=== PATIENT | female | born 1945 | race Caucasian/White ===

== ENCOUNTER 2019-05-05 14:34 | Outpatient (CLI) | payer MEDICARE, MEDICAID, SELFPAY ==
--- NOTE | 2019-05-05 14:45 | CT_ITS ---
WS: [id number] CT CHEST TECHNIQUE: Contrast enhanced CT of the chest with coronal and sagittal reformatted images. CLINICAL INFORMATION: ABNORMAL FINDINGS ON DIAGNOSTIC IMAGING, ABNORMAL CHEST XRAY COMPARISON: 8 9,019 DLP: 935.[address] scans at [facility] use at least one of these dose optimization techniques: automat ed exposure control; mA and/or kV adjustment per patient size (includes targeted exams where dose is matched to clinical indication); or iterative reconstruction. FINDINGS: Mild chronic emphysematous changes. Cardiomegaly. Tiny subpleural nodules in the upper lobes measurin g 2 to 3 mm are unchanged in appearance since the prior examination. No new suspicious pulmonary opac ities. No acute pulmonary infiltrates. No consolidation or pleural fluid. No mediastinal or hilar lymphadenopathy. Postoperative changes gastric esophageal junction. Adrenal g lands are normal. Fatty atrophy of the pancreas. Cardiac pacer. Surgical clips at the thoracic inlet. Aortic calcification. Hypertrophic changes thoracic spine with multilevel degenerative narrowing. CT/CT chest w con* [id number] IMPRESSION: 1. Mild chronic emphysematous changes. 2. Tiny subpleural nodule in the left upper lobe measuring 3 mm and additional 2-3 tiny subpleural nodules in the right upper lobe are unchanged. Recommend 1 2 month follow-up. 3. No mediastinal or hilar lymphadenopathy. 4. Postoperative changes GE junction.
[2019-05-05] MEDS: iohexol 300 mg/mL 100 mL Btl IV (15:17)
== END 2019-05-05 14:35 | disposition home or self-care (01) ==
PROVIDERS: Family Provider Nurse Practitioner Family; PCP Nurse Practitioner Family; Visit Provider Nurse Practitioner Family
DX: J43.9 Emphysema, unspecified (principal); R93.89 Abnormal findings on diagnostic imaging of other specified body structures; R91.1 Solitary pulmonary nodule; Z98.890 Other specified postprocedural states
CPT/HCPCS: 71260; Q9967

== ENCOUNTER 2019-07-22 07:13 | Emergency (ER) | payer MEDICARE, MEDICAID, SELFPAY ==
[2019-07-22 07:14] VITALS: BP 125/64; PULSE 78; RESP 18; TEMP 36.7; O2SAT 94; BMI 39.4
--- NOTE | 2019-07-22 07:24 | ED_ITS ---
HPI - Extremity Problem General: Chief complaint: Extremity Problem,Nontraumatic Stated complaint: LOW BACK AND RIGHT KNEE PAIN Time Seen by Provider: 07/22/19 07:23 Source: patient and EMS Mode of arrival: EMS Limitations: no limitations History of Present Illness: HPI Narrative: Patient is a 74-year-old female who presents to ED today via EMS for complaints of chronic back pain and acute right lower extremity pain. Patient states she suffers from chronic back pain over the past several years. She has been told that she has what sounds to be an osteophyte on one of her discs. Patient tells me the pain today is not any different than her normal pain. She states yesterday however she was feeling good and decided to get up and dust her house and afterwards began noticing right knee pain. Denies any known injury or trauma to the knee. She is not complaining of hip pain or pain anywhere else throughout the extremity. She denies numbness, tingling, loss of sensation. Patient is normally ambulatory with the help of a walker but states she cannot walk now due to pain in the knee. MD Complaint: joint paint Onset (ago): day(s) (yesterday) Location: right Relieving factors: immobilization Exacerbating factors: range of motion, weight bearing, walking and palpation Associated symptoms: Deny chest pain or fever(s) Review of Systems General: Reports: 10 or more systems reviewed and unremarkable except in HPI and below Const: Denies: fever, chills, body aches, fatigue or malaise Eyes: Denies: change in vision, blurry vision or photophobia Card: Denies: chest pain, palpitations, irregular heart rhythm, edema, swelling of feet/ankles, lightheadedness, syncope or pre-syncope Resp: Denies: shortness of breath, productive cough or chest congestion GI: Denies: abdominal pain, nausea, vomiting or diarrhea : Denies: flank pain, difficulty urinating, painful urination, urinary frequency, urinary urgency or urinary hesitancy Musc: Reports: back pain (chronic), joint pain (R knee) and limited range of motion (R knee); Denies: neck pain, extremity pain, extremity swelling or joint swelling Neuro: Denies: headache, numbness in extremities, weakness in extremities, changes in sensation, lack of coordination or dizziness [facility] ED PFSH: Social History Smoking and tobacco status: never smoked Physical Exam Const: COMMON NORMALS: no apparent distress, oriented x3, no limitations and alert NUTRITIONAL APPEARANCE: obese HENMT: COMMON NORMALS: normocephalic and head/scalp atraumatic HEAD & SCALP: normocephalic and atraumatic Resp: COMMON NORMALS: normal respiratory effort and clear to auscultation bilaterally AUSCULTATION: clear to auscultation bilaterally Cardio: COMMON NORMALS: regular rate and regular rhythm RATE: regular rate RHYTHM: regular rhythm GI: COMMON NORMALS: normal to inspection, nondistended, normoactive bowel sounds, soft to palpation, non-tender, no hepatosplenomegaly and no masses PALPATION: Yes soft and Yes no hepatosplenomegaly : COMMON NORMALS: Yes no CVA tenderness BLADDER/KIDNEY EXAM: Yes no CVA tenderness Back/Pelvis: COMMON NORMALS: no CVA tenderness THORACIC SPINE/UPPER BACK: No thoracic spinal tenderness and No paraspinal muscle tenderness LUMBAR SPINE/LOWER BACK: Yes lumbar spinal tenderness and No paraspinal muscle tenderness Extremity: OTHER: bilateral previous TKA; she is tender to R knee and pt does not cooperate with any form of ROM testing-exam of the knee is limited due to body habitus; she denies tenderness anywhere else to extremity; joint is not red, warm, or swollen; pulses and cap refill intact Neuro: COMMON NORMALS: oriented x3 SENSORIUM/ORIENTATION: Yes alert Skin: COMMON NORMALS: no rashes or lesions noted GENERAL SKIN EXAM: no rashes or lesions noted Course Vital Signs: Vital signs: Vital Signs Temperature 98.1 F 07/22/19 07:14 Pulse Rate 78 07/22/19 07:14 Respiratory Rate 18 07/22/19 07:14 Blood Pressure 125/64 07/22/19 07:14 Pulse Oximetry 96 07/22/19 07:32 MDM - Extremity (Nontraumatic) MDM Narrative: Medical decision making narrative: Spoke with Dr. Simmons regarding XR findings who agreed with setting pt up with outpt orthopedic follow up Imaging Data^: R knee XR: Radiologist's impression: [address] [address] XRay Report Signed Patient: Pallavi Saha Unit #: [id number] : 1945 Age/Sex: 74 / F ADM Date: 07/22/19 Loc: ER Room/Bed: Attending Dr: Ordering Provider/Ordering MD: Lianne Cutler Date of Service: 07/22/19 Procedure(s): XR knee RT 3V* [id number] Accession Number(s): [id number] Report Number: [id number] PROCEDURE INFORMATION: Exam: XR Right Knee Exam date and time: 07/22/2019 7:23 AM Age: 74 years old Clinical indication: Pain; Right; Prior surgery; Surgery date: 6+ months; Surgery type: Knee replacement TECHNIQUE: Imaging protocol: XR Right knee. Views: 3 views. COMPARISON: No relevant prior studies available. FINDINGS: Bones/joints: Patient is status post knee arthroplasty with near anatomical alignment of the prosthesis. No paralleling lucencies about the femoral or tibial component to suggest loosening. No acute fracture or dislocation Small ossific densities about the inferior pole of the patella. Question patella Richards. Possible patellar tendon tear. Soft tissues: Ossified density within the suprapatellar bursa of approximately 2 cm. Site of origin likely the patella. Correlate. Vasculature: Vascular stent within the anterior tibial artery Other findings: Spacer. XR/XR knee RT 3V* [id number] IMPRESSION: 1. Status post total knee arthroplasty. 2. No paralleling lucencies about the femoral or tibial component to suggest loosening. 3. Ossified density within the suprapatellar bursa of approximately 2 cm. Site of origin likely the patella. Correlate. No prior studies are available. Consider CT. 4. Small ossific densities about the inferior pole of the patella. Question patella Richards. Possible patellar tendon tear. Dictated By: Chriss Roper MD Signed By: Chriss Roper MD Signed Date/Time: 07/22/19811 DD/ 9 Discharge Plan Discharge Patient Disposition: Home, Self-Care Clinical Impression: Rupture patellar tendon Qualifiers: Encounter type: initial encounter Laterality: right Qualified Code(s): S86.811A - Strain of other muscle(s) and tendon(s) at lower leg level, right leg, initial encounter Condition: Stable Prescriptions: New hydrocodone-acetaminophen 5-325 mg tablet 1 tab PO Q6H PRN (Reason: pain) Qty: 15 RF: 0 No Action nitroglycerin 0.6 mg/hr Patch 24 Hour 1 patch TRANSDERMAL DAILY RF: 0 Pradaxa 150 mg Capsule 150 mg PO RF: 0 verapamil 180 mg Tablet Extended Release 180 mg PO DAILY RF: 0 isosorbide mononitrate 60 mg Tablet Extended Release 24 Hr 60 mg PO DAILY RF: 0 duloxetine 60 mg Capsule, Delayed Rel Sprinkle 60 mg PO DAILY RF: 0 lisinopril 10 mg Tablet 10 mg PO DAILY RF: 0 Vitamin D2 1,250 mcg (50,000 unit) Capsule 1,250 mcg PO DAILY RF: 0 folic acid 1 mg Tablet 1 mg PO DAILY RF: 0 pantoprazole 40 mg Tablet,Delayed Release (Dr/Ec) 40 mg PO DAILY RF: 0 potassium chloride 10 mEq Tablet Extended Release 10 meq PO DAILY RF: 0 metoprolol tartrate 25 mg Tablet 25 mg PO BID RF: 0 furosemide 40 mg Tablet 40 mg PO DAILY RF: 0 montelukast 10 mg Tablet 10 mg PO DAILY RF: 0 esomeprazole magnesium 40 mg Capsule,Delayed Release(Dr/Ec) 40 mg PO DAILY RF: 0 isosorbide mononitrate 30 mg Tablet Extended Release 24 Hr 30 mg PO TID RF: 0 Synthroid 125 mcg Tablet 125 mcg PO DAILY RF: 0 glimepiride 1 mg Tablet 1 mg PO DAILY RF: 0 digoxin 125 mcg (0.125 mg) Tablet 125 mcg PO EVERY OTHER DAY RF: 0 atorvastatin 10 mg Tablet 10 mg PO QPM RF: 0 alprazolam 1 mg Tablet 1 mg PO BID RF: 0 Discharge Orders: Discharge Order (Routine); Ordered 07/22/19 Ordered By: Lianne Cutler Referrals: Edith Dykes [employer] [Primary Care Provider] - Discharge Diet: Usual diet Activity Restrictions/Additional Instructions: As discussed you need to use your wheelchair as instructed as you are not able to bear weight on the right knee. Unfortunately your leg was too large to fit into a knee immobilizer therefore we have placed you in an Edison wrap. Case management should contact you on Wednesday to give you your appointment date and time for orthopedic follow-up. Use the pain medication prescribed to you as directed for discomfort. You may also apply ice to the knee for 15-20 minutes every hour. Coding Level of Care Code ED Patient Services Representative for Chg Fwd Exam Comprehensive
[2019-07-22 07:32] VITALS: O2SAT 96
--- NOTE | 2019-07-22 08:22 | PC.NURSE ---
ambulation trial with with walker and gait belt. pt tolerated activity very poorly. ED provider in room.
[2019-07-22 08:49] VITALS: BP 107/61; PULSE 71; O2SAT 93
--- NOTE | 2019-07-25 08:57 | DCPLANNER ---
Addendum entered by Augusta White 07/25/19 15:20: Maribel from ortho called, stating that when the clinic called patient that patient stated that she does not want appointment scheduled at this time. Original Note: barber shop manager had message to schedule a follow up appointment for patient with ortho. barber shop manager called the ortho clinic, spoke with Maribel. barber shop manager gave clinic patients information. barber shop manager was told that patients information would be printed and reviewed. Clinic will call family caseworker and patient with appointment information.
== END 2019-07-22 10:00 | disposition home or self-care (01) ==
LOC: ER 09:15
PROVIDERS: Emergency Provider Physician Assistant; Family Provider Nurse Practitioner Family; PCP Nurse Practitioner Family
DX: S86.811A Strain of other muscle(s) and tendon(s) at lower leg level, right leg, initial encounter (principal); X58.XXXA Exposure to other specified factors, initial encounter; M54.5 Low back pain
CPT/HCPCS: 12345; 73562; 99282; 99283

== ENCOUNTER 2020-01-31 00:30 | Inpatient (IN) | payer MEDICARE, MEDICAID, SELFPAY ==
[2020-01-31] VITALS (7 sets, daily range): BP systolic 95–139; BP diastolic 60–81; PULSE 66–84; RESP 14–20; TEMP 36.3–36.9; O2SAT 93–97; BMI 43.2
--- NOTE | 2020-01-31 00:35 | XRR_ITS ---
PROCEDURE INFORMATION: Exam: XR Chest, 1 View Exam date and time: 01/31/2020 12:58 AM Age: 75 years old Clinical indication: Shortness of breath; Prior surgery; Surgery type: Pacemaker; Additional info: Weakness TECHNIQUE: Imaging protocol: XR of the chest Views: 1 view. COMPARISON: CT chest w con* [id number] 05/05/2019 3:05 PM FINDINGS: Tubes, catheters and devices: A permanent sequential pacemaker is present in satisfactory position. Lungs: The pulmonary vascularity is normal. No acute infiltrates are seen. Pleural space: There is no pleural effusion or pneumothorax. Heart/Mediastinum: The cardiac silhouette is enlarged. Bones/joints: Thoracolumbar scoliosis is most likely positional.. XR/XR chest 1V portable [id number] IMPRESSION: No acute abnormality. Stable cardiomegaly.
--- NOTE | 2020-01-31 00:36 | ECG_ITS ---
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 Measurements Intervals [place] Rate: 78 P: RI: -1 QRS: 8 QRSD: 98 T: 99 QT: 372 QTc: 426 Interpretive Statements ATRIAL FIBRILLATION LOW QRS VOLTAGE IN PRECORDIAL LEADS [QRS DEFLECTION < 1.0 mV IN CHEST LEADS] NONSPECIFIC T-WAVE ABNORMALITY Compared to ECG 11/28/2018 17:48:15 Low QRS voltage now present T-wave abnormality now present Ventricular-paced complex(es) or rhythm no longer present Electronically Signed On 01-31-2020 21:44:49 CDT by Angelito Shearer M.D. [id number]
--- NOTE | 2020-01-31 00:47 | ED_ITS ---
HPI - General Adult General: Chief complaint: General Medical Stated complaint: WEAKNESS Time Seen by Provider: 01/31/20 00:31 Source: patient and EMS Mode of arrival: EMS Limitations: no limitations History of Present Illness: HPI narrative: Pallavi is a 75-year-old female who is here by EMS that she been having increasing weakness and dementia. Family states she lives alone and is unable to care for self anymore due to her extreme weakness. She is unable to stand on her own anymore. She is had a rash as well underneath her breast and pannus. Patient denies any pain or fever. She states she has been having severe difficulty walking. Associated symptoms: Reports rash; Deny chest pain, dyspnea, nausea or vomiting Review of Systems Const: Denies: fever(s), chills, body aches or change in appetite Eyes: Denies: blurry vision or eye discomfort ENMT: Denies: throat pain or dental pain Card: Denies: chest pain Resp: Denies: dyspnea GI: Denies: abdominal pain, nausea, vomiting or diarrhea : Denies: dysuria Musc: Denies: neck pain or back pain Skin/Breast: Reports: rash Neuro: Reports: weakness in extremities Psych: Denies: depression Phil/Lymph: Denies: easy bruising All/Imm: Denies: urticaria PFSH ED PFSH: Social History Smoking and tobacco status: never smoked Physical Exam Const: COMMON NORMALS: no acute distress and patient oriented x3 NUTRITIONAL APPEARANCE: obese HENMT: COMMON NORMALS: normocephalic and atraumatic HEAD & SCALP: normocephalic and atraumatic Eye: COMMON NORMALS: Equal, round and reactive pupils present and EOMs intact bilaterally PUPIL: Yes Equal, round and reactive pupils present Neck/C-Spine: COMMON NORMALS: full ROM and supple Chest: COMMONS NORMALS: normal inspection of the chest and normal palpation of entire chest wall Resp: COMMON NORMALS: normal respiratory effort, No retractions, No use of accessory muscles and clear to auscultation bilaterally AUSCULTATION: clear to auscultation bilaterally Cardio: COMMON NORMALS: regular rate, regular rhythm and No murmurs present (Cardio) RATE: regular rate RHYTHM: regular rhythm GI: COMMON NORMALS: Normal to inspection, nondistended, normoactive bowel sounds present, Soft to palpation, non-tender and no masses PALPATION: Yes Soft to palpation Extremity: COMMON NORMALS: normal to inspection and full ROM Neuro: COMMON NORMALS: patient oriented x3, moves all extremities and no focal motor deficits Psych: COMMON NORMALS: mental status grossly normal, Normal thought process present and cooperative THOUGHT PROCESS: Normal thought process present Skin: COMMON NORMALS: no wounds NARRATIVE SKIN EXAM: Fungal rash underneath breasts and pannus Course Vital Signs: Vital signs: Vital Signs Temperature 98.2 F 01/31/20 00:33 Pulse Rate 74 01/31/20 00:45 Respiratory Rate 17 01/31/20 00:45 Blood Pressure 116/61 01/31/20 00:45 Pulse Oximetry 96 01/31/20 00:45 MDM - General Adult MDM Narrative: Medical decision making narrative: Patient presents here with generalized weakness and is unable to care for herself. I spoke to her granddaughter and states that her condition is worsened. Patient is agreeable to admission. Patient likely needs senior living placement. Patient's not able to ambulate here without assistance. Lab Data: Labs: Lab Results 01/31/20 01/31/20 01/31/20 Range/Units 00:50 00:50 01:23 WBC 10.3 H (4.0-10.0) 10^3/ uL RBC 2.92 L (4.1-5.3) 10^6/u L Hgb 8.7 L (11.5-15.3) g/dL Hct 29.2 L (37.0-47.0) % MCV 100.0 H (81-99) fL MCH 29.8 (28.0-34.0) pg MCHC 29.8 L (30.0-36.0) g/dL RDW 18.7 H (12.1-15.1) % Plt Count 366 (130-400) 10^3/c mm MPV 8.8 (7.4-10.4) fL Neut % (Auto) 66.9 % Lymph % (Auto) 19.8 % [place] % (Auto) 11.1 % Eos % (Auto) 1.3 % Baso % (Auto) 0.3 % Neut # (Auto) 6.86 (1.8-7.7) 10^3/u L Lymph # (Auto) 2.0 (0.8-4.8) 10^3/u L [place] # (Auto) 1.1 H (0.2-0.9) 10^3/u L Eos # (Auto) 0.1 (0.0-0.8) 10^3/u L Baso # (Auto) 0.0 (0.0-0.1) 10^3/u L Nucleated RBC % (a uto) 0 % Nucleated RBCs # 0.0 /100WBC Sodium 132 L (136-145) mmol/L Potassium 4.7 (3.5-5.1) mmol/L Chloride 98 (98-107) mmol/L Carbon Dioxide 25 (22-29) mmol/L Anion Gap 13.7 (5-19) BUN 29 H (8-23) mg/dL Creatinine 1.4 H (0.5-0.9) mg/dL GFR Calculation Not Reportable Glucose 108 (65-115) mg/dL Calculated Osmolal ity 280 L (285-295) mOsm/k g Calcium 9.0 (8.5-10.5) mg/dL Total Bilirubin 0.4 (0.15-1.2) mg/dL AST 13 (0-32) U/L ALT 7 (0-33) U/L Alkaline Phosphata se 103 (35-105) IU/L Total Protein 7.4 (6.6-8.7) g/dL Albumin 3.1 L (3.5-5.2) g/dL Globulin 4.3 (1.3-4.6) g/dL Urine Color Yellow (Yellow) Urine Appearance Clear (CLEAR) Urine pH 5 (5-7) Ur Specific Gravit y 1.020 (1.005-1.030) Urine Protein Neg (Negative) Urine Glucose (UA) Norm (Normal) Urine Ketones Negative (Negative) Urine Blood Neg (Negative) Urine Nitrate Negative (Negative) Urine Bilirubin Neg (Negative) Urine Urobilinogen Norm (Negative) mg/dL Ur Leukocyte Bessie ase Negative (Negative) EKG Data^: EKG 1: Attestation: I personally reviewed and interpreted this EKG as follows: EKG interpretation date: 01/31/20 EKG interpretation time: 00:48 Computer generated interpretation: afib hr [address] or t wave abnormalities qrs 98 qtc 406 Discharge Plan Discharge Prescriptions: No Action nitroglycerin 0.6 mg/hr Patch 24 Hour 1 patch TRANSDERMAL DAILY RF: 0 Pradaxa 150 mg Capsule 150 mg PO RF: 0 verapamil 180 mg Tablet Extended Release 180 mg PO DAILY RF: 0 isosorbide mononitrate 60 mg Tablet Extended Release 24 Hr 60 mg PO DAILY RF: 0 duloxetine 60 mg Capsule, Delayed Rel Sprinkle 60 mg PO DAILY RF: 0 lisinopril 10 mg Tablet 10 mg PO DAILY RF: 0 Vitamin D2 1,250 mcg (50,000 unit) Capsule 1,250 mcg PO DAILY RF: 0 folic acid 1 mg Tablet 1 mg PO DAILY RF: 0 pantoprazole 40 mg Tablet,Delayed Release (Dr/Ec) 40 mg PO DAILY RF: 0 potassium chloride 10 mEq Tablet Extended Release 10 meq PO DAILY RF: 0 metoprolol tartrate 25 mg Tablet 25 mg PO BID RF: 0 furosemide 40 mg Tablet 40 mg PO DAILY RF: 0 montelukast 10 mg Tablet 10 mg PO DAILY RF: 0 esomeprazole magnesium 40 mg Capsule,Delayed Release(Dr/Ec) 40 mg PO DAILY RF: 0 isosorbide mononitrate 30 mg Tablet Extended Release 24 Hr 30 mg PO TID RF: 0 Synthroid 125 mcg Tablet 125 mcg PO DAILY RF: 0 glimepiride 1 mg Tablet 1 mg PO DAILY RF: 0 digoxin 125 mcg (0.125 mg) Tablet 125 mcg PO EVERY OTHER DAY RF: 0 atorvastatin 10 mg Tablet 10 mg PO QPM RF: 0 alprazolam 1 mg Tablet 1 mg PO BID RF: 0 hydrocodone-acetaminophen 5-325 mg tablet 1 tab PO Q6H PRN (Reason: pain) Qty: 15 RF: 0 Coding Level of Care Code ED Material Lister for Chg Fwd Exam Comprehensive
--- NOTE | 2020-01-31 00:59 | PC.NURSE ---
cycled patients blood pressure before administering Hydralazine and it was 120/59. Withheld the med and told ED physician. Discontinue med per physician.
[2020-01-31 01:15] LABS: Alanine Aminotransferase 7 U/L (0-33); Albumin Level 3.1 g/dL (3.5-5.2); Alkaline Phosphatase 103 IU/L (35-105); Anion Gap 13.7 (5-19); Aspartate Amino Transferase 13 U/L (0-32); Blood Urea Nitrogen 29 mg/dL (8-23); Carbon Dioxide 25 mmol/L (22-29); Chloride 98 mmol/L (98-107); Globulin 4.3 g/dL (1.3-4.6); Glucose 108 mg/dL (65-115); Osmolality Calculated 280 mOsm/kg (285-295); Potassium 4.7 mmol/L (3.5-5.1); Sodium 132 mmol/L (136-145); Total Bilirubin 0.4 mg/dL (0.15-1.2); Total Protein 7.4 g/dL (6.6-8.7)
[2020-01-31 02:12] LABS: Basophils % 0.3 %; Eosinophils # 0.1 10^3/uL (0.0-0.8); Eosinophils % 1.3 %; Hematocrit 29.2 % (37.0-47.0); Hemoglobin 8.7 g/dL (11.5-15.3); Lymphocytes % 19.8 %; Mean Corpuscular HGB Conc 29.8 g/dL (30.0-36.0); Mean Corpuscular Hemoglobin 29.8 pg (28.0-34.0); Mean Platelet Volume 8.8 fL (7.4-10.4); Monocytes # 1.1 10^3/uL (0.2-0.9); Monocytes % 11.1 %; Neutrophils # 6.86 10^3/uL (1.8-7.7); Neutrophils % 66.9 %; Nucleated Red Blood Cells % 0 %; Platelet Count 366 10^3/cmm (130-400); Red Blood Count 2.92 10^6/uL (4.1-5.3); Red Cell Distribution Width 18.7 % (12.1-15.1); White Blood Count 10.3 10^3/uL (4.0-10.0)
[2020-01-31 02:30] LABS: Add Urine Microscopic? NO
[2020-01-31 02:41] LABS: Urine Appearance Clear (CLEAR); Urine Color Yellow (Yellow)
[2020-01-31 02:42] LABS: Bilirubin Urine Neg (Negative); Blood Urine Neg (Negative); Glucose Urine UA Norm (Normal); Ketones Urine Negative (Negative); Leukocyte Esterase Urine Negative (Negative); Nitrate Urine Negative (Negative); Protein Urine Neg (Negative); Urobilinogen Urine Norm (Negative); pH Urine 5 (5-7)
--- NOTE | 2020-01-31 03:01 | P.HP_ITS ---
Providers/Chief Complaint Primary Care Provider: Edith Dykes TOP INVENTORY CONTROL EXECUTIVE-C Chief Complaint: WEAKNESS History of Present Illness Pallavi Saha is a 75 year old female who carries history of diabetes, sick sinus syndrome status post pacemaker placement, hypothyroidism, chronic kidney disease stage III, right groin infection in 2018 complicated with fistula formation status post fistulectomy came in today for worsening fatigue and lethargy. Patient lives alone, has moved out of her home in an apartment, she is currently sharing apartment with her twin sister, patient is stating that she mostly stays in the couch, she is not able to use walker anymore because of extreme weakness of her legs, she has not noticed any visual changes, facial asymmetry, slurred speech, numbness tingling of upper extremities, dysuria, chest pain, shortness of breath. Her daughters are not able to assist her for daily activities. Because of these concerning changes her health is gradually declining, she also has worsening of hyperemia of abdominal fold cellulitis, she has not noticed any fever or purulent discharge, abdominal folds are very moist, hyperemia is worsening. Diagnosis in the ER revealed normal hemodynamics, chronic anemia 8.7, macro cytic, hyponatremia 132, baseline creatinine 1.4 EKG showing atrial fibrillation, chest x-ray showing chronic emphysematous changes otherwise no acute infiltrates UA unremarkable I requested B12, TSH, will start her on nystatin powder and doxycycline Review of Systems Const: Reports: body aches, change in appetite and fatigue; Denies: fever(s) Eyes: Denies: change in vision ENMT: Denies: throat pain Card: Reports: dyspnea on exertion; Denies: chest pain Resp: Reports: dyspnea GI: Reports: abdominal pain : Denies: flank pain Musc: Reports: muscle cramps and muscle weakness; Denies: neck pain or extremity pain Skin/Breast: Reports: lesions (Abdominal pannus/panniculitis) Neuro: Reports: difficulty walking; Denies: headache(s) Psych: Reports: depression Endo: Reports: tired all the time; Denies: polyuria Phil/Lymph: Denies: easy bruising All/Imm: Denies: urticaria Medications/Allergies Home Medications Medication Instructions Recorded Confirmed Last Taken Type alprazolam 1 mg PO BID 07/22/19 07/22/19 Unknown History atorvastatin 10 mg PO QPM 07/22/19 07/22/19 Unknown History dabigatran etexilate [Pradaxa] 150 mg PO 07/22/19 Unknown History digoxin 125 mcg PO EVERY OTHER DAY 07/22/19 07/22/19 Unknown History duloxetine 60 mg PO DAILY 07/22/19 07/22/19 Unknown History ergocalciferol (vitamin D2) 1,250 mcg PO DAILY 07/22/19 07/22/19 Unknown History [Vitamin D2] esomeprazole magnesium 40 mg PO DAILY 07/22/19 07/22/19 Unknown History folic acid 1 mg PO DAILY 07/22/19 07/22/19 Unknown History furosemide 40 mg PO DAILY 07/22/19 07/22/19 Unknown History glimepiride 1 mg PO DAILY 07/22/19 07/22/19 Unknown History hydrocodone-acetaminophen 1 tab PO Q6H PRN #15 tab 07/22/19 Unknown Rx isosorbide mononitrate 30 mg PO TID 07/22/19 07/22/19 Unknown History isosorbide mononitrate 60 mg PO DAILY 07/22/19 07/22/19 Unknown History levothyroxine [Synthroid] 125 mcg PO DAILY 07/22/19 07/22/19 Unknown History lisinopril 10 mg PO DAILY 07/22/19 07/22/19 Unknown History metoprolol tartrate 25 mg PO BID 07/22/19 07/22/19 Unknown History montelukast 10 mg PO DAILY 07/22/19 07/22/19 Unknown History nitroglycerin 1 patch TRANSDERMAL DAILY 07/22/19 07/22/19 Unknown History pantoprazole 40 mg PO DAILY 07/22/19 07/22/19 Unknown History potassium chloride 10 meq PO DAILY 07/22/19 07/22/19 Unknown History verapamil 180 mg PO DAILY 07/22/19 07/22/19 Unknown History Allergies Allergy/AdvReac Type Severity Reaction Status Date / Time metformin [From Glucophage] Allergy Unknown Verified 07/22/19 07:24 Tetanus Vaccines and Toxoid Allergy Unknown Verified 07/22/19 07:24 PFSH Acute PFSH: Medical History Atrial fibrillation CKD (chronic kidney disease) stage 2, GFR 60-89 ml/min Coronary artery disease Hypertension Hypothyroid Infected abrasion of groin 2018) infection requiring I&D 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 Morbid obesity Peripheral vascular disease Type 2 diabetes mellitus Surgical History H/O knee surgery H/O shoulder surgery H/O thyroidectomy For Graves' disease H/O: hysterectomy History of appendectomy History of permanent cardiac pacemaker placement SSS S/P cholecystectomy S/P gastric surgery LAP-BAND later followed by gastric sleeve Family History Other CAD (coronary artery disease) Dementia Stroke Social History Smoking and tobacco status: never smoked Alcohol intake: never Substance/Drug Use: never Lives independently: Yes Housing: House Vitals/I&O/Wt Last Vital Signs Temp 98.2 F 01/31/20 00:33 Pulse 74 01/31/20 00:45 Resp 17 01/31/20 00:45 BP 116/61 01/31/20 00:45 Pulse Ox 96 01/31/20 00:45 Weight last 48 hrs Weight 117.934 kg Physical Exam Narrative: EXAM NARRATIVE: Appears more than stated age Morbidly obese female laying comfortably in her bed She seems to be very lethargic and slow to response to my questions No facial asymmetry No active chest pain or shortness of breath No acute respiratory stress Variable S1-S2 heart rate 74 Distended abdomen, soft, panniculitis, hyperemia without purulent drainage, skin breakdown at the level of contact of abdominal fold with her thighs Sim catheter draining concentrated urine Appears very lethargic Lower extremity nonpitting edema Strength 2/5 right leg, 3/5 left leg, 3/5 upper extremities, no facial asymmetry Patient is coherent awake alert oriented x3 Urinary Catheter Management^: Sim: Cath Placed During This Visit: yes Reason for Continuing Indwelling Catheter: Acute Urinary Retention or Obstruction Urinary Catheter Date of Insertion: 01/31/20 Urinary Catheter Time of Insertion: 01:26 Data : 01/31/20 00:50 01/31/20 00:50 A&P Assessment and plan (1) Panniculitis: Status: Acute (2) Generalized weakness: Status: Acute (3) Hyponatremia: Status: Acute (4) Anemia, macrocytic: Status: Acute Additional A&P Information Panniculitis Nystatin powder Skin ulcers at the contact abdominal fold with her thighs, she has history of worsening of abdominal fold infections in the past, would use doxycycline as well Generalized weakness Multifactorial, age, hyponatremia, macrocytic anemia, hypothyroidism We will check B12, TSH, physical therapy evaluation, Hyponatremia seems to be due to poor p.o. intake Physical therapy evaluation She will most likely need fpc placement considering her social dynamics No acute signs of stroke I do believe due to physical deconditioning she is not able to ambulate independently, she has been on anticoagulant for A. fib, if there is any change in her mental status I will obtain CT head without contrast Hypothyroidism: will continue same home regimen for now, will adjust medication according to the TSH level Atrial fibrillation Without RVR heart rate in 70s, I would hold digoxin for now, Hold verapamil, continue metoprolol Chronic kidney disease stage III I do not have GFR to classify class III Creatinine seems to be around baseline I would continue lisinopril for now Goals of care discussed with the patient: Full code Consistent carb diet DVT prophylaxis Heparin Attestations Medical Necessity Statement*: Patient needs admission to the hospital for worsening of abdominal fold hyperemia, lower extremity weakness, needs physical therapy evaluation and most likely will need fpc placement Time Spent in Patient Care: Greater than 35 minutes 40mins Coding Level of Care 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
--- NOTE | 2020-01-31 03:38 | PC.NURSE ---
report called to Med-surg unit and given to Davi MATOS
[2020-01-31 05:02] LABS: Estmated Average Glucose 105; Hemoglobin A1C 5.3 % (4.0-6.0)
[2020-01-31 06:40] LABS: Glucose Point of Care 114 mg/dL (70-110)
[2020-01-31 07:00] LABS: Thyroid Stimulating Hormone 1.17 uIU/mL (0.27-4.20); Vitamin B12 1232 pg/mL (232-1245)
[2020-01-31] MEDS: metoprolol tartrate 25 mg Tablet PO (08:21)
[2020-01-31] MEDS: doxycycline 100 mg Tablet PO ×2 (08:21→17:12)
[2020-01-31] MEDS: pantoprazole DR 40 mg Tablet PO (08:21)
[2020-01-31] MEDS: levothyroxine 125 mcg Tablet PO (08:21)
[2020-01-31] MEDS: lisinopril 10 mg Tablet PO (08:21)
[2020-01-31] MEDS: nystatin powder 15 gm Btl 1 APPLIC TOPICAL ×2 (08:22→17:14)
[2020-01-31 11:31] LABS: Glucose Point of Care 117 mg/dL (70-110)
[2020-01-31 14:09] LABS: SARS Covid-2 Antigen Negative (Negative)
[2020-01-31 16:36] LABS: Glucose Point of Care 148 mg/dL (70-110)
[2020-01-31] MEDS: atorvastatin 40 mg Tablet 20 MG PO (17:12)
[2020-01-31 22:41] LABS: Glucose Point of Care 186 mg/dL (70-110)
[2020-02-01] VITALS: BP 104/57; PULSE 71; RESP 32; TEMP 37; O2SAT 92
[2020-02-01 04:00] VITALS: BP 108/64; PULSE 87; RESP 20; TEMP 36.9; O2SAT 94
--- NOTE | 2020-02-01 05:56 | PC.NURSE ---
Patient mainly slept, no complaints throughout.
[2020-02-01 06:43] LABS: Glucose Point of Care 106 mg/dL (70-110)
[2020-02-01 07:18] VITALS: BP 139/75; PULSE 78; RESP 16; TEMP 36.7; O2SAT 96
[2020-02-01] MEDS: pantoprazole DR 40 mg Tablet PO (08:04)
[2020-02-01] MEDS: metoprolol tartrate 25 mg Tablet PO ×2 (08:04→17:54)
[2020-02-01] MEDS: doxycycline 100 mg Tablet PO ×2 (08:04→17:54)
[2020-02-01] MEDS: levothyroxine 125 mcg Tablet PO (08:04)
[2020-02-01] MEDS: lisinopril 10 mg Tablet PO (08:05)
[2020-02-01] MEDS: nystatin powder 15 gm Btl 1 APPLIC TOPICAL ×2 (08:05→17:54)
--- NOTE | 2020-02-01 08:12 | PM.PN ---
Subjective Subjective: Interval history: Patient is somnolent this morning. Denies shortness of breath or chest pain. She is laying flat without being dyspneic. Patient clinically appears dry. Patient has evidence of candidal intertrigo which appears fading. Vitals/I&O/Wt Last Vital Signs Temp 98.0 F 02/01/20 07:18 Pulse 78 02/01/20 07:18 Resp 16 02/01/20 07:18 BP 139/75 02/01/20 07:18 Pulse Ox 96 02/01/20 07:18 01/31/20 02/01/20 02/01/20 22:59 06:59 14:59 Intake Total 120 / 180 360 / 540 Output Total 1400 / 1400 1000 / 2400 Balance -1280 / -1220 -640 / -1860 Weight last 48 hrs Weight 117.934 kg Physical Exam Const: COMMON NORMALS: no acute distress Resp: COMMON NORMALS: normal respiratory effort and clear to auscultation bilaterally AUSCULTATION: clear to auscultation bilaterally Cardio: COMMON NORMALS: regular rate, regular rhythm and S2 normal heart sound present RATE: regular rate RHYTHM: regular rhythm HEART SOUNDS: S2 normal heart sound present OTHER: No lower extremity edema GI: COMMON NORMALS: Normal to inspection, nondistended, normoactive bowel sounds present, Soft to palpation and non-tender PALPATION: Yes Soft to palpation Neuro: COMMON NORMALS: no focal motor deficits Urinary Catheter Management^: Ism: Cath Placed During This Visit: yes Reason for Continuing Indwelling Catheter: Acute Urinary Retention or Obstruction Urinary Catheter Date of Insertion: 01/31/20 Urinary Catheter Time of Insertion: 01:26 Data : 01/31/20 00:50 01/31/20 00:50 A&P Assessment and plan (1) Panniculitis: Status: Acute (2) Generalized weakness: Status: Acute (3) Anemia, macrocytic: Status: Acute (4) Dehydration with hyponatremia: Present on admission. Status: Acute Additional A&P Information Panniculitis Nystatin powder Skin ulcers at the contact abdominal fold with her thighs, she has history of worsening of abdominal fold infections in the past, would use doxycycline as well Generalized weakness Multifactorial, age, hyponatremia, macrocytic anemia, hypothyroidism We will check B12, TSH, physical therapy evaluation, Hyponatremia seems to be due to poor p.o. intake Physical therapy evaluation She will most likely need chcf placement considering her social dynamics No acute signs of stroke I do believe due to physical deconditioning she is not able to ambulate independently, she has been on anticoagulant for A. fib, if there is any change in her mental status I will obtain CT head without contrast Hypothyroidism: will continue same home regimen for now, will adjust medication according to the TSH level Atrial fibrillation Without RVR heart rate in 70s, I would hold digoxin for now, Hold verapamil, continue metoprolol Chronic kidney disease stage III I do not have GFR to classify class III Creatinine seems to be around baseline I would continue lisinopril for now Goals of care discussed with the patient: Full code Consistent carb diet DVT prophylaxis Heparin PLAN: We will hold Lasix for 1 more day. Patient clinically appears dry. Encouraged oral intake. We will check BNP and prequest echocardiogram To evaluate wall motion and ejection fraction before considering IV fluids Check CBC CMP and magnesium this morning Attestations Medical Necessity Statement*: Patient was dehydration as well as generalized weakness requires close inpatient monitoring and treatment. 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
--- NOTE | 2020-02-01 08:33 | USCV_ITS ---
Pallavi Saha Age: 75 Gender: F : 1945 Exam Date: 02/01/2020 13:23 Ordering Phys: Marko Vogel MD Technologist: Elvia Wilson [place] [facility] [place]: sob, BP: / HR: 86 Rhythm: Sinus Technical Quality: Fair MEASUREMENTS (Male / Female) Normal Values 2D ECHO LV Diastolic Diameter PLAX 4.0 cm 4.2 - 5.9 / 3.9 - 5.3 cm LV Systolic Diameter PLAX 1.8 cm IVS Diastolic Thickness 1.3 cm 0.6 - 1.0 / 0.6 - 0.9 cm IVS Systolic Thickness 1.6 cm LVPW Diastolic Thickness 1.1 cm 0.6 - 1.0 / 0.6 - 0.9 cm LVPW Systolic Thickness 1.5 cm LV Ejection Fraction 2D Teich 86.3 % LV Ejection Fraction MOD 2C 79.1 % LV Ejection Fraction 2C AL 79.2 % LA Diameter 3.0 cm LA Width 3.9 cm LA Height 7.2 cm RA Width 3.5 cm RA Height 5.7 cm M-MODE LV Diastolic Diameter MM 5.4 cm 4.2 - 5.9 / 3.9 - 5.3 cm LV Systolic Diameter MM 3.8 cm LV Ejection Fraction MM Teich 55.3 % IVS Diastolic Thickness MM 1.0 cm 0.6 - 1.0 / 0.6 - 0.9 cm IVS Systolic Thickness MM 1.5 cm LVPW Diastolic Thickness MM 1.1 cm 0.6 - 1.0 / 0.6 - 0.9 cm LVPW Systolic Thickness MM 1.8 cm Aortic Annulus Diameter 3.4 cm LA Ao Ratio MM 0.9 MV E Point Septal Separation 0.8 cm DOPPLER AV Peak Velocity 128.0 cm/s LVOT Peak Velocity 108.0 cm/s MV Peak Velocity 88.0 cm/s MV Area PHT 4.0 cm squared Mitral E to A Ratio 5.4 MV E' Velocity 60.0 cm/s Mitral E to MV E' Ratio 6.9 Mitral E to LV E' Lateral Ratio 7.0 Mitral E to LV E' Septal Ratio 6.7 TR Peak Velocity 244.2 cm/s TR Peak Gradient 23.9 mmHg Right Atrial Pressure 3.0 mmHg Pulmonary Artery Systolic Pressu 26.9 mmHg PV Peak Velocity 139.0 cm/s RV Acceleration Time 0.1 s FINDINGS Left Ventricle Normal left ventricular size and systolic function, EF 75 %. No regional wall motion abnormalities. Right Ventricle Normal right ventricular size. Right Atrium Mild to moderate enlargement Left Atrium Mild to moderate dilatation Mitral Valve Thickened mitral valve. Moderate mitral annular calcification. Aortic Valve Thickened aortic valve. Tricuspid Valve Trace to mild tricuspid valve regurgitation. Pulmonic Valve Pulmonic valve not well visualized. Pericardium Trivial pericardial effusion. Aorta Plaque seen in the ascending aorta. CONCLUSIONS Normal left ventricular size and systolic function, EF 75 %. No regional wall motion abnormalities. Mild Trace to mild tricuspid valve regurgitation. to moderate biatrial enlargement. Thickened aortic valve. Thickened mitral valve. Moderate mitral annular calcification. Trivial pericardial effusion. Technically difficult study because of the poor ultrasonic window. Comparison with the previous study is difficult because of the difference in the technical quality. Dr Angelito Shearer MD [facility] (Electronically Signed) Final Date: 01 February 2020 19:35 S
[2020-02-01 09:56] LABS: Basophils % 0.4 %; Eosinophils # 0.1 10^3/uL (0.0-0.8); Eosinophils % 1.4 %; Hemoglobin 9.3 g/dL (11.5-15.3); Lymphocytes # 1.5 10^3/uL (0.8-4.8); Lymphocytes % 18.5 %; Mean Corpuscular Hemoglobin 30.1 pg (28.0-34.0); Mean Corpuscular Volume 100.3 fL (81-99); Mean Platelet Volume 8.4 fL (7.4-10.4); Monocytes # 0.8 10^3/uL (0.2-0.9); Monocytes % 9.8 %; Neutrophils # 5.49 10^3/uL (1.8-7.7); Neutrophils % 69.5 %; Nucleated Red Blood Cells % 0 %; Platelet Count 359 10^3/cmm (130-400); Red Blood Count 3.09 10^6/uL (4.1-5.3); Red Cell Distribution Width 18.4 % (12.1-15.1); White Blood Count 7.9 10^3/uL (4.0-10.0)
--- NOTE | 2020-02-01 09:58 | PC.CHAP ---
Pastoral Care Encounter/Spiritual Assessment Type of Contact [] Declined steamtable attendant railroad visit [] Patient/Family/Request visit [] Outpatient visit [x] Follow-up visit [] Physician referral [] Code/Alert [] Routine visit [] Staff referral [] Actively dying [] Patient sleeping [] Family support [] [] Out of room [] Palliative care [] [] Receiving care in room [] Pre-surgical visit [] Trauma [] Long length of stay [] ICU visit [] Other: Relational/Emotional Strength [] Patient feels connected with others/family/visitors/staff [] Distress [] Loneliness/isolation [] Abandonment Spirituality of Patient [] Person of Stacy [] Attends Evangelical of their Stacy [] Believes in Prayer [] Reads Bible or Church materials [] There are Spiritual issues to be addressed Risk And Compliance Analytics Director Interventions [] Prayer [] Active listening [] Non-anxious presence [] Spiritual/emotional support [] Crisis/trauma care [] Spiritual counseling [] Bereavement support [] Provided bereavement packet [] Provided Bible/devotional materials [] Provided toy/stuffed animal, coloring book to patient or family member [] Provided Communion [] Anointing/[place] [] Salvation [] Completed spiritual assessment [] Other: Impact on Illness or Injury [] Angry [] Fearful [] Anxious [] Often cries [] Exhaustion [] Unable to work [] Unable to attend sabianist [] Unable to walk/stand [] Unable to read [] Unable to drive [] Unable to eat/drink [] Unable to sleep [] Unable to be with family [] Patient intubated [] Other: Summary Follow-up visit Time spent with patient 5 mins
[2020-02-01 10:29] LABS: Magnesium 2.1 mg/dL (1.7-2.3); NT Pro B Type Natriuretic Pept 1705 pg/mL (0-125)
[2020-02-01 10:47] LABS: Glucose Point of Care 143 mg/dL (70-110)
[2020-02-01 10:57] VITALS: BP 111/69; PULSE 75; RESP 18; TEMP 36.9; O2SAT 95
[2020-02-01 15:13] VITALS: BP 126/75; PULSE 84; RESP 18; TEMP 36.8; O2SAT 97
[2020-02-01 17:01] LABS: Glucose Point of Care 139 mg/dL (70-110)
[2020-02-01] MEDS: atorvastatin 40 mg Tablet 20 MG PO (17:54)
[2020-02-01 19:30] VITALS: BP 120/73; PULSE 94; RESP 17; TEMP 36.8; O2SAT 94
[2020-02-01 20:35] LABS: Glucose Point of Care 117 mg/dL (70-110)
--- NOTE | 2020-02-01 21:17 | ECG_ITS ---
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 Measurements Intervals [place] Rate: 86 P: [place]: -1 QRS: 6 QRSD: 96 T: 102 QT: 357 QTc: 428 Interpretive Statements ATRIAL FIBRILLATION LOW QRS VOLTAGE IN PRECORDIAL LEADS [QRS DEFLECTION < 1.0 mV IN CHEST LEADS] MODERATE ST DEPRESSION [0.05+ mV ST DEPRESSION] ABNORMAL QRS-T ANGLE [QRS-T AXIS DIFFERENCE > 60] INTERPRETATION BASED ON A DEFAULT AGE OF 40 YEARS Compared to ECG 01/31/2020 00:48:25 ST (T wave) deviation now present T-wave abnormality no longer present Electronically Signed On 02-02-2020 20:27:40 CDT by Angelito Shearer M.D. [id number]
[2020-02-01] MEDS: lidocaine 2% viscous 15 ML, aluminum-mag hydrox-simethicon 30 ML, sucralfate oral liq 1 GM PO (21:57)
[2020-02-01 22:13] LABS: D Dimer 1.97 ug/mIFEU (0-0.59)
[2020-02-02] VITALS: BP 136/83; PULSE 77; RESP 16; TEMP 36.7; O2SAT 95
[2020-02-02 03:27] VITALS: BP 137/86; PULSE 86; RESP 14; TEMP 36.8; O2SAT 90
[2020-02-02 05:29] LABS: Basophils % 0.4 %; Eosinophils # 0.1 10^3/uL (0.0-0.8); Eosinophils % 1.7 %; Hematocrit 32.1 % (37.0-47.0); Hemoglobin 9.7 g/dL (11.5-15.3); Mean Corpuscular HGB Conc 30.2 g/dL (30.0-36.0); Mean Corpuscular Hemoglobin 29.9 pg (28.0-34.0); Mean Corpuscular Volume 99.1 fL (81-99); Mean Platelet Volume 8.6 fL (7.4-10.4); Monocytes # 0.8 10^3/uL (0.2-0.9); Monocytes % 12.1 %; Neutrophils # 3.93 10^3/uL (1.8-7.7); Neutrophils % 56.5 %; Nucleated Red Blood Cells % 0 %; Platelet Count 351 10^3/cmm (130-400); Red Blood Count 3.24 10^6/uL (4.1-5.3); Red Cell Distribution Width 17.9 % (12.1-15.1)
[2020-02-02 06:10] LABS: Alanine Aminotransferase 7 U/L (0-33); Albumin Level 3.1 g/dL (3.5-5.2); Alkaline Phosphatase 102 IU/L (35-105); Anion Gap 15.5 (5-19); Aspartate Amino Transferase 14 U/L (0-32); Blood Urea Nitrogen 22 mg/dL (8-23); Calcium 9.1 mg/dL (8.5-10.5); Carbon Dioxide 27 mmol/L (22-29); Chloride 99 mmol/L (98-107); Globulin 4.5 g/dL (1.3-4.6); Glucose 104 mg/dL (65-115); Magnesium 2.1 mg/dL (1.7-2.3); Osmolality Calculated 288 mOsm/kg (285-295); Potassium 4.5 mmol/L (3.5-5.1); Sodium 137 mmol/L (136-145); Total Bilirubin 0.3 mg/dL (0.15-1.2); Total Protein 7.6 g/dL (6.6-8.7)
[2020-02-02 06:23] LABS: NT Pro B Type Natriuretic Pept 1819 pg/mL (0-125)
[2020-02-02 06:54] LABS: Glucose Point of Care 125 mg/dL (70-110)
[2020-02-02 07:10] VITALS: BP 115/72; PULSE 74; RESP 15; TEMP 36.7; O2SAT 97
--- NOTE | 2020-02-02 08:24 | PM.PN ---
Subjective Subjective: Interval history: Patient denies shortness of breath or chest pain. Denies abdominal pain. EF 75% on echocardiogram. Vitals/I&O/Wt Last Vital Signs Temp 98.0 F 02/02/20 07:10 Pulse 74 02/02/20 07:10 Resp 15 02/02/20 07:10 BP 115/72 02/02/20 07:10 Pulse Ox 97 02/02/20 07:10 02/01/20 02/02/20 02/02/20 22:59 06:59 14:59 Intake Total 240 / 500 Output Total 1480 / 1480 1600 / 3080 Balance -1240 / -980 -1600 / -2580 Physical Exam Const: COMMON NORMALS: no acute distress Resp: COMMON NORMALS: normal respiratory effort and clear to auscultation bilaterally AUSCULTATION: clear to auscultation bilaterally Cardio: COMMON NORMALS: regular rate, regular rhythm and S2 normal heart sound present RATE: regular rate RHYTHM: regular rhythm HEART SOUNDS: S2 normal heart sound present OTHER: No lower extremity edema GI: COMMON NORMALS: Normal to inspection, nondistended, normoactive bowel sounds present, Soft to palpation and non-tender PALPATION: Yes Soft to palpation Neuro: COMMON NORMALS: no focal motor deficits Urinary Catheter Management^: Sim: Cath Placed During This Visit: yes Reason for Continuing Indwelling Catheter: Accurate Measurement of Urinary Output in Critically Ill Patients Urinary Catheter Date of Insertion: 01/31/20 Urinary Catheter Time of Insertion: 01:26 Data : 02/02/20 04:15 02/02/20 04:15 A&P Assessment and plan (1) Panniculitis: Status: Acute (2) Generalized weakness: Status: Acute (3) Anemia, macrocytic: Status: Acute (4) Dehydration with hyponatremia: Present on admission. Status: Acute Additional A&P Information Panniculitis Nystatin powder Skin ulcers at the contact abdominal fold with her thighs, she has history of worsening of abdominal fold infections in the past, would use doxycycline as well Generalized weakness Multifactorial, age, hyponatremia, macrocytic anemia, hypothyroidism We will check B12, TSH, physical therapy evaluation, Hyponatremia seems to be due to poor p.o. intake Physical therapy evaluation She will most likely need mcc placement considering her social dynamics No acute signs of stroke I do believe due to physical deconditioning she is not able to ambulate independently, she has been on anticoagulant for A. fib, if there is any change in her mental status I will obtain CT head without contrast Hypothyroidism: will continue same home regimen for now, will adjust medication according to the TSH level Atrial fibrillation Without RVR heart rate in 70s, I would hold digoxin for now, Hold verapamil, continue metoprolol Chronic kidney disease stage III I do not have GFR to classify class III Creatinine seems to be around baseline I would continue lisinopril for now Goals of care discussed with the patient: Full code Consistent carb diet DVT prophylaxis Heparin PLAN: Continue holding Lasix. Encouraged oral intake Continue with physical therapy. Awaiting placement to nursing facility. We will discontinue doxycycline as I she currently does not have any evidence of bacterial skin infection. Continue with nystatin powder. Attestations Medical Necessity Statement*: Patient with generalized weakness and dehydration requires close inpatient monitoring and treatment. 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
[2020-02-02] MEDS: lisinopril 10 mg Tablet PO (09:05)
[2020-02-02] MEDS: pantoprazole DR 40 mg Tablet PO (09:05)
[2020-02-02] MEDS: metoprolol tartrate 25 mg Tablet PO ×2 (09:05→18:01)
[2020-02-02] MEDS: nystatin powder 15 gm Btl 1 APPLIC TOPICAL ×2 (09:06→18:04)
[2020-02-02] MEDS: levothyroxine 125 mcg Tablet PO (09:06)
--- NOTE | 2020-02-02 09:20 | PC.CHAP ---
Pastoral Care Encounter/Spiritual Assessment Type of Contact [] Declined network contractor visit [] Patient/Family/Request visit [] Outpatient visit [] Follow-up visit [] Physician referral [] Code/Alert [] Routine visit [] Staff referral [] Actively dying [] Patient sleeping [] Family support [] [] Out of room [] Palliative care [] [] Receiving care in room [] Pre-surgical visit [] Trauma [] Long length of stay [] ICU visit [] Other: Relational/Emotional Strength [x] Patient feels connected with others/family/visitors/staff [] Distress [] Loneliness/isolation [] Abandonment Spirituality of Patient [x] Person of Stacy [] Attends Mosque of their Stacy [] Believes in Prayer [] Reads Bible or Orthodox materials [] There are Spiritual issues to be addressed Branch Associate Interventions [x] Prayer [] Active listening [] Non-anxious presence [] Spiritual/emotional support [] Crisis/trauma care [] Spiritual counseling [] Bereavement support [] Provided bereavement packet [] Provided Bible/devotional materials [] Provided toy/stuffed animal, coloring book to patient or family member [] Provided Communion [] Anointing/[place] [] Salvation [x] Completed spiritual assessment [] Other: Impact on Illness or Injury [] Angry [] Fearful [] Anxious [] Often cries [] Exhaustion [] Unable to work [] Unable to attend evangelical [] Unable to walk/stand [] Unable to read [] Unable to drive [] Unable to eat/drink [] Unable to sleep [] Unable to be with family [] Patient intubated [] Other: Summary patient feels very weak but in good spirts Time spent with patient 15 min
[2020-02-02 10:45] LABS: Glucose Point of Care 186 mg/dL (70-110)
[2020-02-02 11:08] VITALS: BP 118/78; PULSE 80; RESP 16; TEMP 36.8; O2SAT 93
[2020-02-02 16:00] VITALS: BP 120/71; PULSE 70; RESP 15; TEMP 36.7; O2SAT 93
[2020-02-02 17:05] LABS: Glucose Point of Care 114 mg/dL (70-110)
[2020-02-02] MEDS: atorvastatin 40 mg Tablet 20 MG PO (18:02)
[2020-02-02 20:00] VITALS: BP 121/69; PULSE 85; RESP 20; TEMP 36.8; O2SAT 95
[2020-02-02] MEDS: HYDROcodone-acetaminophen 5-325 mg Tablet 1 TAB PO (20:58)
[2020-02-02 21:35] LABS: Glucose Point of Care 153 mg/dL (70-110)
[2020-02-03] VITALS: BP 101/64; PULSE 75; RESP 20; TEMP 36.4; O2SAT 96
[2020-02-03 04:00] VITALS: BP 104/62; PULSE 68; RESP 20; TEMP 36.4; O2SAT 93
[2020-02-03 04:50] LABS: Basophils % 0.3 %; Eosinophils # 0.2 10^3/uL (0.0-0.8); Eosinophils % 1.7 %; Hematocrit 33.5 % (37.0-47.0); Hemoglobin 10.2 g/dL (11.5-15.3); Lymphocytes # 2.3 10^3/uL (0.8-4.8); Lymphocytes % 25.8 %; Mean Corpuscular HGB Conc 30.4 g/dL (30.0-36.0); Mean Corpuscular Hemoglobin 30.1 pg (28.0-34.0); Mean Corpuscular Volume 98.8 fL (81-99); Mean Platelet Volume 8.5 fL (7.4-10.4); Monocytes # 1.1 10^3/uL (0.2-0.9); Monocytes % 12.1 %; Neutrophils # 5.21 10^3/uL (1.8-7.7); Neutrophils % 59.8 %; Nucleated Red Blood Cells % 0 %; Platelet Count 373 10^3/cmm (130-400); Red Blood Count 3.39 10^6/uL (4.1-5.3); Red Cell Distribution Width 17.9 % (12.1-15.1); White Blood Count 8.7 10^3/uL (4.0-10.0)
[2020-02-03 05:21] LABS: Alanine Aminotransferase 7 U/L (0-33); Albumin Level 3.1 g/dL (3.5-5.2); Alkaline Phosphatase 101 IU/L (35-105); Anion Gap 12.2 (5-19); Aspartate Amino Transferase 15 U/L (0-32); Blood Urea Nitrogen 22 mg/dL (8-23); Calcium 9.3 mg/dL (8.5-10.5); Carbon Dioxide 28 mmol/L (22-29); Chloride 99 mmol/L (98-107); Globulin 4.7 g/dL (1.3-4.6); Glucose 122 mg/dL (65-115); Magnesium 2.1 mg/dL (1.7-2.3); Osmolality Calculated 285 mOsm/kg (285-295); Potassium 4.2 mmol/L (3.5-5.1); Sodium 135 mmol/L (136-145); Total Bilirubin 0.3 mg/dL (0.15-1.2); Total Protein 7.8 g/dL (6.6-8.7)
[2020-02-03 06:54] LABS: Glucose Point of Care 113 mg/dL (70-110)
[2020-02-03 07:24] VITALS: BP 108/65; PULSE 68; RESP 18; TEMP 36.6; O2SAT 94
[2020-02-03] MEDS: metoprolol tartrate 25 mg Tablet PO ×2 (08:26→17:47)
[2020-02-03] MEDS: nystatin powder 15 gm Btl 1 APPLIC TOPICAL ×2 (08:26→17:48)
[2020-02-03] MEDS: lisinopril 10 mg Tablet PO (08:26)
[2020-02-03] MEDS: levothyroxine 125 mcg Tablet PO (08:26)
[2020-02-03] MEDS: pantoprazole DR 40 mg Tablet PO (08:26)
--- NOTE | 2020-02-03 10:47 | P.PN_ITS ---
Subjective Subjective: Interval history: Patient reports feeling better. Denies any shortness of breath or chest pain. Denies abdominal pain. Since patient stay crosses 2 midnights patient's status was changed to inpatient. Vitals/I&O/Wt Last Vital Signs Temp 97.9 F 02/03/20 07:24 Pulse 68 02/03/20 07:24 Resp 18 02/03/20 07:24 BP 108/65 02/03/20 07:24 Pulse Ox 94 02/03/20 07:24 02/02/20 02/03/20 02/03/20 22:59 06:59 14:59 Intake Total 480 / 960 Output Total 350 / 350 850 / 1200 Balance 130 / 610 -850 / -240 Physical Exam Const: COMMON NORMALS: no acute distress Resp: COMMON NORMALS: normal respiratory effort and clear to auscultation bilaterally AUSCULTATION: clear to auscultation bilaterally Cardio: COMMON NORMALS: regular rate, regular rhythm and S2 normal heart sound present RATE: regular rate RHYTHM: regular rhythm HEART SOUNDS: S2 normal heart sound present OTHER: No lower extremity edema GI: COMMON NORMALS: Normal to inspection, nondistended, normoactive bowel sounds present, Soft to palpation and non-tender PALPATION: Yes Soft to palpation Neuro: COMMON NORMALS: no focal motor deficits Urinary Catheter Management^: Sim: Cath Placed During This Visit: yes Reason for Continuing Indwelling Catheter: Acute Urinary Retention or Obstruction Urinary Catheter Date of Insertion: 01/31/20 Urinary Catheter Time of Insertion: 01:26 Data : 02/03/20 04:08 02/03/20 04:08 A&P Assessment and plan (1) Panniculitis: Status: Acute (2) Generalized weakness: Status: Acute (3) Anemia, macrocytic: Status: Acute (4) Dehydration with hyponatremia: Present on admission. Status: Acute Additional A&P Information Panniculitis, improved Nystatin powder Skin ulcers at the contact abdominal fold with her thighs, she has history of worsening of abdominal fold infections in the past, would use doxycycline as well Generalized weakness Multifactorial, age, hyponatremia, macrocytic anemia, hypothyroidism We will check B12, TSH, physical therapy evaluation, Hyponatremia seems to be due to poor p.o. intake Physical therapy evaluation She will most likely need intermediate placement considering her social dynamics No acute signs of stroke I do believe due to physical deconditioning she is not able to ambulate independently, she has been on anticoagulant for A. fib, if there is any change in her mental status I will obtain CT head without contrast Hypothyroidism: will continue same home regimen for now, will adjust medication according to the TSH level Atrial fibrillation Without RVR heart rate in 70s, I would hold digoxin for now, Hold verapamil, continue metoprolol Chronic kidney disease stage III I do not have GFR to classify class III Creatinine seems to be around baseline I would continue lisinopril for now Goals of care discussed with the patient: Full code Consistent carb diet DVT prophylaxis Heparin PLAN: Continue holding Lasix until oral intake improves. Continue monitoring. Continue physical therapy. Awaiting level 2 authorization for placement. Attestations Medical Necessity Statement*: Patient with generalized weakness and dehydrati on requires close inpatient monitoring and treatment until deemed safe for discharge. 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
[2020-02-03 12:00] VITALS: BP 106/67; PULSE 71; RESP 18; TEMP 36.8; O2SAT 95
[2020-02-03 12:00] LABS: Glucose Point of Care 173 mg/dL (70-110)
[2020-02-03 15:39] VITALS: BP 134/85; PULSE 92; RESP 18; TEMP 36.4; O2SAT 97
[2020-02-03 17:07] LABS: Glucose Point of Care 96 mg/dL (70-110)
[2020-02-03] MEDS: atorvastatin 40 mg Tablet 20 MG PO (17:47)
[2020-02-03 19:18] VITALS: BP 106/71; PULSE 85; RESP 17; TEMP 36.6; O2SAT 94
[2020-02-03 20:39] LABS: Glucose Point of Care 158 mg/dL (70-110)
[2020-02-03] MEDS: zolpidem 5 mg Tablet PO (21:29)
[2020-02-04] VITALS (7 sets, daily range): BP systolic 101–131; BP diastolic 65–84; PULSE 84–101; RESP 16–24; TEMP 36.4–37.1; O2SAT 95–97
[2020-02-04 05:38] LABS: Basophils # 0.1 10^3/uL (0.0-0.1); Basophils % 0.5 %; Eosinophils # 0.2 10^3/uL (0.0-0.8); Eosinophils % 1.7 %; Hematocrit 36.3 % (37.0-47.0); Lymphocytes # 2.1 10^3/uL (0.8-4.8); Lymphocytes % 20.8 %; Mean Corpuscular HGB Conc 30.3 g/dL (30.0-36.0); Mean Corpuscular Hemoglobin 30.1 pg (28.0-34.0); Mean Corpuscular Volume 99.2 fL (81-99); Mean Platelet Volume 8.8 fL (7.4-10.4); Monocytes # 1.3 10^3/uL (0.2-0.9); Neutrophils # 6.55 10^3/uL (1.8-7.7); Neutrophils % 63.7 %; Nucleated Red Blood Cells % 0 %; Platelet Count 353 10^3/cmm (130-400); Red Blood Count 3.66 10^6/uL (4.1-5.3); Red Cell Distribution Width 17.8 % (12.1-15.1); White Blood Count 10.3 10^3/uL (4.0-10.0)
[2020-02-04 06:14] LABS: Alanine Aminotransferase 10 U/L (0-33); Alkaline Phosphatase 109 IU/L (35-105); Aspartate Amino Transferase 18 U/L (0-32); Blood Urea Nitrogen 21 mg/dL (8-23); Calcium 9.5 mg/dL (8.5-10.5); Carbon Dioxide 27 mmol/L (22-29); Chloride 99 mmol/L (98-107); Globulin 4.9 g/dL (1.3-4.6); Glucose 103 mg/dL (65-115); Magnesium 2.1 mg/dL (1.7-2.3); Osmolality Calculated 285 mOsm/kg (285-295); Sodium 136 mmol/L (136-145); Total Bilirubin 0.4 mg/dL (0.15-1.2); Total Protein 7.9 g/dL (6.6-8.7)
[2020-02-04 06:17] LABS: Anion Gap 14.9 (5-19); Potassium 4.9 mmol/L (3.5-5.1)
[2020-02-04 06:32] LABS: Glucose Point of Care 129 mg/dL (70-110)
[2020-02-04] MEDS: lisinopril 10 mg Tablet PO (08:28)
[2020-02-04] MEDS: levothyroxine 125 mcg Tablet PO (08:28)
[2020-02-04] MEDS: metoprolol tartrate 25 mg Tablet PO ×2 (08:28→17:55)
[2020-02-04] MEDS: pantoprazole DR 40 mg Tablet PO (08:28)
[2020-02-04] MEDS: nystatin powder 15 gm Btl 1 APPLIC TOPICAL ×2 (08:33→17:57)
[2020-02-04] MEDS: calcium carbonate 500 mg Chew Tablet 1000 MG PO ×2 (08:39→13:01)
--- NOTE | 2020-02-04 09:45 | PM.PN ---
Subjective Subjective: Interval history: Patient denies shortness of breath or chest pain this morning. Reports having gas . Reports that usually she takes Tums which helps. She had bowel movement yesterday but not documented if diarrhea or not. Patient cannot recall. Vitals/I&O/Wt Last Vital Signs Temp 97.7 F 02/04/20 07:22 Pulse 87 02/04/20 07:22 Resp 18 02/04/20 07:22 BP 129/77 02/04/20 07:22 Pulse Ox 95 02/04/20 07:22 02/03/20 02/04/20 02/04/20 22:59 06:59 14:59 Intake Total 320 / 920 300 / 300 Output Total 800 / 1200 1850 / 3050 Balance -480 / -280 -1850 / -2130 300 / 300 Physical Exam Const: COMMON NORMALS: no acute distress Resp: COMMON NORMALS: normal respiratory effort and clear to auscultation bilaterally AUSCULTATION: clear to auscultation bilaterally Cardio: RHYTHM: abnormal rhythm irregularly irregular OTHER: No lower extremity edema GI: COMMON NORMALS: Normal to inspection, nondistended, normoactive bowel sounds present, Soft to palpation and non-tender PALPATION: Yes Soft to palpation Neuro: COMMON NORMALS: no focal motor deficits Urinary Catheter Management^: Sim: Cath Placed During This Visit: yes Reason for Continuing Indwelling Catheter: Accurate Measurement of Urinary Output in Critically Ill Patients Urinary Catheter Date of Insertion: 01/31/20 Urinary Catheter Time of Insertion: 01:26 Data : 02/04/20 04:43 02/04/20 04:43 A&P Assessment and plan (1) Panniculitis: Status: Acute (2) Generalized weakness: Status: Acute (3) Anemia, macrocytic: Status: Acute (4) Dehydration with hyponatremia: Present on admission. Status: Acute Additional A&P Information Panniculitis, improved Nystatin powder Skin ulcers at the contact abdominal fold with her thighs, she has history of worsening of abdominal fold infections in the past, would use doxycycline as well Generalized weakness Multifactorial, age, hyponatremia, macrocytic anemia, hypothyroidism We will check B12, TSH, physical therapy evaluation, Hyponatremia seems to be due to poor p.o. intake Physical therapy evaluation She will most likely need [place] [facility] considering her social dynamics No acute signs of stroke I do believe due to physical deconditioning she is not able to ambulate independently, she has been on anticoagulant for A. fib, if there is any change in her mental status I will obtain CT head without contrast Hypothyroidism: will continue same home regimen for now, will adjust medication according to the TSH level Atrial fibrillation Without RVR heart rate in 70s, I would hold digoxin for now, Hold verapamil, continue metoprolol Chronic kidney disease stage III I do not have GFR to classify class III Creatinine seems to be around baseline I would continue lisinopril for now Goals of care discussed with the patient: Full code Consistent carb diet DVT prophylaxis Heparin PLAN: Continue holding Lasix for 1 more day and restart tomorrow. Continue Protonix and add Tums. Continue with physical therapy. Awaiting placement to nursing facility. Attestations Medical Necessity Statement*: Patient with generalized weakness requires hospitalization for monitoring and treatment until placement to nursing facility is arranged. 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
[2020-02-04 10:50] LABS: Glucose Point of Care 138 mg/dL (70-110)
[2020-02-04 16:36] LABS: Glucose Point of Care 117 mg/dL (70-110)
--- NOTE | 2020-02-04 16:50 | PC.NURSE ---
Patient was being transferred back to bed from bedside commode when her foot slipped. Patient was able to be lowered to the floor slowly by staff. Several staff members were able to help patient up from floor and back into the bed. Patient had no injuries and denies any pain at this time. Dr. Vogel notified of event. Will continue to monitor.
[2020-02-04] MEDS: atorvastatin 40 mg Tablet 20 MG PO (17:55)
[2020-02-04] MEDS: zolpidem 5 mg Tablet PO (20:59)
[2020-02-04 22:06] LABS: Glucose Point of Care 196 mg/dL (70-110)
[2020-02-05] VITALS (7 sets, daily range): BP systolic 112–157; BP diastolic 64–89; PULSE 88–112; RESP 16–20; TEMP 36.5–36.9; O2SAT 95–99
[2020-02-05 06:34] LABS: Glucose Point of Care 170 mg/dL (70-110)
--- NOTE | 2020-02-05 09:03 | PM.PN ---
Subjective Subjective: Interval history: Patient resting in bed at time of exam. She denied any chest pain or shortness of breath. Reported that she felt that she needed to have a bowel movement. Vitals/I&O/Wt Last Vital Signs Temp 97.8 F 02/05/20 07:32 Pulse 88 02/05/20 07:32 Resp 16 02/05/20 07:32 BP 135/85 02/05/20 07:32 Pulse Ox 96 02/05/20 07:32 02/04/20 02/05/20 02/05/20 22:59 06:59 14:59 Intake Total 480 / 1500 Output Total 1100 / 1100 1200 / 2300 Balance -620 / 400 -1200 / -800 Physical Exam Const: COMMON NORMALS: patient oriented x3 and alert GENERAL APPEARANCE: cooperative ORIENTATION/CONSCIOUSNESS: Yes awake, Yes oriented to person and Yes oriented to place HENMT: COMMON NORMALS: normocephalic and atraumatic HEAD & SCALP: normocephalic and atraumatic Eye: COMMON NORMALS: Equal, round and reactive pupils present PUPIL: Yes Equal, round and reactive pupils present Neck/C-Spine: COMMON NORMALS: supple GENERAL: Yes normal visual inspection Resp: COMMON NORMALS: normal respiratory effort and clear to auscultation bilaterally EFFORT & INSPECTION: Yes able to speak in complete sentences AUSCULTATION: clear to auscultation bilaterally, no rhonchi and no wheezes Cardio: OTHER: Irregularly irregular, systolic murmur present GI: COMMON NORMALS: Soft to palpation and non-tender INSPECTION: No abdominal distension AUSCULTATION: Yes normoactive bowel sounds PALPATION: Yes Soft to palpation Extremity: COMMON NORMALS: no clubbing, cyanosis or edema and no calf tenderness Neuro: COMMON NORMALS: patient oriented x3 and CN's II-XII intact bilaterally SENSORIUM/ORIENTATION: Yes alert, Yes oriented to person and Yes oriented to place SPEECH: speech normal Psych: COMMON NORMALS: mental status grossly normal and cooperative Urinary Catheter Management^: Sim: Cath Placed During This Visit: yes Reason for Continuing Indwelling Catheter: Other Urinary Catheter Date of Insertion: 01/31/20 Urinary Catheter Time of Insertion: 01:26 Data : 02/04/20 04:43 02/04/20 04:43 A&P Assessment and plan (1) Panniculitis: Continue with nystatin powder Treated with doxycycline Improved Status: Acute (2) Generalized weakness: Generalized weakness and deconditioning, recommend shelter facility placement Continue with physical therapy Status: Acute (3) Anemia, macrocytic: Hemoglobin 11 yesterday, no evidence of any active bleeding We will check further iron studies, patient is on anticoagulation due to atrial fibrillation, will continue to monitor for any evidence of active bleeding. Status: Acute (4) Dehydration with hyponatremia: Resolved Status: Acute Additional A&P Information Hypothyroidism: TSH within normal limits on admission, continue home levothyroxine 137 mcg daily Atrial fibrillation: Rate controlled we will continue on metoprolol 25 mg twice daily, continue home Pradaxa. Hold verapamil and digoxin Chronic kidney disease stage III: Renal function appears to be improved from baseline this admission, baseline creatinine around 1.2-1.3. 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
[2020-02-05] MEDS: levothyroxine 125 mcg Tablet PO (09:11)
[2020-02-05] MEDS: pantoprazole DR 40 mg Tablet PO (09:12)
[2020-02-05] MEDS: lisinopril 10 mg Tablet PO (09:12)
[2020-02-05] MEDS: nystatin powder 15 gm Btl 1 APPLIC TOPICAL ×2 (09:12→18:17)
[2020-02-05] MEDS: metoprolol tartrate 25 mg Tablet PO ×2 (09:12→18:24)
[2020-02-05] MEDS: FUROsemide 40 mg Tablet PO (09:15)
[2020-02-05 09:55] LABS: Iron 66 ug/dL (37-145); Percent Saturation 32.5 % (20-50); Total Iron Binding Capacity 203 mcg/dl; Unsaturated Iron Binding 137 ug/dL (112-347)
--- NOTE | 2020-02-05 11:25 | PC.SOCIAL ---
[facility] Page 2 of [facility] explained to patient's granddaughter Jh by phone. She verbalizes understanding. Initialed, dated, and timed and placed in chart. Copy provided to patient's bedside.
[2020-02-05 11:27] LABS: Glucose Point of Care 134 mg/dL (70-110)
[2020-02-05] MEDS: doxycycline 100 mg Tablet PO ×2 (11:54→21:31)
--- NOTE | 2020-02-05 13:06 | PM.DCS ---
Discharge Providers Date of Admission: 02/02/20 08:59 Date of Discharge: February 05, 2020 Attending Provider at Admission: Leo Parra MD Attending Provider at Discharge: Nidia Goldstein DO Primary Care Provider: Edith Dykes-Maria De Jesus Diagnoses at Discharge Discharge Diagnosis (1) Panniculitis: Status: Acute (2) Generalized weakness: Status: Acute (3) Anemia, macrocytic: Status: Acute (4) Dehydration with hyponatremia: Status: Acute Reason for Visit Reason for Visit: WEAKNESS Hospital Course Hospital Course: Patient was seen and evaluated in the emergency department and admitted for further evaluation due to concern for generalized weakness. She was noted to have concern with dehydration and hyponatremia along with anemia and generalized weakness and panniculitis. She was started on doxycycline and given nystatin cream to help with panniculitis. Due to her underlying dementia she did have some waxing and waning in mentation. On date of discharge she denied any concerns. Discussed with family via phone and discussed with him plan for discharge to detention facility, they verbalized understanding and agreed with plan. Patient continued to have generalized deconditioning and weakness and strongly encouraged further inpatient rehabilitation Physical Exam Narrative: EXAM NARRATIVE: For physical exam on date of discharge see progress note on date of discharge Urinary Catheter Management^: Sim: Cath Placed During This Visit: yes Reason for Continuing Indwelling Catheter: Other Urinary Catheter Date of Insertion: 01/31/20 Urinary Catheter Time of Insertion: 01:26 Discharge Data Data Completed and Pending: Completed Studies During Hospitalization Category Date Time Status XR chest 1V leslie ble [id number] Urgent Exams 01/31/20 00:35 Completed CV echo complete* [id number] Routine Ultrasound 02/01/20 08:33 Completed Pending at discharge Category Date Time Status Basic Metabolic P kael AM LABS Lab 02/06/20 04:00 Ordered Complete Blood Co unt w/Auto AM LABS Lab 02/06/20 04:00 Ordered SARS Covid-2 Anti gen Routine Lab 02/05/20 11:32 Ordered Labs from last 24 hours 02/05/20 02/05/20 02/04/20 11:05 06:29 20:23 POC Glucose 134 170 196 Iron TIBC % Saturation Unsat Iron Binding 02/04/20 02/04/20 16:29 04:43 POC Glucose 117 Iron 66 TIBC 203 % Saturation 32.5 Unsat Iron Binding 137 Vitals: Last Vital Signs Temp 98.0 F 02/05/20 11:54 Pulse 112 H 02/05/20 11:54 Resp 17 02/05/20 11:54 BP 157/89 02/05/20 11:54 Pulse Ox 96 02/05/20 11:54 Discharge Plan Discharge Patient Disposition: Xfer [facility] Condition: Stable Prescriptions: New zolpidem 5 mg Tablet 5 mg PO BEDTIME PRN (Reason: insomnia) 10 Days Qty: 10 RF: 0 atorvastatin 40 mg Tablet 20 mg PO QPM 30 Days Qty: 15 RF: 0 nystatin [Nystop] 100,000 unit/gram Powder 1 applic topical BID 7 Days Qty: 1 RF: 0 Pradaxa 150 mg Capsule 150 mg PO BID@0700,1800 30 Days Qty: 60 RF: 0 doxycycline monohydrate 100 mg Tablet 100 mg PO BID 7 Days Qty: 14 RF: 0 Continued nitroglycerin 0.6 mg/hr Patch 24 Hour 1 patch TRANSDERMAL DAILY RF: 0 Pradaxa 150 mg Capsule 150 mg PO BID RF: 0 duloxetine 60 mg Capsule, Delayed Rel Sprinkle 60 mg PO BID RF: 0 lisinopril 10 mg Tablet 5 mg PO DAILY RF: 0 ergocalciferol (vitamin D2) [Vitamin D2] 1,250 mcg (50,000 unit) Capsule 1,250 mcg PO Q7D RF: 0 pantoprazole 40 mg Tablet,Delayed Release (Dr/Ec) 40 mg PO DAILY RF: 0 potassium chloride 10 mEq Tablet Extended Release 10 meq PO DAILY RF: 0 metoprolol tartrate 25 mg Tablet 25 mg PO BID RF: 0 furosemide 40 mg Tablet 40 mg PO DAILY RF: 0 montelukast 10 mg Tablet 10 mg PO DAILY RF: 0 isosorbide mononitrate 30 mg Tablet Extended Release 24 Hr 90 mg PO DAILY RF: 0 digoxin 125 mcg (0.125 mg) Tablet 125 mcg PO EVERY OTHER DAY RF: 0 hydrocodone-acetaminophen 5-325 mg tablet 1 tab PO Q6H PRN (Reason: pain) Qty: 15 RF: 0 atorvastatin 40 mg tablet 40 mg PO DAILY RF: 0 Synthroid 137 mcg tablet 137 mcg PO DAILY RF: 0 alprazolam 0.5 mg tablet 0.5 mg PO BID PRN (Reason: unknown) RF: 0 buspirone 10 mg tablet 10 mg PO BID RF: 0 lidocaine 5 % adhesive patch,medicated See Rx Instructions .ROUTE .COMPLEX RF: 0 albuterol sulfate 90 mcg/actuation HFA aerosol inhaler 1 puff INHALATION BID PRN (Reason: Shortness Of Breath) RF: 0 risperidone 1 mg tablet 1 mg PO BEDTIME RF: 0 risperidone 0.5 mg tablet 0.5 mg PO BID RF: 0 Combivent Respimat 20-100 mcg/actuation mist 1 puff INHALATION QID PRN (Reason: unknown) RF: 0 Discontinued verapamil 180 mg Tablet Extended Release 180 mg PO DAILY RF: 0 Discharge Orders: Discharge Order (Routine); Ordered 02/05/20 Ordered By: Nidia Goldstein Referrals: [facility] [Outside] Discharge Diet: Advance as tolerated Discharge Activity: Increase activity as tolerated and As per PT/OT instructions Activity Restrictions/Additional Instructions: Discharge to [facility] Patient was noted to have some episodes of bradycardia therefore verapamil was held, digoxin held on admission but restarted on discharge, continued on metoprolol. Continued on home Pradaxa Continue with physical therapy and Occupational Therapy Follow-up with care provider at the [facility] in 2 to 3 days Follow-up with cardiology as soon as first appointment is available Call physician or present to the ED for any acute illness or concern Discharge Attestations Time Spent in Discharge Care*: greater than 30 min Specific Discharge Activities: Specific discharge activities: educating patient, educating and/or supporting family/caregiver, discussing with oil field caser/social workers/dc planners and documenting/other paperwork Quality Metrics Clinical Quality Measures During this hospital stay, did patient experience: None Coding Level of Care Code 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
[2020-02-05 17:33] LABS: Glucose Point of Care 159 mg/dL (70-110)
[2020-02-05 17:39] LABS: SARS Covid-2 Antigen Negative (Negative)
[2020-02-05] MEDS: atorvastatin 40 mg Tablet 20 MG PO (18:24)
[2020-02-05] MEDS: zolpidem 5 mg Tablet PO (21:31)
[2020-02-05 21:56] LABS: Glucose Point of Care 126 mg/dL (70-110)
[2020-02-06 03:47] VITALS: BP 119/84; PULSE 99; RESP 16; TEMP 36.4; O2SAT 97
[2020-02-06 05:45] LABS: Basophils # 0.1 10^3/uL (0.0-0.1); Basophils % 0.3 %; Eosinophils # 0.2 10^3/uL (0.0-0.8); Eosinophils % 1.1 %; Hematocrit 38.9 % (37.0-47.0); Hemoglobin 12.4 g/dL (11.5-15.3); Lymphocytes # 3.5 10^3/uL (0.8-4.8); Lymphocytes % 22.4 %; Mean Corpuscular HGB Conc 31.9 g/dL (30.0-36.0); Mean Corpuscular Hemoglobin 30.6 pg (28.0-34.0); Mean Platelet Volume 8.6 fL (7.4-10.4); Monocytes % 12.5 %; Neutrophils % 63.4 %; Nucleated Red Blood Cells % 0 %; Platelet Count 465 10^3/cmm (130-400); Red Blood Count 4.05 10^6/uL (4.1-5.3); Red Cell Distribution Width 18.2 % (12.1-15.1); White Blood Count 15.6 10^3/uL (4.0-10.0)
[2020-02-06 06:08] LABS: Anion Gap 14.3 (5-19); Blood Urea Nitrogen 25 mg/dL (8-23); Carbon Dioxide 27 mmol/L (22-29); Chloride 97 mmol/L (98-107); Glucose 135 mg/dL (65-115); Osmolality Calculated 284 mOsm/kg (285-295); Potassium 4.3 mmol/L (3.5-5.1); Sodium 134 mmol/L (136-145)
[2020-02-06 06:34] LABS: Glucose Point of Care 199 mg/dL (70-110)
--- NOTE | 2020-02-06 06:51 | PC.NURSE ---
Upon assessing pt, blue pads under pt were saturated from garcia catheter leaking. Balloon was deflated with 7cc removed. 10cc were replaced. Patient tolerated well.
[2020-02-06 08:00] VITALS: BP 135/88; PULSE 100; RESP 18; TEMP 36.4; O2SAT 98
[2020-02-06] MEDS: lisinopril 10 mg Tablet PO (08:14)
[2020-02-06] MEDS: doxycycline 100 mg Tablet PO ×2 (08:14→17:50)
[2020-02-06] MEDS: FUROsemide 40 mg Tablet PO (08:15)
[2020-02-06] MEDS: metoprolol tartrate 25 mg Tablet PO ×2 (08:15→17:50)
[2020-02-06] MEDS: levothyroxine 125 mcg Tablet PO (08:15)
[2020-02-06] MEDS: pantoprazole DR 40 mg Tablet PO (08:16)
[2020-02-06] MEDS: FUROsemide 40 mg Tablet 20 MG PO (10:01)
[2020-02-06] MEDS: nystatin powder 15 gm Btl 1 APPLIC TOPICAL ×2 (10:10→18:13)
--- NOTE | 2020-02-06 11:01 | PM.PN ---
Subjective Subjective: Interval history: Patient awake in bed upon entering the room. Denies any chest pain or shortness of breath. Reported continued weakness, discussed plan for discharge to retirement facility, she verbalized understanding and agreed with plan. Vitals/I&O/Wt Last Vital Signs Temp 97.5 F L 02/06/20 08:00 Pulse 100 02/06/20 08:00 Resp 18 02/06/20 08:00 BP 135/88 02/06/20 08:00 Pulse Ox 98 02/06/20 08:00 02/05/20 02/06/20 02/06/20 22:59 06:59 14:59 Intake Total 290 / 490 240 / 730 Output Total 1700 / 2800 375 / 3175 Balance -1410 / -2310 -135 / -2445 Physical Exam Const: COMMON NORMALS: patient oriented x3 and alert GENERAL APPEARANCE: cooperative ORIENTATION/CONSCIOUSNESS: Yes awake, Yes oriented to person and Yes oriented to place HENMT: COMMON NORMALS: normocephalic and atraumatic HEAD & SCALP: normocephalic and atraumatic Eye: COMMON NORMALS: Equal, round and reactive pupils present PUPIL: Yes Equal, round and reactive pupils present Neck/C-Spine: COMMON NORMALS: supple GENERAL: Yes normal visual inspection Resp: COMMON NORMALS: normal respiratory effort and clear to auscultation bilaterally EFFORT & INSPECTION: Yes able to speak in complete sentences AUSCULTATION: clear to auscultation bilaterally, no rhonchi and no wheezes Cardio: OTHER: Irregularly irregular, systolic murmur present GI: COMMON NORMALS: Soft to palpation and non-tender INSPECTION: No abdominal distension AUSCULTATION: Yes normoactive bowel sounds PALPATION: Yes Soft to palpation Extremity: COMMON NORMALS: no clubbing, cyanosis or edema and no calf tenderness Neuro: COMMON NORMALS: patient oriented x3 and CN's II-XII intact bilaterally SENSORIUM/ORIENTATION: Yes alert, Yes oriented to person and Yes oriented to place SPEECH: speech normal Psych: COMMON NORMALS: mental status grossly normal and cooperative Urinary Catheter Management^: Sim: Cath Placed During This Visit: yes Reason for Continuing Indwelling Catheter: Accurate Measurement of Urinary Output in Critically Ill Patients Urinary Catheter Date of Insertion: 01/31/20 Urinary Catheter Time of Insertion: 01:26 Data : 02/06/20 05:08 02/06/20 05:08 A&P Assessment and plan (1) Panniculitis: Continue with nystatin powder Treated with doxycycline Improved Status: Acute (2) Generalized weakness: Generalized weakness and deconditioning, recommend retirement facility placement Continue with physical therapy Status: Acute (3) Anemia, macrocytic: Hemoglobin improved to 12.4 today, no active bleeding We will check further iron studies, patient is on anticoagulation due to atrial fibrillation Status: Acute (4) Dehydration with hyponatremia: Resolved Status: Acute Additional A&P Information Hypothyroidism: TSH within normal limits on admission, continue home levothyroxine 137 mcg daily Atrial fibrillation: Rate controlled we will continue on metoprolol 25 mg twice daily, continue home Pradaxa. Hold verapamil and digoxin restarted on discharge Chronic kidney disease stage III: Renal function appears to be improved from baseline this admission, baseline creatinine around 1.2-1.3. Diabetes mellitus type 2: Continue on sliding scale insulin as needed Hypertension: Continue lisinopril 10 mg daily, metoprolol 25 mg twice daily, continue Lasix 40 mg daily GERD: Continue Protonix 40 mg daily Insomnia: Continue Ambien 5 mg at bedtime as needed CODE STATUS: Full code Consistent carb diet DVT prophylaxis: Home Pradaxa Attestations Medical Necessity Statement*: Plan for discharge to retirement facility today. Please see discharge summary for further information. Patient awaiting proper disposition planning therefore remained in the hospital 1 additional day. 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
[2020-02-06 12:00] VITALS: BP 130/88; PULSE 102; RESP 20; TEMP 36.6; O2SAT 98
[2020-02-06 12:47] LABS: Glucose Point of Care 170 mg/dL (70-110)
[2020-02-06 15:03] VITALS: BP 108/70; PULSE 98; RESP 16; O2SAT 96
[2020-02-06] MEDS: atorvastatin 40 mg Tablet 20 MG PO (17:51)
[2020-02-06 18:06] LABS: Glucose Point of Care 176 mg/dL (70-110)
[2020-02-06 19:28] VITALS: BP 82/54; PULSE 113; RESP 18; TEMP 36.3; O2SAT 100
[2020-02-06 19:58] LABS: Glucose Point of Care 232 mg/dL (70-110)
[2020-02-06] MEDS: zolpidem 5 mg Tablet PO (21:39)
[2020-02-06 23:59] VITALS: BP 100/67; PULSE 101; RESP 18; TEMP 36.4; O2SAT 98
[2020-02-07] VITALS (7 sets, daily range): BP systolic 82–100; BP diastolic 54–64; PULSE 83–105; RESP 15–17; TEMP 36.4–36.9; O2SAT 94–97
[2020-02-07 06:20] LABS: Glucose Point of Care 153 mg/dL (70-110)
[2020-02-07] MEDS: FUROsemide 40 mg Tablet 20 MG PO (09:31)
[2020-02-07] MEDS: doxycycline 100 mg Tablet PO (09:31)
[2020-02-07] MEDS: pantoprazole DR 40 mg Tablet PO (09:32)
[2020-02-07] MEDS: lisinopril 10 mg Tablet PO (09:32)
[2020-02-07] MEDS: nystatin powder 15 gm Btl 1 APPLIC TOPICAL (09:34)
--- NOTE | 2020-02-07 09:37 | P.PN_ITS ---
Subjective Subjective: Interval history: Patient awake and sitting in the chair at time of exam this morning. She denied any chest pain or shortness of breath. Reported that her abdomen is feeling better. Discussed with her discharge plan, she verbalized understanding. Vitals/I&O/Wt Last Vital Signs Temp 97.6 F 02/07/20 08:00 Pulse 105 H 02/07/20 07:47 Resp 16 02/07/20 07:47 BP 88/59 02/07/20 07:47 Pulse Ox 94 02/07/20 07:47 02/06/20 02/07/20 02/07/20 22:59 06:59 14:59 Intake Total 240 / 340 Output Total 200 / 200 Balance 240 / 340 -200 / 140 Physical Exam Const: COMMON NORMALS: patient oriented x3 and alert GENERAL APPEARANCE: cooperative ORIENTATION/CONSCIOUSNESS: Yes awake, Yes oriented to person and Yes oriented to place HENMT: COMMON NORMALS: normocephalic and atraumatic HEAD & SCALP: normocephalic and atraumatic Eye: COMMON NORMALS: Equal, round and reactive pupils present PUPIL: Yes Equal, round and reactive pupils present Neck/C-Spine: COMMON NORMALS: supple GENERAL: Yes normal visual inspection Resp: COMMON NORMALS: normal respiratory effort and clear to auscultation bilaterally EFFORT & INSPECTION: Yes able to speak in complete sentences AUSCULTATION: clear to auscultation bilaterally, no rhonchi and no wheezes Cardio: OTHER: Irregularly irregular, systolic murmur present GI: COMMON NORMALS: Soft to palpation and non-tender INSPECTION: No abdominal distension AUSCULTATION: Yes normoactive bowel sounds PALPATION: Yes Soft to palpation OTHER: Erythema has improved under her pannus bilaterally Extremity: COMMON NORMALS: no clubbing, cyanosis or edema and no calf tende rness Neuro: COMMON NORMALS: patient oriented x3 and CN's II-XII intact bilaterally SENSORIUM/ORIENTATION: Yes alert, Yes oriented to person and Yes oriented to place SPEECH: speech normal Psych: COMMON NORMALS: mental status grossly normal and cooperative Urinary Catheter Management^: Sim: Cath Placed During This Visit: yes Reason for Continuing Indwelling Catheter: Accurate Measurement of Urinary Output in Critically Ill Patients Urinary Catheter Date of Insertion: 01/31/20 Urinary Catheter Time of Insertion: 01:26 Data : 02/06/20 05:08 02/06/20 05:08 A&P Assessment and plan (1) Panniculitis: Continue with nystatin powder Treated with doxycycline Improved Status: Acute (2) Generalized weakness: Generalized weakness and deconditioning, recommend retirement facility placement Continue with physical therapy Status: Acute (3) Anemia, macrocytic: Hemoglobin improved to 12.4 yesterday with no concern for bleeding Status: Acute (4) Dehydration with hyponatremia: Resolved Status: Acute Additional A&P Information Hypothyroidism: TSH within normal limits on admission, continue home levothyroxine 137 mcg daily Atrial fibrillation: Rate controlled we will continue on metoprolol 25 mg twice daily, continue home Pradaxa. Restart digoxin every other day, hold verapamil Chronic kidney disease stage III: Renal function appears to be improved from baseline this admission, baseline creatinine around 1.2-1.3. Diabetes mellitus type 2: Continue on sliding scale insulin as needed Hypertension: Continue lisinopril 10 mg daily, metoprolol 25 mg twice daily, continue Lasix 40 mg daily GERD: Continue Protonix 40 mg daily Insomnia: Continue Ambien 5 mg at bedtime as needed CODE STATUS: Full code Consistent carb diet DVT prophylaxis: Home Pradaxa Attestations Medical Necessity Statement*: Hospitalization for proper disposition planning, patient requires retirement facility placement Coding Level of Care Code Acute Market Survey Representative for Nelson Storey Diagnoses Panniculitis M79.3 Generalized weakness R53.1 Anemia, macrocytic D53.9 Dehydration with hyponatremia E86.0; E87.1
[2020-02-07] MEDS: digoxin 125 mcg Tablet PO (11:00)
--- NOTE | 2020-02-07 11:21 | PC.SOCIAL ---
IMM Update Pg. 2 of IMM updated. Initialed, dated, and timed and placed in chart. Copy provided.
[2020-02-07 11:23] LABS: Glucose Point of Care 143 mg/dL (70-110)
[2020-02-07] MEDS: levothyroxine 125 mcg Tablet PO (11:31)
[2020-02-07] MEDS: sodium chloride 0.9% 250 ML IV (12:26)
--- NOTE | 2020-02-09 15:56 | P.DS_ITS ---
Discharge Providers Date of Admission: 02/02/20 08:59 Date of Discharge: February 08, 2020 Attending Provider at Admission: Leo Parra MD Attending Provider at Discharge: Nidia Goldstein DO Primary Care Provider: Edith Dykes-Maria De Jesus Diagnoses at Discharge Discharge Diagnosis (1) Panniculitis: Status: Resolved (2) Generalized weakness: Status: Resolved (3) Anemia, macrocytic: Status: Resolved (4) Dehydration with hyponatremia: Status: Resolved Reason for Visit Reason for Visit: WEAKNESS Hospital Course Hospital Course: Patient was seen and evaluated in the emergency department and admitted for further evaluation due to concern for generalized weakness. She was noted to have concern with dehydration and hyponatremia along with anemia and generalized weakness and panniculitis. She was started on doxycycline and given nystatin cream to help with panniculitis. Due to her underlying dementia she did have some waxing and waning in mentation. On date of discharge she denied any concerns. Discussed with family via phone and discussed with him plan for discharge to long term facility, they ve rbalized understanding and agreed with plan. Patient continued to have generalized deconditioning and weakness and strongly encouraged further inpatient rehabilitation Discharge Summary: Patient was discharged on 02/08/2020. Discharge was delayed from original discharge summary due to disposition planning. Physical Exam Narrative: EXAM NARRATIVE: See physical exam documented on progress note on date of discharge Urinary Catheter Management^: Sim: Cath Placed During This Visit: yes Reason for Continuing Indwelling Catheter: Accurate Measurement of Urinary Output in Critically Ill Patients Urinary Catheter Date of Insertion: 01/31/20 Urinary Catheter Time of Insertion: 01:26 Discharge Data Data Completed and Pending: Completed Studies During Hospitalization Category Date Time Status XR chest 1V leslie ble [id number] Urgent Exams 01/31/20 00:35 Completed CV echo complete* [id number] Routine Ultrasound 02/01/20 08:33 Completed Vitals: Last Vital Signs Temp 98.1 F 02/07/20 18:04 Pulse 83 02/07/20 18:04 Resp 17 02/07/20 18:04 BP 100/62 02/07/20 18:04 Pulse Ox 97 02/07/20 18:04 Discharge Plan Discharge Patient Disposition: Xfer SNF Condition: Stable Prescriptions: New atorvastatin 40 mg Tablet 20 mg PO QPM 30 Days Qty: 15 RF: 0 nystatin [Nystop] 100,000 unit/gram Powder 1 applic topical BID 7 Days Qty: 1 RF: 0 Continued nitroglycerin 0.6 mg/hr Patch 24 Hour 1 patch TRANSDERMAL DAILY RF: 0 Pradaxa 150 mg Capsule 150 mg PO BID RF: 0 duloxetine 60 mg Capsule, Delayed Rel Sprinkle 60 mg PO BID RF: 0 lisinopril 10 mg Tablet 5 mg PO DAILY RF: 0 ergocalciferol (vitamin D2) [Vitamin D2] 1,250 mcg (50,000 unit) Capsule 1,250 mcg PO Q7D RF: 0 pantoprazole 40 mg Tablet,Delayed Release (Dr/Ec) 40 mg PO DAILY RF: 0 potassium chloride 10 mEq Tablet Extended Release 10 meq PO DAILY RF: 0 metoprolol tartrate 25 mg Tablet 25 mg PO BID RF: 0 furosemide 40 mg Tablet 40 mg PO DAILY RF: 0 montelukast 10 mg Tablet 10 mg PO DAILY RF: 0 isosorbide mononitrate 30 mg Tablet Extended Release 24 Hr 90 mg PO DAILY RF: 0 digoxin 125 mcg (0.125 mg) Tablet 125 mcg PO EVERY OTHER DAY RF: 0 hydrocodone-acetaminophen 5-325 mg tablet 1 tab PO Q6H PRN (Reason: pain) Qty: 15 RF: 0 levothyroxine [Synthroid] 137 mcg tablet 137 mcg PO DAILY RF: 0 buspirone 10 mg tablet 10 mg PO BID RF: 0 lidocaine 5 % adhesive patch,medicated See Rx Instructions .ROUTE .COMPLEX RF: 0 albuterol sulfate 90 mcg/actuation HFA aerosol inhaler 1 puff INHALATION BID PRN (Reason: Shortness Of Breath) RF: 0 risperidone 1 mg tablet 1 mg PO BEDTIME RF: 0 risperidone 0.5 mg tablet 0.5 mg PO BID RF: 0 Combivent Respimat 20-100 mcg/actuation mist 1 puff INHALATION QID PRN (Reason: unknown) RF: 0 Discontinued verapamil 180 mg Tablet Extended Release 180 mg PO DAILY RF: 0 No Action acetaminophen 325 mg Tablet 650 mg PO QID PRN (Reason: PAIN/FEVER) RF: 0 ondansetron 4 mg Tablet,Disintegrating 4 mg PO Q6H PRN (Reason: N/V) RF: 0 bisacodyl 5 mg Tablet 5 mg PO DAILY PRN (Reason: Constipation) RF: 0 Discharge Orders: Discharge Order (Routine); Ordered 02/05/20 Ordered By: Nidia Goldstein Referrals: [facility] [Outside] Discharge Diet: Advance as tolerated Discharge Activity: Increase activity as tolerated and As per PT/OT instructions Patient Instructions: Dehydration - Adult, Weakness (Generalized) Activity Restrictions/Additional Instructions: Discharge to [facility] Patient was noted to have some episodes of bradycardia therefore verapamil was held, digoxin held on admission but restarted on discharge, continued on metoprolol. 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
== END 2020-02-07 16:55 | disposition skilled nursing facility (03) | DRG 641 ==
LOC: ER 00:56 → MEDSURG 03:14
PROVIDERS: Internal Medicine; Admitting Provider Internal Medicine; Emergency Provider Emergency Medicine; Family Provider Nurse Practitioner Family; PCP Nurse Practitioner Family; Visit Provider Family Medicine
DX: E86.0 Dehydration (principal); Z68.41 Body mass index [BMI] 40.0-44.9, adult; E11.22 Type 2 diabetes mellitus with diabetic chronic kidney disease; I12.9 Hypertensive chronic kidney disease with stage 1 through stage 4 chronic kidney disease, or unspecified chronic kidney disease; N18.30 Chronic kidney disease, stage 3 unspecified; Z95.0 Presence of cardiac pacemaker; M79.3 Panniculitis, unspecified; I48.91 Unspecified atrial fibrillation; I25.10 Atherosclerotic heart disease of native coronary artery without angina pectoris; E66.01 Morbid (severe) obesity due to excess calories; E11.51 Type 2 diabetes mellitus with diabetic peripheral angiopathy without gangrene; E89.0 Postprocedural hypothyroidism; Z98.84 Bariatric surgery status; E87.1 Hypo-osmolality and hyponatremia; D53.9 Nutritional anemia, unspecified; R53.1 Weakness; G47.00 Insomnia, unspecified; F03.90 Unspecified dementia, unspecified severity, without behavioral disturbance, psychotic disturbance, mood disturbance, and anxiety; Z79.01 Long term (current) use of anticoagulants
CPT/HCPCS: 12345; 36415; 36416; 51702; 71045; 80048; 80053; 81003; 82607; 82962; 83036; 83540; 83550; 83735; 83880; 84443; 85025; 85378; 87426; 93005; 93306; 96372; 97110; 97116; 97161; 97530; 99283; G0378; J1815; J7050

== ENCOUNTER 2020-02-09 10:39 | Inpatient (IN) | payer MEDICARE, MEDICAID, SELFPAY ==
[2020-02-09] VITALS (10 sets, daily range): BP systolic 78–107; BP diastolic 45–77; PULSE 74–101; RESP 12–19; TEMP 36.4–36.8; O2SAT 90–98; BMI 38.7
--- NOTE | 2020-02-09 11:14 | ECG_ITS ---
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1945 Requested By: Kathy Godoy Order Number: [id number] Reading MD: ALEXANDER CHEEMA Measurements Intervals [place] Rate: 88 P: MD: -1 QRS: 13 QRSD: 105 T: 71 QT: 376 QTc: 456 Interpretive Statements ATRIAL FIBRILLATION LOW QRS VOLTAGE IN PRECORDIAL LEADS [QRS DEFLECTION < 1.0 mV IN CHEST LEADS] NONSPECIFIC T-WAVE ABNORMALITY ABNORMAL RHYTHM ECG Compared to ECG 02/01/2020 21:32:27 T-wave abnormality now present ST (T wave) deviation no longer present Electronically Signed On 02-09-2020 18:20:33 CDT by ALEXANDER CHEEMA [email or web address]/[id number]
[2020-02-09 11:19] LABS: Basophils # 0.1 10^3/uL (0.0-0.1); Basophils % 0.4 %; Eosinophils # 0.3 10^3/uL (0.0-0.8); Eosinophils % 2.5 %; Hematocrit 36.1 % (37.0-47.0); Hemoglobin 11.2 g/dL (11.5-15.3); Lymphocytes # 2.4 10^3/uL (0.8-4.8); Lymphocytes % 18.8 %; Mean Corpuscular Hemoglobin 30.4 pg (28.0-34.0); Mean Corpuscular Volume 97.8 fL (81-99); Mean Platelet Volume 9.1 fL (7.4-10.4); Monocytes # 1.3 10^3/uL (0.2-0.9); Neutrophils # 8.45 10^3/uL (1.8-7.7); Neutrophils % 67.8 %; Nucleated Red Blood Cells % 0 %; Platelet Count 441 10^3/cmm (130-400); Red Blood Count 3.69 10^6/uL (4.1-5.3); Red Cell Distribution Width 18.5 % (12.1-15.1); White Blood Count 12.5 10^3/uL (4.0-10.0)
[2020-02-09 11:44] LABS: Troponin(5th) Baseline 40 ng/L (0-10)
[2020-02-09 11:51] LABS: NT Pro B Type Natriuretic Pept 1509 pg/mL (0-125); Procalcitonin 0.43 ng/mL (0-0.5)
[2020-02-09] MEDS: sodium chloride 0.9% 500 ML 999 ML IV (12:01)
[2020-02-09 12:02] LABS: Alanine Aminotransferase 9 U/L (0-33); Albumin Level 3.4 g/dL (3.5-5.2); Alkaline Phosphatase 120 IU/L (35-105); Anion Gap 21.5 (5-19); Aspartate Amino Transferase 15 U/L (0-32); Blood Urea Nitrogen 80 mg/dL (8-23); Calcium 8.8 mg/dL (8.5-10.5); Carbon Dioxide 19 mmol/L (22-29); Chloride 89 mmol/L (98-107); Globulin 4.9 g/dL (1.3-4.6); Glucose 143 mg/dL (65-115); Osmolality Calculated 287 mOsm/kg (285-295); Potassium 4.5 mmol/L (3.5-5.1); Sodium 125 mmol/L (136-145); Total Bilirubin 0.4 mg/dL (0.15-1.2); Total Protein 8.3 g/dL (6.6-8.7)
[2020-02-09 13:04] LABS: Add Urine Microscopic? NO
[2020-02-09 13:09] LABS: Bilirubin Urine Neg (Negative); Blood Urine Neg (Negative); Glucose Urine UA Norm (Normal); Ketones Urine Negative (Negative); Leukocyte Esterase Urine Negative (Negative); Nitrate Urine Negative (Negative); Protein Urine Neg (Negative); Specific Gravity, Urine 1.015 (1.005-1.030); Urine Appearance Clear (CLEAR); Urine Color Yellow (Yellow); Urobilinogen Urine Norm (Negative)
--- NOTE | 2020-02-09 13:14 | ECG_ITS ---
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: : 1945 Requested By: Kathy Godoy Order Number: [id number] Reading MD: ALEXANDER CHEEMA Measurements Intervals [place] Rate: 89 P: [place]: -1 QRS: 33 QRSD: 109 T: 62 QT: 398 QTc: 485 Interpretive Statements ATRIAL FIBRILLATION LOW QRS VOLTAGE IN EXTREMITY LEADS [QRS DEFLECTION < 0.5 mV IN LIMB LEADS] ST DEVIATION AND MODERATE T-WAVE ABNORMALITY, CONSIDER INFERIOR ISCHEMIA [-0.1+ mV T WAVE IN II/aVF] Compared to ECG 02/09/2020 11:41:17 Possible ischemia now present T-wave abnormality still present Electronically Signed On 02-09-2020 18:22:05 CDT by ALEXANDER CHEEMA [email or web address]/[id number]
[2020-02-09 14:33] LABS: Troponin 5 2HR 32.12 ng/L (0-10)
[2020-02-09 14:34] LABS: Troponin 5 2HR Delta -7.88 ABS# (0-10)
--- NOTE | 2020-02-09 14:50 | ED_ITS ---
HPI - General Adult General: Chief complaint: General Medical Stated complaint: HYPOTENSION Time Seen by Provider: 02/09/20 10:40 History of Present Illness: HPI narrative: This patient is a 75-year-old female presenting from the retirement. She is at [facility] and has been there since being discharged from the hospital on February 06. She was being treated for cellulitis of her pannus. She said that seems better and on my exam I could not really find any evidence of it. She has had one episode of diarrhea she says last night. She has not had any vomiting. She does say that she does not feel very well today. Of note the retirement reports that they had not given her any of her blood pressure medicine this morning. They also took off the Nitropaste that she had on her chest. She also had some IV fluids overnight. The nurse at the retirement noted that she had not urinated much yesterday but she did go a large amount this morning. Associated symptoms: Deny chest pain, dyspnea, headache(s), malaise, nausea, rash or vomiting Review of Systems General: Reports: 10 or more systems reviewed and unremarkable except in HPI and below Const: Denies: fever(s), chills, fatigue or malaise Eyes: Denies: change in vision ENMT: Denies: odynophagia Card: Denies: chest pain or swelling of feet/ankles Resp: Denies: dyspnea, productive cough or non-productive cough GI: Reports: diarrhea; Denies: abdominal pain, nausea or vomiting : Denies: flank pain or difficulty voiding Musc: Reports: back pain; Denies: neck pain Skin/Breast: Denies: rash Neuro: Denies: headache(s), numbness in extremities or weakness in extremities Phil/Lymph: Denies: easy bruising or easy bleeding PFSH ED PFSH: Medical History (Updated 02/09/20 @ 15:38 by Layo Yee MD) Atrial fibrillation CKD (chronic kidney disease) stage 2, GFR 60-89 ml/min Coronary artery disease Dementia Hypertension Hypothyroid Infected abrasion of groin 2018) infection requiring I&D 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 Morbid obesity Peripheral vascular disease Type 2 diabetes mellitus Surgical History H/O knee surgery H/O shoulder surgery H/O thyroidectomy For Graves' disease H/O: hysterectomy History of appendectomy History of permanent cardiac pacemaker placement SSS S/P cholecystectomy S/P gastric surgery LAP-BAND later followed by gastric sleeve Family History Other CAD (coronary artery disease) Dementia Stroke Social History Smoking and tobacco status: never smoked Alcohol intake: never Lives independently: Yes Housing: House Physical Exam Const: COMMON NORMALS: no acute distress, patient oriented x3, no limitations and alert GENERAL APPEARANCE: cooperative and comfortable HENMT: HEAD & SCALP: normal to inspection FACE & SINUS: normal facial exam Eye: GENERAL EYE: appearance normal, both eyes and all related structures Neck/C-Spine: COMMON NORMALS: supple, no meningeal signs and no JVD Chest: COMMONS NORMALS: normal inspection of the chest Resp: COMMON NORMALS: normal respiratory effort, No use of accessory muscles and clear to auscultation bilaterally AUSCULTATION: clear to auscultation bilaterally Cardio: COMMON NORMALS: no JVD, regular rate, regular rhythm and No murmurs present (Cardio) RATE: regular rate RHYTHM: regular rhythm GI: COMMON NORMALS: Normal to inspection, nondistended, normoactive bowel sounds present, Soft to palpation and non-tender INSPECTION: Yes normal to inspection (Patient has a pannus. I was not able to find any areas that look cellulitic. Abdomen was nontender) AUSCULTATION: Yes normoactive bowel sounds PALPATION: Yes Soft to palpation Back/Pelvis: COMMON NORMALS: thoracic and lumbar spine normal to inspection Extremity: COMMON NORMALS: normal to inspection Neuro: COMMON NORMALS: patient oriented x3, moves all extremities, no focal motor deficits and no sensory deficits noted SENSORIUM/ORIENTATION: Yes alert MENINGEAL SIGNS: Yes no meningeal signs Psych: COMMON NORMALS: mental status grossly normal, cooperative and normal affect Skin: COMMON NORMALS: no rashes or lesions noted and turgor normal GENERAL SKIN EXAM: no rashes or lesions noted and turgor normal Course ED course: Patient has history of A. fib and her heart rate did bounce around 100. Blood pressures remained in the 80s to 90s for the most part. She did have 1 or 2 pressures that were over 100. Sats were good. She is in no distress. Her labs came back with a markedly elevated creatinine at 3.3. Her baseline appears to be around 1. She has had one episode where it was 2.0 but for the most part recently has been 1. Her sodium is also low at 125. That also appears to be new. Hemoglobin is 11.2 which is better than her baseline and possibly due to dehydration. She will be admitted for further management and evaluation. I spoke with Antony, who is her granddaughter and has applied to be her guardian as well. She agreed with the plan of care. Vital Signs: Vital signs: Vital Signs Temperature 97.5 F L 02/09/20 10:48 Pulse Rate 101 H 02/09/20 17:01 Respiratory Rate 19 H 02/09/20 17:01 Blood Pressure 95/45 02/09/20 17:01 Pulse Oximetry 93 02/09/20 17:01 [facility] - General Adult Lab Data: Labs: Lab Results 02/09/20 02/09/20 02/09/20 Range/Units 10:30 10:30 10:30 WBC 12.5 H (4.0-10.0) 10^3/ uL RBC 3.69 L (4.1-5.3) 10^6/u L Hgb 11.2 L (11.5-15.3) g/dL Hct 36.1 L (37.0-47.0) % MCV 97.8 (81-99) fL MCH 30.4 (28.0-34.0) pg MCHC 31.0 (30.0-36.0) g/dL RDW 18.5 H (12.1-15.1) % Plt Count 441 H (130-400) 10^3/c mm MPV 9.1 (7.4-10.4) fL Neut % (Auto) 67.8 % Lymph % (Auto) 18.8 % [place] % (Auto) 10.0 % Eos % (Auto) 2.5 % Baso % (Auto) 0.4 % Neut # (Auto) 8.45 H (1.8-7.7) 10^3/u L Lymph # (Auto) 2.4 (0.8-4.8) 10^3/u L [place] # (Auto) 1.3 H (0.2-0.9) 10^3/u L Eos # (Auto) 0.3 (0.0-0.8) 10^3/u L Baso # (Auto) 0.1 (0.0-0.1) 10^3/u L Nucleated RBC % (a uto) 0 % Nucleated RBCs # 0.0 /100WBC Sodium 125 L (136-145) mmol/L Potassium 4.5 (3.5-5.1) mmol/L Chloride 89 L (98-107) mmol/L Carbon Dioxide 19 L (22-29) mmol/L Anion Gap 21.5 H (5-19) BUN 80 H (8-23) mg/dL Creatinine 3.3 H (0.5-0.9) mg/dL GFR Calculation Not Reportable Glucose 143 H (65-115) mg/dL Calculated Osmolal ity 287 (285-295) mOsm/k g Lactic Acid (0.5-2.2) mmol/L Calcium 8.8 (8.5-10.5) mg/dL Total Bilirubin 0.4 (0.15-1.2) mg/dL AST 15 (0-32) U/L ALT 9 (0-33) U/L Alkaline Phosphata se 120 H (35-105) IU/L Creatine Kinase (26-192) U/L Troponin T Baselin e 40 H (0-10) ng/L Troponin T 120 Min [place] (0-10) ng/L Delta Troponin T (0-10) ABS# NT-Pro-B Natriuret Pep 1509 H (0-125) pg/mL Total Protein 8.3 (6.6-8.7) g/dL Albumin 3.4 L (3.5-5.2) g/dL Globulin 4.9 H (1.3-4.6) g/dL Procalcitonin 0.43 (0-0.5) ng/mL Urine Color (Yellow) Urine Appearance (CLEAR) Urine pH (5-7) Ur Specific Gravit y (1.005-1.030) Urine Protein (Negative) Urine Glucose (UA) (Normal) Urine Ketones (Negative) Urine Blood (Negative) Urine Nitrate (Negative) Urine Bilirubin (Negative) Urine Urobilinogen (Negative) mg/dL Ur Leukocyte Bessie ase (Negative) SARS-CoV-2 Ag (Rap id) (Negative) 02/09/20 02/09/20 02/09/20 Range/Units 10:30 12:46 13:42 WBC (4.0-10.0) 10^3/ uL RBC (4.1-5.3) 10^6/u L Hgb (11.5-15.3) g/dL Hct (37.0-47.0) % MCV (81-99) fL MCH (28.0-34.0) pg MCHC (30.0-36.0) g/dL RDW (12.1-15.1) % Plt Count (130-400) 10^3/c mm MPV (7.4-10.4) fL Neut % (Auto) % Lymph % (Auto) % [place] % (Auto) % Eos % (Auto) % Baso % (Auto) % Neut # (Auto) (1.8-7.7) 10^3/u L Lymph # (Auto) (0.8-4.8) 10^3/u L [place] # (Auto) (0.2-0.9) 10^3/u L Eos # (Auto) (0.0-0.8) 10^3/u L Baso # (Auto) (0.0-0.1) 10^3/u L Nucleated RBC % (a uto) % Nucleated RBCs # /100WBC Sodium (136-145) mmol/L Potassium (3.5-5.1) mmol/L Chloride (98-107) mmol/L Carbon Dioxide (22-29) mmol/L Anion Gap (5-19) BUN (8-23) mg/dL Creatinine (0.5-0.9) mg/dL GFR Calculation Glucose (65-115) mg/dL Calculated Osmolal ity (285-295) mOsm/k g Lactic Acid (0.5-2.2) mmol/L Calcium (8.5-10.5) mg/dL Total Bilirubin (0.15-1.2) mg/dL AST (0-32) U/L ALT (0-33) U/L Alkaline Phosphata se (35-105) IU/L Creatine Kinase 59 (26-192) U/L Troponin T Baselin e (0-10) ng/L Troponin T 120 Min [place] 32.12 H (0-10) ng/L Delta Troponin T -7.88 L (0-10) ABS# NT-Pro-B Natriuret Pep (0-125) pg/mL Total Protein (6.6-8.7) g/dL Albumin (3.5-5.2) g/dL Globulin (1.3-4.6) g/dL Procalcitonin (0-0.5) ng/mL Urine Color Yellow (Yellow) Urine Appearance Clear (CLEAR) Urine pH 5.0 (5-7) Ur Specific Gravit y 1.015 (1.005-1.030) Urine Protein Neg (Negative) Urine Glucose (UA) Norm (Normal) Urine Ketones Negative (Negative) Urine Blood Neg (Negative) Urine Nitrate Negative (Negative) Urine Bilirubin Neg (Negative) Urine Urobilinogen Norm (Negative) mg/dL Ur Leukocyte Bessie ase Negative (Negative) SARS-CoV-2 Ag (Rap id) (Negative) 02/09/20 02/09/20 Range/Units 14:19 15:26 WBC (4.0-10.0) 10^3/ uL RBC (4.1-5.3) 10^6/u L Hgb (11.5-15.3) g/dL Hct (37.0-47.0) % MCV (81-99) fL MCH (28.0-34.0) pg MCHC (30.0-36.0) g/dL RDW (12.1-15.1) % Plt Count (130-400) 10^3/c mm MPV (7.4-10.4) fL Neut % (Auto) % Lymph % (Auto) % [place] % (Auto) % Eos % (Auto) % Baso % (Auto) % Neut # (Auto) (1.8-7.7) 10^3/u L Lymph # (Auto) (0.8-4.8) 10^3/u L [place] # (Auto) (0.2-0.9) 10^3/u L Eos # (Auto) (0.0-0.8) 10^3/u L Baso # (Auto) (0.0-0.1) 10^3/u L Nucleated RBC % (a uto) % Nucleated RBCs # /100WBC Sodium (136-145) mmol/L Potassium (3.5-5.1) mmol/L Chloride (98-107) mmol/L Carbon Dioxide (22-29) mmol/L Anion Gap (5-19) BUN (8-23) mg/dL Creatinine (0.5-0.9) mg/dL GFR Calculation Glucose (65-115) mg/dL Calculated Osmolal ity (285-295) mOsm/k g Lactic Acid 1.6 (0.5-2.2) mmol/L Calcium (8.5-10.5) mg/dL Total Bilirubin (0.15-1.2) mg/dL AST (0-32) U/L ALT (0-33) U/L Alkaline Phosphata se (35-105) IU/L Creatine Kinase (26-192) U/L Troponin T Baselin e (0-10) ng/L Troponin T 120 Min [place] (0-10) ng/L Delta Troponin T (0-10) ABS# NT-Pro-B Natriuret Pep (0-125) pg/mL Total Protein (6.6-8.7) g/dL Albumin (3.5-5.2) g/dL Globulin (1.3-4.6) g/dL Procalcitonin (0-0.5) ng/mL Urine Color (Yellow) Urine Appearance (CLEAR) Urine pH (5-7) Ur Specific Gravit y (1.005-1.030) Urine Protein (Negative) Urine Glucose (UA) (Normal) Urine Ketones (Negative) Urine Blood (Negative) Urine Nitrate (Negative) Urine Bilirubin (Negative) Urine Urobilinogen (Negative) mg/dL Ur Leukocyte Bessie ase (Negative) SARS-CoV-2 Ag (Rap id) Negative (Negative) Discharge Plan Discharge Patient Disposition: Admitted As Inpatient Admit Provider: Layo Yee Discharge Date/Time: 02/09/20 17:11 Coding Level of Care Code ED Television Technician for Chg Fwd Exam Comprehensive
[2020-02-09 14:58] LABS: Lactic Sepsis W/Reflex 1.6 mmol/L (0.5-2.2)
--- NOTE | 2020-02-09 15:19 | P.HP_ITS ---
Providers/Chief Complaint Primary Care Provider: Edith Dykes APPLICATION SUPPORT CONSULTANT-C Chief Complaint: HYPOTENSION History of Present Illness Pallavi Saha is a 75 year old female who presents from the nursing facility with history of hypotension. She was recently discharged from the hospital on February 06. Has had some nausea. Possibly vomiting. Patient relates some loose stool as well but this is not confirmed from the nursing facility. She has not been eating and drinking as well. Patient has difficulty giving any further history. She denies any shortness of breath, cough. She reports she did have some difficulty urinating lately but now it is better. Review of Systems General: Reports: 10 or more systems reviewed and unremarkable except in HPI and below Const: Denies: fever(s) Eyes: Denies: change in vision ENMT: Denies: throat pain Card: Denies: chest pain Resp: Denies: dyspnea GI: Reports: nausea; Denies: abdominal pain : Denies: flank pain Musc: Denies: neck pain Skin/Breast: Denies: rash Neuro: Denies: headache(s) Endo: Denies: polyuria Phil/Lymph: Denies: easy bruising All/Imm: Denies: urticaria Medications/Allergies Home Medications Medication Instructions Recorded Confirmed Last Taken Type Pradaxa 150 mg PO BID 07/22/19 02/09/20 02/08/20 History digoxin 125 mcg PO EVERY OTHER DAY 07/22/19 02/09/20 02/08/20 History duloxetine 60 mg PO BID 07/22/19 02/09/20 02/09/20 History ergocalciferol (vitamin D2) 1,250 mcg PO Q7D 07/22/19 02/09/20 Unknown History [Vitamin D2] furosemide 40 mg PO DAILY 07/22/19 02/09/20 02/08/20 History hydrocodone-acetaminophen 1 tab PO Q6H PRN #15 tab 07/22/19 02/09/20 02/09/20 Rx isosorbide mononitrate 90 mg PO DAILY 07/22/19 02/09/20 02/08/20 History lisinopril 5 mg PO DAILY 07/22/19 02/09/20 02/08/20 History metoprolol tartrate 25 mg PO BID 07/22/19 02/09/20 02/08/20 History montelukast 10 mg PO DAILY 07/22/19 02/09/20 02/09/20 History nitroglycerin 1 patch TRANSDERMAL DAILY 07/22/19 02/09/20 02/08/20 History pantoprazole 40 mg PO DAILY 07/22/19 02/09/20 02/09/20 History potassium chloride 10 meq PO DAILY 07/22/19 02/09/20 02/09/20 History Combivent Respimat 1 puff INHALATION QID PRN 02/04/20 02/09/20 Unknown History albuterol sulfate 1 puff INHALATION BID PRN 02/04/20 02/09/20 Unknown History buspirone 10 mg PO BID 02/04/20 02/09/20 02/09/20 History levothyroxine [Synthroid] 137 mcg PO DAILY 02/04/20 02/09/20 02/09/20 History lidocaine See Rx Instructions .ROUTE .COMPLEX 02/04/20 02/09/20 02/09/20 History risperidone 0.5 mg PO BID 02/04/20 02/09/20 02/09/20 History risperidone 1 mg PO BEDTIME 02/04/20 02/09/20 02/08/20 History atorvastatin 20 mg PO QPM 30 Days #15 tab 02/05/20 02/09/20 02/08/20 Rx dabigatran etexilate [Pradaxa] 150 mg PO BID@0700,1800 30 Days 02/05/20 02/09/20 02/08/20 Rx #60 cap nystatin [Nystop] 1 applic TOPICAL BID 7 Days #1 gm 02/05/20 02/09/20 02/09/20 Rx acetaminophen 650 mg PO QID PRN 02/09/20 02/09/20 Unknown History bisacodyl 5 mg PO DAILY PRN 02/09/20 02/09/20 Unknown History ondansetron 4 mg PO Q6H PRN 02/09/20 02/09/20 02/08/20 History Allergies Allergy/AdvReac Type Severity Reaction Status Date / Time metformin [From Glucophage] Allergy Unknown Verified 07/22/19 07:24 Tetanus Vaccines and Toxoid Allergy Unknown Verified 07/22/19 07:24 PFSH Acute PFSH: Medical History Atrial fibrillation CKD (chronic kidney disease) stage 2, GFR 60-89 ml/min Coronary artery disease Hypertension Hypothyroid Infected abrasion of groin 2018) infection requiring I&D 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 Morbid obesity Peripheral vascular disease Type 2 diabetes mellitus Surgical History H/O knee surgery H/O shoulder surgery H/O thyroidectomy For Graves' disease H/O: hysterectomy History of appendectomy History of permanent cardiac pacemaker placement SSS S/P cholecystectomy S/P gastric surgery LAP-BAND later followed by gastric sleeve Family History Other CAD (coronary artery disease) Dementia Stroke Social History Smoking and tobacco status: never smoked Alcohol intake: never Lives independently: Yes Housing: House Vitals/I&O/Wt Last Vital Signs Temp 97.5 F L 02/09/20 10:48 Pulse 92 02/09/20 10:48 Resp 12 02/09/20 10:48 BP 80/49 02/09/20 10:48 Pulse Ox 98 02/09/20 10:48 Weight last 48 hrs Weight 102.512 kg Physical Exam Narrative: EXAM NARRATIVE: General exam is an female in no apparent distress. HEENT: Pupils equally round. Oropharynx is clear. Neck is supple no lymphadenopathy or thyromegaly Cardiovascular regular rate and rhythm, no murmur Lungs clear, no wheezing or crackles Abdomen is soft, obese. No significant evidence of panniculitis is noted currently. This was an issue with last hospital stay. Some yeast in folds. demonstrates Sim Extremities no cyanosis clubbing or edema Skin no rash Neuro no focal deficits Data : 02/09/20 10:30 02/09/20 10:30 Other data: EKG demonstrates atrial fibrillation, normal axis, no significant acute changes. Lactic acid 1.6 LFTs normal with exception of alk phos of 120 Troponin 40, 32 at 120 minutes BNP 1509 Albumin 3.4 Urinalysis benign I have ordered a digoxin level as well as creatinine as well as a Covid, rapid Procalcitonin level is normal A&P Assessment and plan (1) Hypotension: Significant hypotension on admission. She appears dehydrated, which can play a role. She is in renal failure She has also had poor oral intake lately She is on multiple medications which could cause hypotension At this point she will be admitted to the hospital. Rehydration Hold all antihypertensives, diuretics, nitrates No evidence of sepsis currently Status: Acute (2) Acute renal failure: Place Sim Renal ultrasound Rehydration Urine electrolytes Close follow-up of renal function Check digoxin level Check urine eosinophils Status: Acute (3) Hyponatremia: Urine electrolytes Appears to be dehydrated, hypovolemic hyponatremia. Currently we will give fluids Repeat BMP in 4 hours Checks chest x-ray Check cortisol level Status: Resolved Additional A&P Information Nausea. Check Covid. Check chest x-ray. May be secondary to hyponatremia. History of atrial fibrillation. Hold medicines currently. Check digoxin level. History of underlying chronic kidney disease Hypothyroidism. TSH recently checked and normal History of type 2 diabetes. Not on any medication for this currently. Blood sugar slightly elevated. Last hemoglobin A1c 5.3. Will check sugar again with morning BMP. Morbid obesity Dementia History of coronary artery disease. No chest pain currently. Multiple other medical problems as outlined in past medical history full code Pradaxa and SCDs will suffice for DVT prophylaxis Attestations Medical Necessity Statement*: Will require greater than 2 midnight stay secondary to acute renal failure, hyponatremia Time Spent in Patient Care: Greater than 35 minutes Coding Level of Care Code Acute Greeting Card Editor for Nelson Storey Diagnoses Hypotension I95.9 Acute renal failure N17.9 Hyponatremia E87.1
--- NOTE | 2020-02-09 15:35 | XRR_ITS ---
PROCEDURE INFORMATION: Exam: XR Chest, 1 View Exam date and time: 02/09/2020 3:36 PM Age: 75 years old Clinical indication: Condition or disease; Other: Hypotension TECHNIQUE: Imaging protocol: XR of the chest Views: 1 view. COMPARISON: CR XR chest 1V portable [id number] 01/31/2020 12:49 AM FINDINGS: Tubes, catheters and devices: There is a permanent pacemaker present. Lungs: No consolidative pulmonary infiltrates are noted. Pleural space: No pleural effusion. No pneumothorax. Heart/Mediastinum: Mild cardiomegaly is noted. Vasculature: The thoracic aorta is mildly atherosclerotic. Bones/joints: Unremarkable. XR/XR chest 1V portable [id number] IMPRESSION: 1. Mild cardiomegaly is noted. 2. No acute abnormality demonstrated. 3. There is no interval change from the prior examination.
[2020-02-09 15:58] LABS: Creatine Phosphokinase 59 U/L (26-192)
[2020-02-09 16:13] LABS: SARS Covid-2 Antigen Negative (Negative)
[2020-02-09 16:36] LABS: Urine Creatinine 80 mg/dL (28-217); Urine Random Sodium 35 mmol/L
[2020-02-09 16:54] LABS: Digoxin 0.9 ng/mL (0.6-1.2)
[2020-02-09 16:57] LABS: Urine Random Chloride 10 mmol/L
--- NOTE | 2020-02-09 17:14 | ECG_ITS ---
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[id number] Requested By: Kathy Godoy Order Number: [id number] Reading MD: ALEXANDER CHEEMA Measurements Intervals [place] Rate: 75 P: [place]: -1 QRS: 16 QRSD: 105 T: 114 QT: 376 QTc: 422 Interpretive Statements ATRIAL FIBRILLATION LOW QRS VOLTAGE IN PRECORDIAL LEADS [QRS DEFLECTION < 1.0 mV IN CHEST LEADS] NONSPECIFIC ST & T-WAVE ABNORMALITY Compared to ECG 02/09/2020 13:32:42 Possible ischemia no longer present T-wave abnormality still present Electronically Signed On 02-09-2020 18:21:37 CDT by ALEXANDER CHEEMA [id number]
[2020-02-09 17:16] LABS: Cortisol Random 20.06 ug/mL (2.47-19.5)
[2020-02-09] MEDS: BuSPIRONE 10 mg Tablet PO (18:25)
[2020-02-09] MEDS: duloxetine 60 mg Capsule PO (18:25)
[2020-02-09] MEDS: atorvastatin 40 mg Tablet 20 MG PO (18:25)
[2020-02-09] MEDS: sodium chloride 0.9% 1,000 ML 100 ML IV (18:27)
[2020-02-09 19:59] LABS: Blood Urea Nitrogen 76 mg/dL (8-23); Calcium 8.5 mg/dL (8.5-10.5); Carbon Dioxide 21 mmol/L (22-29); Chloride 94 mmol/L (98-107); Glucose 138 mg/dL (65-115); Osmolality Calculated 289 mOsm/kg (285-295); Sodium 127 mmol/L (136-145)
[2020-02-09 23:08] LABS: Urine Eosinophil Count 0 (0-0)
[2020-02-09 23:20] LABS: Eosinophil Urine No Eosinophils Seen
[2020-02-10] VITALS (8 sets, daily range): BP systolic 100–118; BP diastolic 63–71; PULSE 79–99; RESP 16–20; TEMP 36.2–37; O2SAT 93–99
[2020-02-10 05:46] LABS: Basophils % 0.4 %; Eosinophils # 0.3 10^3/uL (0.0-0.8); Hematocrit 31.9 % (37.0-47.0); Hemoglobin 9.7 g/dL (11.5-15.3); Lymphocytes # 1.7 10^3/uL (0.8-4.8); Mean Corpuscular HGB Conc 30.4 g/dL (30.0-36.0); Mean Corpuscular Hemoglobin 30.3 pg (28.0-34.0); Mean Corpuscular Volume 99.7 fL (81-99); Mean Platelet Volume 9.1 fL (7.4-10.4); Monocytes # 0.9 10^3/uL (0.2-0.9); Monocytes % 10.1 %; Neutrophils # 5.55 10^3/uL (1.8-7.7); Neutrophils % 66.1 %; Nucleated Red Blood Cells % 0 %; Platelet Count 358 10^3/cmm (130-400); Red Cell Distribution Width 18.4 % (12.1-15.1); White Blood Count 8.4 10^3/uL (4.0-10.0)
[2020-02-10 06:21] LABS: Alanine Aminotransferase 7 U/L (0-33); Alkaline Phosphatase 104 IU/L (35-105); Anion Gap 17.8 (5-19); Aspartate Amino Transferase 12 U/L (0-32); Blood Urea Nitrogen 65 mg/dL (8-23); Calcium 8.4 mg/dL (8.5-10.5); Carbon Dioxide 20 mmol/L (22-29); Chloride 102 mmol/L (98-107); Glucose 112 mg/dL (65-115); Osmolality Calculated 299 mOsm/kg (285-295); Potassium 4.8 mmol/L (3.5-5.1); Sodium 135 mmol/L (136-145); Total Bilirubin 0.2 mg/dL (0.15-1.2)
[2020-02-10] MEDS: sodium chloride 0.9% 1,000 ML 100 ML IV ×2 (06:27→18:19)
[2020-02-10] MEDS: pantoprazole DR 40 mg Tablet PO (08:39)
[2020-02-10] MEDS: duloxetine 60 mg Capsule PO ×2 (08:39→18:19)
[2020-02-10] MEDS: levothyroxine 112 mcg Tablet PO (08:39)
[2020-02-10] MEDS: levothyroxine 25 mcg Tablet PO (08:39)
[2020-02-10] MEDS: BuSPIRONE 10 mg Tablet PO ×2 (08:39→18:19)
--- NOTE | 2020-02-10 11:18 | PM.PN ---
Subjective Subjective: Interval history: Pallavi reports she is doing better. Denies any chest pain or abdominal pain. No particular concerns today. Medications: Reviewed: Yes Vitals/I&O/Wt Last Vital Signs Temp 97.2 F L 02/10/20 08:05 Pulse 79 02/10/20 08:33 Resp 16 02/10/20 08:33 BP 118/71 02/10/20 08:05 Pulse Ox 95 02/10/20 08:33 02/09/20 02/10/20 02/10/20 22:59 06:59 14:59 Intake Total 1000 / 1000 Output Total 1225 / 1225 600 / 600 Balance -225 / -225 -600 / -600 Weight last 48 hrs Weight 102.512 kg Physical Exam Narrative: EXAM NARRATIVE: General exam no apparent distress Cardiovascular regular rate and rhythm, no murmur Lungs clear, no wheezing or crackles Abdomen is soft, obese. Extremities no cyanosis clubbing or edema Urinary Catheter Management^: Sim: Cath Placed During This Visit: yes Reason for Continuing Indwelling Catheter: Other Urinary Catheter Date of Insertion: 02/09/20 Urinary Catheter Time of Insertion: 15:34 Data : 02/10/20 04:48 02/10/20 04:48 A&P Assessment and plan (1) Hypotension: Significant hypotension on admission. This has resolved Renal function appears to be improving She has also had poor oral intake lately Continue rehydration Hold all antihypertensives, diuretics, nitrates No evidence of sepsis currently 1800 cc of urine output which is reassuring. CK was checked and normal. Status: Acute (2) Acute renal failure: Continue to closely monitor urine output Renal ultrasound demonstrated no evidence of obstruction Urine eosinophils negative Status: Acute (3) Hyponatremia: Resolving Cortisol level not low Chest x-ray no mass Status: Resolved Additional A&P Information Nausea. Rapid Covid negative. Likely secondary to hyponatremia History of atrial fibrillation. Hold medicines currently. Check digoxin level. History of underlying chronic kidney disease Hypothyroidism. TSH recently checked and normal History of type 2 diabetes. Not on any medication for this currently. Blood sugar slightly elevated. Last hemoglobin A1c 5.3. Will check sugar again with morning BMP. Morbid obesity Dementia History of coronary artery disease. No chest pain currently. 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
[2020-02-10] MEDS: ondansetron 2 mg/ML SDV 2 mL 4 MG IVP (12:42)
--- NOTE | 2020-02-10 17:48 | USR_ITS ---
PROCEDURE INFORMATION: Exam: US Retroperitoneal; Complete; Kidneys and Bladder Exam date and time: 02/10/2020 9:22 AM Age: 75 years old Clinical indication: Abnormal findings; Abnormal lab test; Abnormal kidney function lab tests; Additional info: Renal failure TECHNIQUE: Imaging protocol: Real-time ultrasound of the retroperitoneum with image documentation. Complete exam focused on the kidneys and bladder. COMPARISON: No relevant prior studies available. FINDINGS: Right kidney: Thinning of renal parenchyma. Right kidney measures 9.7 cm in length. No renal mass, calculus, or hydronephrosis. Left kidney: Thinning of renal parenchyma. Left kidney measures 9.4 cm in length. No renal mass, calculus, or hydronephrosis. Aorta: Normal caliber of the visualized proximal abdominal aorta with obscuration of the distal abdominal aorta by bowel gas. Bladder: Sim catheter in the decompressed bladder. US/US renal BI with PV bladder IMPRESSION: No acute sonographic abnormality in the visualized kidneys.
[2020-02-10] MEDS: atorvastatin 40 mg Tablet 20 MG PO (18:19)
[2020-02-11] VITALS (7 sets, daily range): BP systolic 98–143; BP diastolic 70–80; PULSE 78–103; RESP 16–18; TEMP 36.4–36.9; O2SAT 94–99
[2020-02-11] MEDS: sodium chloride 0.9% 1,000 ML 100 ML IV (03:10)
[2020-02-11 05:44] LABS: Basophils % 0.6 %; Eosinophils # 0.2 10^3/uL (0.0-0.8); Eosinophils % 2.9 %; Hematocrit 33.5 % (37.0-47.0); Hemoglobin 10.1 g/dL (11.5-15.3); Lymphocytes # 1.8 10^3/uL (0.8-4.8); Lymphocytes % 25.3 %; Mean Corpuscular HGB Conc 30.1 g/dL (30.0-36.0); Mean Corpuscular Hemoglobin 30.2 pg (28.0-34.0); Mean Corpuscular Volume 100.3 fL (81-99); Mean Platelet Volume 8.9 fL (7.4-10.4); Monocytes # 0.8 10^3/uL (0.2-0.9); Monocytes % 11.3 %; Neutrophils % 59.6 %; Nucleated Red Blood Cells % 0 %; Platelet Count 357 10^3/cmm (130-400); Red Blood Count 3.34 10^6/uL (4.1-5.3); Red Cell Distribution Width 18.4 % (12.1-15.1); White Blood Count 7.2 10^3/uL (4.0-10.0)
--- NOTE | 2020-02-11 06:08 | PC.NURSE ---
SHIFT SUMMARY Has rested well tonight without c/o. 2800ml emptied from Sim this shift. Urine is quite cloudy and with strong odor. Some occ pink streaking noted through urine. No clots. IV infusing without difficulty at 100ml/hr rate
[2020-02-11 06:19] LABS: Anion Gap 12.7 (5-19); Blood Urea Nitrogen 30 mg/dL (8-23); Calcium 8.5 mg/dL (8.5-10.5); Carbon Dioxide 22 mmol/L (22-29); Chloride 107 mmol/L (98-107); Glucose 104 mg/dL (65-115); Osmolality Calculated 290 mOsm/kg (285-295); Potassium 4.7 mmol/L (3.5-5.1); Sodium 137 mmol/L (136-145)
[2020-02-11] MEDS: levothyroxine 25 mcg Tablet PO (09:19)
[2020-02-11] MEDS: levothyroxine 112 mcg Tablet PO (09:19)
[2020-02-11] MEDS: pantoprazole DR 40 mg Tablet PO (09:19)
[2020-02-11] MEDS: digoxin 125 mcg Tablet PO (09:20)
[2020-02-11] MEDS: duloxetine 60 mg Capsule PO ×2 (09:20→17:44)
[2020-02-11] MEDS: BuSPIRONE 10 mg Tablet PO ×2 (09:20→17:45)
--- NOTE | 2020-02-11 09:56 | PC.CHAP ---
Pastoral Care Encounter/Spiritual Assessment Type of Contact [] Declined strategic accounts manager visit [] Patient/Family/Request visit [] Outpatient visit [] Follow-up visit [] Physician referral [] Code/Alert [] Routine visit [] Staff referral [] Actively dying [X] Patient sleeping [] Family support [] [] Out of room [] Palliative care [] [] Receiving care in room [] Pre-surgical visit [] Trauma [] Long length of stay [] ICU visit [] Other: Relational/Emotional Strength [] Patient feels connected with others/family/visitors/staff [] Distress [] Loneliness/isolation [] Abandonment Spirituality of Patient [] Person of Stacy [] Attends Religion of their Stacy [] Believes in Prayer [] Reads Bible or Denominational materials [] There are Spiritual issues to be addressed Graphic Design Intern Interventions [] Prayer [] Active listening [] Non-anxious presence [] Spiritual/emotional support [] Crisis/trauma care [] Spiritual counseling [] Bereavement support [] Provided bereavement packet [] Provided Bible/devotional materials [] Provided toy/stuffed animal, coloring book to patient or family member [] Provided Communion [] Anointing/[place] [] Salvation [] Completed spiritual assessment [] Other: Impact on Illness or Injury [] Angry [] Fearful [] Anxious [] Often cries [] Exhaustion [] Unable to work [] Unable to attend jewish [] Unable to walk/stand [] Unable to read [] Unable to drive [] Unable to eat/drink [] Unable to sleep [] Unable to be with family [] Patient intubated [] Other: Summary Time spent with patient
--- NOTE | 2020-02-11 10:50 | PM.DCS ---
Discharge Providers Date of Admission: 02/09/20 17:48 Date of Discharge: February 11, 2020 Attending Provider at Admission: Layo Yee MD Attending Provider at Discharge: Layo Yee MD Primary Care Provider: Edith Dykes-Maria De Jesus Diagnoses at Discharge Discharge Diagnosis (1) Hypotension: Status: Acute Permanent problem details: Resolved (2) Acute renal failure: Status: Acute Permanent problem details: Resolved (3) Hyponatremia: Status: Resolved Permanent problem details: Resolved Reason for Visit Reason for Visit: HYPOTENSION Hospital Course Hospital Course: Pallavi is a 75-year-old white female who presented to the hospital with dehydration, acute renal failure. She reports she had some nausea. Low blood pressure was noted. On admission her creatinine was 3.3, sodium 125. She was rehydrated. All antihypertensives diuretics and nitrates were held. Renal ultrasound was performed which demonstrated no evidence of obstruction. Urine eosinophils were negative. Cortisol level was normal. Rapid Covid was negative. CK did not demonstrate elevation. With these actions alone, renal function improved greatly. Blood pressure normalized. Creatinine was 1.1 upon discharge. She will discharge back to skilled care. Physical Exam Narrative: EXAM NARRATIVE: General exam no apparent distress Cardiovascular regular rate and rhythm without murmur Lungs clear Abdomen is soft with positive bowel sounds Extremities no cyanosis clubbing or edema Urinary Catheter Management^: Sim: Cath Placed During This Visit: yes Reason for Continuing Indwelling Catheter: Acute Urinary Retention or Obstruction Urinary Catheter Date of Insertion: 02/09/20 Urinary Catheter Time of Insertion: 15:34 Discharge Data Data Completed and Pending: Completed Studies During Hospitalization Category Date Time Status XR chest 1V leslie ble [id number] Routine Exams 02/09/20 15:35 Completed US renal BI with PV bladder Routine Ultrasound 02/10/20 17:48 Completed Labs from last 24 hours 02/11/20 02/11/20 04:49 04:49 WBC 7.2 RBC 3.34 L Hgb 10.1 L Hct 33.5 L MCV 100.3 H MCH 30.2 MCHC 30.1 RDW 18.4 H Plt Count 357 MPV 8.9 Neut % (Auto) 59.6 Lymph % (Auto) 25.3 [place] % (Auto) 11.3 Eos % (Auto) 2.9 Baso % (Auto) 0.6 Neut # (Auto) 4.30 Lymph # (Auto) 1.8 [place] # (Auto) 0.8 Eos # (Auto) 0.2 Baso # (Auto) 0.0 Nucleated RBC % (a uto) 0 Nucleated RBCs # 0.0 Sodium 137 Potassium 4.7 Chloride 107 Carbon Dioxide 22 Anion Gap 12.7 BUN 30 H Creatinine 1.1 H GFR Calculation Not Reportable Glucose 104 Calculated Osmolal ity 290 Calcium 8.5 Vitals: Last Vital Signs Temp 97.5 F L 02/11/20 07:38 Pulse 89 02/11/20 08:35 Resp 16 02/11/20 08:35 BP 143/80 02/11/20 07:38 Pulse Ox 98 02/11/20 08:35 Discharge Plan Discharge Patient Disposition: Xfer SNF Condition: Stable Prescriptions: Continued Pradaxa 150 mg Capsule 150 mg PO BID RF: 0 duloxetine 60 mg Capsule, Delayed Rel Sprinkle 60 mg PO BID RF: 0 ergocalciferol (vitamin D2) [Vitamin D2] 1,250 mcg (50,000 unit) Capsule 1,250 mcg PO Q7D RF: 0 pantoprazole 40 mg Tablet,Delayed Release (Dr/Ec) 40 mg PO DAILY RF: 0 metoprolol tartrate 25 mg Tablet 25 mg PO BID RF: 0 montelukast 10 mg Tablet 10 mg PO DAILY RF: 0 digoxin 125 mcg (0.125 mg) Tablet 125 mcg PO EVERY OTHER DAY RF: 0 hydrocodone-acetaminophen 5-325 mg tablet 1 tab PO Q6H PRN (Reason: pain) Qty: 15 RF: 0 levothyroxine [Synthroid] 137 mcg tablet 137 mcg PO DAILY RF: 0 buspirone 10 mg tablet 10 mg PO BID RF: 0 lidocaine 5 % adhesive patch,medicated See Rx Instructions .ROUTE .COMPLEX RF: 0 albuterol sulfate 90 mcg/actuation HFA aerosol inhaler 1 puff INHALATION BID PRN (Reason: Shortness Of Breath) RF: 0 risperidone 1 mg tablet 1 mg PO BEDTIME RF: 0 risperidone 0.5 mg tablet 0.5 mg PO BID RF: 0 Combivent Respimat 20-100 mcg/actuation mist 1 puff INHALATION QID PRN (Reason: unknown) RF: 0 atorvastatin 40 mg Tablet 20 mg PO QPM 30 Days Qty: 15 RF: 0 nystatin [Nystop] 100,000 unit/gram Powder 1 applic topical BID 7 Days Qty: 1 RF: 0 acetaminophen 325 mg Tablet 650 mg PO QID PRN (Reason: PAIN/FEVER) RF: 0 ondansetron 4 mg Tablet,Disintegrating 4 mg PO Q6H PRN (Reason: N/V) RF: 0 bisacodyl 5 mg Tablet 5 mg PO DAILY PRN (Reason: Constipation) RF: 0 Discontinued nitroglycerin 0.6 mg/hr Patch 24 Hour 1 patch TRANSDERMAL DAILY RF: 0 lisinopril 10 mg Tablet 5 mg PO DAILY RF: 0 potassium chloride 10 mEq Tablet Extended Release 10 meq PO DAILY RF: 0 furosemide 40 mg Tablet 40 mg PO DAILY RF: 0 isosorbide mononitrate 30 mg Tablet Extended Release 24 Hr 90 mg PO DAILY RF: 0 Discharge Diet: Cardiac Discharge Activity: Increase activity as tolerated Activity Restrictions/Additional Instructions: Take all medicine as prescribed CBC and BMP in 3 to 5 days. 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
[2020-02-11] MEDS: atorvastatin 40 mg Tablet 20 MG PO (17:45)
[2020-02-12] VITALS (7 sets, daily range): BP systolic 123–167; BP diastolic 75–86; PULSE 78–98; RESP 16–19; TEMP 36.3–36.9; O2SAT 94–98
--- NOTE | 2020-02-12 09:21 | PC.SOCIAL ---
IMM Update Pg. 2 of IMM updated. Initialed, dated, and timed, and placed in chart. Copy provided to patient.
[2020-02-12] MEDS: ondansetron 2 mg/ML SDV 2 mL 4 MG IVP (09:24)
[2020-02-12] MEDS: BuSPIRONE 10 mg Tablet PO ×2 (10:53→17:51)
[2020-02-12] MEDS: duloxetine 60 mg Capsule PO ×2 (10:53→17:51)
[2020-02-12] MEDS: levothyroxine 25 mcg Tablet PO (10:54)
[2020-02-12] MEDS: levothyroxine 112 mcg Tablet PO (10:54)
[2020-02-12] MEDS: pantoprazole DR 40 mg Tablet PO (10:54)
--- NOTE | 2020-02-12 15:01 | PM.PN ---
Subjective Subjective: Interval history: No acute event overnight.Has no active complain. Vitals :Reviewed Medications: Reviewed: Yes Vitals/I&O/Wt Last Vital Signs Temp 97.8 F 02/12/20 11:35 Pulse 94 02/12/20 11:35 Resp 18 02/12/20 07:44 BP 139/86 02/12/20 11:35 Pulse Ox 95 02/12/20 11:35 02/12/20 02/12/20 02/12/20 06:59 14:59 22:59 Intake Total 240 / 240 Output Total 350 / 2350 Balance -350 / -1520 240 / 240 Physical Exam Const: COMMON NORMALS: patient oriented x3 HENMT: COMMON NORMALS: normocephalic, atraumatic, hearing grossly normal bilaterally and external ears normal HEAD & SCALP: normocephalic and atraumatic EXTERNAL EAR: Yes external ears normal Eye: COMMON NORMALS: no scleral icterus GENERAL EYE: appearance normal, both eyes and all related structures Chest: COMMONS NORMALS: normal inspection of the chest and normal palpation of entire chest wall CHEST: Yes Symmetrical chest wall rise Resp: COMMON NORMALS: normal respiratory effort, No retractions, No use of accessory muscles and clear to auscultation bilaterally EFFORT & INSPECTION: Yes symmetric chest movement AUSCULTATION: clear to auscultation bilaterally Cardio: COMMON NORMALS: regular rate, regular rhythm, S1 normal heart sound present, S2 normal heart sound present, No gallops present (Cardio), No murmurs present (Cardio), No rub (Cardio) and Peripheral pulses 2+ throughout RATE: regular rate RHYTHM: regular rhythm HEART SOUNDS: S1 normal heart sound present and S2 normal heart sound present PERIPHERAL PULSES: Peripheral pulses 2+ throughout GI: COMMON NORMALS: Normal to inspection, nondistended, normoactive bowel sounds present, Soft to palpation, non-tender, No hepatosplenomegaly present and no masses AUSCULTATION: Yes normoactive bowel sounds PALPATION: Yes Soft to palpation and Yes No hepatosplenomegaly present RECTAL EXAM: deferred Extremity: COMMON NORMALS: no clubbing, cyanosis or edema and no pedal edema Neuro: COMMON NORMALS: patient oriented x3 Urinary Catheter Management^: Sim: Cath Placed During This Visit: yes, but has since been removed by the nurse Reason for Continuing Indwelling Catheter: Decision to DC Catheter Urinary Catheter Date of Insertion: 02/09/20 Urinary Catheter Time of Insertion: 15:34 Date Urinary Catheter Removed: 02/11/20 Time Urinary Catheter Discontinued: 18:00 Data : 02/11/20 04:49 02/11/20 04:49 A&P Assessment and plan (1) Hypotension: Significant hypotension on admission. This has resolved Renal function has improved. She has also had poor oral intake lately Continue rehydration Hold all antihypertensives, diuretics, nitrates No evidence of sepsis currently Good urine output which is reassuring. CK was checked and normal. Status: Acute (2) Acute renal failure: Continue to closely monitor urine output Renal ultrasound demonstrated no evidence of obstruction Urine eosinophils negative Status: Acute (3) Hyponatremia: Cortisol level not low Chest x-ray no mass Status: Resolved Additional A&P Information Nausea. Rapid Covid negative. Likely secondary to hyponatremia History of atrial fibrillation. Hold medicines currently. Check digoxin level. History of underlying chronic kidney disease Hypothyroidism. TSH recently checked and normal History of type 2 diabetes. Not on any medication for this currently. Blood sugar slightly elevated. Last hemoglobin A1c 5.3. Will check sugar again with morning BMP. Morbid obesity Dementia History of coronary artery disease. No chest pain currently. 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
[2020-02-12] MEDS: atorvastatin 40 mg Tablet 20 MG PO (17:50)
[2020-02-13] MEDS: hyDROXYzine 25 mg Capsule PO (00:09)
[2020-02-13 00:19] VITALS: BP 154/74; PULSE 87; RESP 17; TEMP 36.6; O2SAT 96
[2020-02-13 03:47] VITALS: BP 118/76; PULSE 96; RESP 18; TEMP 36.6; O2SAT 99
[2020-02-13 06:17] LABS: Basophils % 0.2 %; Eosinophils # 0.2 10^3/uL (0.0-0.8); Hematocrit 35.4 % (37.0-47.0); Hemoglobin 10.8 g/dL (11.5-15.3); Lymphocytes % 24.2 %; Mean Corpuscular HGB Conc 30.5 g/dL (30.0-36.0); Mean Corpuscular Hemoglobin 30.1 pg (28.0-34.0); Mean Corpuscular Volume 98.6 fL (81-99); Mean Platelet Volume 8.8 fL (7.4-10.4); Monocytes % 11.6 %; Neutrophils # 5.12 10^3/uL (1.8-7.7); Neutrophils % 61.6 %; Nucleated Red Blood Cells % 0 %; Platelet Count 351 10^3/cmm (130-400); Red Blood Count 3.59 10^6/uL (4.1-5.3); Red Cell Distribution Width 17.8 % (12.1-15.1); White Blood Count 8.3 10^3/uL (4.0-10.0)
[2020-02-13 07:39] LABS: Anion Gap 14.4 (5-19); Blood Urea Nitrogen 14 mg/dL (8-23); Carbon Dioxide 24 mmol/L (22-29); Chloride 101 mmol/L (98-107); Glucose 107 mg/dL (65-115); Osmolality Calculated 281 mOsm/kg (285-295); Potassium 4.4 mmol/L (3.5-5.1); Sodium 135 mmol/L (136-145)
[2020-02-13 07:53] VITALS: BP 147/76; PULSE 94; RESP 20; TEMP 36.7; O2SAT 98
[2020-02-13 08:00] VITALS: PULSE 94
[2020-02-13] MEDS: levothyroxine 112 mcg Tablet PO (08:00)
[2020-02-13] MEDS: levothyroxine 25 mcg Tablet PO (08:00)
[2020-02-13] MEDS: digoxin 125 mcg Tablet PO (08:00)
[2020-02-13] MEDS: BuSPIRONE 10 mg Tablet PO (08:00)
[2020-02-13] MEDS: duloxetine 60 mg Capsule PO (08:01)
[2020-02-13] MEDS: pantoprazole DR 40 mg Tablet PO (08:01)
[2020-02-13 11:13] VITALS: BP 147/76; PULSE 94; RESP 20; TEMP 36.7; O2SAT 98
--- NOTE | 2020-02-13 11:16 | P.DS_ITS ---
Discharge Providers Date of Admission: 02/09/20 17:48 Date of Discharge: February 13, 2020 Attending Provider at Admission: Layo Yee MD Attending Provider at Discharge: Jed Leija MD Primary Care Provider: Edith Dykes Diagnoses at Discharge Discharge Diagnosis (1) Hypotension: Status: Resolved Permanent problem details: Resolved (2) Acute renal failure: Status: Resolved Permanent problem details: Resolved (3) Hyponatremia: Status: Resolved Permanent problem details: Resolved Reason for Visit Reason for Visit: HYPOTENSION Hospital Course Hospital Course: Pallavi is a 75-year-old white female who presented to the hospital with dehydration, acute renal failure. She reports she had some nausea. Low blood pressure was noted. On admission her creatinine was 3.3, sodium 125. She was rehydrated. All antihypertensives diuretics and nitrates were held. Renal ultrasound was performed which demonstrated no evidence of obstruction. Urine eosinophils were negative. Cortisol level was normal. Rapid Covid was negative. CK did not demonstrate elevation. With these actions alone, renal function improved greatly. Blood pressure normalized. Creatinine was 1.1 upon discharge. She will discharge back to skilled care. Physical Exam Const: COMMON NORMALS: patient oriented x3 HENMT: COMMON NORMALS: normocephalic, atraumatic, hearing grossly normal bilaterally and external ears normal HEAD & SCALP: normocephalic and atraumatic EXTERNAL EAR: Yes external ears normal Eye: COMMON NORMALS: no scleral icterus GENERAL EYE: appearance normal, both eyes and all related structures Chest: COMMONS NORMALS: normal inspection of the chest and normal palpation of entire chest wall CHEST: Yes Symmetrical chest wall rise Resp: COMMON NORMALS: normal respiratory effort, No retractions, No use of accessory muscles and clear to auscultation bilaterally EFFORT & INSPECTION: Yes symmetric chest movement AUSCULTATION: clear to auscultation bilaterally Cardio: COMMON NORMALS: regular rate, regular rhythm, S1 normal heart sound present, S2 normal heart sound present, No gallops present (Cardio), No murmurs present (Cardio), No rub (Cardio) and Peripheral pulses 2+ throughout RATE: regular rate RHYTHM: regular rhythm HEART SOUNDS: S1 normal heart sound present and S2 normal heart sound present PERIPHERAL PULSES: Peripheral pulses 2+ throughout GI: COMMON NORMALS: Normal to inspection, nondistended, normoactive bowel sounds present, Soft to palpation, non-tender, No hepatosplenomegaly present and no masses AUSCULTATION: Yes normoactive bowel sounds PALPATION: Yes Soft to palpation and Yes No hepatosplenomegaly present RECTAL EXAM: deferred Extremity: COMMON NORMALS: no clubbing, cyanosis or edema and no pedal edema Neuro: COMMON NORMALS: patient oriented x3 Urinary Catheter Management^: Sim: Cath Placed During This Visit: yes, but has since been removed by the nurse Reason for Continuing Indwelling Catheter: Decision to DC Catheter Urinary Catheter Date of Insertion: 02/09/20 Urinary Catheter Time of Insertion: 15:34 Date Urinary Catheter Removed: 02/11/20 Time Urinary Catheter Discontinued: 18:00 Discharge Data Data Completed and Pending: Completed Studies During Hospitalization Category Date Time Status XR chest 1V leslie ble [id number] Routine Exams 02/09/20 15:35 Completed US renal BI with PV bladder Routine Ultrasound 02/10/20 17:48 Completed Labs from last 24 hours 02/13/20 02/13/20 05:23 05:23 WBC 8.3 RBC 3.59 L Hgb 10.8 L Hct 35.4 L MCV 98.6 MCH 30.1 MCHC 30.5 RDW 17.8 H Plt Count 351 MPV 8.8 Neut % (Auto) 61.6 Lymph % (Auto) 24.2 [place] % (Auto) 11.6 Eos % (Auto) 2.0 Baso % (Auto) 0.2 Neut # (Auto) 5.12 Lymph # (Auto) 2.0 [place] # (Auto) 1.0 H Eos # (Auto) 0.2 Baso # (Auto) 0.0 Nucleated RBC % (a uto) 0 Nucleated RBCs # 0.0 Sodium 135 L Potassium 4.4 Chloride 101 Carbon Dioxide 24 Anion Gap 14.4 BUN 14 Creatinine 0.8 GFR Calculation Not Reportable Glucose 107 Calculated Osmolal ity 281 L Calcium 9.0 Vitals: Last Vital Signs Temp 98.0 F 02/13/20 11:13 Pulse 94 02/13/20 11:13 Resp 20 H 02/13/20 11:13 BP 147/76 02/13/20 11:13 Pulse Ox 98 02/13/20 11:13 Discharge Plan Discharge Patient Disposition: Xfer SNF Condition: Stable Prescriptions: Continued Pradaxa 150 mg Capsule 150 mg PO BID RF: 0 ergocalciferol (vitamin D2) [Vitamin D2] 1,250 mcg (50,000 unit) Capsule 1,250 mcg PO Q7D RF: 0 pantoprazole 40 mg Tablet,Delayed Release (Dr/Ec) 40 mg PO DAILY RF: 0 metoprolol tartrate 25 mg Tablet 25 mg PO BID RF: 0 montelukast 10 mg Tablet 10 mg PO DAILY RF: 0 digoxin 125 mcg (0.125 mg) Tablet 125 mcg PO EVERY OTHER DAY RF: 0 hydrocodone-acetaminophen 5-325 mg tablet 1 tab PO Q6H PRN (Reason: pain) Qty: 15 RF: 0 levothyroxine [Synthroid] 137 mcg tablet 137 mcg PO DAILY RF: 0 buspirone 10 mg tablet 10 mg PO BID RF: 0 lidocaine 5 % adhesive patch,medicated See Rx Instructions .ROUTE .COMPLEX RF: 0 albuterol sulfate 90 mcg/actuation HFA aerosol inhaler 1 puff INHALATION BID PRN (Reason: Shortness Of Breath) RF: 0 risperidone 0.5 mg tablet 0.5 mg PO BID RF: 0 Combivent Respimat 20-100 mcg/actuation mist 1 puff INHALATION QID PRN (Reason: unknown) RF: 0 atorvastatin 40 mg Tablet 20 mg PO QPM 30 Days Qty: 15 RF: 0 nystatin [Nystop] 100,000 unit/gram Powder 1 applic topical BID 7 Days Qty: 1 RF: 0 acetaminophen 325 mg Tablet 650 mg PO QID PRN (Reason: PAIN/FEVER) RF: 0 ondansetron 4 mg Tablet,Disintegrating 4 mg PO Q6H PRN (Reason: N/V) RF: 0 bisacodyl 5 mg Tablet 5 mg PO DAILY PRN (Reason: Constipation) RF: 0 Changed duloxetine 60 mg Capsule, Delayed Rel Sprinkle 60 mg PO DAILY Qty: 0 RF: 0 Discontinued nitroglycerin 0.6 mg/hr Patch 24 Hour 1 patch TRANSDERMAL DAILY RF: 0 lisinopril 10 mg Tablet 5 mg PO DAILY RF: 0 potassium chloride 10 mEq Tablet Extended Release 10 meq PO DAILY RF: 0 furosemide 40 mg Tablet 40 mg PO DAILY RF: 0 isosorbide mononitrate 30 mg Tablet Extended Release 24 Hr 90 mg PO DAILY RF: 0 risperidone 1 mg tablet 1 mg PO BEDTIME RF: 0 Discharge Orders: Discharge Order (Routine); Ordered 02/13/20 Ordered By: Layo Yee Referrals: [facility] [Outside] Edith Dykes, LOSS PREVENTION AND SAFETY MANAGER-C [Primary Care Provider] - Discharge Diet: Cardiac Discharge Activity: Increase activity as tolerated Patient Instructions: Anemia, Heart Healthy Diet, Acute Kidney Injury (DC) Activity Restrictions/Additional Instructions: Take all medicine as prescribed CBC and BMP in 3 to 5 days. Discharge Attestations Time Spent in Discharge Care*: greater than 30 min Specific Discharge Activities: Specific discharge activities: educating patient, educating and/or supporting family/caregiver, discussing with pcp/other providers, discussing with case finishing machine adjuster/social workers/dc planners, documenting/other paperwork and evaluating patient/reviewing data Status at Discharge: Cognitive status at discharge: cognitively intact , Behavioral status at discharge: cooperative , Overall status at discharge: patient is back to baseline Quality Metrics Clinical Quality Measures During this hospital stay, did patient experience: None Coding Level of Care Code Acute Transportation Engineer for g Fwd Exam Comprehensive Diagnoses Hypotension I95.9 Acute renal failure N17.9 Hyponatremia E87.1
[2020-02-13 11:34] VITALS: BP 168/79; PULSE 92; RESP 18; TEMP 36.4; O2SAT 100
== END 2020-02-13 13:38 | disposition skilled nursing facility (03) | DRG 683 ==
LOC: ER 12:35 → MEDSURG 02-10 01:06
PROVIDERS: Emergency Medicine; Admitting Provider Internal Medicine; Family Provider Nurse Practitioner Family; PCP Nurse Practitioner Family; Visit Provider Internal Medicine
DX: N17.9 Acute kidney failure, unspecified (principal); E87.1 Hypo-osmolality and hyponatremia; I95.9 Hypotension, unspecified; E86.0 Dehydration; Z20.828 Contact with and (suspected) exposure to other viral communicable diseases; F03.90 Unspecified dementia, unspecified severity, without behavioral disturbance, psychotic disturbance, mood disturbance, and anxiety; E03.9 Hypothyroidism, unspecified; I25.10 Atherosclerotic heart disease of native coronary artery without angina pectoris; E66.01 Morbid (severe) obesity due to excess calories; Z68.38 Body mass index [BMI] 38.0-38.9, adult; I48.91 Unspecified atrial fibrillation; N18.2 Chronic kidney disease, stage 2 (mild); I49.5 Sick sinus syndrome; Z95.0 Presence of cardiac pacemaker; I12.9 Hypertensive chronic kidney disease with stage 1 through stage 4 chronic kidney disease, or unspecified chronic kidney disease; E11.51 Type 2 diabetes mellitus with diabetic peripheral angiopathy without gangrene; E11.22 Type 2 diabetes mellitus with diabetic chronic kidney disease; Z98.84 Bariatric surgery status
CPT/HCPCS: 12345; 36415; 51702; 71045; 76770; 76857; 80048; 80053; 80162; 81003; 82436; 82533; 82550; 82570; 83605; 83880; 84145; 84300; 84484; 85025; 85999; 87426; 93005; 96375; 97161; 97530; 99284; 99291; J2405; J7030; J7040

== ENCOUNTER → 2020-05-31 14:43 | Outpatient (BNVA) | payer MEDICARE, MEDICAID, SELFPAY | PROVIDERS: Family Provider Nurse Practitioner Family; PCP Nurse Practitioner Family; Visit Provider Thoracic Surgery (Cardiothoracic Vascular Surgery) | DX: Z01.812 Encounter for preprocedural laboratory examination (principal); Z45.010 Encounter for checking and testing of cardiac pacemaker pulse generator [battery] | CPT/HCPCS: 87635 ==

== ENCOUNTER 2020-06-04 11:42 | Day surgery (SDC) | payer MEDICARE, MEDICAID, SELFPAY ==
[2020-06-03 09:45] VITALS: BMI 39.1
[2020-06-04 12:11] VITALS: BP 163/83; PULSE 88; RESP 18; TEMP 36.3; O2SAT 97
--- NOTE | 2020-06-04 12:28 | ANES.PREANE2 ---
Pre-Anesthetic Assessment Pre-Anesthetic Assessment: Height/Weight: Height 1.63 m Weight 103.419 kg Temp Pulse Resp BP Pulse Ox 97.3 F L 88 18 163/83 97 06/04/20 12:11 06/04/20 12:11 06/04/20 12:11 06/04/20 12:11 06/04/20 12:11 Preop Diagnosis: Pacemaker generator end of service Proposed Procedure: Operation Date: 06/04/20 12:00 Proposed Procedures p Pacemaker Exchange(Not Applicable) - Floyd Reilly MD Was Beta Kori taken within 24 hours: Yes Last intake: Intake Last Liquid Date 06/03/20 Last Liquid Time 21:00 Last Solid Date 06/03/20 Last Solid Time 17:00 Social: Social History: No alcohol and No tobacco Exam: Pre-Anes Outpt Exam: alert, oriented x 3, clear to auscultation bilaterally and regular rate & rhythm Airway: Submandibular: WNL Cervical ROM: WNL MP: 2 Dentition: False CV/HEM: CV/HEM: Afib, Arrythmia, CAD and HTN Comments: Pacemaker : : Chronic renal Insufficiency GI: GI: GERD Metabolic: Metabolic: Morbid obesity Anesthetic Plan: ASA status: 3 Anesthesia: MAC Risk of > 500 ml blood loss (7ml/kg in children): No PFSH Anesthesia PFSH: Medical History (Updated 05/09/20 @ 11:06 by Aleida Nuñez MD) Atrial fibrillation CKD (chronic kidney disease) stage 2, GFR 60-89 ml/min Coronary artery disease Dementia Hypertension Hypothyroid Infected abrasion of groin 2018) infection requiring I&D 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
[2020-06-04] MEDS: sodium chloride 0.9% 1,000 ML 30 ML IV (13:00)
--- NOTE | 2020-06-04 13:09 | W.PM.OPSUD ---
Surgery/Procedure H&P Update DATE OF PROCEDURE: June 04, 2020 DATE H&P PERFORMED: 05/09/20 H&P UPDATE INFORMATION: I have reviewed H&P completed within last 30 days, I have examined patient prior to procedure and No changes to prior documentation PREOP DIAGNOSIS: Pacemaker generator end of service PRIMARY INDICATION FOR PROCEDURE: Pacemaker generator end of service PLANNED PROCEDURE: Operation Date: 06/04/20 12:00 Proposed Procedures p Pacemaker Exchange(Not Applicable) - Floyd Reilly MD
[2020-06-04] MEDS: lidocaine 1% INJ 20 mL SUBCUT (13:20)
[2020-06-04 13:32] LABS: INR 1.17 (0.8-1.2)
[2020-06-04 13:37] LABS: Blood Urea Nitrogen 17 mg/dL (8-23); Calcium 8.8 mg/dL (8.5-10.5); Carbon Dioxide 28 mmol/L (22-29); Chloride 98 mmol/L (98-107); Glucose 116 mg/dL (65-115); Osmolality Calculated 285 mOsm/kg (285-295); Sodium 136 mmol/L (136-145)
--- NOTE | 2020-06-04 13:44 | P.OP_ITS ---
Operative Report Date of procedure: June 04, 2020 Pre-op Diagnosis: Pacemaker generator end of service Post-op diagnosis: same Procedure Done: Dual-chamber pacemaker generator exchange Implants: Medtronic pacemaker Specimens removed/disposition: Depleted old [employer] pacing generator Pathology: none sent Anesthesia: MAC and Local Estimated blood loss (mL): 10 Complications: None Condition: stable Disposition: same day Brief History: Ms. Saha is a 75-year-old female, followed by Dr. Nuñez from our heart care service, now with chronic atrial fibrillation whom has had a dual-chamber [employer] pacemaker implanted in 2012. The pacemaker is now at end of service. Pacing generator exchange has been recommended. Details and risk risk of the procedure were carefully and frankly discussed. Appropriate consents have been reviewed and signed. Procedure: Ms. Saha was appropriately positioned and sterilely prepped and draped. IV consicious sedation was given with anesthesia monitoring. 1% lidocaine was infiltrated through the prior insertion incision site. # 15 scalpel blade was used to incise the skin down to subcutaneous layer. Subsequently, using sharp and blunt dissection the pseudocapsule to the old generator was reached and opened with a scalpel blade. This area was then enhanced utilizing Metzenbaum scissors with care taken not to injure the pacing leads. Once the pocket was adequate opened, hemostats were utilized to deliver the old generator. Set screws were released and the leads were removed and inserted properly into the new generator with set screws then secured. The old generator was removed from the field. The incision was irrigated with antibiotic solution. Hemostasis was confirmed. The new generator was placed back into the old subcutaneous pocket. The wound was then closed in 2 layers of 3-0 Vicryl suture. Skin was closed in a subcuticular manner with 4-0 undyed Vicryl suture. A 2 layer pressure dressing was then applied. The entire system was interrogated and appropriate parameters obtained. She tolerated procedure well and was returned to outpatient surgery department in stable condition. We did student services counselor with the family at the completion of the procedure. Medtronic generator model number:[id number] RV sensing 6.2 mV resistance: 494 ohms threshold: 1 V
[2020-06-04 13:54] LABS: Anion Gap 14.9 (5-19); Potassium 4.9 mmol/L (3.5-5.1)
[2020-06-04 14:00] VITALS: BP 139/75; PULSE 82; RESP 18; TEMP 36.1; O2SAT 100
[2020-06-04 14:30] VITALS: BP 142/74; PULSE 75; RESP 18; O2SAT 97
--- NOTE | 2020-06-04 16:30 | ANE.PACU2 ---
Inpatient post-anesthesia follow up: Airway intact: Yes Vital signs: Temperature 97.0 F Pulse Rate 75 Respiratory Rate 18 Blood Pressure 142/74 Pulse Oximetry 97 Oxygen Delivery Me thod Room Air Oxygen Flow Rate Fraction of Inspir ed Oxygen Hydration adequate: Yes Nausea and vomiting: No Pain level: 1 Mental status: Baseline
== END 2020-06-04 15:13 | disposition home or self-care (01) ==
PROVIDERS: PCP Nurse Practitioner Family; Visit Provider Thoracic Surgery (Cardiothoracic Vascular Surgery)
PROC: 0JPT0PZ Removal of Cardiac Rhythm Related Device from Trunk Subcutaneous Tissue and Fascia, Open Approach (ICD-10-PCS; CPT 33228; principal; 2020-06-04 12:00)
DX: Z45.010 Encounter for checking and testing of cardiac pacemaker pulse generator [battery] (principal); I48.91 Unspecified atrial fibrillation; I25.10 Atherosclerotic heart disease of native coronary artery without angina pectoris; K21.9 Gastro-esophageal reflux disease without esophagitis; E66.01 Morbid (severe) obesity due to excess calories; Z68.39 Body mass index [BMI] 39.0-39.9, adult; E03.9 Hypothyroidism, unspecified; I12.9 Hypertensive chronic kidney disease with stage 1 through stage 4 chronic kidney disease, or unspecified chronic kidney disease; N18.2 Chronic kidney disease, stage 2 (mild)
CPT/HCPCS: 33228; 36415; 80048; 85025; 85610; C1786; J0690; J2704; J3010; J7030

== ENCOUNTER 2020-06-29 19:19 | Outpatient (CLI) | payer MEDICARE, MEDICAID, SELFPAY ==
[2020-06-29 19:58] LABS: Basophils # 0.1 10^3/uL (0.0-0.1); Basophils % 0.4 %; Hematocrit 34.4 % (37.0-47.0); Hemoglobin 10.7 g/dL (11.5-15.3); Lymphocytes # 1.1 10^3/uL (0.8-4.8); Lymphocytes % 8.9 %; Mean Corpuscular HGB Conc 31.1 g/dL (30.0-36.0); Mean Corpuscular Hemoglobin 28.7 pg (28.0-34.0); Mean Corpuscular Volume 92.2 fL (81-99); Mean Platelet Volume 8.5 fL (7.4-10.4); Monocytes % 8.4 %; Neutrophils # 9.87 10^3/uL (1.8-7.7); Neutrophils % 81.7 %; Nucleated Red Blood Cells % 0 %; Platelet Count 395 10^3/cmm (130-400); Red Blood Count 3.73 10^6/uL (4.1-5.3); Red Cell Distribution Width 17.2 % (12.1-15.1); White Blood Count 12.1 10^3/uL (4.0-10.0)
[2020-06-29 20:13] LABS: Add Urine Microscopic? YES; Bilirubin Urine Neg (Negative); Blood Urine 2+ (Negative); Glucose Urine UA Norm (Normal); Ketones Urine Negative (Negative); Leukocyte Esterase Urine Negative (Negative); Nitrate Urine Negative (Negative); Protein Urine 2+ (Negative); Urine Appearance SL Hazy (CLEAR); Urine Color Yellow (Yellow); Urobilinogen Urine 8 mg/dL (Negative); pH Urine 8 (5-7)
[2020-06-29 20:14] LABS: Add Urine Culture? No; Bacteria Urine 1+ /hpf; Mucus Urine TRACE /hpf; Squamous Epithelial Cell Urine 15-25 /hpf (0-5); Sulfosalicylic Acid Urine Negative (Negative); WBC Urine RARE /hpf (0-5)
== END 2020-06-29 19:20 | disposition home or self-care (01) ==
PROVIDERS: PCP Nurse Practitioner Family; Visit Provider Family Medicine
DX: R50.9 Fever, unspecified (principal)
CPT/HCPCS: 81001; 85025

== ENCOUNTER → 2020-09-18 08:57 | Day surgery (SDC) | payer MEDICARE, MEDICAID, SELFPAY ==
[2020-09-18 09:03] VITALS: BMI 43.2
[2020-09-18 09:05] VITALS: BP 173/118; PULSE 93; RESP 17; TEMP 36.1; O2SAT 97
[2020-09-18] MEDS: iron sucrose 500 MG in sodium chloride 0.9% 250 ML 68.75 MG IV (09:22)
[2020-09-18 09:30] LABS: Glucose Point of Care 191 mg/dL (70-110)
--- NOTE | 2020-09-18 10:43 | SUR.PREOP ---
Patient complained of heart racing - IV infusion was stopped, was called.
== END ==
PROVIDERS: PCP Internal Medicine; Visit Provider Internal Medicine
DX: D64.9 Anemia, unspecified (principal); I48.91 Unspecified atrial fibrillation; L03.311 Cellulitis of abdominal wall; R53.1 Weakness; I25.10 Atherosclerotic heart disease of native coronary artery without angina pectoris; Z79.01 Long term (current) use of anticoagulants; Z95.0 Presence of cardiac pacemaker; J44.9 Chronic obstructive pulmonary disease, unspecified; R60.0 Localized edema; F03.90 Unspecified dementia, unspecified severity, without behavioral disturbance, psychotic disturbance, mood disturbance, and anxiety; E11.22 Type 2 diabetes mellitus with diabetic chronic kidney disease; I12.9 Hypertensive chronic kidney disease with stage 1 through stage 4 chronic kidney disease, or unspecified chronic kidney disease; N18.30 Chronic kidney disease, stage 3 unspecified; F32.9 Major depressive disorder, single episode, unspecified; F41.9 Anxiety disorder, unspecified; E87.6 Hypokalemia; E03.9 Hypothyroidism, unspecified; G47.00 Insomnia, unspecified; E66.01 Morbid (severe) obesity due to excess calories; Z68.41 Body mass index [BMI] 40.0-44.9, adult; K59.00 Constipation, unspecified; K21.9 Gastro-esophageal reflux disease without esophagitis
CPT/HCPCS: 36416; 82962; 96365; 96366; J1756; J7050

== ENCOUNTER → 2020-09-26 09:29 | Day surgery (SDC) | payer MEDICARE, MEDICAID, SELFPAY ==
[2020-09-26] MEDS: iron sucrose 500 MG in sodium chloride 0.9% 250 ML 75 MG IV (10:15)
[2020-09-26 10:21] VITALS: BP 131/71; PULSE 87; RESP 18; TEMP 36.3; O2SAT 97; BMI 48.3
== END ==
PROVIDERS: PCP Internal Medicine; Visit Provider Internal Medicine
DX: D64.9 Anemia, unspecified (principal)
CPT/HCPCS: 96365; 96366; J1756; J7050

== ENCOUNTER 2021-03-05 14:22 | Outpatient (CLI) | payer MEDICARE, MEDICAID, SELFPAY ==
[2021-03-05 15:00] LABS: Basophils % 0.5 %; Eosinophils # 0.3 10^3/uL (0.0-0.8); Eosinophils % 3.8 %; Hematocrit 36.9 % (37.0-47.0); Lymphocytes # 2.1 10^3/uL (0.8-4.8); Lymphocytes % 24.3 %; Mean Corpuscular HGB Conc 32.5 g/dL (30.0-36.0); Mean Corpuscular Hemoglobin 35.3 pg (28.0-34.0); Mean Corpuscular Volume 108.5 fl (81-99); Mean Platelet Volume 8.6 fL (7.4-10.4); Monocytes % 11.7 %; Neutrophils # 5.06 10^3/uL (1.8-7.7); Neutrophils % 59.2 %; Nucleated Red Blood Cells % 0 %; Platelet Count 305 10^3/cmm (130-400); Red Cell Distribution Width 13.9 % (12.1-15.1); White Blood Count 8.5 10^3/uL (4.0-10.0)
[2021-03-05 15:28] LABS: Ferritin 155 ng/mL (15-150); Iron 117 ug/dL (37-145); Percent Saturation 43.3 % (20-50); Total Iron Binding Capacity 270 mcg/dl; Unsaturated Iron Binding 153 ug/dL (112-347)
== END 2021-03-05 14:23 | disposition home or self-care (01) ==
PROVIDERS: PCP Internal Medicine; Visit Provider Internal Medicine
DX: D64.9 Anemia, unspecified (principal)
CPT/HCPCS: 82728; 83540; 83550; 85025

== ENCOUNTER 2021-07-27 18:52 | Emergency (ER) | payer MEDICARE, MEDICAID, SELFPAY ==
[2021-07-27] VITALS (13 sets, daily range): BP systolic 110–139; BP diastolic 50–83; PULSE 95–124; RESP 12–21; TEMP 37.7; O2SAT 92–98; BMI 56.7
--- NOTE | 2021-07-27 18:56 | ECG_ITS ---
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 Measurements Intervals [place] Rate: 114 P: AR: QRS: 19 QRSD: 94 T: 91 QT: 341 QTc: 471 Interpretive Statements ATRIAL FIBRILLATION WITH RAPID VENTRICULAR RESPONSE MODERATE ST DEPRESSION [0.05+ mV ST DEPRESSION] ABNORMAL QRS-T ANGLE [QRS-T AXIS DIFFERENCE > 60] Compared to ECG 02/09/2020 16:58:15 ST (T wave) deviation now present T-wave abnormality no longer present Electronically Signed On 07-29-2021 7:30:18 CDT by Aleida Nuñez M.D. [email or web address]
--- NOTE | 2021-07-27 18:56 | XRR_ITS ---
PROCEDURE INFORMATION: Exam: XR Chest Exam date and time: 07/27/2021 7:21 PM Age: 76 years old Clinical indication: Sternal or substernal pain; Prior surgery; Surgery date: 6+ months; Surgery type: Pacemaker; Additional info: Chest pain TECHNIQUE: Imaging protocol: XR of the chest. Views: 1 view. COMPARISON: CR XR chest 1V portable [id number] 02/09/2020 3:52 PM FINDINGS: Lungs: Mild pulmonary vascular congestion. Pleural spaces: Unremarkable. No pleural effusion. No pneumothorax. Heart/Mediastinum: Cardiomegaly. Bones/joints: Unremarkable. XR/XR chest 1V portable [id number] IMPRESSION: 1. Cardiomegaly. 2. Mild pulmonary vascular congestion.
--- NOTE | 2021-07-27 18:56 | ED_ITS ---
Documented by User: Bakari Garcia MD 08/04/21 23:32 HPI - Chest Pain General: Chief Complaint: Chest Pain Stated Complaint: CHEST PAIN Time Seen by Provider: 07/27/21 18:56 History of Present Illness: Ms. Saha is a 76-year-old lady with significant past medical history CAD s/p stent in 2019, chronic atrial fibrillation on Pradaxa, s/p Medtronic (cardiology notes has [employer] however upon interrogation Medtronic discomfort and patient has Medtr[employer] card) PPM,, HLD, DM-2, morbid obesity, CKD stage 3, GERD and DARA who presents to the emergency department due to chest discomfort. She reports overall health has been declining for the past month and she has had intermittent episodes of chest pain as well as nausea vomiting. Most recently the current episode started few days ago. She endorses pressure in the middle of her chest though has difficulty assessing if the symptoms radiate or exacerbating/alleviating factors. Additionally she notes nausea and vomiting. She has chills and cough. She feels generally unwell. Overall course of symptoms has been worsening. Intensity is moderate to severe. History is somewhat limited by patient's poor recollection of medical conditions. No other specific changes in health, e xacerbating, or alleviating factors identified. 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 Morbid obesity Pacemaker Peripheral vascular disease Type 2 diabetes mellitus Surgical History H/O knee surgery H/O shoulder surgery H/O thyroidectomy For Graves' disease H/O: hysterectomy History of appendectomy History of permanent cardiac pacemaker placement SSS S/P cholecystectomy S/P gastric surgery LAP-BAND later followed by gastric sleeve Family History Other CAD (coronary artery disease) Dementia Stroke Social History Alcohol intake: never Lives independently: Yes Housing: House Physical Exam Const: COMMON NORMALS: alert GENERAL APPEARANCE: cooperative, well developed and ill appearing (chronically) HENMT: COMMON NORMALS: normocephalic and atraumatic HEAD & SCALP: normocephalic and atraumatic THROAT: posterior oropharynx normal Eye: COMMON NORMALS: conjunctivae normal CONJUNCTIVA: Yes conjunctivae normal SCLERA: sclerae normal Neck/C-Spine: COMMON NORMALS: supple GENERAL: Yes trachea midline Resp: EFFORT & INSPECTION: Yes able to speak in complete sentences AUSCULTATION: diminished lung sounds Cardio: RATE: tachycardic RHYTHM: abnormal rhythm irregularly irregular GI: COMMON NORMALS: Soft to palpation PALPATION: Yes Soft to palpation and No Tenderness to palpation present (GI) PERCUSSION: normal to percussion Extremity: GENERAL: Yes normal exam except as noted and No edema Neuro: COMMON NORMALS: moves all extremities SENSORIUM/ORIENTATION: Yes alert and No Orientation impaired Psych: COMMON NORMALS: mental status grossly normal and Normal thought process present THOUGHT PROCESS: Normal thought process present Course ED course: - Patient was seen and evaluated by me at bedside - Patient placed on cardiac monitors, IV access obtained - Initial evaluation notable for exam as above - Labs and xrays personally interpreted by me. EKGs reviewed. No STEMI. -Aspirin, fluids, analgesia given - Labs notable for mild leukocytosis, normal hemoglobin. Metabolic panel with mild evidence of intravascular depletion. Delta troponin negative. D-dimer elevated. Urinalysis not concerning for urinary tract infections. Viral studies negative. - Imaging notable for cardiomegaly without lobar consolidation or pneumothorax. Given leukocytosis and patient description of symptoms CT imaging is warranted. CT chest abdomen pelvis without clear evidence of cause of patient's symptoms. - Upon serial reexamination after treatment the patient was similar to mildly improved - Based on patient history, evaluation, and testing as interpreted the most likely cause of the patient's condition is chest pain of uncertain etiology. The patient is moderate risk by heart score. - The results of ED evaluation were discussed with the patient including possible disposition options. Patient is uncomfortable with discharge and given moderate risk by heart score I discussed plan for admission due to requirement for level of care not available if discharged to prevent significant wor sening/deterioration. - Admitting service was contacted and Dr Simental with the hospitalist service ag sanket to admit the patient - Apparently after my shift ended and I left the hospitalist I discussed the patient with refused to admit the patient. Please see separate documentation by Dr. Yee. I stand by my assessment the patient describes possible cardiac chest pain and is moderate risk by heart score warranting inpatient management with cardiac testing. Note: Click bubbles or prepopulated arriaga in note writing are used for assistance with data collection and billing and are inherently more limited than narrative and other text portions of this note. Please use narrative for additional clinical history and defer to narrative/free test for any case of contradictory information. If information appears in only free text or click bubble it should be considered present or absent as reported. Please contact note television writer for clarifications of clinical information or contradictory information. MDM is a brief summary, contradictory or erroneous seeming information should be clarified and full note should be reviewed. Vital Signs: Vital signs: Vital Signs Temperature 98.3 F 07/28/21 00:17 Pulse Rate 85 07/28/21 07:15 Respiratory Rate 20 H 07/28/21 07:15 Blood Pressure 159/88 07/28/21 07:15 Pulse Oximetry 99 07/28/21 07:15 MDM - Chest Pain Medical Decision Making 76-year-old lady with complex past medical history presenting with chest pain and epigastric pain associated with fever. Patient had mild leukocytosis though no clear evidence of infection or source of infection identified on CT imaging. Delta troponin was negative. Offered possible disposition options as the patie nt is moderate risk by heart score and the patient was uncomfortable with discharge. Hospitalist service contacted and agreed to admit the patient initially however apparently there was events after I left. See Dr. Yee's note from 07/28. pt was never in my care Medical Records I reviewed the patient's medical records. Lab Data I reviewed the patient's lab results. : 07/27/21 19:05 07/27/21 19:05 Radiology Impressions Chest X-Ray 07/27/21 18:56 IMPRESSION: 1. Cardiomegaly. 2. Mild pulmonary vascular congestion. Chest/Abdomen/Pelvis CT 07/27/21 20:19 IMPRESSION: 1. Negative for pulmonary embolus 2. Cardiomegaly. 3. Coronary artery atherosclerotic calcifications. 4. Bilateral dependent atelectasis. 5. Scattered prominent subcentimeter mediastinal lymph nodes, nonspecific. IMPRESSION: 1. Negative for acute inflammatory process in the abdomen or pelvis. 2. Gastric surgical sutures. 3. Diverticulosis without diverticulitis. 4. Bilateral common iliac vein stents. Laboratory Results WBC 13.1 10^3/uL (4.0-10.0) H 07/27/21 19:05 RBC 3.23 10^6/uL (4.1-5.3) L 07/27/21 19:05 Hgb 11.5 g/dL (11.5-15.3) 07/27/21 19:05 Hct 35.1 % (37.0-47.0) L 07/27/21 19:05 MCV 108.7 fl (81-99) H 07/27/21 19:05 MCH 35.6 pg (28.0-34.0) H 07/27/21 19:05 MCHC 32.8 g/dL (30.0-36.0) 07/27/21 19:05 RDW 14.8 % (12.1-15.1) 07/27/21 19:05 Plt Count 300 10^3/cmm (130-400) 07/27/21 19:05 MPV 8.3 fL (7.4-10.4) 07/27/21 19:05 Neut % (Auto) 81.9 % 07/27/21 19:05 Lymph % (Auto) 9.4 % 07/27/21 19:05 Bland % (Auto) 7.5 % 07/27/21 19:05 Eos % (Auto) 0.4 % 07/27/21 19:05 Baso % (Auto) 0.2 % 07/27/21 19:05 Neut # (Auto) 10.75 10^3/uL (1.8-7.7) H 07/27/21 19:05 Lymph # (Auto) 1.2 10^3/uL (0.8-4.8) 07/27/21 19:05 Bland # (Auto) 1.0 10^3/uL (0.2-0.9) H 07/27/21 19:05 Eos # (Auto) 0.1 10^3/uL (0.0-0.8) 07/27/21 19:05 Baso # (Auto) 0.0 10^3/uL (0.0-0.1) 07/27/21 19:05 Nucleated RBC % (auto) 0 % 07/27/21 19:05 Nucleated RBCs # 0.0 /100WBC 07/27/21 19:05 D-Dimer 1.14 ug/mIFEU (0-0.59) H 07/27/21 19:05 Sodium 134 mmol/L (136-145) L 07/27/21 19:05 Potassium 4.2 mmol/L (3.5-5.1) 07/27/21 19:05 Chloride 95 mmol/L (98-107) L 07/27/21 19:05 Carbon Dioxide 24 mmol/L (22-29) 07/27/21 19:05 Anion Gap 19.2 (5-19) H 07/27/21 19:05 BUN 13 mg/dL (8-23) 07/27/21 19:05 Creatinine 0.8 mg/dL (0.5-0.9) 07/27/21 19:05 GFR Calculation Not Reportable 07/27/21 19:05 Glucose 158 mg/dL (65-115) H 07/27/21 19:05 Calculated Osmolality 281 mOsm/kg (285-295) L 07/27/21 19:05 Calcium 8.5 mg/dL (8.5-10.5) 07/27/21 19:05 Total Bilirubin 0.8 mg/dL (0.15-1.2) 07/27/21 19:05 AST 20 U/L (0-32) 07/27/21 19:05 ALT 12 U/L (0-33) 07/27/21 19:05 Alkaline Phosphatase 108 IU/L (35-105) H 07/27/21 19:05 Troponin T Baseline 15 ng/L (0-10) H 07/27/21 19:05 Troponin T 120 Minute 14.02 ng/L (0-10) H 07/27/21 21:02 Delta Troponin T -0.98 ABS# (0-10) L 07/27/21 21:02 Troponin T Hi Sens 6Hr 15.14 ng/L (0-10) H 07/28/21 01:25 Troponin T Hi Sens 6Hr Delta 0.14 ng/L (0-12) 07/28/21 01:25 NT-Pro-B Natriuret Pep 1381 pg/mL (0-125) H 07/27/21 19:05 Total Protein 7.6 g/dL (6.6-8.7) 07/27/21 19:05 Albumin 4.0 g/dL (3.5-5.2) 07/27/21 19:05 Globulin 3.6 g/dL (1.3-4.6) 07/27/21 19:05 Lipase 24 U/L (13-60) 07/27/21 19:05 Urine Color Yellow (Yellow) 07/27/21 22: Urine Appearance Clear (CLEAR) 07/27/21: Urine pH 7 (5-7) 07/27/21: Ur Specific [place] 1.005 (1.005-1.030) 07/27/21 22: Urine Protein Neg (Negative) 07/27/21 22: Urine Glucose (UA) Norm (Normal) 07/27/21: Urine Ketones Negative (Negative) 07/27/21: Urine Blood 3+ (Negative) H 07/27/21: Urine Nitrate Negative (Negative) 07/27/21 22: Urine Bilirubin Neg (Negative) 07/27/21: Urine Urobilinogen Norm mg/dL (Negative) 07/27/21: Ur Leukocyte Esterase Negative (Negative) 07/27/21 22: Urine RBC 25-40 /hpf (0-2) H 07/27/21 22: Urine WBC 0-4 /hpf (0-5) H 07/27/21 22: Ur Squamous Epith Cells 5-10 /hpf (0-5) H 07/27/21 22: Amorphous Sediment Not Reportable 07/27/21 22: Urine Bacteria 1+ /hpf (NONE) H 07/27/21 22: Digoxin 0.6 ng/mL (0.6-1.2) 07/27/21 19:05 Coronavirus 229E (PCR) Not detected (NOT DETECT) 07/27/21 22:55 SARS-CoV-2 (PCR) Not detected (NOT DETECT) 07/27/21 22:55 Discharge Plan Discharge Patient Disposition: Home Clinical Impression: Chest pain Condition: Stable Prescriptions: New sucralfate [Carafate] 1 gram tablet 1 g PO Q6H 28 Days Qty: 112 0RF Continued nystatin 100,000 unit/gram powder 1 applic topical BID 0RF diclofenac sodium 1 % gel 2 g topical QID 0RF Rx Instructions: apply to single elbow, wrist or hand; for hand includes palm/fingers/back of hand atorvastatin 20 mg tablet 20 mg PO DAILY 0RF amoxicillin 500 mg capsule 500 mg PO BID 0RF aspirin [Adult Aspirin Regimen] 81 mg tablet,delayed release (DR/EC) 81 mg PO BID 0RF diphenhydramine HCl [Allergy (diphenhydramine)] 25 mg capsule 25 mg PO Q4H PRN0RF Refresh Liquigel 1 % drops, liquid gel 1 drp ophthalmic (eye) BID 0RF Acidophilus Tablet,Chewable 1 tab PO DAILY 0RF hydrochlorothiazide 12.5 mg tablet 12.5 mg PO DAILY 0RF metoprolol tartrate 25 mg tablet 50 mg PO BID 0RF Rx Instructions: PT UNABLE TO VERIFY MEDICATIONS. SPOKE WITH NURSE AND GOING BY [facility] FROM LONG TERM. Pradaxa 150 mg Capsule 150 mg PO BID 0RF Rx Instructions: PT UNABLE TO VERIFY MEDICATIONS. SPOKE WITH NURSE AND GOING BY [facility] FROM LONG TERM. ergocalciferol (vitamin D2) [Vitamin D2] 1,250 mcg (50,000 unit) Capsule 1,250 mcg PO Q7D 0RF Rx Instructions: PT UNABLE TO VERIFY MEDICATIONS. SPOKE WITH NURSE AND GOING BY [facility] FROM LONG TERM. montelukast 10 mg Tablet 10 mg PO DAILY 0RF Rx Instructions: PT UNABLE TO VERIFY MEDICATIONS. SPOKE WITH NURSE AND GOING BY [facility] FROM LONG TERM. digoxin 125 mcg (0.125 mg) Tablet 125 mcg PO EVERY OTHER DAY 0RF Rx Instructions: PT UNABLE TO VERIFY MEDICATIONS. SPOKE WITH NURSE AND GOING BY [facility] FROM [facility]. polyethylene glycol 3350 [Miralax] 17 gram Powder In Packet 17 g PO DAILY 0RF naloxone 0.4 mg/mL Solution 0.4 mg IM Q3M PRN (Reason: Opioid Overdose) 0RF bisacodyl 10 mg Suppository 10 mg [facility] DAILY PRN (Reason: Constipation) 0RF nystatin 100,000 unit/gram Powder 1 applic TOPICAL BID 0RF nystatin [Nystop] 100,000 unit/gram powder 1 applic TOPICAL BID 0RF ferrous sulfate 325 mg (65 mg iron) Tablet,Delayed Release (Dr/Ec) 325 mg PO DAILY 0RF Tylenol Extra Strength 500 mg PO Q6H PRN (Reason: Pain) 0RF buspirone 10 mg tablet 10 mg PO BID 0RF Rx Instructions: PT UNABLE TO VERIFY MEDICATIONS. SPOKE WITH NURSE AND GOING BY [facility] FROM LONG TERM. lidocaine 5 % adhesive patch,medicated See Rx Instructions .ROUTE .COMPLEX 0RF Rx Instructions: apply 1 patch wear for 12 hours and off for 12 hours PT UNABLE TO VERIFY MEDICATIONS. SPOKE WITH NURSE AND GOING BY [facility] FROM LONG TERM. albuterol sulfate 90 mcg/actuation HFA aerosol inhaler 1 puff INHALATION BID PRN (Reason: Shortness Of Breath) 0RF Rx Instructions: PT UNABLE TO VERIFY MEDICATIONS. SPOKE WITH NURSE AND GOING BY [facility] FROM LONG TERM. levothyroxine [Synthroid] 137 mcg tablet 175 mcg PO DAILY 0RF Rx Instructions: PT UNABLE TO VERIFY MEDICATIONS. SPOKE WITH NURSE AND GOING BY [facility] FROM LONG TERM. acetaminophen 325 mg Tablet 650 mg PO QID PRN (Reason: PAIN/FEVER) 0RF Rx Instructions: PT UNABLE TO VERIFY MEDICATIONS. SPOKE WITH NURSE AND GOING BY [facility] FROM LONG TERM. bisacodyl 5 mg Tablet 10 mg PO DAILY PRN (Reason: Constipation) 0RF Rx Instructions: PT UNABLE TO VERIFY MEDICATIONS. SPOKE WITH NURSE AND GOING BY [facility] FROM LONG TERM. duloxetine 60 mg Capsule, Delayed Rel Sprinkle 60 mg PO DAILY Qty: 0 0RF Rx Instructions: PT UNABLE TO VERIFY MEDICATIONS. SPOKE WITH NURSE AND GOING BY [facility] FROM LONG TERM. hydrocodone-acetaminophen 5-325 mg tablet 1 tab PO Q4H PRN (Reason: pain) 0RF Rx Instructions: PT UNABLE TO VERIFY MEDICATIONS. SPOKE WITH NURSE AND GOING BY [facility] FROM LONG TERM. Changed pantoprazole 40 mg Tablet,Delayed Release (Dr/Ec) 40 mg PO BID Qty: 60 0RF Rx Instructions: PT UNABLE TO VERIFY MEDICATIONS. SPOKE WITH NURSE AND GOING BY [facility] FROM LONG TERM. Discharge Orders: Discharge ED (Routine); Ordered 07/28/21 Ordered By: Layo Yee Referrals: Lane Hess DO [Primary Care Provider] - 4-7 days Discharge Diet: Cardiac and Diabetic Discharge Activity: Increase activity as tolerated Patient Instructions: Opioid Safety Activity Restrictions/Additional Instructions: Take all medicine as prescribed. Follow-up with your primary care provider in 3 to 5 days. Notify nurses at long-term care facility for any recurrence of symptoms. Please arrange for next dose of Metoprolol at approximately 1700 tonight. 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 Morbid obesity Pacemaker Peripheral vascular disease Type 2 diabetes mellitus Surgical History H/O knee surgery H/O shoulder surgery H/O thyroidectomy For Graves' disease H/O: hysterectomy History of appendectomy History of permanent cardiac pacemaker placement SSS S/P cholecystectomy S/P gastric surgery LAP-BAND later followed by gastric sleeve Family History Other CAD (coronary artery disease) Dementia Stroke Social History Alcohol intake: never Lives independently: Yes Housing: House Course Vital Signs: Vital signs: Vital Signs Temperature 98.3 F 07/28/21 00:17 Pulse Rate 85 07/28/21 07:15 Respiratory Rate 20 H 07/28/21 07:15 Blood Pressure 159/88 07/28/21 07:15 Pulse Oximetry 99 07/28/21 07:15 MDM - Chest Pain Medical Decision Making pt was never in my care Lab Data : 07/27/21 19:05 07/27/21 19:05 Radiology Impressions Chest X-Ray 07/27/21 18:56 IMPRESSION: 1. Cardiomegaly. 2. Mild pulmonary vascular congestion. Chest/Abdomen/Pelvis CT 07/27/21 20:19 IMPRESSION: 1. Negative for pulmonary embolus 2. Cardiomegaly. 3. Coronary artery atherosclerotic calcifications. 4. Bilateral dependent atelectasis. 5. Scattered prominent subcentimeter mediastinal lymph nodes, nonspecific. IMPRESSION: 1. Negative for acute inflammatory process in the abdomen or pelvis. 2. Gastric surgical sutures. 3. Diverticulosis without diverticulitis. 4. Bilateral common iliac vein stents. Laboratory Results WBC 13.1 10^3/uL (4.0-10.0) H 07/27/21 19:05 RBC 3.23 10^6/uL (4.1-5.3) L 07/27/21 19:05 Hgb 11.5 g/dL (11.5-15.3) 07/27/21 19:05 Hct 35.1 % (37.0-47.0) L 07/27/21 19:05 MCV 108.7 fl (81-99) H 07/27/21 19:05 MCH 35.6 pg (28.0-34.0) H 07/27/21 19:05 MCHC 32.8 g/dL (30.0-36.0) 07/27/21 19:05 RDW 14.8 % (12.1-15.1) 07/27/21 19:05 Plt Count 300 10^3/cmm (130-400) 07/27/21 19:05 MPV 8.3 fL (7.4-10.4) 07/27/21 19:05 Neut % (Auto) 81.9 % 07/27/21 19:05 Lymph % (Auto) 9.4 % 07/27/21 19:05 Bland % (Auto) 7.5 % 07/27/21 19:05 Eos % (Auto) 0.4 % 07/27/21 19:05 Baso % (Auto) 0.2 % 07/27/21 19:05 Neut # (Auto) 10.75 10^3/uL (1.8-7.7) H 07/27/21 19:05 Lymph # (Auto) 1.2 10^3/uL (0.8-4.8) 07/27/21 19:05 Bland # (Auto) 1.0 10^3/uL (0.2-0.9) H 07/27/21 19:05 Eos # (Auto) 0.1 10^3/uL (0.0-0.8) 07/27/21 19:05 Baso # (Auto) 0.0 10^3/uL (0.0-0.1) 07/27/21 19:05 Nucleated RBC % (auto) 0 % 07/27/21 19:05 Nucleated RBCs # 0.0 /100WBC 07/27/21 19:05 D-Dimer 1.14 ug/mIFEU (0-0.59) H 07/27/21 19:05 Sodium 134 mmol/L (136-145) L 07/27/21 19:05 Potassium 4.2 mmol/L (3.5-5.1) 07/27/21 19:05 Chloride 95 mmol/L (98-107) L 07/27/21 19:05 Carbon Dioxide 24 mmol/L (22-29) 07/27/21 19:05 Anion Gap 19.2 (5-19) H 07/27/21 19:05 BUN 13 mg/dL (8-23) 07/27/21 19:05 Creatinine 0.8 mg/dL (0.5-0.9) 07/27/21 19:05 GFR Calculation Not Reportable 07/27/21 19:05 Glucose 158 mg/dL (65-115) H 07/27/21 19:05 Calculated Osmolality 281 mOsm/kg (285-295) L 07/27/21 19:05 Calcium 8.5 mg/dL (8.5-10.5) 07/27/21 19:05 Total Bilirubin 0.8 mg/dL (0.15-1.2) 07/27/21 19:05 AST 20 U/L (0-32) 07/27/21 19:05 ALT 12 U/L (0-33) 07/27/21 19:05 Alkaline Phosphatase 108 IU/L (35-105) H 07/27/21 19:05 Troponin T Baseline 15 ng/L (0-10) H 07/27/21 19:05 Troponin T 120 Minute 14.02 ng/L (0-10) H 07/27/21 21:02 Delta Troponin T -0.98 ABS# (0-10) L 07/27/21 21:02 Troponin T Hi Sens 6Hr 15.14 ng/L (0-10) H 07/28/21 01:25 Troponin T Hi Sens 6Hr Delta 0.14 ng/L (0-12) 07/28/21 01:25 NT-Pro-B Natriuret Pep 1381 pg/mL (0-125) H 07/27/21 19:05 Total Protein 7.6 g/dL (6.6-8.7) 07/27/21 19:05 Albumin 4.0 g/dL (3.5-5.2) 07/27/21 19:05 Globulin 3.6 g/dL (1.3-4.6) 07/27/21 19:05 Lipase 24 U/L (13-60) 07/27/21 19:05 Urine Color Yellow (Yellow) 07/27/21 22: Urine Appearance Clear (CLEAR) 07/27/21: Urine pH 7 (5-7) 07/27/21: Ur Specific [place] 1.005 (1.005-1.030) 07/27/21 22: Urine Protein Neg (Negative) 07/27/21 22: Urine Glucose (UA) Norm (Normal) 07/27/21: Urine Ketones Negative (Negative) 07/27/21: Urine Blood 3+ (Negative) H 07/27/21 22: Urine Nitrate Negative (Negative) 07/27/21 22: Urine Bilirubin Neg (Negative) 07/27/21 22: Urine Urobilinogen Norm mg/dL (Negative) 07/27/21 22:27 Ur Leukocyte Esterase Negative (Negative) 07/27/21 22:27 Urine RBC 25-40 /hpf (0-2) H 07/27/21 22:27 Urine WBC 0-4 /hpf (0-5) H 07/27/21 22:27 Ur Squamous Epith Cells 5-10 /hpf (0-5) H 07/27/21 22:27 Amorphous Sediment Not Reportable 07/27/21 22:27 Urine Bacteria 1+ /hpf (NONE) H 07/27/21 22:27 Digoxin 0.6 ng/mL (0.6-1.2) 07/27/21 19:05 Coronavirus 229E (PCR) Not detected (NOT DETECT) 07/27/21 22:55 SARS-CoV-2 (PCR) Not detected (NOT DETECT) 07/27/21 22:55 Discharge Plan Discharge Patient Disposition: Home Clinical Impression: Chest pain Condition: Stable Prescriptions: New sucralfate [Carafate] 1 gram tablet 1 g PO Q6H 28 Days Qty: 112 0RF Continued nystatin 100,000 unit/gram powder 1 applic topical BID 0RF diclofenac sodium 1 % gel 2 g topical QID 0RF Rx Instructions: apply to single elbow, wrist or hand; for hand includes palm/fingers/back of hand atorvastatin 20 mg tablet 20 mg PO DAILY 0RF amoxicillin 500 mg capsule 500 mg PO BID 0RF aspirin [Adult Aspirin Regimen] 81 mg tablet,delayed release (DR/EC) 81 mg PO BID 0RF diphenhydramine HCl [Allergy (diphenhydramine)] 25 mg capsule 25 mg PO Q4H PRN0RF Refresh Liquigel 1 % drops, liquid gel 1 drp ophthalmic (eye) BID 0RF Acidophilus Tablet,Chewable 1 tab PO DAILY 0RF hydrochlorothiazide 12.5 mg tablet 12.5 mg PO DAILY 0RF metoprolol tartrate 25 mg tablet 50 mg PO BID 0RF Rx Instructions: PT UNABLE TO VERIFY MEDICATIONS. SPOKE WITH NURSE AND GOING BY [facility] FROM LONG TERM. Pradaxa 150 mg Capsule 150 mg PO BID 0RF Rx Instructions: PT UNABLE TO VERIFY MEDICATIONS. SPOKE WITH NURSE AND GOING BY [facility] FROM LONG TERM. ergocalciferol (vitamin D2) [Vitamin D2] 1,250 mcg (50,000 unit) Capsule 1,250 mcg PO Q7D 0RF Rx Instructions: PT UNABLE TO VERIFY MEDICATIONS. SPOKE WITH NURSE AND GOING BY [facility] FROM LONG TERM. montelukast 10 mg Tablet 10 mg PO DAILY 0RF Rx Instructions: PT UNABLE TO VERIFY MEDICATIONS. SPOKE WITH NURSE AND GOING BY [facility] FROM [facility]. digoxin 125 mcg (0.125 mg) Tablet 125 mcg PO EVERY OTHER DAY 0RF Rx Instructions: PT UNABLE TO VERIFY MEDICATIONS. SPOKE WITH NURSE AND GOING BY [facility] FROM LONG TERM. polyethylene glycol 3350 [Miralax] 17 gram Powder In Packet 17 g PO DAILY 0RF naloxone 0.4 mg/mL Solution 0.4 mg IM Q3M PRN (Reason: Opioid Overdose) 0RF bisacodyl 10 mg Suppository 10 mg [place] DAILY PRN (Reason: Constipation) 0RF nystatin 100,000 unit/gram Powder 1 applic TOPICAL BID 0RF nystatin [Nystop] 100,000 unit/gram powder 1 applic TOPICAL BID 0RF ferrous sulfate 325 mg (65 mg iron) Tablet,Delayed Release (Dr/Ec) 325 mg PO DAILY 0RF Tylenol Extra Strength 500 mg PO Q6H PRN (Reason: Pain) 0RF buspirone 10 mg tablet 10 mg PO BID 0RF Rx Instructions: PT UNABLE TO VERIFY MEDICATIONS. SPOKE WITH NURSE AND GOING BY [facility] FROM LONG TERM. lidocaine 5 % adhesive patch,medicated See Rx Instructions .ROUTE .COMPLEX 0RF Rx Instructions: apply 1 patch wear for 12 hours and off for 12 hours PT UNABLE TO VERIFY MEDICATIONS. SPOKE WITH NURSE AND GOING BY [facility] FROM LONG TERM. albuterol sulfate 90 mcg/actuation HFA aerosol inhaler 1 puff INHALATION BID PRN (Reason: Shortness Of Breath) 0RF Rx Instructions: PT UNABLE TO VERIFY MEDICATIONS. SPOKE WITH NURSE AND GOING BY [facility] FROM LONG TERM. levothyroxine [Synthroid] 137 mcg tablet 175 mcg PO DAILY 0RF Rx Instructions: PT UNABLE TO VERIFY MEDICATIONS. SPOKE WITH NURSE AND GOING BY [facility] FROM LONG TERM. acetaminophen 325 mg Tablet 650 mg PO QID PRN (Reason: PAIN/FEVER) 0RF Rx Instructions: PT UNABLE TO VERIFY MEDICATIONS. SPOKE WITH NURSE AND GOING BY [facility] FROM LONG TERM. bisacodyl 5 mg Tablet 10 mg PO DAILY PRN (Reason: Constipation) 0RF Rx Instructions: PT UNABLE TO VERIFY MEDICATIONS. SPOKE WITH NURSE AND GOING BY [facility] FROM LONG TERM. duloxetine 60 mg Capsule, Delayed Rel Sprinkle 60 mg PO DAILY Qty: 0 0RF Rx Instructions: PT UNABLE TO VERIFY MEDICATIONS. SPOKE WITH NURSE AND GOING BY [facility] FROM LONG TERM. hydrocodone-acetaminophen 5-325 mg tablet 1 tab PO Q4H PRN (Reason: pain) 0RF Rx Instructions: PT UNABLE TO VERIFY MEDICATIONS. SPOKE WITH NURSE AND GOING BY [facility] FROM LONG TERM. Changed pantoprazole 40 mg Tablet,Delayed Release (Dr/Ec) 40 mg PO BID Qty: 60 0RF Rx Instructions: PT UNABLE TO VERIFY MEDICATIONS. SPOKE WITH NURSE AND GOING BY [facility] FROM LONG TERM. Discharge Orders: Discharge ED (Routine); Ordered 07/28/21 Ordered By: Layo Yee Referrals: Lane Hess DO [Primary Care Provider] - 4-7 days Discharge Diet: Cardiac and Diabetic Discharge Activity: Increase activity as tolerated Patient Instructions: Opioid Safety Activity Restrictions/Additional Instructions: Take all medicine as prescribed. Follow-up with your primary care provider in 3 to 5 days. Notify nurses at long-term care facility for any recurrence of symptoms. Please arrange for next dose of Metoprolol at approximately 1700 tonight. 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 Normal times may resume on 07/29/21 Coding Level of Care Code ED Backbreaker for Nelson Fwd Exam Comprehensive
[2021-07-27 19:12] LABS: Basophils % 0.2 %; Eosinophils # 0.1 10^3/uL (0.0-0.8); Eosinophils % 0.4 %; Hematocrit 35.1 % (37.0-47.0); Hemoglobin 11.5 g/dL (11.5-15.3); Lymphocytes # 1.2 10^3/uL (0.8-4.8); Lymphocytes % 9.4 %; Mean Corpuscular HGB Conc 32.8 g/dL (30.0-36.0); Mean Corpuscular Hemoglobin 35.6 pg (28.0-34.0); Mean Corpuscular Volume 108.7 fl (81-99); Mean Platelet Volume 8.3 fL (7.4-10.4); Monocytes % 7.5 %; Neutrophils # 10.75 10^3/uL (1.8-7.7); Neutrophils % 81.9 %; Nucleated Red Blood Cells % 0 %; Platelet Count 300 10^3/cmm (130-400); Red Blood Count 3.23 10^6/uL (4.1-5.3); Red Cell Distribution Width 14.8 % (12.1-15.1); White Blood Count 13.1 10^3/uL (4.0-10.0)
[2021-07-27] MEDS: aspirin 81 mg Chew Tablet 324 MG PO (19:29)
[2021-07-27] MEDS: sodium chloride 0.9% 500 ML 999 ML IV ×2 (19:29→21:52)
[2021-07-27 19:36] LABS: Troponin(5th) Baseline 15 ng/L (0-10)
[2021-07-27 19:50] LABS: Alanine Aminotransferase 12 U/L (0-33); Alkaline Phosphatase 108 IU/L (35-105); Anion Gap 19.2 (5-19); Aspartate Amino Transferase 20 U/L (0-32); Blood Urea Nitrogen 13 mg/dL (8-23); Calcium 8.5 mg/dL (8.5-10.5); Carbon Dioxide 24 mmol/L (22-29); Chloride 95 mmol/L (98-107); Globulin 3.6 g/dL (1.3-4.6); Glucose 158 mg/dL (65-115); Lipase 24 U/L (13-60); NT Pro B Type Natriuretic Pept 1381 pg/mL (0-125); Osmolality Calculated 281 mOsm/kg (285-295); Potassium 4.2 mmol/L (3.5-5.1); Sodium 134 mmol/L (136-145); Total Bilirubin 0.8 mg/dL (0.15-1.2); Total Protein 7.6 g/dL (6.6-8.7)
[2021-07-27 20:16] LABS: D Dimer 1.14 ug/mIFEU (0-0.59)
[2021-07-27 20:17] LABS: Digoxin 0.6 ng/mL (0.6-1.2)
--- NOTE | 2021-07-27 20:17 | PC.NURSE ---
Patient's [employer] pacemaker interrogated at 2017
--- NOTE | 2021-07-27 20:19 | CTR_ITS ---
PROCEDURE INFORMATION: Exam: CTA Chest With Contrast Exam date and time: 07/27/2021 8:48 PM Age: 76 years old Clinical indication: Abdominal pain; Generalized; Prior surgery; Surgery date: 6+ months; Surgery type: Pacer, gb, appy, hyst, lapband; Patient HX: C/O chest pressure abd pain w n/v and elev d-dimer; Additional info: Chest pain, elevated ddimer, n/v/abdominal pain radiation TECHNIQUE: Imaging protocol: Computed tomographic angiography of the chest with contrast. 3D rendering (Not supervised by radiologist): MIP and/or 3D reconstructed images were created by the technologist. Radiation optimization: All CT scans at this facility use at least one of these dose optimization techniques: automated exposure control; mA and/or kV adjustment per patient size (includes targeted exams where dose is matched to clinical indication); or iterative reconstruction. Contrast material: OMNI 350; Contrast volume: 95 ml; Contrast route: INTRAVENOUS (IV); COMPARISON: 1. CT chest w con* [id number] 05/05/2019 3:[address] [place]domen/[place] w[place] [id number] 09/27/2018 6:25 PM RADIATION DOSE METRICS: Total DLP (mGy-cm): 2113.64 FINDINGS: Tubes, catheters and devices: Pacemaker. Pulmonary arteries: Normal. No pulmonary emboli. Aorta: Unremarkable. No aortic aneurysm. No aortic dissection. Lungs: Bilateral dependent atelectasis. Pleural spaces: Unremarkable. No pneumothorax. No pleural effusion. Heart: Cardiomegaly. Coronary artery atherosclerotic calcifications. Lymph nodes: Scattered prominent subcentimeter mediastinal lymph nodes, nonspecific. Bones/joints: Unremarkable. No acute fracture. Soft tissues: Unremarkable. PROCEDURE INFORMATION: Exam: CT Abdomen And Pelvis With Contrast Exam date and time: 07/27/2021 8:48 PM Age: 76 years old Clinical indication: Abdominal pain; Generalized; Prior surgery; Surgery date: 6+ months; Surgery type: Pacer, gb, appy, hyst, lapband; Patient HX: C/O chest pressure abd pain w n/v and elev d-dimer; Additional info: Chest pain, elevated ddimer, n/v/abdominal pain radiation TECHNIQUE: Imaging protocol: Computed tomography of the abdomen and pelvis with contrast. Radiation optimization: All CT scans at this facility use at least one of these dose optimization techniques: automated exposure control; mA and/or kV adjustment per patient size (includes targeted exams where dose is matched to clinical indication); or iterative reconstruction. Contrast material: OMNI 350; Contrast volume: 95 ml; Contrast route: INTRAVENOUS (IV); COMPARISON: 1. CT chest w con* [id number] 05/05/2019 3:[address] [place] [id number] 09/27/2018 6:25 PM RADIATION DOSE METRICS: Total DLP (mGy-cm): 2113.64 FINDINGS: Liver: Normal. No mass. Gallbladder and bile ducts: Normal. No calcified stones. No ductal dilation. Pancreas: Normal. No ductal dilation. Spleen: Normal. No splenomegaly. Adrenal glands: Normal. No mass. Kidneys and ureters: Normal. No hydronephrosis. Stomach and bowel: Gastric surgical sutures. Diverticulosis without diverticulitis. Appendix: No evidence of appendicitis. Intraperitoneal space: Unremarkable. No free air. No significant fluid collection. Arteries: Unremarkable. No abdominal aortic aneurysm. Veins: Bilateral common iliac vein stents. Lymph nodes: Unremarkable. No enlarged lymph nodes. Urinary bladder: Unremarkable as visualized. Reproductive: Unremarkable as visualized. Bones/joints: Unremarkable. No acute fracture. Soft tissues: Unremarkable. CT/CT angio chest w abd pel w con IMPRESSION: 1. Negative for pulmonary embolus 2. Cardiomegaly. 3. Coronary artery atherosclerotic calcifications. 4. Bilateral dependent atelectasis. 5. Scattered prominent subcentimeter mediastinal lymph nodes, nonspecific. IMPRESSION: 1. Negative for acute inflammatory process in the abdomen or pelvis. 2. Gastric surgical sutures. 3. Diverticulosis without diverticulitis. 4. Bilateral common iliac vein stents.
[2021-07-27] MEDS: iohexol 350 mg/mL 100 mL Btl IV (20:50)
[2021-07-27 21:33] LABS: Troponin 5 2HR 14.02 ng/L (0-10)
[2021-07-27 21:43] LABS: Troponin 5 2HR Delta -0.98 ABS# (0-10)
[2021-07-27] MEDS: morphine 4 mg/mL SDV 1 mL IVP (21:50)
[2021-07-27 22:45] LABS: Add Urine Microscopic? YES; Bilirubin Urine Neg (Negative); Blood Urine 3+ (Negative); Glucose Urine UA Norm (Normal); Ketones Urine Negative (Negative); Leukocyte Esterase Urine Negative (Negative); Nitrate Urine Negative (Negative); Protein Urine Neg (Negative); Specific Gravity, Urine 1.005 (1.005-1.030); Urine Appearance Clear (CLEAR); Urine Color Yellow (Yellow); Urobilinogen Urine Norm (Negative); pH Urine 7 (5-7)
[2021-07-27 22:47] LABS: Add Urine Culture? Yes; Bacteria Urine 1+ /hpf; RBC Urine 25-40 /hpf (0-2); WBC Urine 0-4 /hpf (0-5)
[2021-07-28] VITALS (31 sets, daily range): BP systolic 104–173; BP diastolic 52–103; PULSE 73–121; RESP 11–29; TEMP 36.8; O2SAT 92–100
[2021-07-28 01:15] LABS: Adenovirus Not Detected (NOT DETECT); Chlamydia Pneumoniae Not Detected (NOT DETECT); Coronavirus 229E,HKU1,NL63,OC4 Not Detected (NOT DETECT); Human Metapneumovirus Not Detected (NOT DETECT); Human Rhinovirus/Enterovirus Not Detected (NOT DETECT); Influenza A Not Detected (NOT DETECT); Influenza A H1 Not Detected (NOT DETECT); Influenza A H1-2009 Not Detected (NOT DETECT); Influenza A H3 Not Detected (NOT DETECT); Influenza B Not Detected (NOT DETECT); Mycoplasma Pneumoniae Not Detected (NOT DETECT); Parainfluenza Virus Type 1 Not Detected (NOT DETECT); Parainfluenza Virus Type 2 Not Detected (NOT DETECT); Parainfluenza Virus Type 3 Not Detected (NOT DETECT); Parainfluenza Virus Type 4 Not Detected (NOT DETECT); Respiratory Syncytial Virus A Not Detected (NOT DETECT); Respiratory Syncytial Virus B Not Detected (NOT DETECT); SARS-COV-2 Not Detected (NOT DETECT)
--- NOTE | 2021-07-28 01:33 | P.CONIM_ITS ---
Providers/Reason For Consult Consulting Physician/Specialty*: Doctor Simental, [facility] Medicine Reason for Consult*: Abdominal pain Primary Care Provider: Lane Hess DO History of Present Illness History of Present Illness The patient is a 72-year-old female who was called by the emergency department physician with request to admit for chest pain . During my encounter with the patient, the reported chest pain was actually central upper abdominal pain which started approximately 2 weeks prior to hospitalization. Since that time it has been intermittent. She states that the pain is not present at the time of my interview with her however she states that she was able to reproduce the pain with palpation. Upon further questioning she denies having chest pain at any point time and again I asked the patient to demonstrate where her pain was and it was in the upper mid abdomen. She admits to mild lightheadedness but she d enies experience any chest pain at any point, dyspnea, dizziness, diaphoresis, palpitations, sense of rapid heartbeat, since she knee regular heartbeat. He states that the abdominal pain remains in the upper abdomen and does not radiate. She describes it as a stabbing sensation. The patient's initial troponin was 15 and the patient's repeat troponin was 14.2. The patient is chronically elevated troponins. Her EKG is benign. I received a call back from the emergency department physician at 1:39 AM on July 28, 2021 who indicated that he would like the patient to be hospitalized even though he, at this point, has not examined the patient and is simply going according to the notation of t he previous emergency physician who is no longer on service. The patient indicates that her last bowel movement was 2 days prior to hospitalization. She denies melena, hematochezia, diarrhea. She denies frequent NSAID use. In the emergency department she had CT chest, abdomen, and pelvis which demonstrates no acute pathology. I have conveyed to the remaining emergency medicine physician that at this time there appears to be no criteria for hospitalizing the patient given all of her benign findings and the fact that her pain is actually abdominal pain and not chest pain and is reproducible and does not appear to be cardiac in nature Review of Systems General: Reports: 10 or more systems reviewed and unremarkable except in HPI and below Medications/Allergies Home Medications Medication Instructions Recorded Confirmed Last Taken Type dabigatran etexilate 150 mg 150 mg PO BID 07/22/19 05/02/2109/17/21 16:00 History capsule (Pradaxa) digoxin 125 mcg (0.125 mg) tablet 125 mcg PO EVERY OTHER DAY 07/22/19 05/02/21 09/16/20 10:15 History ergocalciferol (vitamin D2) 1,250 1,250 mcg PO Q7D 07/22/19 05/02/21 09/16/20 10:15 History mcg (50,000 unit) capsule (Vitamin D2) montelukast 10 mg tablet 10 mg PO DAILY 07/22/19 05/02/21 09/17/20 07:15 History pantoprazole 40 mg tablet,delayed 40 mg PO DAILY 07/22/19 05/02/21 09/18/20 04:30 History release albuterol sulfate 90 mcg/actuation 1 puff INHALATION BID PRN 02/04/20 05/02/21 Unknown History aerosol inhaler buspirone 10 mg tablet 10 mg PO BID 02/04/20 05/02/21 09/17/20 18:45 History lidocaine 5 % topical patch See Rx Instructions .ROUTE .COMPLEX 02/04/20 05/02/21 09/17/20 07:15 History acetaminophen 325 mg tablet 650 mg PO QID PRN 02/09/20 05/02/21 09/11/20 14:09 History bisacodyl 5 mg tablet 10 mg PO DAILY PRN 02/09/20 05/02/21 02/28/20 16:51 History duloxetine 60 mg capsule,delayed 60 mg PO DAILY #0 cap 02/11/20 05/02/2109/17 07:15 Rx release sprinkle atorvastatin 20 mg tablet 20 mg PO DAILY 05/09/20 05/02/21 09/17/20 20:00 History polyethylene glycol 3350 17 gram 17 g PO DAILY 06/03/20 05/02/21 09/17/20 07:15 History oral powder packet (Miralax) diclofenac sodium 1 % topical gel 2 g TOPICAL QID 06/11/20 05/02/21 09/10/20 14:27 History nystatin 100,000 unit/gram topical 1 applic TOPICAL BID 06/11/20 05/02/21 09/17/20 18:43 History powder Tylenol Extra Strength 500 mg PO Q6H PRN 09/18/20 05/02/21 06/20/20 08:50 History bisacodyl 10 mg rectal suppository 10 mg ND DAILY PRN 09/18/20 05/02/21 02/28/20 16:41 History ferrous sulfate 325 mg (65 mg 325 mg PO DAILY 09/18/20 05/02/21 09/17/20 07:15 History iron) tablet,delayed release naloxone 0.4 mg/mL injection 0.4 mg IM Q3M PRN 09/18/20 05/02/21 Unknown History solution nystatin 100,000 unit/gram topical 1 applic TOPICAL BID 09/18/20 05/02/21 09/17/20 18:43 History powder nystatin 100,000 unit/gram topical 1 applic TOPICAL BID 09/18/20 05/02/21 09/17/20 14:27 History powder (Nystop) hydrocodone 5 mg-acetaminophen 325 1 tab PO Q4H PRN 09/26/20 05/02/21 Unknown History mg tablet Lactobacillus acidophilus 1 tab PO DAILY 01/13/21 05/02/21 Unknown History (Acidophilus) amoxicillin 500 mg capsule 500 mg PO BID 01/13/21 05/02/21 Unknown History aspirin 81 mg tablet,delayed 81 mg PO BID tab 01/13/21 05/02/21 Unknown History release (Adult Aspirin Regimen) carboxymethylcellulose sodium 1 % 1 drp OPHTHALMIC (EYE) BID 01/13/21 05/02/21 Unknown History eye liquid gel drops (Refresh Liquigel) diphenhydramine HCl 25 mg capsule 25 mg PO Q4H PRN cap 01/13/21 05/02/21 Unknown History (Allergy (diphenhydramine)) hydrochlorothiazide 12.5 mg tablet 12.5 mg PO DAILY 05/02/21 05/02/21 Unknown History levothyroxine 137 mcg tablet 175 mcg PO DAILY tab 05/02/21 05/02/21 Unknown History (Synthroid) metoprolol tartrate 25 mg tablet 50 mg PO BID tab 05/05/21 Unknown History Allergies Allergy/AdvReac Type Severity Reaction Status Date / Time metformin [From Glucophage] Allergy Unknown Verified 05/02/21 10:03 Tetanus Vaccines and Toxoid Allergy Unknown Verified 05/02/21 10:03 PFSH Acute PFSH: Medical History Atrial fibrillation CKD (chronic kidney disease) stage 2, GFR 60-89 ml/min Coronary artery disease Dementia Hypertension Hypothyroid Infected abrasion of groin 2018) infection requiring I&D 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 Morbid obesity Pacemaker Peripheral vascular disease Type 2 diabetes mellitus Surgical History H/O knee surgery H/O shoulder surgery H/O thyroidectomy For Graves' disease H/O: hysterectomy History of appendectomy History of permanent cardiac pacemaker placement SSS S/P cholecystectomy S/P gastric surgery LAP-BAND later followed by gastric sleeve Family History Other CAD (coronary artery disease) Dementia Stroke Social History Alcohol intake: never Lives independently: Yes Housing: House Vitals/I&O/Wt Last Vital Signs Temp 98.3 F 07/28/21 00:17 Pulse 92 07/28/21 00:17 Resp 26 H 07/28/21 00:17 BP 124/65 07/28/21 00:17 Pulse Ox 97 07/28/21 00:17 07/27/21 07/27/21 07/28/21 14:59 22:59 06:59 Intake Total 1000 / 1000 Balance 1000 / 1000 Weight last 48 hrs Weight 136.078 kg Physical Exam Narrative: General: -Alert -No acute distress -No dyspnea -No tachypnea Head: -Atraumatic -Normocephalic Eyes: -Pupils equally round and reactive to light and accommodation -Extraocular muscles intact Neurological: -Cranial nerves II-XII intact Neck: -No jugular venous distention -No thyromegaly -No cervical lymphadenopathy Heart: -Regular rate -iRegular rhythm -No murmurs -No gallops -No rubs Lungs: -No wheeze -No rhonchi -No rales ? Abdomen: -Normal bowel sounds in all four quadrants -No rebound -No guarding -Mild tenderness to palpation of the upper central abdomen Extremities: -2/4 pulse in all four extremities -No clubbing -No cyanosis -No edema -No calf tenderness present bilaterally -Negative Malathi?s sign bilaterally Musculoskeletal: -5/5 bilateral upper extremity strength -5/5 bilateral lower extremity strength -Sensorium of bilateral upper extremities are equal and intact -Sensorium of bilateral lower extremities are equal and intact ? Additional Details / Additional Findings / Exceptions / Miscellaneous: Data : 07/27/21 19:05 07/27/21 19:05 A&P Assessment and plan (1) Chest pain: Status: Acute Plan Abdominal pain. Chest pain is not present and never has been present in this patient. There is mild tenderness to palpation with unremarkable CT of the chest, abdomen, and pelvis. Patient is chronically elevated troponin and her 2 hour troponin is virtually unchanged from her troponin at time 0. EKG is benign. Recommended Protonix 40 Mill grams by mouth twice a day plus Carafate 1 g by mouth every 6 hours. Patient may use when necessary Tylenol or abdominal pain obstructive sleep apnea.Continue CPAP/BiPAP for home pressure Microscopic hematuria. Outpatient follow-up with urology upon discharge History of Graves' disease, status post thyroidectomy with resultant hypothyroidism Chronic pain Sick sinus syndrome, status post pacemaker placement Atrial for ablation, status post pacemaker placement Depression Anxiety COPD, not O2 dependent Coronary artery disease, status post an Diabetes GERD Hyper lipemia Hypertension Obesity Macrocytosis Diverticulosis Peripheral vascular disease Documented history of dementia however the patient was able to answer all questions posed to her At this time, there appears to be no medical indication for hospitalization given the patient's symptomatology, physical examination, and results of her studies Consult Attestations Medical Necessity Statement: This consultation is being performed due to a request for hospitalization for purported chest pain which actually is reproducible upper abdominal tenderness. Coding Level of Care Code Acute Engineering Specialist Technician for Nelson Storey Diagnoses Chest pain R07.9
[2021-07-28 01:58] LABS: Troponin 5 6HR 15.14 ng/L (0-10)
[2021-07-28 02:21] LABS: Troponin 5 6HR Delta 0.14 ng/L (0-12)
--- NOTE | 2021-07-28 04:00 | P.PN_ITS ---
Subjective Subjective: Pallavi reports she has no chest discomfort currently, or nausea. She reports she came in with discomfort in her upper abdomen. She reports she has been having some stomach problems lately, especially with eating. It is often tender to palpation. She also has some pain in her left shoulder on occ asion which she reports is bursitis and hurts when she moves it. She is nauseated, intermittently although not right now. She states her stomach bothers her on occasion. On calling over to the nursing facility to see why she came over they reported chest discomfort. They also reported the patient is alert oriented and usually knows her symptoms well. They report that she got very emotionally upset yesterday morning as it was . Patient reports she never had chest discomfort, only discomfort in her epigastric area of her abdomen. She reports the arm pain was unrelated, and that discomfort she had had for quite a while. Medications: Reviewed: Yes Vitals/I&O/Wt Last Vital Signs Temp 98.3 F 07/28/21 00:17 Pulse 99 07/28/21 03:00 Resp 14 07/28/21 03:00 BP 127/86 07/28/21 03:00 Pulse Ox 98 07/28/21 03:00 07/27/21 07/27/21 07/28/21 14:59 22:59 06:59 Intake Total 1000 / 1000 Balance 1000 / 1000 Weight last 48 hrs Weight 136.078 kg Physical Exam Narrative: General exam is no distress, denies any chest discomfort or nausea currently. Points at her epigastric area Neck is supple no lymphadenopathy or thyromegaly Cardiovascular regular rate and rhythm without murmur, no S3 or S4. Pacemaker site left chest without inflammation Lungs clear no wheezing or crackles Abdomen is soft. No tenderness to palpation. No obvious organomegaly exams deferred Extremities no cyanosis clubbing or edema, cap refill brisk Neuro no obvious focal deficits. Data : 07/27/21 19:05 07/27/21 19:05 Other Labs: EKG demonstrates atrial fibrillation, rate of 114, normal axis, nonspecific ST-T wave changes unchanged from previous EKG 2020 Other studies were reviewed A&P Assessment and plan (1) Epigastric pain: Patient presented to the hospital with some epigastric discomfort, which she has intermittently and is associated with eating and palpation. This episode started after the stressful situation of family not visiting Easter morning as expected. Troponins do not have significant delta. EKG is not concerning. This is concerning for GI etiology of chest discomfort. CTA chest abdomen pelvis did not demonstrate etiology. Protonix can be increased to 40 mg twice daily. Carafate could be added if this is not effective. Status: Acute (2) Atrial fibrillation: Currently rate is little bit high. This is secondary to her not receiving her metoprolol last night and the transition from nursing facility to the emergency department. I have ordered 50 mg of metoprolol now. If heart rate comes under control with metoprolol, can discharge back to the nursing facility with medicine changes as above. Keep regular follow-up with cardiology. Status: Acute Qualifiers: Atrial fibrillation type: permanent Qualified Code(s): I48.21 - Permanent atrial fibrillation Plan Recommend seeing primary care provider at nursing facility, Dr. Hess, in the next 3 to 5 days for reevaluation of symptomatology. Attestations Medical Necessity Statement*: Not applicable Coding Level of Care Code Acute Supervisor Stave Cutting for [facility] [place] Diagnoses Epigastric pain R10.13 Atrial fibrillation I48.21 Atrial fibrillation type: permanent
[2021-07-28] MEDS: metoprolol tartrate 50 mg Tablet PO (04:15)
--- NOTE | 2021-07-28 06:58 | PC.NURSE ---
[facility] conf #[id number] for transport home
[2021-07-28] MEDS: HYDROcodone-acetaminophen 5-325 mg Tablet 1 TAB PO (07:43)
== END 2021-07-28 10:37 | disposition home or self-care (01) ==
PROVIDERS: Emergency Provider Emergency Medicine; PCP Internal Medicine
DX: R10.13 Epigastric pain (principal); E11.22 Type 2 diabetes mellitus with diabetic chronic kidney disease; I12.9 Hypertensive chronic kidney disease with stage 1 through stage 4 chronic kidney disease, or unspecified chronic kidney disease; N18.2 Chronic kidney disease, stage 2 (mild); R31.29 Other microscopic hematuria; I25.10 Atherosclerotic heart disease of native coronary artery without angina pectoris; I48.91 Unspecified atrial fibrillation; E11.51 Type 2 diabetes mellitus with diabetic peripheral angiopathy without gangrene; G47.33 Obstructive sleep apnea (adult) (pediatric); E89.0 Postprocedural hypothyroidism; G89.29 Other chronic pain; F03.90 Unspecified dementia, unspecified severity, without behavioral disturbance, psychotic disturbance, mood disturbance, and anxiety; Z98.84 Bariatric surgery status; Z95.0 Presence of cardiac pacemaker; Z79.82 Long term (current) use of aspirin; Z79.891 Long term (current) use of opiate analgesic
CPT/HCPCS: 36415; 71045; 71275; 74177; 80053; 80162; 81001; 83690; 83880; 84484; 85025; 85378; 87086; 87635; 93005; 96361; 96374; 99284; J2270; J7040; Q9967

== ENCOUNTER → 2021-10-24 09:55 | Outpatient (BNVA) | payer MEDICARE, MEDICAID, SELFPAY | PROVIDERS: PCP Internal Medicine; Visit Provider Internal Medicine Cardiovascular Disease | DX: I48.91 Unspecified atrial fibrillation (principal); I25.10 Atherosclerotic heart disease of native coronary artery without angina pectoris; Z95.0 Presence of cardiac pacemaker; I12.9 Hypertensive chronic kidney disease with stage 1 through stage 4 chronic kidney disease, or unspecified chronic kidney disease; E11.22 Type 2 diabetes mellitus with diabetic chronic kidney disease; N18.2 Chronic kidney disease, stage 2 (mild); Z79.84 Long term (current) use of oral hypoglycemic drugs | CPT/HCPCS: 93280; 99214 ==

== ENCOUNTER 2021-10-31 14:21 | Emergency (ER) | payer MEDICARE, MEDICAID, SELFPAY ==
[2021-10-31 14:33] VITALS: BP 170/86; RESP 18; O2SAT 96
--- NOTE | 2021-10-31 14:34 | ECG_ITS ---
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 Measurements Intervals [place] Rate: 84 P: DC: QRS: 22 QRSD: 98 T: 54 QT: 381 QTc: 451 Interpretive Statements ATRIAL FIBRILLATION LOW QRS VOLTAGE IN PRECORDIAL LEADS [QRS DEFLECTION < 1.0 mV IN CHEST LEADS] ST DEVIATION AND MODERATE T-WAVE ABNORMALITY, CONSIDER LATERAL ISCHEMIA [-0.1+ mV T WAVE IN I/aVL/V5/V6] Compared to ECG 07/27/2021 19:08:30 Low QRS voltage now present T-wave abnormality now present Possible ischemia now present ST (T wave) deviation no longer present Electronically Signed On 10-31-2021 20:29:05 CDT by Morgan Miranda M.D. [email or web address]
--- NOTE | 2021-10-31 15:04 | XR_ITS ---
WS: [id number] XR chest 1V portable [id number] REASON FOR EXAM: chest pain FINDINGS: The chest is unchanged compared to 07/27/2021. Cardiac device over the left chest with transvenous left subclavian vein leads to the right atrium an d right ventricular apex. Cardiomegaly. Moderate tortuosity and ectasia of the thoracic aorta. Calcified granulomatous disease in both hemithoraces. No active pulmonary parenchymal or pleural disease. XR/XR chest 1V portable [id number] IMPRESSION: Stable chest with no acute abnormality.
--- NOTE | 2021-10-31 15:04 | XR_ITS ---
WS: [id number] XR shoulder LT min 2V* [id number] REASON FOR EXAM: left shoulder and chest pain FINDINGS: No acute fracture. Significant narrowing of the acromioclavicular joint with large marginal osteophytes. Significant narrowing of the glenohumeral joint with subchondral sclerosis and marginal osteophytes o f the acetabulum. Large osteophyte of the humeral head. Extensive cystic and sclerotic change in the humeral head. The humeral head erosions the undersurface of the acromial process. XR/XR shoulder LT min 2V* [id number] IMPRESSION: Severe osteoarthritis of the acromioclavicular joint. 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
[2021-10-31 15:51] LABS: Basophils % 0.4 %; Eosinophils # 0.2 10^3/uL (0.0-0.8); Hematocrit 39.4 % (37.0-47.0); Hemoglobin 13.5 g/dL (11.5-15.3); Lymphocytes % 20.8 %; Mean Corpuscular HGB Conc 34.3 g/dL (30.0-36.0); Mean Corpuscular Hemoglobin 34.6 pg (28.0-34.0); Mean Platelet Volume 8.9 fL (7.4-10.4); Monocytes # 0.9 10^3/uL (0.2-0.9); Monocytes % 9.7 %; Neutrophils # 6.52 10^3/uL (1.8-7.7); Neutrophils % 66.9 %; Nucleated Red Blood Cells % 0 %; Platelet Count 380 10^3/cmm (130-400); Red Cell Distribution Width 13.7 % (12.1-15.1); White Blood Count 9.7 10^3/uL (4.0-10.0)
--- NOTE | 2021-10-31 16:03 | ED_ITS ---
HPI - Neuro Symptoms/Deficit General: Chief Complaint: Neuro Symptoms/Deficit Stated Complaint: high Bp Time Seen by Provider: 10/31/21 14:30 Source: patient Mode of arrival: ambulatory History of Present Illness: 76-year-old female presents emergency room complaints of elevated blood pressure. Patient states that she was at the long-term she had some discomfort in her left arm and some burning in her face. She also some aching in that left shoulder and the pain seems to radiate down her arm she relates it to previous known shoulder injury and yesterday participating in an activity at the long-term where she was hitting a balloon with her left arm. She is not having any chest pain no nausea diaphoresis. She has no focal neurologic deficits Onset (ago): minute(s) Relieving factors: none Exacerbating factors: none Associated symptoms: Deny chest pain, cough, diaphoresis, fevers/chills, headac he(s), anorexia, malaise, nausea, seizures, short of breath, syncope, tingling, vertigo, vomiting or weakness Treatments Prior to Arrival: none Review of Systems Const: Denies: fever(s), chills, fatigue, malaise or diaphoresis ENMT: Denies: throat pain, ear or mastoid pain, nasal discharge or nasal congestion Card: Denies: chest pain, palpitations or syncope Resp: Denies: dyspnea, productive cough or non-productive cough GI: Denies: abdominal pain, nausea, vomiting, hematemesis, coffee ground emesis, diarrhea or GI cramping : Denies: flank pain, difficulty voiding, dysuria, urinary frequency or urinary urgency Skin/Breast: Denies: rash or pruritus Neuro: Denies: headache(s) or vertigo PFSH ED PFSH: Medical History Atrial fibrillation CKD (chronic kidney disease) stage 2, GFR 60-89 ml/min Coronary artery disease Dementia Hypertension Hypothyroid Infected abrasion of groin 2018) infection requiring I&D 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 Morbid obesity Pacemaker Peripheral vascular disease Type 2 diabetes mellitus Surgical History H/O knee surgery H/O shoulder surgery H/O thyroidectomy For Graves' disease H/O: hysterectomy History of appendectomy History of permanent cardiac pacemaker placement SSS S/P cholecystectomy S/P gastric surgery LAP-BAND later followed by gastric sleeve Family History Other CAD (coronary artery disease) Dementia Stroke Social History Smoking and tobacco status: never smoked Alcohol intake: never Lives independently: Yes Housing: House NIH stroke score NIHSS: Level Of Consciousness - 1a: 0 Level Of Consciousness Questions - 1b: Both Correct Level Of Consciousness Commands - 1c: Both Correct Best Gaze - 2: Normal Visual Baj[place] - 3: No Visual Loss Facial Palsy - 4: Normal Motor Arm Right - 5: No Drift Motor Arm Left - 5: No Drift Motor Leg Right - 6: No Drift Motor Leg Left - 6: No Drift Limb Ataxia - 7: Absent Sensory - 8: Normal Best Language - 9: No Aphasia Dysarthia - 10: Normal Extinction And Inattention - 11: 0 Score: Total Score: 0 Physical Exam Const: GENERAL APPEARANCE: cooperative and comfortable ORIENTATION/CONSC IOUSNESS: Yes awake, Yes oriented to person, Yes oriented to place and Yes oriented to time HENMT: COMMON NORMALS: normocephalic, atraumatic and hearing grossly normal bilaterally HEAD & SCALP: normocephalic and atraumatic Lymph: LYMPHATIC: no lymphadenopathy noted and no lymphedema noted Chest: OTHER: Pain reproducible with palpation on the upper chest and anterior shoulder Resp: COMMON NORMALS: normal respiratory effort, No retractions, No use of accessory muscles and clear to auscultation bilaterally AUSCULTATION: clear to auscultation bilaterally Cardio: COMMON NORMALS: regular rate, regular rhythm and No murmurs present (Cardio) RATE: regular rate RHYTHM: regular rhythm GI: COMMON NORMALS: Soft to palpation and No hepatosplenomegaly present AUSCULTATION: Yes normoactive bowel sounds PALPATION: Yes Soft to palpation, No Tenderness to palpation present (GI), No Guarding due to palpation present (GI) and Yes No hepatosplenomegaly present Extremity: COMMON NORMALS: normal to inspection, capillary refill normal, no clubbing, cyanosis or edema, no calf tenderness and no pedal edema Neuro: SENSORIUM/ORIENTATION: Yes oriented to person, Yes oriented to place and Yes oriented to time Skin: COMMON NORMALS: no rashes or lesions noted GENERAL SKIN EXAM: no rashes or lesions noted Course Vital Signs: Vital signs: Vital Signs Pulse Rate 78 10/31/21 16:11 Respiratory Rate 15 10/31/21 16:11 Blood Pressure 175/113 10/31/21 16:11 Pulse Oximetry 95 10/31/21 16:11 MDM - Neuro Symptoms/Deficit Medical Decision Making CT head unremarkable. Labs normal patient's pain is reproducible EKG unrem arkable go and discharge patient home. Medical Records I reviewed the patient's medical records. Lab Data I reviewed the patient's lab results. : 10/31/21 14:45 10/31/21 14:45 Radiology Impressions Chest X-Ray 10/31/21 15:04 IMPRESSION: Stable chest with no acute abnormality. Shoulder X-Ray 10/31/21 15:04 IMPRESSION: Severe osteoarthritis of the acromioclavicular joint. 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 Laboratory Results WBC 9.7 10^3/uL (4.0-10.0) 10/31/21 14:45 RBC 3.90 10^6/uL (4.1-5.3) L 10/31/21 14:45 Hgb 13.5 g/dL (11.5-15.3) 10/31/21 14:45 Hct 39.4 % (37.0-47.0) 10/31/21 14:45 MCV 101.0 fl (81-99) H 10/31/21 14:45 MCH 34.6 pg (28.0-34.0) H 10/31/21 14:45 MCHC 34.3 g/dL (30.0-36.0) 10/31/21 14:45 RDW 13.7 % (12.1-15.1) 10/31/21 14:45 Plt Count 380 10^3/cmm (130-400) 10/31/21 14:45 MPV 8.9 fL (7.4-10.4) 10/31/21 14:45 Neut % (Auto) 66.9 % 10/31/21 14:45 Lymph % (Auto) 20.8 % 10/31/21 14:45 [place] % (Auto) 9.7 % 10/31/21 14:45 Eos % (Auto) 2.0 % 10/31/21 14:45 Baso % (Auto) 0.4 % 10/31/21 14:45 Neut # (Auto) 6.52 10^3/uL (1.8-7.7) 10/31/21 14:45 Lymph # (Auto) 2.0 10^3/uL (0.8-4.8) 10/31/21 14:45 [place] # (Auto) 0.9 10^3/uL (0.2-0.9) 10/31/21 14:45 Eos # (Auto) 0.2 10^3/uL (0.0-0.8) 10/31/21 14:45 Baso # (Auto) 0.0 10^3/uL (0.0-0.1) 10/31/21 14:45 Nucleated RBC % (auto) 0 % 10/31/21 14:45 Nucleated RBCs # 0.0 /100WBC 10/31/21 14:45 Sodium 135 mmol/L (136-145) L 10/31/21 14:45 Potassium 4.1 mmol/L (3.5-5.1) 10/31/21 14:45 Chloride 95 mmol/L (98-107) L 10/31/21 14:45 Carbon Dioxide 25 mmol/L (22-29) 10/31/21 14:45 Anion Gap 19.1 (5-19) H 10/31/21 14:45 BUN 21 mg/dL (8-23) 10/31/21 14:45 Creatinine 0.9 mg/dL (0.5-0.9) 10/31/21 14:45 GFR Calculation Not Reportable 10/31/21 14:45 Glucose 228 mg/dL (65-115) H 10/31/21 14:45 Calculated Osmolality 290 mOsm/kg (285-295) 10/31/21 14:45 Calcium 9.1 mg/dL (8.5-10.5) 10/31/21 14:45 Discharge Plan Discharge Patient Disposition: Home Clinical Impression: Acute shoulder pain, Morbid obesity, Acute chest wall pain Condition: Stable Prescriptions: No Action nystatin 100,000 unit/gram powder 1 applic topical BID 0RF diclofenac sodium 1 % gel 2 g topical QID 0RF Rx Instructions: apply to single elbow, wrist or hand; for hand includes palm/fingers/back of hand oxycodone 15 mg tablet 15 mg PO Q8H PRN (Reason: Pain) 0RF atorvastatin 20 mg tablet 20 mg PO BEDTIME 0RF amoxicillin 500 mg capsule 500 mg PO DAILY 0RF aspirin [Adult Aspirin Regimen] 81 mg tablet,delayed release (DR/EC) 81 mg PO BID 0RF diphenhydramine HCl [Allergy (diphenhydramine)] 25 mg capsule 25 mg PO Q4H PRN (Reason: Allergy Symptoms) 0RF Refresh Liquigel 1 % drops, liquid gel 1 drp ophthalmic (eye) BID 0RF Pradaxa 150 mg Capsule 150 mg PO BID 0RF ergocalciferol (vitamin D2) [Vitamin D2] 1,250 mcg (50,000 unit) Capsule 1,250 mcg PO Q7D 0RF montelukast 10 mg Tablet 10 mg PO DAILY 0RF digoxin 125 mcg (0.125 mg) Tablet 125 mcg PO EVERY OTHER DAY 0RF polyethylene glycol 3350 [Miralax] 17 gram Powder In Packet 17 g PO DAILY 0RF naloxone 0.4 mg/mL Solution 0.4 mg IM Q3M PRN (Reason: Opioid Overdose) 0RF bisacodyl 10 mg Suppository 10 mg IN DAILY PRN (Reason: Constipation) 0RF nystatin 100,000 unit/gram Powder 1 applic TOPICAL BID 0RF albuterol sulfate 90 mcg/actuation HFA aerosol inhaler 1 puff INHALATION BID PRN (Reason: Shortness Of Breath) 0RF bisacodyl 5 mg Tablet 10 mg PO DAILY PRN (Reason: Constipation) 0RF duloxetine 60 mg Capsule, Delayed Rel Sprinkle 60 mg PO DAILY Qty: 0 0RF buspirone 5 mg Tablet 5 mg PO BID 0RF Tylenol Ex Str Rapid Release 500 mg Tablet 1,000 mg PO Q8H PRN (Reason: Pain) 0RF metoprolol tartrate 50 mg Tablet 50 mg PO BID 0RF hydrochlorothiazide 12.5 mg Tablet 12.5 mg PO DAILY 0RF levothyroxine 200 mcg Capsule 200 mcg PO DAILY 0RF pantoprazole 40 mg tablet,delayed release (DR/EC) 40 mg PO DAILY 0RF Discharge Orders: Discharge ED (Routine); Ordered 10/31/21 Ordered By: Meet Simmons Referrals: Lane Hess DO [Primary Care Provider] - Patient Instructions: Opioid Safety Activity Restrictions/Additional Instructions: Continue same medications without changes. Avoid raising left arm above the head follow-up with your primary care doctor. Coding Level of Care Code ED Fitness And Wellness Coordinator for Chg Fwd Exam Comprehensive
[2021-10-31 16:11] VITALS: BP 175/113; PULSE 78; RESP 15; O2SAT 95
[2021-10-31 16:16] LABS: Anion Gap 19.1 (5-19); Blood Urea Nitrogen 21 mg/dL (8-23); Calcium 9.1 mg/dL (8.5-10.5); Carbon Dioxide 25 mmol/L (22-29); Chloride 95 mmol/L (98-107); Glucose 228 mg/dL (65-115); Osmolality Calculated 290 mOsm/kg (285-295); Potassium 4.1 mmol/L (3.5-5.1); Sodium 135 mmol/L (136-145)
--- NOTE | 2021-10-31 16:48 | CTR_ITS ---
PROCEDURE INFORMATION: Exam: CT Head Without Contrast Exam date and time: 10/31/2021 5:12 PM Age: 76 years old Clinical indication: Weakness, extremity; Left; Patient HX: C/O elev BP w lue discomfort; Additional info: L arm burning TECHNIQUE: Imaging protocol: Computed tomography of the head without contrast. Radiation optimization: All CT scans at this facility use at least one of these dose optimization techniques: automated exposure control; mA and/or kV adjustment per patient size (includes targeted exams where dose is matched to clinical indication); or iterative reconstruction. COMPARISON: No relevant prior studies available. RADIATION DOSE METRICS: Total DLP (mGy-cm): 1093.38 FINDINGS: Brain: Mild atrophy and mild white matter chronic microvascular changes are noted. No hemorrhage or evidence of acute infarction. Cerebral ventricles: No ventriculomegaly. Paranasal sinuses: Visualized sinuses are unremarkable. No fluid levels. Mastoid air cells: Visualized mastoid air cells are well aerated. Bones/joints: Unremarkable. No acute fracture. Soft tissues: Unremarkable. CT/CT head wo con* [id number] IMPRESSION: No acute intracranial abnormality.
== END 2021-10-31 18:58 | disposition home or self-care (01) ==
PROVIDERS: Emergency Provider Family Medicine; PCP Internal Medicine
DX: R07.89 Other chest pain (principal); M25.512 Pain in left shoulder; E66.01 Morbid (severe) obesity due to excess calories; Z79.82 Long term (current) use of aspirin; I12.9 Hypertensive chronic kidney disease with stage 1 through stage 4 chronic kidney disease, or unspecified chronic kidney disease; E11.22 Type 2 diabetes mellitus with diabetic chronic kidney disease; N18.2 Chronic kidney disease, stage 2 (mild); I25.10 Atherosclerotic heart disease of native coronary artery without angina pectoris; F03.90 Unspecified dementia, unspecified severity, without behavioral disturbance, psychotic disturbance, mood disturbance, and anxiety; Z95.0 Presence of cardiac pacemaker
CPT/HCPCS: 70450; 71045; 73030; 80048; 85025; 93005; 99285

== ENCOUNTER 2022-03-02 18:49 | Inpatient (IN) | payer MEDICARE, MEDICAID, SELFPAY ==
[2022-03-02] VITALS (14 sets, daily range): BP systolic 128–195; BP diastolic 73–98; PULSE 76–107; RESP 15–19; TEMP 36.6; O2SAT 88–99; BMI 50.1
--- NOTE | 2022-03-02 19:02 | CTR_ITS ---
PROCEDURE INFORMATION: Exam: CT Abdomen And Pelvis With Contrast Exam date and time: 03/02/2022 8:26 PM Age: 77 years old Clinical indication: Abdominal pain; Generalized; Prior surgery; Surgery date: 6+ months; Additional info: Abd pain TECHNIQUE: Imaging protocol: Computed tomography of the abdomen and pelvis with contrast. Radiation optimization: All CT scans at this facility use at least one of these dose optimization techniques: automated exposure control; mA and/or kV adjustment per patient size (includes targeted exams where dose is matched to clinical indication); or iterative reconstruction. Contrast material: OMNI 350; Contrast volume: 100 ml; Contrast route: INTRAVENOUS (IV); COMPARISON: CT angio chest w abd pel w con 07/27/2021 8:48 PM RADIATION DOSE METRICS: Total DLP (mGy-cm): 1107.93 FINDINGS: Lungs: Right lower lobe atelectasis. Liver: Normal. No mass. Gallbladder and bile ducts: Normal. No calcified stones. No ductal dilation. Pancreas: Normal. No ductal dilation. Spleen: Normal. No splenomegaly. Adrenal glands: Normal. No mass. Kidneys and ureters: Right proximal ureter 2.6 mm calculus with moderate hydronephrosis proximal hydroureter. Right kidney nonobstructive calyceal stones. Right renal cyst, negative for follow-up advised. Stomach and bowel: Diverticulosis without diverticulitis. Gastric surgical sutures. Appendix: No evidence of appendicitis. Intraperitoneal space: Unremarkable. No free air. No significant fluid collection. Vasculature: Common iliac vein stents again seen. Lymph nodes: Unremarkable. No enlarged lymph nodes. Urinary bladder: Unremarkable as visualized. Reproductive: Unremarkable as visualized. Bones/joints: Unremarkable. No acute fracture. Soft tissues: Unremarkable. CT/CT abdomen pelvis w con* [id number] IMPRESSION: 1. Right proximal ureter 2.6 mm calculus with moderate hydronephrosis proximal hydroureter. 2. Right kidney nonobstructive calyceal stones. 3. Right renal cyst, negative for follow-up advised. 4. Diverticulosis without diverticulitis. 5. Right lower lobe atelectasis. 6. Common iliac vein stents again seen. COMMENTS: Consistent with the [employer]'s Incidental Findings Committee white paper (J Am Rodolfo Radiol 2018): Any incidental renal lesion less than 1 cm or classified as too small to characterize, or any incidental cystic renal lesion characterized as simple-appearing, is likely benign. No follow-up imaging is recommended for these lesions per consensus recommendations based on imaging criteria.
--- NOTE | 2022-03-02 19:05 | W.ED.ABDPA2 ---
HPI - Abdominal Pain General: Chief Complaint: Abdominal Pain Stated Complaint: ABDOMINAL PAIN Time Seen by Provider: 03/02/22 18:57 Source: patient Mode of arrival: ambulatory Limitations: no limitations History of Present Illness: 77-year-old female who states she has been having history of abdominal pain over the last day states pain is very sharp in nature rates it a 9 out of 10 she had some nausea denies vomiting denies fever states its worse movement improved with rest. Denies any radiation of pain denies chest pain. Associated Symptoms: Denies chills, dysuria and fever(s) Review of Systems Const: Denies: fever(s), chills, body aches or change in appetite Eyes: Denies: blurry vision or eye discomfort ENMT: Denies: throat pain or dental pain Card: Denies: chest pain Resp: Denies: dyspnea GI: Reports: abdominal pain : Denies: dysuria Musc: Denies: neck pain or back pain Skin/Breast: Denies: rash Neuro: Denies: headache(s) Psych: Denies: depression Phil/Lymph: Denies: easy bruising All/Imm: Denies: urticaria PFSH ED PFSH: Medical History Atrial fibrillation CKD (chronic kidney disease) stage 2, GFR 60-89 ml/min Coronary artery disease Dementia Hypertension Hypothyroid Infected abrasion of groin 2018) infection requiring I&D 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 Morbid obesity Pacemaker Peripheral vascular disease Type 2 diabetes mellitus Surgical History H/O knee surgery H/O shoulder surgery H/O thyroidectomy For Graves' disease H/O: hysterectomy History of appendectomy History of permanent cardiac pacemaker placement SSS S/P cholecystectomy S/P gastric surgery LAP-BAND later followed by gastric sleeve Family History Other CAD (coronary artery disease) Dementia Stroke Social History Smoking and tobacco status: never smoked Alcohol intake: never Lives independently: Yes Housing: House Physical Exam Const: COMMON NORMALS: no acute distress, patient oriented x3 and healthy appearing HENMT: COMMON NORMALS: normocephalic and atraumatic HEAD & SCALP: normocephalic and atraumatic Eye: COMMON NORMALS: Equal, round and reactive pupils present and EOMs intact bilaterally PUPIL: Yes Equal, round and reactive pupils present Neck/C-Spine: COMMON NORMALS: full ROM and supple Chest: COMMONS NORMALS: normal inspection of the chest and normal palpation of entire chest wall Resp: COMMON NORMALS: normal respiratory effort, No retractions, No use of accessory muscles and clear to auscultation bilaterally AUSCULTATION: clear to auscultation bilaterally Cardio: COMMON NORMALS: regular rate, regular rhythm and No murmurs present (Cardio) RATE: regular rate RHYTHM: regular rhythm GI: COMMON NORMALS: Normal to inspection, nondistended, normoactive bowel sounds present, Soft to palpation and no masses PALPATION: Yes Soft to palpation and Yes Tenderness to palpation present (GI) Details: RLQ Extremity: COMMON NORMALS: normal to inspection and full ROM Neuro: COMMON NORMALS: patient oriented x3, moves all extremities and no focal motor deficits Psych: COMMON NORMALS: mental status grossly normal, Normal thought process present and cooperative THOUGHT PROCESS: Normal thought process present Skin: COMMON NORMALS: no rashes or lesions noted and no wounds GENERAL SKIN EXAM: no rashes or lesions noted Course Vital Signs: Vital signs: Vital Signs Temperature 97.9 F 03/02/22 18:54 Pulse Rate 90 03/02/22 20:52 Respiratory Rate 16 03/02/22 21:10 Blood Pressure 169/96 03/02/22 20:52 Pulse Oximetry 99 03/02/22 21:10 Oxygen Delivery Me thod 03/02/22 20:00 Oxygen Flow Rate 2 03/02/22 20:00 MDM - Abdominal Pain Medical Decision Making Patient presents with flank pain that started this afternoon she does have a kidney stone patient also has a urinary tract infection I spoke to urology and will admit to the hospitalist due to the infection Dr. Voss is consulted as well. Lab Data 03/02/22 19:16 03/02/22 19:16 Labs/Radiology: Radiology Impressions Abdomen/Pelvis CT 03/02/22 19:02 IMPRESSION: 1. Right proximal ureter 2.6 mm calculus with moderate hydronephrosis proximal hydroureter. 2. Right kidney nonobstructive calyceal stones. 3. Right renal cyst, negative for follow-up advised. 4. Diverticulosis without diverticulitis. 5. Right lower lobe atelectasis. 6. Common iliac vein stents again seen. COMMENTS: Consistent with the [employer]'s Incidental Findings Committee white paper (J Am Rodolfo Radiol 2018): Any incidental renal lesion less than 1 cm or classified as too small to characterize, or any incidental cystic renal lesion characterized as simple-appearing, is likely benign. No follow-up imaging is recommended for these lesions per consensus recommendations based on imaging criteria. Laboratory Results WBC 10.6 10^3/uL (4.0-10.0) H 03/02/22 19:16 RBC 3.41 10^6/uL (4.1-5.3) L 03/02/22 19:16 Hgb 12.1 g/dL (11.5-15.3) 03/02/22 19:16 Hct 38.1 % (37.0-47.0) 03/02/22 19:16 MCV 111.7 fl (81-99) H 03/02/22 19:16 MCH 35.5 pg (28.0-34.0) H 03/02/22 19:16 MCHC 31.8 g/dL (30.0-36.0) 03/02/22 19:16 RDW 14.0 % (12.1-15.1) 03/02/22 19:16 Plt Count 273 10^3/cmm (130-400) 03/02/22 19:16 MPV 8.5 fL (7.4-10.4) 03/02/22 19:16 Neut % (Auto) 66.3 % 03/02/22 19:16 Lymph % (Auto) 19.8 % 03/02/22 19:16 [place] % (Auto) 10.5 % 03/02/22 19:16 Eos % (Auto) 2.2 % 03/02/22 19:16 Baso % (Auto) 0.5 % 03/02/22 19:16 Neut # (Auto) 7.03 10^3/uL (1.8-7.7) 03/02/22 19:16 Lymph # (Auto) 2.1 10^3/uL (0.8-4.8) 03/02/22 19:16 [place] # (Auto) 1.1 10^3/uL (0.2-0.9) H 03/02/22 19:16 Eos # (Auto) 0.2 10^3/uL (0.0-0.8) 03/02/22 19:16 Baso # (Auto) 0.1 10^3/uL (0.0-0.1) 03/02/22 19:16 Nucleated RBC % (auto) 0 % 03/02/22 19:16 Nucleated RBCs # 0.0 /100WBC 03/02/22 19:16 Sodium 135 mmol/L (136-145) L 03/02/22 19:16 Potassium 4.3 mmol/L (3.5-5.1) 03/02/22 19:16 Chloride 96 mmol/L (98-107) L 03/02/22 19:16 Carbon Dioxide 26 mmol/L (22-29) 03/02/22 19:16 Anion Gap 17.3 (5-19) 03/02/22 19:16 BUN 18 mg/dL (8-23) 03/02/22 19:16 Creatinine 0.8 mg/dL (0.5-0.9) 03/02/22 19:16 GFR Calculation Not Reportable 03/02/22 19:16 Glucose 232 mg/dL (65-115) H 03/02/22 19:16 Calculated Osmolality 289 mOsm/kg (285-295) 03/02/22 19:16 Lactate 2.1 mmol/L (0.5-2.2) 03/02/22 19:16 Calcium 9.5 mg/dL (8.5-10.5) 03/02/22 19:16 Total Bilirubin 0.6 mg/dL (0.15-1.2) 03/02/22 19:16 AST 24 U/L (0-32) 03/02/22 19:16 ALT 18 U/L (0-33) 03/02/22 19:16 Alkaline Phosphatase 114 U/L (35-105) H 03/02/22 19:16 Total Protein 8.1 g/dL (6.6-8.7) 03/02/22 19:16 Albumin 3.8 g/dL (3.5-5.2) 03/02/22 19:16 Globulin 4.3 g/dL (1.3-4.6) 03/02/22 19:16 Lipase 44 U/L (13-60) 03/02/22 19:16 Urine Color Brown (Yellow) 03/02/22 21:00 Urine Appearance Cloudy (CLEAR) A 03/02/22 21:00 Urine pH 5 (5-7) 03/02/22 21:00 Ur Specific [place] 1.020 (1.005-1.030) 03/02/22 21:00 Urine Protein 3+ (Negative) H 03/02/22 21:00 Urine Glucose (UA) Norm (Normal) 03/02/22 21:00 Urine Ketones 1+ (Negative) H 03/02/22 21:00 Urine Blood 3+ (Negative) H 03/02/22 21:00 Urine Nitrate Positive (Negative) H 03/02/22 21:00 Urine Bilirubin 1+ (Negative) H 03/02/22 21:00 Urine Urobilinogen 1 mg/dL (Negative) H 03/02/22 21:00 Ur Leukocyte Esterase Trace (Negative) H 03/02/22 21:00 Urine RBC Too numerous to cnt /hpf (0-2) H 03/02/22 21:00 Urine WBC 0-4 /hpf (0-5) H 03/02/22 21:00 Ur Squamous Epith Cells None /hpf (0-5) 03/02/22 21:00 Amorphous Sediment Not Reportable 03/02/22 21:00 Urine Bacteria 3+ /hpf (NONE) H 03/02/22 21:00 Discharge Plan Discharge Patient Disposition: Admitted As Inpatient Clinical Impression: Kidney stone, Acute cystitis Condition: Stable Prescriptions: No Action nystatin 100,000 unit/gram powder 1 applic topical BID diclofenac sodium 1 % gel 2 g topical QID Rx Instructions: apply to single elbow, wrist or hand; for hand includes palm/fingers/back of hand oxycodone 15 mg tablet 15 mg PO Q8H PRN (Reason: Pain) atorvastatin 20 mg tablet 20 mg PO BEDTIME amoxicillin 500 mg capsule 500 mg PO DAILY aspirin [Adult Aspirin Regimen] 81 mg tablet,delayed release (DR/EC) 81 mg PO BID diphenhydramine HCl [Allergy (diphenhydramine)] 25 mg capsule 25 mg PO Q4H PRN (Reason: Allergy Symptoms) Refresh Liquigel 1 % drops, liquid gel 1 drp ophthalmic (eye) BID Pradaxa 150 mg Capsule 150 mg PO BID ergocalciferol (vitamin D2) [Vitamin D2] 1,250 mcg (50,000 unit) Capsule 1,250 mcg PO Q7D montelukast 10 mg Tablet 10 mg PO DAILY digoxin 125 mcg (0.125 mg) Tablet 125 mcg PO EVERY OTHER DAY polyethylene glycol 3350 [Miralax] 17 gram Powder In Packet 17 g PO DAILY naloxone 0.4 mg/mL Solution 0.4 mg IM Q3M PRN (Reason: Opioid Overdose) bisacodyl 10 mg Suppository 10 mg [place] DAILY PRN (Reason: Constipation) nystatin 100,000 unit/gram Powder 1 applic TOPICAL BID albuterol sulfate 90 mcg/actuation HFA aerosol inhaler 1 puff INHALATION BID PRN (Reason: Shortness Of Breath) bisacodyl 5 mg Tablet 10 mg PO DAILY PRN (Reason: Constipation) duloxetine 60 mg Capsule, Delayed Rel Sprinkle 60 mg PO DAILY Qty: 0 0RF buspirone 5 mg Tablet 5 mg PO BID Tylenol Ex Str Rapid Release 500 mg Tablet 1,000 mg PO Q8H PRN (Reason: Pain) metoprolol tartrate 50 mg Tablet 50 mg PO BID hydrochlorothiazide 12.5 mg Tablet 12.5 mg PO DAILY levothyroxine 200 mcg Capsule 200 mcg PO DAILY pantoprazole 40 mg tablet,delayed release (DR/EC) 40 mg PO DAILY Referrals: Lane Hess DO [Physician] - Coding Level of Care Code ED Insulator Cutter And Former for Chg Fwd Exam Comprehensive
[2022-03-02 19:24] LABS: Basophils # 0.1 10^3/uL (0.0-0.1); Basophils % 0.5 %; Eosinophils # 0.2 10^3/uL (0.0-0.8); Eosinophils % 2.2 %; Hematocrit 38.1 % (37.0-47.0); Hemoglobin 12.1 g/dL (11.5-15.3); Lymphocytes # 2.1 10^3/uL (0.8-4.8); Lymphocytes % 19.8 %; Mean Corpuscular HGB Conc 31.8 g/dL (30.0-36.0); Mean Corpuscular Hemoglobin 35.5 pg (28.0-34.0); Mean Corpuscular Volume 111.7 fl (81-99); Mean Platelet Volume 8.5 fL (7.4-10.4); Monocytes # 1.1 10^3/uL (0.2-0.9); Monocytes % 10.5 %; Neutrophils # 7.03 10^3/uL (1.8-7.7); Neutrophils % 66.3 %; Nucleated Red Blood Cells % 0 %; Platelet Count 273 10^3/cmm (130-400); Red Blood Count 3.41 10^6/uL (4.1-5.3); White Blood Count 10.6 10^3/uL (4.0-10.0)
[2022-03-02] MEDS: HYDROmorphone 1 mg/mL INJ 1 mL 0.5 MG IVP ×2 (19:25→21:10)
[2022-03-02] MEDS: ondansetron 2 mg/ML SDV 2 mL 4 MG IVP ×2 (19:26→21:15)
[2022-03-02] MEDS: hyDRALAzine 20 mg/mL INJ 1 mL 10 MG IVP ×2 (19:37→20:52)
[2022-03-02 19:44] LABS: Albumin Level 3.8 g/dL (3.5-5.2); Alkaline Phosphatase 114 U/L (35-105); Blood Urea Nitrogen 18 mg/dL (8-23); Calcium 9.5 mg/dL (8.5-10.5); Carbon Dioxide 26 mmol/L (22-29); Chloride 96 mmol/L (98-107); Creatinine Clr Calc Pharmacy 73.6291; Globulin 4.3 g/dL (1.3-4.6); Glucose 232 mg/dL (65-115); Lipase 44 U/L (13-60); Osmolality Calculated 289 mOsm/kg (285-295); Sodium 135 mmol/L (136-145); Total Bilirubin 0.6 mg/dL (0.15-1.2); Total Protein 8.1 g/dL (6.6-8.7)
[2022-03-02 19:45] LABS: Anion Gap 17.3 (5-19); Aspartate Amino Transferase 24 U/L (0-32); Lactate (Lactic Acid level) 2.1 mmol/L (0.5-2.2); Potassium 4.3 mmol/L (3.5-5.1)
[2022-03-02 19:55] LABS: Alanine Aminotransferase 18 U/L (0-33)
[2022-03-02] MEDS: iohexol 350 mg/mL 500 mL Btl (per mL) IV (20:31)
[2022-03-02 21:23] LABS: Protein Urine 3+ (Negative); Urine Appearance Cloudy (CLEAR); Urine Color Brown (Yellow); pH Urine 5 (5-7)
[2022-03-02 21:24] LABS: Add Urine Microscopic? YES; Bilirubin Urine 1+ (Negative); Blood Urine 3+ (Negative); Glucose Urine UA Norm (Normal); Ketones Urine 1+ (Negative); Leukocyte Esterase Urine Trace (Negative); Nitrate Urine Positive (Negative); RBC Urine TOO NUMEROUS TO CNT /hpf (0-2); Urobilinogen Urine 1 mg/dL (Negative); WBC Urine 0-4 /hpf (0-5)
[2022-03-02 21:25] LABS: Add Urine Culture? Yes; Bacteria Urine 3+ /hpf
--- NOTE | 2022-03-02 21:51 | PM.HP ---
Providers/Chief Complaint Primary Care Provider: Bret Ozuna MD Chief Complaint: ABDOMINAL PAIN History of Present Illness Pallavi Saha is a 77 year old female who presented from a shelter has history of A. fib, takes Pradaxa, last dose was this morning 03/02, she did not take evening dose present to the hospital for worsening abdominal pain, patient is stating that her symptoms started last night with right-sided abdominal pain which got worse over the period of time, she has been nauseous however has not noticed any vomiting, patient endorsing fever, in the ER she is complaining excruciating pain, she was hypertensive. Dr. Voss was consulted for ureteral stone and moderate hydronephrosis who recommended admission to the hospitalist team with IV antibiotics Review of Systems Const: Reports: fever(s) and chills Eyes: Denies: change in vision ENMT: Denies: throat pain Card: Denies: chest pain Resp: Denies: dyspnea GI: Reports: abdominal pain and nausea : Reports: flank pain Musc: Denies: neck pain Skin/Breast: Denies: rash Neuro: Denies: headache(s) Psych: Reports: anxiety Endo: Denies: polyuria Phil/Lymph: Denies: easy bruising All/Imm: Denies: urticaria Medications/Allergies Home Medications Medication Instructions Recorded Confirmed Last Taken Type dabigatran etexilate 150 mg 150 mg PO BID 07/22/19 10/31/21 10/31/21 History capsule (Pradaxa) digoxin 125 mcg (0.125 mg) tablet 125 mcg PO EVERY OTHER DAY 07/22/19 10/31/21 10/31/21 History ergocalciferol (vitamin D2) 1,250 1,250 mcg PO Q7D 07/22/19 10/31/21 10/31/21 History mcg (50,000 unit) capsule (Vitamin D2) montelukast 10 mg tablet 10 mg PO DAILY 07/22/19 10/31/21 10/31/21 History albuterol sulfate 90 mcg/actuation 1 puff inhalation BID PRN 02/04/20 10/31/21 Unknown History aerosol inhaler Shortness Of Breath bisacodyl 5 mg tablet 10 mg PO DAILY PRN Constipation 02/09/20 10/31/21 02/28/20 16:51 History duloxetine 60 mg capsule,delayed 60 mg PO DAILY #0 caps 11/01/20 07/22/22 07/22/22 Rx release sprinkle atorvastatin 20 mg tablet 20 mg PO BEDTIME 05/09/20 10/31/21 10/30/21 History polyethylene glycol 3350 17 gram 17 g PO DAILY 06/03/20 10/31/21 10/31/21 History oral powder packet (Miralax) diclofenac sodium 1 % topical gel 2 g topical QID 06/11/20 10/31/21 10/27/21 History nystatin 100,000 unit/gram topical 1 applic topical BID 06/11/20 10/31/21 09/17/20 18:43 History powder bisacodyl 10 mg rectal suppository 10 mg [place] DAILY PRN Constipation 09/18/20 10/31/21 02/28/20 16:41 History naloxone 0.4 mg/mL injection 0.4 mg IM Q3M PRN Opioid Overdose 09/18/20 10/31/21 Unknown History solution nystatin 100,000 unit/gram topical 1 applic topical BID 09/18/20 10/31/21 10/31/21 History powder amoxicillin 500 mg capsule 500 mg PO DAILY 01/13/21 10/31/21 10/31/21 History aspirin 81 mg tablet,delayed 81 mg PO BID 01/13/21 10/31/21 10/31/21 History release (Adult Aspirin Regimen) carboxymethylcellulose sodium 1 % 1 drp ophthalmic (eye) BID 01/13/21 10/31/21 10/31/21 History eye liquid gel drops (Refresh Liquigel) diphenhydramine HCl 25 mg capsule 25 mg PO Q4H PRN Allergy Symptoms 01/13/21 10/31/21 10/29/21 History (Allergy (diphenhydramine)) oxycodone 15 mg tablet 15 mg PO Q8H PRN Pain 10/24/21 10/31/21 10/29/21 History acetaminophen 500 mg tablet 1,000 mg PO Q8H PRN Pain 10/31/21 10/31/21 Unknown History buspirone 5 mg tablet 5 mg PO BID 10/31/21 10/31/21 10/31/21 History hydrochlorothiazide 12.5 mg tablet 12.5 mg PO DAILY 10/31/21 10/31/21 10/31/21 History levothyroxine 200 mcg capsule 200 mcg PO DAILY 10/31/21 10/31/21 10/31/21 History metoprolol tartrate 50 mg tablet 50 mg PO BID 10/31/21 10/31/21 10/31/21 History pantoprazole 40 mg tablet,delayed 40 mg PO DAILY 10/31/21 10/31/21 10/31/21 History release Allergies Allergy/AdvReac Type Severity Reaction Status Date / Time metformin [From Glucophage] Allergy Unknown Verified 03/02/22 18:58 Tetanus Vaccines and Toxoid Allergy Unknown Verified 03/02/22 18:58 PFSH Acute PFSH: Medical History Atrial fibrillation CKD (chronic kidney disease) stage 2, GFR 60-89 ml/min Coronary artery disease Dementia Hypertension Hypothyroid Infected abrasion of groin 2017) infection requiring I&D 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 Morbid obesity Pacemaker Peripheral vascular disease Type 2 diabetes mellitus Surgical History H/O knee surgery H/O shoulder surgery H/O thyroidectomy For Graves' disease H/O: hysterectomy History of appendectomy History of permanent cardiac pacemaker placement SSS S/P cholecystectomy S/P gastric surgery LAP-BAND later followed by gastric sleeve Family History Other CAD (coronary artery disease) Dementia Stroke Social History Smoking and tobacco status: never smoked Alcohol intake: never Lives independently: Yes Housing: House Vitals/I&O/Wt Last Vital Signs Temp 97.9 F 03/02/22 18:54 Pulse 90 03/02/22 20:52 Resp 16 03/02/22 21:10 BP 169/96 03/02/22 20:52 Pulse Ox 99 03/02/22 21:10 O2 Del Method 03/02/22 20:00 O2 Flow Rate 2 03/02/22 20:00 Weight last 48 hrs Weight 120.202 kg Physical Exam Narrative: Morbidly obese female Right CVA tenderness positive Morbidly obese Nonpitting edema S1, S2 variable Currently on 2 L nasal cannula Distended abdomen, tender right CVA Patient is awake and alert Anxious Complaining of pain No sign of cellulitis Appropriate mood and affect Data 03/02/22 19:16 03/02/22 19:16 A&P Assessment and plan (1) Kidney stone: (2) Acute cystitis: (3) Hydronephrosis: Plan UTI, ureteral stone with moderate hydronephrosis Proximal hydroureter Nonobstructive calyceal stones No significant leukocytosis Positive CVA tenderness Start ceftriaxone Start IV fluids N.p.o. after midnight in case she will require any urological intervention Opioids for analgesia along bowel regimen Small ureteral stone, hopefully she will able to pass, add tamsulosin Hypertension likely related to pain continue metoprolol and hydrochlorothiazide Type 2 diabetes: Consistent carb diet until midnight Chronic kidney disease no acute exacerbation A. fib no active RVR I would hold her anticoagulating agent for now which she takes at home Pradaxa, I would also hold digoxin which she takes on every other day basis Continue metoprolol Last Pradaxa dose was this morning 03/02 she do not take Full code DVT prophylaxis SCDs Attestations Medical Necessity Statement*: Anticipating discharge within 48 hours pending management for UTI, kidney stone Time Spent in Patient Care: 30 Coding Level of Care Code Acute [place] Operator for Nelson Storey Diagnoses Kidney stone N20.0 Acute cystitis N30.00 Hydronephrosis N13.30
[2022-03-02] MEDS: cefTRIAXone 1,000 MG in sodium chloride 0.9% (plus) 50 ML 100 MG IV (22:12)
[2022-03-02 22:32] LABS: Procalcitonin 0.05 ng/mL (0-0.5)
[2022-03-02 22:50] LABS: Estmated Average Glucose 183
[2022-03-02] MEDS: TRAMadol 50 mg Tablet PO (23:46)
[2022-03-02] MEDS: sodium chloride 0.9% 1,000 ML 100 ML IV (23:48)
[2022-03-03] VITALS (11 sets, daily range): BP systolic 107–186; BP diastolic 69–96; PULSE 68–104; RESP 16–20; TEMP 36.6–37.1; O2SAT 95–100
--- NOTE | 2022-03-03 | SCC_ITS ---
Procedure done: 1. Cystoscopy with right retrograde ureteropyelogram 2. Right ureteral stent placement (7 Taiwanese by 24 cm double-pigtail without string) 26.1 seconds of fluoroscopic guidance, for a cumulative dose of 12.92 mGy, was provided to Dr. Voss by the radiology department. C-arm images of the abdomen were saved for the patient's permanent record. [facility]
[2022-03-03] MEDS: morphine IR 15 mg Tablet PO (01:34)
[2022-03-03] MEDS: HYDROmorphone 1 mg/mL INJ 1 mL 0.4 MG IVP (04:16)
[2022-03-03] MEDS: ondansetron 2 mg/ML SDV 2 mL 4 MG IVP (04:19)
[2022-03-03 05:29] LABS: Basophils # 0.1 10^3/uL (0.0-0.1); Basophils % 0.4 %; Eosinophils % 0.1 %; Hematocrit 35.9 % (37.0-47.0); Hemoglobin 11.4 g/dL (11.5-15.3); Lymphocytes # 1.3 10^3/uL (0.8-4.8); Lymphocytes % 9.3 %; Mean Corpuscular HGB Conc 31.8 g/dL (30.0-36.0); Mean Corpuscular Hemoglobin 34.4 pg (28.0-34.0); Mean Corpuscular Volume 108.5 fl (81-99); Mean Platelet Volume 8.7 fL (7.4-10.4); Monocytes # 1.2 10^3/uL (0.2-0.9); Monocytes % 8.9 %; Neutrophils # 11.07 10^3/uL (1.8-7.7); Neutrophils % 80.6 %; Nucleated Red Blood Cells % 0 %; Platelet Count 298 10^3/cmm (130-400); Red Blood Count 3.31 10^6/uL (4.1-5.3); Red Cell Distribution Width 14.2 % (12.1-15.1); White Blood Count 13.7 10^3/uL (4.0-10.0)
[2022-03-03 05:58] LABS: Blood Urea Nitrogen 17 mg/dL (8-23); C Reactive Protein 8.4 mg/L (0.0-4.9); Calcium 9.2 mg/dL (8.5-10.5); Carbon Dioxide 25 mmol/L (22-29); Chloride 99 mmol/L (98-107); Glucose 226 mg/dL (65-115); Magnesium 1.8 mg/dL (1.7-2.3); Osmolality Calculated 291 mOsm/kg (285-295); Sodium 136 mmol/L (136-145)
[2022-03-03 06:03] LABS: Anion Gap 16.5 (5-19); Potassium 4.5 mmol/L (3.5-5.1)
[2022-03-03 07:07] LABS: Glucose Point of Care 202 mg/dL (70-110)
--- NOTE | 2022-03-03 07:25 | SC_ITS ---
WS: [id number] INTRAOPERATIVE TECHNIQUE: 7 Spot fluoroscopic images for intraoperative purposes. FLUOROSCOPY TIME: 26.1 seconds CLINICAL INFORMATION: Right ureteral stent FINDINGS: RIGHT ureteroscopy with Double-J ureteral stent placement. SC/C-arm FL for Urology IMPRESSION: Images obtained for intraoperative purposes.
--- NOTE | 2022-03-03 07:26 | PM.CONSULT ---
Providers/Reason For Consult Consulting Physician/Specialty*: Urology/Voss Reason for Consult*: Right proximal ureteral stone with obstruction and UTI Requesting Physician: Dr. Parra Attending Physician: Leo Parra MD Primary Care Provider: Bret Ozuna MD History of Present Illness History of Present Illness Pallavi Saha is a 77 year old female who I evaluated for right proximal ureteral stone and UTI. Presented to the ER last night with right flank pain, nausea without vomiting. Subjective fever. White count was normal, urine looked infected, and CT scan showed a small obstructing right proximal ureteral stone. Additional small right lower pole stone. No stones on the left Clinically she did not appear to be septic. This morning her white count has increased somewhat. She has been placed on IV antibiotics. Pain has been reasonably well controlled with aggressive parenteral narcotics. I recommended cystoscopy, RIGHT: Retrograde, ureteral stent placement today when time is available. Procedure was explained in detail including benefits and risks and rationale for proceeding on an urgent basis. She provided informed consent. Review of Systems Const: Reports: fever(s) (Subjective) and malaise Eyes: Denies: change in vision or yellow eyes ENMT: Denies: odynophagia or hoarseness Card: Reports: irregular heart rhythm; Denies: chest pain Resp: Denies: dyspnea or productive cough GI: Reports: abdominal pain and nausea; Denies: vomiting or diarrhea : Reports: flank pain Musc: Reports: extremity swelling and joint pain; Denies: joint redness Skin/Breast: Denies: rash or jaundice Neuro: Denies: behavioral changes or Slurred speech present Psych: Reports: anxiety (Situational situational and related to the pain); Denies: depression Endo: Denies: flushing Phil/Lymph: Denies: easy bruising or easy bleeding Medications/Allergies Home Medications Medication Instructions Recorded Confirmed Last Taken Type dabigatran etexilate 150 mg 150 mg PO BID 07/22/19 10/31/21 10/31/21 History capsule (Pradaxa) digoxin 125 mcg (0.125 mg) tablet 125 mcg PO EVERY OTHER DAY 07/22/19 10/31/21 10/31/21 History ergocalciferol (vitamin D2) 1,250 1,250 mcg PO Q7D 07/22/19 10/31/21 10/31/21 History mcg (50,000 unit) capsule (Vitamin D2) montelukast 10 mg tablet 10 mg PO DAILY 07/22/19 10/31/21 10/31/21 History albuterol sulfate 90 mcg/actuation 1 puff inhalation BID PRN 02/04/20 10/31/21 Unknown History aerosol inhaler Shortness Of Breath bisacodyl 5 mg tablet 10 mg PO DAILY PRN Constipation 02/09/20 10/31/21 02/28/20 16:51 History duloxetine 60 mg capsule,delayed 60 mg PO DAILY #0 caps 02/11/20 10/31/21 10/31/21 Rx release sprinkle atorvastatin 20 mg tablet 20 mg PO BEDTIME 05/09/20 10/31/21 10/30/21 History polyethylene glycol 3350 17 gram 17 g PO DAILY 06/03/20 10/31/21 10/31/21 History oral powder packet (Miralax) diclofenac sodium 1 % topical gel 2 g topical QID 06/11/20 10/31/21 10/27/21 History nystatin 100,000 unit/gram topical 1 applic topical BID 06/11/20 10/31/21 09/17/20 18:43 History powder bisacodyl 10 mg rectal suppository 10 mg [place] DAILY PRN Constipation 09/18/20 10/31/21 02/28/20 16:41 History naloxone 0.4 mg/mL injection 0.4 mg IM Q3M PRN Opioid Overdose 09/18/20 10/31/21 Unknown History solution nystatin 100,000 unit/gram topical 1 applic topical BID 09/18/20 10/31/21 10/31/21 History powder amoxicillin 500 mg capsule 500 mg PO DAILY 01/13/21 10/31/21 10/31/21 History aspirin 81 mg tablet,delayed 81 mg PO BID 01/13/21 10/31/21 10/31/21 History release (Adult Aspirin Regimen) carboxymethylcellulose sodium 1 % 1 drp ophthalmic (eye) BID 01/13/21 10/31/21 10/31/21 History eye liquid gel drops (Refresh Liquigel) diphenhydramine HCl 25 mg capsule 25 mg PO Q4H PRN Allergy Symptoms 01/13/21 10/31/21 10/29/21 History (Allergy (diphenhydramine)) oxycodone 15 mg tablet 15 mg PO Q8H PRN Pain 10/24/21 10/31/21 10/29/21 History acetaminophen 500 mg tablet 1,000 mg PO Q8H PRN Pain 10/31/21 10/31/21 Unknown History buspirone 5 mg tablet 5 mg PO BID 10/31/21 10/31/21 10/31/21 History hydrochlorothiazide 12.5 mg tablet 12.5 mg PO DAILY 10/31/21 10/31/21 10/31/21 History levothyroxine 200 mcg capsule 200 mcg PO DAILY 10/31/21 10/31/21 10/31/21 History metoprolol tartrate 50 mg tablet 50 mg PO BID 10/31/21 10/31/21 10/31/21 History pantoprazole 40 mg tablet,delayed 40 mg PO DAILY 10/31/21 10/31/21 10/31/21 History release Allergies Allergy/AdvReac Type Severity Reaction Status Date / Time metformin [From Glucophage] Allergy Unknown Verified 03/02/22 18:58 Tetanus Vaccines and Toxoid Allergy Unknown Verified 03/02/22 18:58 Current Medications Generic Name Dose Route Start Last Admin Trade Name Freq PRN Reason Stop Dose Admin Hydromorphone HCl 0.4 mg 03/02/22 23:15 03/03/22 04:16 Hydromorphone 1 Mg/Ml Inj 1 Ml IVP 0.4 mg Q4H PRN Administration pain Sodium Chloride 1,000 mls @ 100 mls/hr 03/02/22 23:15 03/02/22 23:48 Sodium Chloride 0.9% IV 100 mls/hr .Q10H FREYA Administration Metoprolol Tartrate 50 mg 03/02/22 21:55 03/02/22 22:03 Metoprolol Tartrate 50 Mg Tablet PO Not Given BID FREYA Morphine Sulfate 15 mg 03/02/22 23:15 03/03/22 01:34 Morphine Ir 15 Mg Tablet PO 15 mg Q6H PRN Administration pAIN Ondansetron HCl 4 mg 03/02/22 23:15 03/03/22 04:19 Ondansetron 2 Mg/Ml Sdv 2 Ml IVP 4 mg Q6H PRN Administration NAUSEA AND VOMITING PFSH Acute PFSH: Medical History Atrial fibrillation CKD (chronic kidney disease) stage 2, GFR 60-89 ml/min Coronary artery disease Dementia Hypertension Hypothyroid Infected abrasion of groin 2018) infection requiring I&D 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 Morbid obesity Pacemaker Peripheral vascular disease Type 2 diabetes mellitus Surgical History H/O knee surgery H/O shoulder surgery H/O thyroidectomy For Graves' disease H/O: hysterectomy History of appendectomy History of permanent cardiac pacemaker placement SSS S/P cholecystectomy S/P gastric surgery LAP-BAND later followed by gastric sleeve Family History Other CAD (coronary artery disease) Dementia Stroke Social History Smoking and tobacco status: never smoked Alcohol intake: never Lives independently: Yes Housing: House Vitals/I&O/Wt Last Vital Signs Temp 97.8 F 03/03/22 04:06 Pulse 104 H 03/03/22 04:06 Resp 18 03/03/22 04:16 BP 177/92 03/03/22 04:06 Pulse Ox 98 03/03/22 04:06 O2 Del Method 03/03/22 04:06 O2 Flow Rate 2 03/03/22 04:06 03/02/22 03/03/22 03/03/22 22:59 06:59 14:59 Intake Total 50 / 50 Balance 50 / 50 Weight last 48 hrs Weight 265 lb Physical Exam Const: GENERAL APPEARANCE: cooperative and anxious; not comfortable NUTRITIONAL APPEARANCE: obese morbidly obese HENMT: COMMON NORMALS: normocephalic HEAD & SCALP: normocephalic Neck/C-Spine: OTHER: Good range of motion Lymph: OTHER: No palpable groin lymphnodes Chest: OTHER: Normal chest movements Resp: OTHER: No audible wheezes. Clear to auscultation Cardio: OTHER: Irregular rate and rhythm GI: OTHER: Tender right upper quadrant right CVA. Normoactive bowel sounds : OTHER: Bladder nondistended Back/Pelvis: OTHER: Right CVA tenderness Extremity: NARRATIVE EXTREMITY EXAM: Peripheral edema Neuro: OTHER: No obvious focal defects Psych: OTHER: Mild anxiety related to the discomfort. Mental status is okay otherwise Skin: OTHER: No jaundice Data 03/03/22 05:00 03/03/22 05:00 A&P Assessment and plan (1) Calculus of proximal right ureter: Small right proximal ureteral stone with obstructive changes and severe symptomatology not being able to manage on outpatient basis (2) Hydronephrosis of right kidney: Secondary to small right proximal ureteral stone (3) UTI (urinary tract infection): Currently appears to be more lower urinary tract. No evidence of sepsis. She is at risk though Plan 1. To the operating room urgently, sometime around noon, for cystoscopy retrograde right ureteral stent placement. Sooner if there is hemodynamic deterioration. Currently she does not appear to be septic. 2. Plan on delayed treatment of the stone after resolution of the infection Coding Level of Care Code Acute Manager Benefit for Chg Fwd Diagnoses Calculus of proximal right ureter N20.1 Hydronephrosis of right kidney N13.30 UTI (urinary tract infection) N39.0
--- NOTE | 2022-03-03 07:48 | PC.PHAR ---
pt is from [facility] charge nurse from [facility] [place] will fax mar
[2022-03-03] MEDS: metoprolol tartrate 50 mg Tablet PO ×2 (08:15→17:55)
[2022-03-03] MEDS: hydroCHLOROthiazide 25 mg Tablet 12.5 MG PO (08:16)
[2022-03-03] MEDS: tamsulosin 0.4 mg Capsule PO (08:16)
[2022-03-03] MEDS: sennosides-docusate Tablet 1 TAB PO (08:17)
[2022-03-03] MEDS: cefTRIAXone 1,000 MG in sodium chloride 0.9% (plus) 50 ML 100 MG IV ×2 (08:17→20:20)
[2022-03-03] MEDS: sodium chloride 0.9% 1,000 ML 100 ML IV (08:18)
[2022-03-03] MEDS: sodium chloride 0.9% 1,000 ML 30 ML IV (11:14)
--- NOTE | 2022-03-03 11:24 | P.ANESASSM_ITS ---
Pre-Anesthetic Assessment Height/Weight: Height 1.55 m Weight 120.202 kg Temp Pulse Resp BP Pulse Ox O2 Del Method O2 Flow Rate 98.4 F 79 18 186/95 95 2 03/03/22 11:02 03/03/22 11:02 03/03/22 11:02 03/03/22 11:02 03/03/22 11:02 03/03/22 11:02 03/03/22 04:06 Preop Diagnosis: Pacemaker generator end of service Operation Date: 03/03/22 11:30 Proposed Procedures p Cystoscopy(Not Applicable) - Kodak Voss MD s Retrograde Pyelogram(Right) - Kodak Voss MD s Ureteral Stent Placement(Right) - Kodak Voss MD Familial anesthetic complications: none Was Beta Kori taken within 24 hours: N/A Was Clonidine taken within 24 hours: N/A Last intake: Intake Last Liquid Date 03/02/22 Last Liquid Time 00:00 Last Solid Date 03/02/22 Last Solid Time 00:00 Social No alcohol and No tobacco Exam alert, oriented x 3, clear to auscultation bilaterally and regular rate & rhythm Airway Submandibular: within normal limits Cervical ROM: within normal limits Mallampati: Class II Dentition: false CV/HEM Atrial Fibrillation, Arrythmia, Coronary Artery Disease and Hypertension Pacemaker Chronic Renal Insufficiency GI Gastroesophageal Reflux Disease Metabolic Hyperlipidemia, Morbid Obesity and Thyroid Disease Anesthetic Plan ASA status: 3 Anesthesia: General Medications/Allergies Home Medications Medication Instructions Recorded Confirmed Last Taken Type dabigatran etexilate 150 mg 150 mg PO BID@07/22/19 03/03/22 10/31/21 History capsule (Pradaxa) digoxin 125 mcg (0.125 mg) tablet 125 mcg PO EVERY OTHER DAY 07/22/19 03/03/22 10/31/21 History montelukast 10 mg tablet 10 mg PO DAILY@07/22/19 03/03/22 10/31/21 History albuterol sulfate 90 mcg/actuation 1 puff inhalation Q6H PRN 02/04/20 03/03/22 Unknown History aerosol inhaler Shortness Of Breath bisacodyl 5 mg tablet 10 mg PO DAILY PRN Constipation 02/09/20 03/03/22 02/28/20 16:51 History atorvastatin 20 mg tablet 20 mg PO BEDTIME@05/09/20 03/03/22 10/30/21 History polyethylene glycol 3350 17 gram 17 g PO DAILY@06/03/20 03/03/22 10/31/21 History oral powder packet (Miralax) bisacodyl 10 mg rectal suppository 10 mg [place] DAILY PRN Constipation 09/18/20 03/03/22 02/28/20 16:41 History naloxone 0.4 mg/mL injection 0.4 mg IM Q3M PRN Opioid Overdose 09/18/20 03/03/22 Unknown History solution nystatin 100,000 unit/gram topical 1 applic topical BID 09/18/20 03/03/22 10/31/21 History powder amoxicillin 500 mg capsule 500 mg PO DAILY@01/13/21 03/03/22 10/31/21 History aspirin 81 mg tablet,delayed 81 mg PO BID@01/13/21 03/03/22 10/31/21 History release (Adult Aspirin Regimen) carboxymethylcellulose sodium 1 % 1 drp ophthalmic (eye) BID@01/13/21 03/03/22 10/31/21 History eye liquid gel drops (Refresh Liquigel) diphenhydramine HCl 25 mg capsule 25 mg PO Q6H PRN Allergy Symptoms 01/13/21 03/03/22 10/29/21 History (Allergy (diphenhydramine)) oxycodone 15 mg tablet 7.5 mg PO Q8H PRN Pain 10/24/21 03/03/22 10/29/21 History acetaminophen 500 mg tablet 1,000 mg PO Q8H PRN Pain 10/31/21 03/03/22 Unknown History buspirone 5 mg tablet 5 mg PO BID@10/31/21 03/03/22 10/31/21 History hydrochlorothiazide 12.5 mg tablet 12.5 mg PO DAILY@10/31/21 03/03/22 10/31/21 History metoprolol tartrate 50 mg tablet 50 mg PO BID@10/31/21 03/03/22 10/31/21 History pantoprazole 40 mg tablet,delayed 40 mg PO DAILY@10/31/21 03/03/22 10/31/21 History release diclofenac sodium 1 % topical gel 2 g topical QID PRN Pain 03/03/22 03/03/22 Unknown History docusate sodium 100 mg capsule 100 mg PO BID@,03/03/22 03/03/22 Unknown History (Colace) duloxetine 60 mg capsule,delayed 60 mg PO DAILY@08 03/03/22 03/03/22 Unknown History release ergocalciferol (vitamin D2) 1,250 50,000 unit PO Q7D 03/03/22 03/03/22 Unknown History mcg (50,000 unit) capsule (Vitamin D2) levothyroxine 200 mcg tablet 200 mcg PO DAILY@05 03/03/22 03/03/22 Unknown History miconazole nitrate 2 % topical See Rx Instructions .Route .COMPLEX 03/03/22 03/03/22 Unknown History cream nystatin 100,000 unit/gram topical 1 applic topical BID PRN unknown 03/03/22 03/03/22 Unknown History cream Allergies Allergy/AdvReac Type Severity Reaction Status Date / Time metformin [From Glucophage] Allergy Unknown Verified 03/02/22 18:58 Tetanus Vaccines and Toxoid Allergy Unknown Verified 03/02/22 18:58 Current Medications Generic Name Dose Route Start Last Admin Trade Name Freq PRN Reason Stop Dose Admin Hydrochlorothiazide 12.5 mg 03/03/22 09:00 03/03/22 08:16 Hydrochlorothiazide 25 Mg Tablet PO 12.5 mg DAILY FREYA Administration Hydromorphone HCl 0.4 mg 03/02/22 23:15 03/03/22 04:16 Hydromorphone 1 Mg/Ml Inj 1 Ml IVP 0.4 mg Q4H PRN Administration pain Sodium Chloride 1,000 mls @ 100 mls/hr 03/02/22 23:15 03/03/22 08:18 Sodium Chloride 0.9% IV 100 mls/hr .Q10H FREYA Administration Ceftriaxone Sodium 1,000 mg/ 50 mls @ 100 mls/hr 03/03/22 09:00 03/03/22 09:14 Sodium Chloride IV Infused DAILY FREYA Infusion Protocol Sodium Chloride 1,000 mls @ 30 mls/hr 03/03/22 11:00 03/03/22 11:14 Sodium Chloride 0.9% IV 03/04/22 10:59 30 mls/hr .Q24H FREYA Administration Insulin Human Lispro 0 unit 03/03/22 08:00 03/03/22 07:34 Insulin Lispro 100 Unit/1 Ml SUBCUT Not Given TIDWM [facility] Protocol Metoprolol Tartrate 50 mg 03/02/22 21:55 03/03/22 08:15 Metoprolol Tartrate 50 Mg Tablet PO 50 mg BID FREYA Administration Morphine Sulfate 15 mg 03/02/22 23:15 03/03/22 01:34 Morphine Ir 15 Mg Tablet PO 15 mg Q6H PRN Administration pAIN Ondansetron HCl 4 mg 03/02/22 23:15 03/03/22 04:19 Ondansetron 2 Mg/Ml Sdv 2 Ml IVP 4 mg Q6H PRN Administration NAUSEA AND VOMITING Senna/Docusate Sodium 1 tab 03/03/22 09:00 03/03/22 08:17 Sennosides-Docusate Tablet PO 1 tab DAILY FREYA Administration Tamsulosin HCl 0.4 mg 03/03/22 09:00 03/03/22 08:16 Tamsulosin 0.4 Mg Capsule PO 0.4 mg DAILY FREYA Administration [facility] Anesthesia Medical History Atrial fibrillation CKD (chronic kidney disease) stage 2, GFR 60-89 ml/min Coronary artery disease Dementia Hypertension Hypothyroid Infected abrasion of groin 2018) infection requiring I&D 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 Morbid obesity Pacemaker Peripheral vascular disease Type 2 diabetes mellitus Surgical History H/O knee surgery H/O shoulder surgery H/O thyroidectomy For Graves' disease H/O: hysterectomy History of appendectomy History of permanent cardiac pacemaker placement SSS S/P cholecystectomy S/P gastric surgery LAP-BAND later followed by gastric sleeve Family History Other CAD (coronary artery disease) Dementia Stroke Social History Smoking and tobacco status: never smoked Alcohol intake: never Lives independently: Yes Housing: House Data Anesthesia 03/03/22 05:00 03/03/22 05:00 Short CBC 03/02/22 03/03/22 Range/Units 19:16 05:00 WBC 10.6 H 13.7 H (4.0-10.0) 10^3/uL Hgb 12.1 11.4 L (11.5-15.3) g/dL Hct 38.1 35.9 L (37.0-47.0) % MCV 111.7 H 108.5 H (81-99) fl Plt Count 273 298 (130-400) 10^3/cmm Neut % (Auto) 66.3 80.6 % Neut # (Auto) 7.03 11.07 H (1.8-7.7) 10^3/uL BMP 03/02/22 03/03/22 19:16 05:00 Sodium 135 L 136 Potassium 4.3 4.5 Chloride 96 L 99 Carbon Dioxide 26 25 BUN 18 17 Creatinine 0.8 1.0 H Glucose 232 H 226 H Calcium 9.5 9.2 Liver Function 03/02/22 Range/Units 19:16 Total Bilirubin 0.6 (0.15-1.2) mg/dL AST 24 (0-32) U/L ALT 18 (0-33) U/L Alkaline Phosphatase 114 H (35-105) U/L Albumin 3.8 (3.5-5.2) g/dL Urine 03/02/22 Range/Units 21:00 Urine Color Brown (Yellow) Urine Appearance Cloudy A (CLEAR) Urine pH 5 (5-7) Ur Specific Margie 1.020 (1.005-1.030) Urine Protein 3+ H (Negative) Urine Glucose (UA) Norm (Normal) Urine Ketones 1+ H (Negative) Urine Nitrate Positive H (Negative) Urine Bilirubin 1+ H (Negative) Ur Leukocyte Esterase Trace H (Negative) Urine RBC Too numerous to cnt H (0-2) /hpf Urine WBC 0-4 H (0-5) /hpf Coags 03/03/22 05:00 C-Reactive Protein 8.4 H Cardiac Studies: Echocardiogram Ultrasound 02/01/20
--- NOTE | 2022-03-03 11:34 | PC.CHAP ---
Pastoral Care Encounter/Spiritual Assessment Type of Contact [] Declined hospitalist nocturnist physician visit [] Patient/Family/Request visit [] Outpatient visit [] Follow-up visit [] Physician referral [] Code/Alert [x] Routine visit [] Staff referral [] Actively dying [] Patient sleeping [] Family support [] [] Out of room [] Palliative care [] [] Receiving care in room [x] Pre-surgical visit [] Trauma [] Long length of stay [] ICU visit [] Other: Relational/Emotional Strength [x] Patient feels connected with others/family/visitors/staff [] Distress [] Loneliness/isolation [] Abandonment Spirituality of Patient [x Person of Stacy [] Attends Sabianism of their Stacy x] Believes in Prayer [] Reads Bible or Mandaeism materials [] There are Spiritual issues to be addressed 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 And Air Conditioning Mechanic Interventions [x Prayer [x] Active listening [x Non-anxious presence [] Spiritual/emotional support [] Crisis/trauma care [] Spiritual counseling [] Bereavement support [] Provided bereavement packet [] Provided Bible/devotional materials [] Provided toy/stuffed animal, coloring book to patient or family member [] Provided Communion [] Anointing/[place] [] Salvation [x] Completed spiritual assessment [] Other: Impact on Illness or Injury [] Angry [] Fearful [] Anxious [] Often cries [] Exhaustion [] Unable to work [] Unable to attend yarsanism [] Unable to walk/stand [] Unable to read [] Unable to drive [] Unable to eat/drink [] Unable to sleep [] Unable to be with family [] Patient intubated [] Other: Summary Time spent with patient 10 min
--- NOTE | 2022-03-03 11:47 | P.OP_ITS ---
Operative Report Date of procedure: March 03, 2022 Pre-op diagnosis: Obstructing right proximal ureteral stone with UTI Post-op diagnosis: Obstructing right proximal ureteral stone with UTI Procedure done: 1. Cystoscopy with right retrograde ureteropyelogram 2. Right ureteral stent placement (7 [place]an by 24 cm double-pigtail without string) Implants: Right ureteral stent Specimens removed/disposition: None Pathology: None Surgeon: Shanika Estimated blood loss: None Urine output: Not measured Complications: None Findings: Anesthesia: General LMA Condition: Stable Disposition: PACU Intraoperative findings: * Stone in the expected position * Stent placed without difficulty * Tolerated well Brief History: Mrs. Saha is a 77-year-old white female who I evaluated for the first time today at the request of the hospitalist service for right proximal ureteral stone with obstruction and evidence of UTI. No evidence of sepsis. Ultimately elected to proceed with right ureteral stent placement and delayed treatment of the stone after infection treated. Procedure: After urgent evaluation examination and obtaining of informed consent she was taken to the operating suite on 03/03/2022 where general anesthesia was administered without difficulty after appropriate timeout was performed, SCDs confirmed to be functioning, preoperative antibiotics administered, beta-adina protocol confirmed. Prepped and draped in usual sterile fashion in d orsolithotomy position paying careful attention to avoiding pressure points. 21 [place] cystoscope with 30 degree lens was introduced into the urethra meatus and advanced to the bladder under videoscopy. The bladder was systematically examined. No stones were seen. An 8 [place] cone-tip catheter was intubated into the right ureteral orifice for right retrograde ureteropyelogram which demonstrated: Normal course and caliber of the ureter until a filling defect was identified consistent with a stone seen on CT scan. Contrast easily flowed proximal to the stone. Minimal pressure was utilized in creating retrograde flow. Flexible tip guidewire was then advanced up the right ureter easily bypassing the stone. A 7 [place]an by 24 cm double-pigtail stent without string was easily passed over the guidewire through the cystoscope into appropriate position as confirmed via fluoroscopy and cystoscopy. The stent was confirmed to be draining. The bladder was drained and the procedure was completed. She tolerated procedure well without complications and was awakened in the operating room and returned to the care of room in stable condition PLANS: 1. Maintain standard discharge 2. Will make plans for endoscopic treatment of the stone sometime in the next 2 weeks
[2022-03-03] MEDS: iohexol 300 mg/mL 50 mL Btl (OR ONLY) XX (12:05)
--- NOTE | 2022-03-03 13:05 | PM.PN ---
Subjective Subjective: She is having some right flank/back pain. Has discussed with urology this morning and is awaiting going for ureteral stent. Vitals/I&O/Wt Last Vital Signs Temp 98.2 F 03/03/22 12:30 Pulse 68 03/03/22 12:30 Resp 18 03/03/22 12:30 BP 156/89 03/03/22 12:30 Pulse Ox 98 03/03/22 12:30 O2 Del Method 03/03/22 12:30 O2 Flow Rate 6 03/03/22 12:20 03/02/22 03/03/22 03/03/22 22:59 06:59 14:59 Intake Total 50 / 50 950 / 950 Output Total 4 / 4 Balance 50 / 50 946 / 946 Weight last 48 hrs Weight 120.202 kg Physical Exam Const: COMMON NORMALS: patient oriented x3 and alert GENERAL APPEARANCE: cooperative NUTRITIONAL APPEARANCE: obese ORIENTATION/CONSCIOUSNESS: Yes awake HENMT: COMMON NORMALS: oropharynx normal Neck/C-Spine: COMMON NORMALS: no JVD Resp: COMMON NORMALS: normal respiratory effort and clear to auscultation bilaterally AUSCULTATION: clear to auscultation bilaterally Cardio: COMMON NORMALS: no JVD, regular rhythm, S1 normal heart sound present, S2 normal heart sound present and No murmurs present (Cardio) RHYTHM: regular rhythm HEART SOUNDS: S1 normal heart sound present and S2 normal heart sound present GI: COMMON NORMALS: Normal to inspection, nondistended, normoactive bowel sounds present, Soft to palpation and non-tender PALPATION: Yes Soft to palpation Extremity: COMMON NORMALS: no joint enlargement and no pedal edema Neuro: COMMON NORMALS: patient oriented x3 and moves all extremities SENSORIUM/ORIENTATION: Yes alert Skin: COMMON NORMALS: no rashes or lesions noted GENERAL SKIN EXAM: no rashes or lesions noted Data 03/03/22 05:00 03/03/22 05:00 A&P Assessment and plan (1) Kidney stone: Complicated UTI with ureterolithiasis, moderate hydronephrosis. Status post cystoscopy, stent placement for decompression. Monitor for hematuria, was on Pradaxa preadmission. Continue ceftriaxone, follow-up urine culture. Will need definitive stone management with follow-up with urology. (2) Acute cystitis: Complicated as above. (3) Hydronephrosis: As above. Plan Hypertension likely related to pain continue metoprolol and hydrochlorothiazide Type 2 diabetes: Consistent carb diet Chronic kidney disease no acute exacerbation A. fib no active RVR. Pradaxa is held. Continue metoprolol Full code DVT prophylaxis SCDs Attestations Medical Necessity Statement*: Continue admission for management of complicated UTI, ureterolithiasis s/p stent placement, on anticoagulation preadmission. Coding Level of Care Code Acute Hospice Plan Administrator for [facility] Fwd Diagnoses Kidney stone N20.0 Acute cystitis N30.00 Hydronephrosis N13.30
--- NOTE | 2022-03-03 13:18 | ANE.PACU2 ---
Inpatient post-anesthesia follow up: Airway intact: Yes Vital signs: Temperature 98.2 F Pulse Rate 68 Respiratory Rate 18 Blood Pressure 156/89 Pulse Oximetry 98 Oxygen Delivery Me thod Room Air Oxygen Flow Rate 6 Fraction of Inspir ed Oxygen Hydration adequate: Yes Nausea and vomiting: No Pain level: 1 Mental status: Baseline
--- NOTE | 2022-03-03 15:22 | PC.NURSE ---
iv to left forearm placed with ultrasound
[2022-03-03 16:34] LABS: Glucose Point of Care 208 mg/dL (70-110)
[2022-03-03] MEDS: insulin lispro 100 unit/1 mL SUBCUT (17:56)
[2022-03-03 20:47] LABS: Glucose Point of Care 180 mg/dL (70-110)
[2022-03-04 04:10] VITALS: BP 125/75; PULSE 85; RESP 18; TEMP 37.2; O2SAT 94
[2022-03-04 05:00] LABS: Basophils % 0.4 %; Eosinophils # 0.2 10^3/uL (0.0-0.8); Eosinophils % 2.6 %; Hematocrit 32.9 % (37.0-47.0); Hemoglobin 10.3 g/dL (11.5-15.3); Lymphocytes # 1.8 10^3/uL (0.8-4.8); Mean Corpuscular HGB Conc 31.3 g/dL (30.0-36.0); Mean Corpuscular Hemoglobin 34.6 pg (28.0-34.0); Mean Corpuscular Volume 110.4 fl (81-99); Mean Platelet Volume 8.6 fL (7.4-10.4); Monocytes % 11.4 %; Neutrophils # 5.93 10^3/uL (1.8-7.7); Neutrophils % 65.3 %; Nucleated Red Blood Cells % 0 %; Platelet Count 249 10^3/cmm (130-400); Red Blood Count 2.98 10^6/uL (4.1-5.3); Red Cell Distribution Width 14.6 % (12.1-15.1); White Blood Count 9.1 10^3/uL (4.0-10.0)
[2022-03-04 05:27] LABS: Alanine Aminotransferase 13 U/L (0-33); Albumin Level 3.2 g/dL (3.5-5.2); Alkaline Phosphatase 95 U/L (35-105); Aspartate Amino Transferase 16 U/L (0-32); Blood Urea Nitrogen 16 mg/dL (8-23); Calcium 8.6 mg/dL (8.5-10.5); Carbon Dioxide 26 mmol/L (22-29); Chloride 99 mmol/L (98-107); Globulin 3.4 g/dL (1.3-4.6); Glucose 150 mg/dL (65-115); Osmolality Calculated 286 mOsm/kg (285-295); Sodium 136 mmol/L (136-145); Total Bilirubin 0.4 mg/dL (0.15-1.2); Total Protein 6.6 g/dL (6.6-8.7)
[2022-03-04 06:35] LABS: Glucose Point of Care 150 mg/dL (70-110)
[2022-03-04 07:38] VITALS: BP 110/65; PULSE 82; RESP 18; TEMP 36.8; O2SAT 93
[2022-03-04] MEDS: sennosides-docusate Tablet 1 TAB PO (08:41)
[2022-03-04] MEDS: tamsulosin 0.4 mg Capsule PO (08:41)
[2022-03-04] MEDS: hydroCHLOROthiazide 25 mg Tablet 12.5 MG PO (08:41)
[2022-03-04] MEDS: metoprolol tartrate 50 mg Tablet PO (08:42)
[2022-03-04] MEDS: insulin lispro 100 unit/1 mL SUBCUT (08:52)
[2022-03-04] MEDS: ipratropium-albuterol 3 mL Neb INHALATION (11:42)
[2022-03-04 11:44] VITALS: PULSE 71; RESP 18; O2SAT 97
[2022-03-04 11:57] LABS: Glucose Point of Care 218 mg/dL (70-110)
[2022-03-04 12:00] VITALS: BP 125/74; PULSE 90; RESP 18; TEMP 36.9; O2SAT 95
--- NOTE | 2022-03-04 12:38 | P.PN_ITS ---
Subjective Subjective: Urology follow-up Postop day #1 Recovering well after stent placement. Denies significant pain as she was experiencing before Reviewed with her the importance of a course of antibiotics prior to r einstrumentation to graft the stone. We have set a date of 03/11/2022 for the CYSTOSCOPY, LEFT: Stent removal, ureteroscopy, laser, stent replacement. I will communicate with her family regarding those plans. Orders will be put in for that to be set up. Vitals/I&O/Wt Last Vital Signs Temp 98.3 F 03/04/22 07:38 Pulse 71 03/04/22 11:44 Resp 18 03/04/22 11:44 BP 110/65 03/04/22 07:38 Pulse Ox 97 03/04/22 11:44 O2 Del Method 03/04/22 11:44 O2 Flow Rate 6 03/03/22 12:20 03/03/22 03/04/22 03/04/22 22:59 06:59 14:59 Intake Total 490 / 1440 200 / 1640 Output Total 500 / 504 250 / 754 Balance - -50 / 886 Weight last 48 hrs Weight 265 lb Physical Exam Narrative: She is alert and oriented. No acute distress No labored respiration although she did states she had some shortness of breath earlier that cleared with a breathing Abdomen is soft and nontender. Neck good range of motion Psychiatric: No confusion. 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
[2022-03-04 15:31] LABS: SARS Covid-2 Antigen Negative (Negative)
--- NOTE | 2022-03-04 16:57 | P.DS_ITS ---
Discharge Providers Date of Admission: 03/03/22 15:38 Date of Discharge: March 04, 2022 Attending Provider at Admission: Leo Parra MD Attending Provider at Discharge: Marlon Lopez Primary Care Provider: Bret Ozuna MD Diagnoses at Discharge Discharge Diagnosis (1) Calculus of proximal right ureter: Status: Acute (2) UTI (urinary tract infection): Status: Acute Reason for Visit Reason for Visit: ABDOMINAL PAIN Hospital Course Hospital Course Pleasant 77-year-old lady with history of atrial fibrillation undulation with Pradaxa, CKD, CAD, PPM, dementia, HTN, PAD, DM2, presented for worsening abd ominal pain, symptoms starting tonight before, right-sided abdominal pain, nausea with finding of ureteral stone moderate hydronephrosis on the right. She was started on IV antibiotic, urology was consulted. She was treated with ceftriaxone while in the hospital, received IV fluids. Pradaxa was held. She underwent cystoscopy, retrograde ureteropyelogram and right ureteral stent placement uneventfully. Feeling much better subsequently with resolution of right flank pain. Urine culture obtained, however, uninformative, showing less than 5000 mixed superficial kandis on day 2. She will need definitive treatment with stone retrieval with plans to do so on 03/11 with urology. Please stop dabigatran 48 hours before the procedure. Monitor for hematuria. Continues empirically on cefdinir until definitive treatment. Physical Exam Narrative: She is napping, wakes up easily. Pleasant, conversant. States not in discomfort. Right flank pain no longer bothering her. Const: COMMON NORMALS: patient oriented x3 and alert GENERAL APPEARANCE: cooperative NUTRITIONAL APPEARANCE: obese ORIENTATION/CONSCIOUSNESS: Yes awake HENMT: COMMON NORMALS: oropharynx normal Neck/C-Spine: COMMON NORMALS: no JVD Resp: COMMON NORMALS: normal respiratory effort and clear to auscultation bilaterally AUSCULTATION: clear to auscultation bilaterally Cardio: COMMON NORMALS: no JVD, regular rhythm, S1 normal heart sound present, S2 normal heart sound present and No murmurs present (Cardio) RHYTHM: regular rhythm HEART SOUNDS: S1 normal heart sound present and S2 normal heart sound present GI: COMMON NORMALS: Normal to inspection, nondistended, normoactive bowel sounds present, Soft to palpation and non-tender PALPATION: Yes Soft to palpation Extremity: COMMON NORMALS: no joint enlargement and no pedal edema Neuro: COMMON NORMALS: patient oriented x3 and moves all extremities SENSORIUM/ORIENTATION: Yes alert Skin: COMMON NORMALS: no rashes or lesions noted GENERAL SKIN EXAM: no rashes or lesions noted Discharge Data Studies Completed and Pending Completed Studies During Hospitalization Category Date Time Status CT abdomen pelvis w con* [id number] Stat Cat Scan 03/02/22 19:02 Completed Pending at discharge Category Date Time Status Complete Blood Count w/Auto AM LABS Lab 03/05/22 04:00 Ordered Complete Blood Count w/Auto AM LABS Lab 03/06/22 04:00 Ordered Comprehensive Metabolic Panel AM LABS Lab 03/05/22 04:00 Ordered Comprehensive Metabolic Panel AM LABS Lab 03/06/22 04:00 Ordered Radiology Impressions Abdomen/Pelvis CT 03/02/22 19:02 IMPRESSION: 1. Right proximal ureter 2.6 mm calculus with moderate hydronephrosis proximal hydroureter. 2. Right kidney nonobstructive calyceal stones. 3. Right renal cyst, negative for follow-up advised. 4. Diverticulosis without diverticulitis. 5. Right lower lobe atelectasis. 6. Common iliac vein stents again seen. COMMENTS: Consistent with the [employer]'s Incidental Findings Committee white paper (J Am Rodolfo Radiol 2018): Any incidental renal lesion less than 1 cm or classified as too small to characterize, or any incidental cystic renal lesion characterized as simple-appearing, is likely benign. No follow-up imaging is recommended for these lesions per consensus recommendations based on imaging criteria. C-Arm Fluoroscopy 03/03/22 07:25 IMPRESSION: Images obtained for intraoperative purposes. Laboratory Results WBC 9.1 10^3/uL (4.0-10.0) 03/04/22 04:37 RBC 2.98 10^6/uL (4.1-5.3) L 03/04/22 04:37 Hgb 10.3 g/dL (11.5-15.3) L 03/04/22 04:37 Hct 32.9 % (37.0-47.0) L 03/04/22 04:37 MCV 110.4 fl (81-99) H 03/04/22 04:37 MCH 34.6 pg (28.0-34.0) H 03/04/22 04:37 MCHC 31.3 g/dL (30.0-36.0) 03/04/22 04:37 RDW 14.6 % (12.1-15.1) 03/04/22 04:37 Plt Count 249 10^3/cmm (130-400) 03/04/22 04:37 MPV 8.6 fL (7.4-10.4) 03/04/22 04:37 Neut % (Auto) 65.3 % 03/04/22 04:37 Lymph % (Auto) 20.0 % 03/04/22 04:37 [place] % (Auto) 11.4 % 03/04/22 04:37 Eos % (Auto) 2.6 % 03/04/22 04:37 Baso % (Auto) 0.4 % 03/04/22 04:37 Neut # (Auto) 5.93 10^3/uL (1.8-7.7) 03/04/22 04:37 Lymph # (Auto) 1.8 10^3/uL (0.8-4.8) 03/04/22 04:37 [place] # (Auto) 1.0 10^3/uL (0.2-0.9) H 03/04/22 04:37 Eos # (Auto) 0.2 10^3/uL (0.0-0.8) 03/04/22 04:37 Baso # (Auto) 0.0 10^3/uL (0.0-0.1) 03/04/22 04:37 Nucleated RBC % (auto) 0 % 03/04/22 04:37 Nucleated RBCs # 0.0 /100WBC 03/04/22 04:37 Sodium 136 mmol/L (136-145) 03/04/22 04:37 Potassium 4.0 mmol/L (3.5-5.1) 03/04/22 04:37 Chloride 99 mmol/L (98-107) 03/04/22 04:37 Carbon Dioxide 26 mmol/L (22-29) 03/04/22 04:37 Anion Gap 15.0 (5-19) 03/04/22 04:37 BUN 16 mg/dL (8-23) 03/04/22 04:37 Creatinine 1.0 mg/dL (0.5-0.9) H 03/04/22 04:37 GFR Calculation Not Reportable 03/04/22 04:37 Glucose 150 mg/dL (65-115) H 03/04/22 04:37 POC Glucose 218 mg/dL (70-110) H 03/04/22 11:52 Estimat Average Glucose 183 03/02/22 22:16 Hemoglobin A1c 8.0 % (4.0-6.0) H 03/02/22 22:16 Calculated Osmolality 286 mOsm/kg (285-295) 03/04/22 04:37 Lactate 2.1 mmol/L (0.5-2.2) 03/02/22 19:16 Calcium 8.6 mg/dL (8.5-10.5) 03/04/22 04:37 Magnesium 1.8 mg/dL (1.7-2.3) 03/03/22 05:00 Total Bilirubin 0.4 mg/dL (0.15-1.2) 03/04/22 04:37 AST 16 U/L (0-32) 03/04/22 04:37 ALT 13 U/L (0-33) 03/04/22 04:37 Alkaline Phosphatase 95 U/L (35-105) 03/04/22 04:37 C-Reactive Protein 8.4 mg/L (0.0-4.9) H 03/03/22 05:00 Total Protein 6.6 g/dL (6.6-8.7) 03/04/22 04:37 Albumin 3.2 g/dL (3.5-5.2) L 03/04/22 04:37 Globulin 3.4 g/dL (1.3-4.6) 03/04/22 04:37 Lipase 44 U/L (13-60) 03/02/22 19:16 Procalcitonin 0.05 ng/mL (0-0.5) 03/02/22 19:16 Urine Color Brown (Yellow) 03/02/22 21:00 Urine Appearance Cloudy (CLEAR) A 03/02/22 21:00 Urine pH 5 (5-7) 03/02/22 21:00 Ur Specific [place] 1.020 (1.005-1.030) 03/02/22 21:00 Urine Protein 3+ (Negative) H 03/02/22 21:00 Urine Glucose (UA) Norm (Normal) 03/02/22 21:00 Urine Ketones 1+ (Negative) H 03/02/22 21:00 Urine Blood 3+ (Negative) H 03/02/22 21:00 Urine Nitrate Positive (Negative) H 03/02/22 21:00 Urine Bilirubin 1+ (Negative) H 03/02/22 21:00 Urine Urobilinogen 1 mg/dL (Negative) H 03/02/22 21:00 Ur Leukocyte Esterase Trace (Negative) H 03/02/22 21:00 Urine RBC Too numerous to cnt /hpf (0-2) H 03/02/22 21:00 Urine WBC 0-4 /hpf (0-5) H 03/02/22 21:00 Ur Squamous Epith Cells None /hpf (0-5) 03/02/22 21:00 Amorphous Sediment Not Reportable 03/02/22 21:00 Urine Bacteria 3+ /hpf (NONE) H 03/02/22 21:00 SARS-CoV-2 Ag (Rapid) Negative (Negative) 03/04/22 14:48 Vitals Last Vital Signs Temp 98.5 F 03/04/22 12:00 Pulse 90 03/04/22 12:00 Resp 18 03/04/22 12:00 BP 125/74 03/04/22 12:00 Pulse Ox 95 03/04/22 12:00 O2 Del Method 03/04/22 12:00 O2 Flow Rate 6 03/03/22 12:20 Discharge Plan Discharge Patient Disposition: Xfer [facility] Condition: Stable Prescriptions: New cefdinir 300 mg capsule 300 mg PO BID Qty: 14 0RF Continued oxycodone 15 mg tablet 7.5 mg PO Q8H PRN (Reason: Pain) atorvastatin 20 mg tablet 20 mg PO BEDTIME@20 amoxicillin 500 mg capsule 500 mg PO DAILY@08 aspirin [Adult Aspirin Regimen] 81 mg tablet,delayed release (DR/EC) 81 mg PO BID@08,20 diphenhydramine HCl [Allergy (diphenhydramine)] 25 mg capsule 25 mg PO Q6H PRN (Reason: Allergy Symptoms) Refresh Liquigel 1 % drops, liquid gel 1 drp ophthalmic (eye) BID@08,20 dabigatran etexilate [Pradaxa] 150 mg Capsule 150 mg PO BID@08,20 montelukast 10 mg Tablet 10 mg PO DAILY@08 digoxin 125 mcg (0.125 mg) Tablet 125 mcg PO EVERY OTHER DAY polyethylene glycol 3350 [Miralax] 17 gram Powder In Packet 17 g PO DAILY@08 naloxone 0.4 mg/mL Solution 0.4 mg IM Q3M PRN (Reason: Opioid Overdose) Rx Instructions: x 3 doses and call 911 if no response bisacodyl 10 mg Suppository 10 mg DC DAILY PRN (Reason: Constipation) Rx Instructions: for no bm in 3 days nystatin 100,000 unit/gram Powder 1 applic TOPICAL BID albuterol sulfate 90 mcg/actuation HFA aerosol inhaler 1 puff INHALATION Q6H PRN (Reason: Shortness Of Breath) bisacodyl 5 mg Tablet 10 mg PO DAILY PRN (Reason: Constipation) Rx Instructions: give if no bm x 3 days buspirone 5 mg Tablet 5 mg PO BID@08,20 acetaminophen 500 mg Tablet 1,000 mg PO Q8H PRN (Reason: Pain) metoprolol tartrate 50 mg Tablet 50 mg PO BID@08,20 hydrochlorothiazide 12.5 mg Tablet 12.5 mg PO DAILY@08 pantoprazole 40 mg tablet,delayed release (DR/EC) 40 mg PO DAILY@07 miconazole nitrate 2 % Cream See Rx Instructions .ROUTE .COMPLEX Rx Instructions: apply to irritated area topically twice a day nystatin 100,000 unit/gram cream 1 applic TOPICAL BID PRN (Reason: unknown) Colace 100 mg Capsule 100 mg PO BID@08,20 levothyroxine 200 mcg tablet 200 mcg PO DAILY@05 duloxetine 60 mg capsule,delayed release(DR/EC) 60 mg PO DAILY@08 diclofenac sodium 1 % Gel 2 g TOPICAL QID PRN (Reason: Pain) Vitamin D2 1,250 mcg (50,000 unit) Capsule 50,000 unit PO Q7D Rx Instructions: on wednesday Discharge Orders: Discharge Order (Routine); Ordered 03/04/22 Ordered By: Kodak Voss Referrals: Kodak Voss MD [Physician] - 03/11/22 (Outpatient Surgery. Dr. Voss's office will call with the time of surgery. ) Lane Hess DO [Physician] - 4-7 days Discharge Diet: Cardiac and Diabetic Discharge Activity: Increase activity as tolerated Patient Instructions: Cefdinir (By mouth), Cystoscopy (GEN), Opioid Safety Activity Restrictions/Additional Instructions: Please stop dabigatran 48 hours before urology procedure. Monitor for hematuria, hold dabigatran sooner in case of significant hematuria. UROLOGY recommendations: 1. We will plan on outpatient ureteroscopy to remove the stone on 03/11/2022. 2. At that time she will have had a week of antibiotics which will help reduce the risk of any kind of infectious complication to the procedure. 3. There will be a phone call the day before telling what time to arrive Discharge Attestations Time Spent in Discharge Care*: greater than 30 min Status at Discharge: Cognitive status at discharge: cognitively intact , Behavioral status at discharge: cooperative , Quality Metrics Clinical Quality Measures [ No reported AMI, CVA or VTE this stay] Coding Level of Care Code Acute g [facility] note Diagnoses Calculus of proximal right ureter N20.1 UTI (urinary tract infection) N39.0
[2022-03-04 17:37] LABS: Glucose Point of Care 235 mg/dL (70-110)
[2022-03-04 18:00] VITALS: BP 125/74; PULSE 90; RESP 18; TEMP 36.9; O2SAT 95
[2022-03-04 18:11] VITALS: BP 125/74; PULSE 90; RESP 18; TEMP 36.9; O2SAT 95
--- NOTE | 2022-03-04 18:12 | PC.NURSE ---
PATIENT TRANSFERRED TO [facility] VIA [facility].
--- NOTE | 2022-03-04 20:37 | PC.NURSE ---
1700 Report called to Cindi ALVARADO at [facility]. patient up in wheelchair with belongings packed and with patient. Patient in stable condition
--- NOTE | 2022-03-04 20:38 | PC.NURSE ---
1815 Patient discharged to [facility] per medicaid transport van patient in stable condition
== END 2022-03-04 18:11 | disposition skilled nursing facility (03) | DRG 660 ==
LOC: ER 21:46 → MEDSURG 03-03 02:00
PROVIDERS: Urology; Admitting Provider Internal Medicine; Emergency Provider Emergency Medicine; PCP Family Medicine; Visit Provider Internal Medicine
PROC: 0TJB8ZZ Inspection of Bladder, Via Natural or Artificial Opening Endoscopic (ICD-10-PCS; CPT 52000; principal; 2022-03-03 11:30)
PROC: 0T768DZ Dilation of Right Ureter with Intraluminal Device, Via Natural or Artificial Opening Endoscopic (ICD-10-PCS; CPT 74420; 2022-03-03 11:30)
PROC: 0T768DZ Dilation of Right Ureter with Intraluminal Device, Via Natural or Artificial Opening Endoscopic (ICD-10-PCS; CPT 50605; 2022-03-03 11:30)
DX: N13.2 Hydronephrosis with renal and ureteral calculous obstruction (principal); N30.00 Acute cystitis without hematuria; Z68.43 Body mass index [BMI] 50.0-59.9, adult; I48.91 Unspecified atrial fibrillation; Z79.02 Long term (current) use of antithrombotics/antiplatelets; E11.22 Type 2 diabetes mellitus with diabetic chronic kidney disease; I12.9 Hypertensive chronic kidney disease with stage 1 through stage 4 chronic kidney disease, or unspecified chronic kidney disease; N18.9 Chronic kidney disease, unspecified; I25.10 Atherosclerotic heart disease of native coronary artery without angina pectoris; F03.90 Unspecified dementia, unspecified severity, without behavioral disturbance, psychotic disturbance, mood disturbance, and anxiety; E89.0 Postprocedural hypothyroidism; E66.01 Morbid (severe) obesity due to excess calories; Z95.0 Presence of cardiac pacemaker; E11.51 Type 2 diabetes mellitus with diabetic peripheral angiopathy without gangrene; I49.5 Sick sinus syndrome; Z98.84 Bariatric surgery status; Z79.82 Long term (current) use of aspirin; Z79.891 Long term (current) use of opiate analgesic
CPT/HCPCS: 36415; 36416; 74177; 76000; 80048; 80053; 81001; 82962; 83036; 83605; 83690; 83735; 84145; 85025; 86140; 87086; 87426; 94640; 96372; C2625; G0378; J0360; J0696; J1170; J1815; J2405; J2704; J3010; J7030; Q9967

== ENCOUNTER 2022-03-11 05:32 | Day surgery (SDC) | payer MEDICARE, MEDICAID, SELFPAY ==
[2022-03-11] VITALS (7 sets, daily range): BP systolic 121–175; BP diastolic 69–101; PULSE 65–98; RESP 16–18; TEMP 36.7–36.8; O2SAT 91–99
--- NOTE | 2022-03-11 05:55 | SC_ITS ---
WS: [id number] C-arm [place] for Urology REASON FOR EXAM: Ureteroscopy post emergency stent FINDINGS: Right ureteral stent is in place in proper position and configuration. SC/C-arm [place] for Urology IMPRESSION: Right ureteral stent as above.
--- NOTE | 2022-03-11 05:55 | XRR_ITS ---
PROCEDURE INFORMATION: Exam: XR Abdomen Exam date and time: 03/11/2022 6:03 AM Age: 77 years old Clinical indication: Screening exam; Other: Preoperative; Prior surgery; Surgery type: Pacer. Gb. Lap band. Ureteral stent. Hysterectomy. ; Additional info: Preop right ureteroscopy TECHNIQUE: Imaging protocol: Radiologic exam of the abdomen. Views: Frontal supine view of the abdomen. 1 View. COMPARISON: CT abdomen pelvis w con* [id number] 03/02/2022 8:26 PM FINDINGS: Tubes, catheters and devices: Right double-J ureteral stent is seen. The upper loop is seen in the region of the right renal pelvis with distal aspect in the region of the bladder. Gastrointestinal tract: There is no abnormal dilatation of small bowel loops. Some gas is seen in loops of colon in the abdomen and pelvis. Vasculature: Iliac vascular stents are seen. Bones/joints: Mild rightward curvature of the lumbar spine is seen. Severe degenerative disc disease changes are seen in the mid to lower lumbar region. Soft tissues: Multiple phleboliths are seen in the pelvis. XR/XR KUB [id number] IMPRESSION: Right double-J ureteral stent, as noted above.
[2022-03-11] MEDS: levofloxacin-dextrose 5 % 500 MG/100 ML PREMIX 100 MG IV (06:13)
[2022-03-11] MEDS: sodium chloride 0.9% 1,000 ML 30 ML IV (06:13)
--- NOTE | 2022-03-11 06:22 | W.PM.OPSUD ---
Surgery/Procedure H&P Update DATE OF PROCEDURE: March 11, 2022 DATE H&P PERFORMED: 03/03/22 H&P UPDATE INFORMATION: I have reviewed H&P completed within last 30 days, I have examined patient prior to procedure, No changes to prior documentation and H&P is in [facility] EMR on date indicated CHANGES TO PREVIOUS DOCUMENTATION: Cannot clearly see the stone in the area of the proximal ureter. I expect it probably migrated into the renal pelvis at time of stent placement. PREOP DIAGNOSIS: Status post emergency stenting obstructive UTI PLANNED PROCEDURE: Operation Date: 03/11/22 07:00 Proposed Procedures p CYSTOSCOPY RIGHT RETROGRADE URETEROSCOPY LASER STENT EXCHANGE [id number] MODIFIER 26 [id number] N20.1,N13.30(Not Applicable) - Kodak Voss MD s Retrograde Pyelogram(Right) - Kodak Voss MD s Ureteroscopy(Not Applicable) - Kodak Voss MD s Laser Lithotripsy(Right) - Kodak Voss MD s Ureteral Stent Exchange(Right) - Kodak Voss MD
--- NOTE | 2022-03-11 06:50 | ANES.PREANE2 ---
Pre-Anesthetic Assessment Height/Weight: Height 1.55 m Preop Diagnosis: Status post emergency stenting obstructive UTI Operation Date: 03/11/22 07:00 Proposed Procedures p CYSTOSCOPY RIGHT RETROGRADE URETEROSCOPY LASER STENT EXCHANGE 27161- MODIFIER 26 [id number] N20.1,N13.30(Not Applicable) - MD lori Holbrook Retrograde Pyelogram(Right) - MD lori Holbrook Ureteroscopy(Not Applicable) - MD lori Holbrook Laser Lithotripsy(Right) - Kodak Voss MD s Ureteral Stent Exchange(Right) - Kodak Voss MD Familial anesthetic complications: None Was Beta Kori taken within 24 hours: N/A Was Clonidine taken within 24 hours: N/A Last intake: > 8hrs Social No alcohol and No tobacco Exam alert, oriented x 3, clear to auscultation bilaterally and regular rate & rhythm Airway Mallampati: Class III Dentition: false Pulmonary Sleep Apnea CV/HEM Atrial Fibrillation and Coronary Artery Disease (stents) pacemaker VVI 60% and pacing at 10% Chronic Renal Insufficiency (CKD 3) GI Gastroesophageal Reflux Disease Metabolic Diabetes Mellitus, Hyperlipidemia and Morbid Obesity Anesthetic Plan ASA status: 4 Anesthesia: General Risk of > 500 ml blood loss (7ml/kg in children): No Medications/Allergies Home Medications Medication Instructions Recorded Confirmed Last Taken Type dabigatran etexilate 150 mg 150 mg PO BID@07/22/19 03/03/22 10/31/21 History capsule (Pradaxa) digoxin 125 mcg (0.125 mg) tablet 125 mcg PO EVERY OTHER DAY 07/22/19 03/03/22 10/31/21 History montelukast 10 mg tablet 10 mg PO DAILY@07/22/19 03/03/22 10/31/21 History bisacodyl 5 mg tablet 10 mg PO DAILY PRN Constipation 02/09/20 03/03/22 02/28/20 16:51 History atorvastatin 20 mg tablet 20 mg PO BEDTIME@05/09/20 03/03/22 10/30/21 History polyethylene glycol 3350 17 gram 17 g PO DAILY@06/03/20 03/03/22 10/31/21 History oral powder packet (Miralax) bisacodyl 10 mg rectal suppository 10 mg ID DAILY PRN Constipation 09/18/20 03/03/22 02/28/20 16:41 History naloxone 0.4 mg/mL injection 0.4 mg IM Q3M PRN Opioid Overdose 09/18/20 03/03/22 Unknown History solution nystatin 100,000 unit/gram topical 1 applic topical BID 09/18/20 03/03/22 10/31/21 History powder amoxicillin 500 mg capsule 500 mg PO DAILY@08 01/13/21 03/03/22 10/31/21 History aspirin 81 mg tablet,delayed 81 mg PO BID@01/13/21 03/03/22 10/31/21 History release (Adult Aspirin Regimen) carboxymethylcellulose sodium 1 % 1 drp ophthalmic (eye) BID@01/13/21 03/03/22 10/31/21 History eye liquid gel drops (Refresh Liquigel) diphenhydramine HCl 25 mg capsule 25 mg PO Q6H PRN Allergy Symptoms 01/13/21 03/03/22 10/29/21 History (Allergy (diphenhydramine)) oxycodone 15 mg tablet 7.5 mg PO Q8H PRN Pain 10/24/21 03/03/22 10/29/21 History acetaminophen 500 mg tablet 1,000 mg PO Q8H PRN Pain 10/31/21 03/03/22 Unknown History buspirone 5 mg tablet 5 mg PO BID@10/31/21 03/03/22 10/31/21 History hydrochlorothiazide 12.5 mg tablet 12.5 mg PO DAILY@10/31/21 03/03/22 10/31/21 History metoprolol tartrate 50 mg tablet 50 mg PO BID@10/31/21 03/03/22 10/31/21 History pantoprazole 40 mg tablet,delayed 40 mg PO DAILY@10/31/21 03/03/22 10/31/21 History release diclofenac sodium 1 % topical gel 2 g topical QID PRN Pain 03/03/22 03/03/22 Unknown History docusate sodium 100 mg capsule 100 mg PO BID@03/03/22 03/03/22 Unknown History (Colace) duloxetine 60 mg capsule,delayed 60 mg PO DAILY@03/03/22 03/03/22 Unknown History release ergocalciferol (vitamin D2) 1,250 50,000 unit PO Q7D 03/03/22 03/03/22 Unknown History mcg (50,000 unit) capsule (Vitamin D2) levothyroxine 200 mcg tablet 200 mcg PO DAILY@05 03/03/22 03/03/22 Unknown History miconazole nitrate 2 % topical See Rx Instructions .Route .COMPLEX 03/03/22 03/03/22 Unknown History cream nystatin 100,000 unit/gram topical 1 applic topical BID PRN unknown 03/03/22 03/03/22 Unknown History cream cefdinir 300 mg capsule 300 mg PO BID #14 caps 03/04/22 Unknown Rx Allergies Allergy/AdvReac Type Severity Reaction Status Date / Time Tetanus Vaccines and Toxoid Allergy Mild Unknown Verified 03/11/22 06:42 metformin [From Glucophage] Allergy Unknown Unknown Verified 03/11/22 06:42 Current Medications Generic Name Dose Route Start Last Admin Trade Name Freq PRN Reason Stop Dose Admin Sodium Chloride 1,000 mls @ 30 mls/hr 03/11/22 06:00 03/11/22 06:13 Sodium Chloride 0.9% IV 03/12/22 05:59 30 mls/hr .Q24H FREYA Administration Levofloxacin/Dextrose 500 mg in 100 mls @ 100 mls/hr 03/11/22 05:55 03/11/22 06:13 Levaquin-D5w IV 03/11/22 06:54 100 mls/hr 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 Administration Protocol [facility] Anesthesia Medical History Atrial fibrillation CKD (chronic kidney disease) stage 2, GFR 60-89 ml/min Coronary artery disease Dementia Hypertension Hypothyroid Infected abrasion of groin 2018) infection requiring I&D 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 Morbid obesity Pacemaker Peripheral vascular disease Type 2 diabetes mellitus Surgical History H/O knee surgery H/O shoulder surgery H/O thyroidectomy For Graves' disease H/O: hysterectomy History of appendectomy History of permanent cardiac pacemaker placement SSS S/P cholecystectomy S/P gastric surgery LAP-BAND later followed by gastric sleeve Family History Other CAD (coronary artery disease) Dementia Stroke Social History Smoking and tobacco status: never smoked Alcohol intake: never Lives independently: Yes Housing: House Data Anesthesia Cardiac Studies: Echocardiogram Ultrasound 02/01/20
[2022-03-11 07:06] LABS: Glucose Point of Care 175 mg/dL (70-110)
--- NOTE | 2022-03-11 07:08 | P.OP_ITS ---
Operative Report Date of procedure: March 11, 2022 Pre-op diagnosis: Status post emergency stenting obstructive UTI Post-op diagnosis: Status post emergency stenting obstructive UTI Procedure done: 1. Cystoscopy, removal of RIGHT ureteral stent 2. Right flexible ureteral renoscopy, laser lithotripsy, stent replacement (6 [place] by 24 cm double-pigtail stent without string) Implants: Right ureteral stent Specimens removed/disposition: Stone fragment Pathology: Stone fragments Surgeon: Shanika Estimated blood loss: Minimal Urine output: Not measured Complications: None Findings: Anesthesia: General Condition: Stable Disposition: PACU Intraoperative findings: * The stone previously obstructing the right ureter was still in the ureter and completely fragmented. * 2 additional stones seen previously on CT scan in the renal pelvis/calyces were also identified and fragmented. * 6 [place] by 24 cm double-pigtail stent without string was left indwelling * She tolerated procedure well. Brief History: Mrs. Saha is a delightful 77-year-old white female with a history of UTI and obstructing right proximal ureteral stone status post emergency stenting about a week ago. She has been on antibiotics ever since and has done well from an infectious perspective. Admitted now for attempt at definitive treatment of the stone. The stone was a very small probably 3 mm right proximal ureteral stone causing obstruction and she had a couple nonobstructing small stones in the interpolar area of the right kidney as well Procedure: After routine preoperative evaluation examination and obtaining of informed consent she was taken to the operating suite on 03/11/2022 where general anesthesia was administered without difficulty after appropriate timeout was performed, SCDs confirmed to be functioning, preoperative antibiotics administered, beta-adina protocol confirmed. Prepped and draped in usual sterile fashion in dorsolithotomy position paying careful attention to avoiding pressure points. 21 [place] cystoscope with 30 degree lens was introduced into urethra meatus and advanced into the bladder without difficulty. The bladder was systematically examined. No stones were seen. Stent was in the expected position. Flexible tip guidewire was advanced up the right ureter next to the stent and the stent was removed without difficulty. A second guidewire was then placed A 6 [place] mini scope was advanced over the working guidewire up the right ureter all the way to the UPJ. A stone was encountered in the mid ureter and it was completely fragmented with a 200 ?m thulium superpulse laser fiber. The wire was replaced the scope was removed and a flexible ureteroscope was then advanced over the guidewire into the renal pelvis due to stone seen on previous CT scan were identified and fragmented completely. Some fragments were basketed and sent for pathologic evaluation. Other pieces were flushed through the ureteroscope and through the ureter and collected as well. Stones had the appearance of URIC ACID The ureter was carefully inspected as the scope was removed and it was in pretty good shape. Because of her history of UTI and obstruction and some stone fragments to pass it was decided to leave a stent. A 6 [place] by 24 cm double- pigtail stent was advanced over the guidewire through the cystoscope into appropriate position as confirmed via fluoroscopy and cystoscopy. The bladder was drained including some fragments that had migrated into the bladder. She tolerated the procedure well without complications and was awakened in the operating room and returned to the recovery room in stable condition. PLANS: 1. Anticipate discharge from outpatient surgery 2. Plan on removing the stent on 03/16/2022 in my office at approximately 11 AM
--- NOTE | 2022-03-11 15:00 | ANE.PACU2 ---
Inpatient post-anesthesia follow up: Airway intact: Yes Vital signs: Temperature 98.1 F Pulse Rate 66 Respiratory Rate 18 Blood Pressure 121/73 Pulse Oximetry 94 Oxygen Delivery Me thod Room Air Oxygen Flow Rate 6 Fraction of Inspir ed Oxygen Hydration adequate: Yes Nausea and vomiting: No Pain level: 1 Mental status: Baseline
== END 2022-03-11 09:50 | disposition home or self-care (01) ==
PROVIDERS: PCP Family Medicine; Visit Provider Urology
PROC: 0TJB8ZZ Inspection of Bladder, Via Natural or Artificial Opening Endoscopic (ICD-10-PCS; CPT 52000; principal; 2022-03-11 07:00)
PROC: 0TJ98ZZ Inspection of Ureter, Via Natural or Artificial Opening Endoscopic (ICD-10-PCS; CPT 52351; 2022-03-11 07:00)
PROC: (CPT 52356; 2022-03-11 07:00)
PROC: (CPT 52356; 2022-03-11 07:00)
DX: N39.0 Urinary tract infection, site not specified (principal); G47.30 Sleep apnea, unspecified; I48.91 Unspecified atrial fibrillation; I25.10 Atherosclerotic heart disease of native coronary artery without angina pectoris; Z95.5 Presence of coronary angioplasty implant and graft; Z95.0 Presence of cardiac pacemaker; N18.30 Chronic kidney disease, stage 3 unspecified; E78.5 Hyperlipidemia, unspecified; E66.01 Morbid (severe) obesity due to excess calories
CPT/HCPCS: 52356; 36416; 74018; 76000; 82365; 82962; 88300; C2625; J0330; J1100; J1956; J2370; J2405; J2704; J2710; J3010; J3490; J7030

== ENCOUNTER → 2022-03-16 11:03 | Outpatient (BNVA) | payer MEDICARE, MEDICAID, SELFPAY | PROVIDERS: PCP Family Medicine; Visit Provider Urology | DX: N20.2 Calculus of kidney with calculus of ureter (principal); Z96.0 Presence of urogenital implants; N39.0 Urinary tract infection, site not specified | CPT/HCPCS: 52310; 81003; 99213 ==

== ENCOUNTER → 2022-05-01 09:44 | Outpatient (BNVA) | payer MEDICARE, MEDICAID, SELFPAY | PROVIDERS: PCP Family Medicine; Visit Provider Internal Medicine Cardiovascular Disease | DX: Z45.010 Encounter for checking and testing of cardiac pacemaker pulse generator [battery] (principal) | CPT/HCPCS: 93280 ==

== ENCOUNTER → 2022-07-30 11:02 | Outpatient (BNVA) | payer MEDICARE, MEDICAID, SELFPAY | PROVIDERS: PCP Family Medicine; Visit Provider Internal Medicine Cardiovascular Disease | DX: I25.10 Atherosclerotic heart disease of native coronary artery without angina pectoris (principal); I48.21 Permanent atrial fibrillation; E66.01 Morbid (severe) obesity due to excess calories; Z95.0 Presence of cardiac pacemaker; Z79.01 Long term (current) use of anticoagulants; I12.9 Hypertensive chronic kidney disease with stage 1 through stage 4 chronic kidney disease, or unspecified chronic kidney disease; E11.22 Type 2 diabetes mellitus with diabetic chronic kidney disease; N18.2 Chronic kidney disease, stage 2 (mild); Z68.43 Body mass index [BMI] 50.0-59.9, adult | CPT/HCPCS: 99214 ==

== ENCOUNTER 2022-09-17 09:31 | Outpatient (CLI) | payer MEDICARE, MEDICAID, SELFPAY ==
--- NOTE | 2022-09-17 09:44 | XR_ITS ---
WS: [id number] KUB, AP view, 09/17/2022 Clinical Data: stone Comparison: KUB, 03/11/2022 Findings: No abnormal intraabdominal masses or calcifications are seen. There are probably calcifications from injections in both buttocks There is no dilatated small bowel or evidence of obstruction. There is fecal material throughout the colon. There are bilateral iliac artery stents. There is a sli ght dextroscoliosis. XR/XR KUB [id number] Impression: Negative for renal calcifications.
== END 2022-09-17 09:32 | disposition home or self-care (01) ==
PROVIDERS: PCP Family Medicine; Visit Provider Urology
DX: N20.9 Urinary calculus, unspecified (principal); N39.0 Urinary tract infection, site not specified; Z87.442 Personal history of urinary calculi
CPT/HCPCS: 74018; 81003; 99213

== ENCOUNTER 2022-12-20 10:12 | Inpatient (IN) | payer MEDICARE, MEDICAID, SELFPAY ==
[2022-12-20] VITALS (12 sets, daily range): BP systolic 106–151; BP diastolic 55–86; PULSE 66–135; RESP 16–24; TEMP 36.8–37.3; O2SAT 94–100; BMI 47.9
--- NOTE | 2022-12-20 10:14 | XRR_ITS ---
PROCEDURE INFORMATION: Exam: XR Right Knee Exam date and time: 12/20/2022 11:02 AM Age: 77 years old Clinical indication: Pain; Knee; Right; Prior surgery; Surgery date: 6+ months TECHNIQUE: Imaging protocol: Radiologic exam of the right knee. Views: 3 views. COMPARISON: No relevant prior studies available. FINDINGS: Bones/joints: Metallic knee replacement is present with prominent intramedullary components in the femur and tibia. No acute bony abnormalities seen. Soft tissues: Chronic appearing circumscribed soft tissue densities seen in the anterior aspect of the knee.. A vascular stent is seen near the posterior aspect of the proximal lower leg. XR/XR knee RT 3V* [id number] IMPRESSION: A metallic knee replacement is present in good position. No acute bony abnormalities seen. Is chronic circumscribed soft tissue densities anterior knee
--- NOTE | 2022-12-20 10:17 | XRR_ITS ---
PROCEDURE INFORMATION: Exam: XR Chest Exam date and time: 12/20/2022 11:01 AM Age: 77 years old Clinical indication: Other: Weakness TECHNIQUE: Imaging protocol: Radiologic exam of the chest. Views: 1 view. COMPARISON: CR XR chest 1V portable [id number] 10/31/2021 3:12 PM FINDINGS: Tubes, catheters and devices: A cardiac device left anterior chest the leads are in good position. Lungs: Low lung volumes seen. The lungs are otherwise clear No consolidation. Pleural spaces: Unremarkable. No pleural effusion. No pneumothorax. Heart/Mediastinum: Unremarkable. No cardiomegaly. Bones/joints: Unremarkable. Other findings: A comparison to prior examination similar findings seen. XR/XR chest 1V portable [id number] IMPRESSION: 1. No acute findings. 2. Cardiac device left anterior chest
--- NOTE | 2022-12-20 10:17 | XRR_ITS ---
PROCEDURE INFORMATION: Exam: XR Right Hip Exam date and time: 12/20/2022 11:02 AM Age: 77 years old Clinical indication: Hip pain; Right hip; Additional info: Injury TECHNIQUE: Imaging protocol: Radiologic exam of the right hip. Views: 1 view hip with pelvis when performed. COMPARISON: CT abdomen pelvis w con* [id number] 03/02/2022 8:26 PM FINDINGS: Bones/joints: Unremarkable. No acute fracture. Soft tissues: Vascular stent is seen in the right iliac artery XR/XR hip RT 2-3V wo/w pel* [id number] IMPRESSION: 1. No acute bone abnormality 2. A vascular stent right iliac artery
--- NOTE | 2022-12-20 10:18 | ECG_ITS ---
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 Measurements Intervals [place] Rate: 127 P: 0 NC: 0 QRS: 4 QRSD: 88 T: 209 QT: 282 QTc: 411 Interpretive Statements ATRIAL FIBRILLATION WITH RAPID VENTRICULAR RESPONSE WITH ABERRANT CONDUCTION OR VENTRICULAR PREMATURE COMPLEXES LOW QRS VOLTAGE IN PRECORDIAL LEADS [QRS DEFLECTION < 1.0 mV IN CHEST LEADS] ST DEVIATION AND MODERATE T-WAVE ABNORMALITY, CONSIDER LATERAL ISCHEMIA [-0.1+ mV T-WAVE IN I/aVL/V5/V6] Compared to ECG 10/31/2021 14:49:10 Ventricular premature complex(es) now present Aberrant conduction of supraventricular beat(s) now present T-wave abnormality still present Possible ischemia still present Electronically Signed On 12-20-2022 10:55:47 CDT by Chriss Panda M.D. [id number]
--- NOTE | 2022-12-20 10:23 | ED_ITS ---
HPI - General Adult General: Chief complaint: General Medical Stated complaint: RIGHT KNEE PAIN Time Seen by Provider: 12/20/22 10:14 Source: patient and EMS Mode of arrival: EMS Limitations: no limitations History of Present Illness: 77-year-old female who lives home alone states that she was in a alf recently got out about a month ago. She states that she got up 2 days ago and felt a pop in her right knee and states she did not been able ambulate since then. She states she has just been sitting in a chair and mobile she tried to call one of her family members but no one it came and help her. She called ambulance today they state that she has not moved in 2 days she been urinating on herself she states she still has pain in that right knee and feels like she is not able to walk. Patient also has a history of A-fib along with obesity Associated symptoms: Deny chest pain, dyspnea, headache(s), nausea, rash or vomiting Review of Systems Const: Denies: fever(s) or chills Eyes: Denies: eye discomfort ENMT: Denies: throat pain or dental pain Card: Denies: chest pain Resp: Denies: dyspnea GI: Denies: abdominal pain, nausea, vomiting or diarrhea : Denies: dysuria Musc: Reports: extremity pain; Denies: neck pain or back pain Skin/Breast: Denies: rash Neuro: Denies: headache(s) PFSH ED PFSH: Medical History Anticoagulation adequate with anticoagulant therapy Atrial fibrillation CKD (chronic kidney disease) stage 2, GFR 60-89 ml/min Coronary artery disease Dementia Hypertension Hypothyroid Infected abrasion of groin 2018) infection requiring I&D 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 Morbid obesity Pacemaker Peripheral vascular disease Type 2 diabetes mellitus Surgical History H/O knee surgery H/O shoulder surgery H/O thyroidectomy For Graves' disease H/O: hysterectomy History of appendectomy History of permanent cardiac pacemaker placement SSS S/P cholecystectomy S/P gastric surgery LAP-BAND later followed by gastric sleeve Family History Other CAD (coronary artery disease) Dementia Stroke Social History Smoking and tobacco status: never smoked Alcohol intake: never Substance/Drug Use: never Lives independently: Yes Housing: House Marital status: / Current occupational status: retired Physical Exam Const: COMMON NORMALS: patient oriented x3 NUTRITIONAL APPEARANCE: obese HENMT: COMMON NORMALS: normocephalic and atraumatic HEAD & SCALP: normocephalic and atraumatic Eye: COMMON NORMALS: conjunctivae normal CONJUNCTIVA: Yes conjunctivae normal Neck/C-Spine: COMMON NORMALS: full ROM and supple Chest: COMMONS NORMALS: normal inspection of the chest Resp: COMMON NORMALS: normal respiratory effort Cardio: COMMON NORMALS: No murmurs present (Cardio) RATE: tachycardic RHYTHM: abnormal rhythm irregularly irregular GI: COMMON NORMALS: Normal to inspection, nondistended, normoactive bowel sounds present, Soft to palpation, non-tender and no masses PALPATION: Yes Soft to palpation Extremity: NARRATIVE EXTREMITY EXAM: Tenderness over right hip right knee she does have a scar over her knee from a knee replacement Neuro: COMMON NORMALS: patient oriented x3, moves all extremities and no focal motor deficits Psych: COMMON NORMALS: mental status grossly normal, Normal thought process present and cooperative THOUGHT PROCESS: Normal thought process present Skin: COMMON NORMALS: no rashes or lesions noted and no wounds GENERAL SKIN EXAM: no rashes or lesions noted Course Vital Signs: Vital signs: Vital Signs Temperature 98.9 F 12/20/22 10:29 Pulse Rate 135 H 12/20/22 10:29 Respiratory Rate 19 H 12/20/22 10:29 Blood Pressure 144/86 12/20/22 10:29 Pulse Oximetry 97 12/20/22 10:44 Oxygen Delivery Me thod Room Air 12/20/22 10:44 MDM - General Adult Medical Decision Making Patient presents here with right knee pain not able to walk over the last 2 days she had been sitting in a chair has been urinating on self not able to take care of herself patient is also in A-fib with RVR likely due to not taking her meds I did give her a Cardizem bolus she is still tachycardic started on a Cardizem drip spoke to hospitalist will admit to [facility] at this time. Medical Records I reviewed the patient's medical records. Lab Data I reviewed the patient's lab results. 12/20/22 10:39 12/20/22 10:39 Radiology Impressions Knee X-Ray 12/20/22 10:14 IMPRESSION: A metallic knee replacement is present in good position. No acute bony abnormalities seen. Is chronic circumscribed soft tissue densities anterior knee Chest X-Ray 12/20/22 10:17 IMPRESSION: 1. No acute findings. 2. Cardiac device left anterior chest Hip/Pelvis X-Ray 12/20/22 10:17 IMPRESSION: 1. No acute bone abnormality 2. A vascular stent right iliac artery Laboratory Results WBC 21.86 10^3/uL (3.29-11.43) H 12/20/22 10:39 RBC 3.41 10^6/uL (3.85-5.65) L 12/20/22 10:39 Hgb 11.80 g/dL (11.27-16.99) 12/20/22 10:39 Hct 35.2 % (36-47) L 12/20/22 10:39 MCV 103.2 fl (85-98) H 12/20/22 10:39 MCH 34.6 pg (27-33) H 12/20/22 10:39 MCHC 33.5 g/dL (30-55) 12/20/22 10:39 RDW 14.6 % (12.1-15.1) 12/20/22 10:39 Plt Count 260 10^3/cmm (157-399) 12/20/22 10:39 MPV 8.6 fL (7.4-10.4) 12/20/22 10:39 Neut % (Auto) 86.6 % 12/20/22 10:39 Lymph % (Auto) 4.7 % 12/20/22 10:39 [place] % (Auto) 7.9 % 12/20/22 10:39 Eos % (Auto) 0.0 % 12/20/22 10:39 Baso % (Auto) 0.1 % 12/20/22 10:39 Neut # (Auto) 18.93 10^3/uL (1.8-7.7) H 12/20/22 10:39 Lymph # (Auto) 1.0 10^3/uL (0.8-4.8) 12/20/22 10:39 [place] # (Auto) 1.7 10^3/uL (0.2-0.9) H 12/20/22 10:39 Eos # (Auto) 0.0 10^3/uL (0.0-0.8) 12/20/22 10:39 Baso # (Auto) 0.0 10^3/uL (0.0-0.1) 12/20/22 10:39 Nucleated RBC % (auto) 0 % 12/20/22 10:39 Nucleated RBCs # 0.0 /100WBC 12/20/22 10:39 Sodium 131 mmol/L (136-145) L 12/20/22 10:39 Potassium 3.8 mmol/L (3.5-5.1) 12/20/22 10:39 Chloride 91 mmol/L (98-107) L 12/20/22 10:39 Carbon Dioxide 26 mmol/L (22-29) 12/20/22 10:39 Anion Gap 17.8 (5-19) 12/20/22 10:39 BUN 15 mg/dL (8-23) 12/20/22 10:39 Creatinine 0.9 mg/dL (0.5-0.9) 12/20/22 10:39 GFR Calculation Not Reportable 12/20/22 10:39 Glucose 282 mg/dL (65-115) H 12/20/22 10:39 Calculated Osmolality 283 mOsm/kg (285-295) L 12/20/22 10:39 Calcium 8.6 mg/dL (8.5-10.5) 12/20/22 10:39 Total Bilirubin 2.0 mg/dL (0.15-1.2) H 12/20/22 10:39 AST 22 U/L (0-32) 12/20/22 10:39 ALT 17 U/L (0-33) 12/20/22 10:39 Alkaline Phosphatase 109 U/L (35-105) H 12/20/22 10:39 Creatine Kinase 27 U/L (26-192) 12/20/22 10:39 Total Protein 7.6 g/dL (6.6-8.7) 12/20/22 10:39 Albumin 3.3 g/dL (3.5-5.2) L 12/20/22 10:39 Globulin 4.3 g/dL (1.3-4.6) 12/20/22 10:39 Urine Color [place] (Yellow) A 12/20/22 10:27 Urine Appearance Clear (CLEAR) 12/20/22 10:27 Urine pH 5 (5-7) 12/20/22 10:27 Ur Specific [place] 1.015 (1.005-1.030) 12/20/22 10:27 Urine Protein 1+ (Negative) H 12/20/22 10:27 Urine Glucose (UA) 4+ (Normal) H 12/20/22 10:27 Urine Ketones 2+ (Negative) H 12/20/22 10:27 Urine Blood 2+ (Negative) H 12/20/22 10:27 Urine Nitrate Negative (Negative) 12/20/22 10:27 Urine Bilirubin 1+ (Negative) H 12/20/22 10:27 Urine Urobilinogen 4 mg/dL (Negative) H 12/20/22 10:27 Ur Leukocyte Esterase Negative (Negative) 12/20/22 10:27 Urine RBC 0-4 /hpf (0-2) H 12/20/22 10:27 Urine WBC 0-4 /hpf (0-5) H 12/20/22 10:27 Ur Squamous Epith Cells 0-4 /hpf (0-5) H 12/20/22 10:27 Amorphous Sediment Not Reportable 12/20/22 10:27 Urine Bacteria 2+ /hpf (NONE) H 12/20/22 10:27 EKG Data EKG 1: I personally reviewed and interpreted this EKG as follows: EKG interpretation date: 12/20/22 EKG interpretation time: 10:29 Interpretation: afib with rvr hr [address] or t wave abnormalities qrs 88 qtc 357 Computer generated interpretation: Knee X-Ray 12/20/22 10:14 IMPRESSION: A metallic knee replacement is present in good position. No acute bony abnormalities seen. Is chronic circumscribed soft tissue densities anterior knee Chest X-Ray 12/20/22 10:17 IMPRESSION: 1. No acute findings. 2. Cardiac device left anterior chest Hip/Pelvis X-Ray 12/20/22 10:17 IMPRESSION: 1. No acute bone abnormality 2. A vascular stent right iliac artery Critical Care Time Critical Care Time: Critical Care Time: Yes Total Critical Care Time: 40 Attestation: The high probability of a clinically significant, sudden or life threatening deterioration of the patient's cv system(s) required my full and direct attention, intervention and personal management. The critical care time is as shown. This time is in addition to time spent performing any reported procedures but includes the following: [x] Data and vital sign review and interpretation [x] Patient assessment, examination and intervention [x] Documentation [x] Medication orders and management Discharge Plan Discharge Patient Disposition: Admitted As Inpatient Clinical Impression: Atrial fibrillation with RVR, Pain in right knee Condition: Stable Prescriptions: No Action oxycodone 15 mg tablet 7.5 mg PO Q8H PRN (Reason: Pain) atorvastatin 20 mg tablet 20 mg PO BEDTIME@20 aspirin [Adult Aspirin Regimen] 81 mg tablet,delayed release (DR/EC) 81 mg PO BID@08,20 diphenhydramine HCl [Allergy (diphenhydramine)] 25 mg capsule 25 mg PO Q6H PRN (Reason: Allergy Symptoms) Refresh Liquigel 1 % drops, liquid gel 1 drp ophthalmic (eye) BID@08,20 albuterol sulfate 90 mcg/actuation HFA aerosol inhaler 2 puff inhalation Q6H PRN (Reason: Shortness Of Breath) latanoprost 0.005 % drops 1 drp ophthalmic (eye) DAILY polyethylene glycol 3350 [Miralax] 17 gram/dose powder 4 g PO DAILY hydrochlorothiazide 12.5 mg tablet 12.5 mg PO DAILY@08 Qty: 90 3RF dabigatran etexilate [Pradaxa] 150 mg Capsule 150 mg PO BID@08,20 montelukast 10 mg Tablet 10 mg PO DAILY@08 digoxin 125 mcg (0.125 mg) Tablet 125 mcg PO EVERY OTHER DAY naloxone 0.4 mg/mL Solution 0.4 mg IM Q3M PRN (Reason: Opioid Overdose) Rx Instructions: x 3 doses and call 911 if no response bisacodyl 10 mg Suppository 10 mg ID DAILY PRN (Reason: Constipation) Rx Instructions: for no bm in 3 days nystatin 100,000 unit/gram Powder 1 applic TOPICAL BID bisacodyl 5 mg Tablet 10 mg PO DAILY PRN (Reason: Constipation) Rx Instructions: give if no bm x 3 days buspirone 5 mg Tablet 5 mg PO BID@08,20 acetaminophen 500 mg Tablet 1,000 mg PO Q8H PRN (Reason: Pain) metoprolol tartrate 50 mg Tablet 50 mg PO BID@08,20 pantoprazole 40 mg tablet,delayed release (DR/EC) 40 mg PO DAILY@07 amoxicillin 500 mg capsule 500 mg PO DAILY Januvia 100 mg tablet 100 mg PO DAILY miconazole nitrate 2 % Cream See Rx Instructions .ROUTE .COMPLEX Rx Instructions: apply to irritated area topically twice a day nystatin 100,000 unit/gram cream 1 applic TOPICAL BID PRN (Reason: unknown) docusate sodium [Colace] 100 mg Capsule 100 mg PO BID@08,20 levothyroxine 200 mcg tablet 200 mcg PO DAILY@05 duloxetine 60 mg capsule,delayed release(DR/EC) 60 mg PO DAILY@08 diclofenac sodium 1 % Gel 2 g TOPICAL QID PRN (Reason: Pain) ergocalciferol (vitamin D2) [Vitamin D2] 1,250 mcg (50,000 unit) Capsule 50,000 unit PO Q7D Rx Instructions: on wednesday Referrals: Bret Ozuna MD [Primary Care Provider] - Coding Level of Care Code ED 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
--- NOTE | 2022-12-20 10:41 | PC.NURSE ---
Pt was triaged immediately on arrival, but documentation delayed secondary to pt needing to be cleaned and incontinence care performed.
[2022-12-20 10:46] LABS: Basophils % 0.1 %; Hematocrit 35.2 % (36-47); Lymphocytes % 4.7 %; Mean Corpuscular HGB Conc 33.5 g/dL (30-55); Mean Corpuscular Hemoglobin 34.6 pg (27-33); Mean Corpuscular Volume 103.2 fl (85-98); Mean Platelet Volume 8.6 fL (7.4-10.4); Monocytes # 1.7 10^3/uL (0.2-0.9); Monocytes % 7.9 %; Neutrophils # 18.93 10^3/uL (1.8-7.7); Neutrophils % 86.6 %; Nucleated Red Blood Cells % 0 %; Platelet Count 260 10^3/cmm (157-399); Red Blood Count 3.41 10^6/uL (3.85-5.65); Red Cell Distribution Width 14.6 % (12.1-15.1); White Blood Count 21.86 10^3/uL (3.29-11.43)
[2022-12-20] MEDS: sodium chloride 0.9% 1,000 ML 999 ML IV (10:47)
[2022-12-20] MEDS: dilTIAZem 5 mg/mL SDV 5 mL 15 MG IVP (10:50)
[2022-12-20 11:12] LABS: Alanine Aminotransferase 17 U/L (0-33); Albumin Level 3.3 g/dL (3.5-5.2); Alkaline Phosphatase 109 U/L (35-105); Anion Gap 17.8 (5-19); Aspartate Amino Transferase 22 U/L (0-32); Blood Urea Nitrogen 15 mg/dL (8-23); Calcium 8.6 mg/dL (8.5-10.5); Carbon Dioxide 26 mmol/L (22-29); Chloride 91 mmol/L (98-107); Creatine Phosphokinase 27 U/L (26-192); Globulin 4.3 g/dL (1.3-4.6); Glucose 282 mg/dL (65-115); Osmolality Calculated 283 mOsm/kg (285-295); Potassium 3.8 mmol/L (3.5-5.1); Sodium 131 mmol/L (136-145); Total Protein 7.6 g/dL (6.6-8.7)
--- NOTE | 2022-12-20 11:24 | PC.PHAR ---
PT HAS MEDICATIONS SET UP WITH [facility]. PT STATES BAG OF MEDICATIONS WAS ON THE TABLE FOR EMS TO BRING IN. UNABLE TO VERIFY WITH [facility] [place] DUE TO NO WEEKEND HOURS FOR EITHER. MED REC DONE ENTIRELY BASED ON CURRENT MED LIST WITH MOST CURRENT FILL DATES. 12/20/22
[2022-12-20 11:39] LABS: Add Urine Microscopic? YES; Bilirubin Urine 1+ (Negative); Blood Urine 2+ (Negative); Glucose Urine UA 4+ (Normal); Ketones Urine 2+ (Negative); Leukocyte Esterase Urine Negative (Negative); Nitrate Urine Negative (Negative); Protein Urine 1+ (Negative); RBC Urine 0-4 /hpf (0-2); Specific Gravity, Urine 1.015 (1.005-1.030); Squamous Epithelial Cell Urine 0-4 /hpf (0-5); Urine Appearance Clear (CLEAR); Urine Color Orange (Yellow); Urobilinogen Urine 4 mg/dL (Negative); WBC Urine 0-4 /hpf (0-5); pH Urine 5 (5-7)
[2022-12-20 11:40] LABS: Add Urine Culture? Yes; Bacteria Urine 2+ /hpf
[2022-12-20] MEDS: dilTIAZem 100 MG in sodium chloride 0.9% (add-van) 100 ML IV (11:59)
--- NOTE | 2022-12-20 12:06 | P.HP_ITS ---
Providers/Chief Complaint Primary Care Provider: Bret Ozuna MD Chief Complaint: RIGHT KNEE PAIN History of Present Illness Pallavi Saha is a 77 year old female with past medical history of chronic A- fib, chronic anticoagulation, permanent pacemaker in place, morbid obesity, sleep apnea with CPAP, type 2 diabetes mellitus presents to the ER today from home with concerns for pain in the right knee. As per patient her knee locked up couple of days ago because of which she was not able to move or get out of her recliner and she presented to the ER. In the ER she was found to be in atrial fibrillation with rapid ventricular response. It seems patient was not able to take her medication for few days because she was not able to get out of recliner. Patient herself denies any nausea, vomiting, headache, dizziness, dysuria, diarrhea, cough, runny nose. She is complaining of mild palpitations, feeling weak, decreased appetite for last few days. Blood work done in the ER appreciated. Requested for a digoxin level which came at 0.4 and subtherapeutic When seen on the floor patient was on Cardizem drip of 12.5 with heart rate running at around 1 1 0-1 1 5 saturating 90 to 92% on room air. Review of Systems General: Reports: 10 or more systems reviewed and unremarkable except in HPI and below Const: Denies: fever(s), chills, body aches, change in appetite, change in weight, malaise, night sweats, diaphoresis, change in sleep pattern, daytime sleepiness or snoring Eyes: Denies: change in vision, blurry vision, photophobia, eye discomfort or eye discharge ENMT: Denies: throat pain, enlarged tonsils, hoarseness, mouth pain, oral sores, dry mouth, tinnitus, nasal congestion or post nasal drip Card: Denies: chest pain, palpitations, irregular heart rhythm, edema, swelling of feet/ankles, lightheadedness, syncope, pre-syncope, dyspnea on exertion, orthopnea, leg pain with exertion or acrocyanosis Resp: Denies: dyspnea, productive cough, non-productive cough, wheezing, stridor, pain on inspiration, change in phlegm color, hemoptysis or chest congestion GI: Denies: abdominal pain, nausea, vomiting, hematemesis, coffee ground emesis, dysphagia, heartburn, diarrhea, constipation, bloating, GI cramping, change in bowel habits, pain on defecation, hematochezia or melena : Denies: flank pain, dysuria, urinary frequency, urinary urgency, urinary hesitancy, nocturia or hematuria Musc: Denies: neck pain, back pain, extremity pain, joint pain, joint swelling, joint redness, joint stiffness or limited range of motion Neuro: Denies: headache(s), numbness in extremities, weakness in extremities, sensory changes, lack of coordination, difficulty walking, frequent falls, dizziness, vertigo, confusion, Slurred speech present, difficulty communicating thoughts or seizure-like activity Psych: Denies: anxiety, depression, mood swings, panic attacks, hopelessness or irritability Endo: Denies: polyuria, polydipsia, tired all the time, cold intolerance, excessive sweating, flushing or heat intolerance Phil/Lymph: Denies: easy bruising or easy bleeding All/Imm: Denies: tongue swelling, facial swelling or acute wheezing Medications/Allergies Home Medications Medication Instructions Recorded Confirmed Last Taken Type dabigatran etexilate 150 mg 150 mg PO BID@07/22/19 12/20/22 03/08/22 History capsule (Pradaxa) digoxin 125 mcg (0.125 mg) tablet 125 mcg PO EVERY OTHER DAY 07/22/19 12/20/22 03/08/22 History montelukast 10 mg tablet 10 mg PO DAILY@07/22/19 12/20/22 03/08/22 History bisacodyl 5 mg tablet 10 mg PO DAILY PRN Constipation 02/09/20 12/20/22 02/07/22 History atorvastatin 20 mg tablet 20 mg PO BEDTIME@05/09/20 12/20/22 03/08/22 History bisacodyl 10 mg rectal suppository 10 mg FL DAILY PRN Constipation 09/18/20 12/20/22 08/12/21 History naloxone 0.4 mg/mL injection 0.4 mg IM Q3M PRN Opioid Overdose 09/18/20 12/20/22 Unknown History solution nystatin 100,000 unit/gram topical 1 applic topical BID 09/18/20 12/20/22 03/08/22 History powder aspirin 81 mg tablet,delayed 81 mg PO BID@01/13/21 12/20/2203/08/22 History release (Adult Aspirin Regimen) carboxymethylcellulose sodium 1 % 1 drp ophthalmic (eye) BID@01/13/21 12/20/22 03/08/22 History eye liquid gel drops (Refresh Liquigel) diphenhydramine HCl 25 mg capsule 25 mg PO Q6H PRN Allergy Symptoms 01/13/21 12/20/22 10/29/21 History (Allergy (diphenhydramine)) oxycodone 15 mg tablet 7.5 mg PO Q8H PRN Pain 10/24/21 12/20/22 03/11/22 History acetaminophen 500 mg tablet 1,000 mg PO Q8H PRN Pain 10/31/21 12/20/22 02/28/22 History buspirone 5 mg tablet 5 mg PO BID@10/31/21 12/20/22 03/08/22 History metoprolol tartrate 50 mg tablet 50 mg PO BID@10/31/21 12/20/22 03/08/22 History pantoprazole 40 mg tablet,delayed 40 mg PO DAILY@10/31/21 12/20/22 03/08/22 History release diclofenac sodium 1 % topical gel 2 g topical QID PRN Pain 03/03/22 12/20/22 11/24/21 History docusate sodium 100 mg capsule 100 mg PO BID@03/03/22 12/20/22 03/08/22 History (Colace) duloxetine 60 mg capsule,delayed 60 mg PO DAILY@03/03/22 12/20/22 03/08/22 History release ergocalciferol (vitamin D2) 1,250 50,000 unit PO Q7D 03/03/22 12/20/22 03/08/22 History mcg (50,000 unit) capsule (Vitamin D2) levothyroxine 200 mcg tablet 200 mcg PO DAILY@05 03/03/22 12/20/22 03/11/22 History miconazole nitrate 2 % topical See Rx Instructions .Route .COMPLEX 03/03/22 12/20/22 03/08/22 History cream nystatin 100,000 unit/gram topical 1 applic topical BID PRN unknown 03/03/22 12/20/22 03/08/22 History cream albuterol sulfate 90 mcg/actuation 2 puff inhalation Q6H PRN 09/17/22 12/20/22 Unknown History aerosol inhaler Shortness Of Breath latanoprost 0.005 % eye drops 1 drp ophthalmic (eye) DAILY 09/17/22 12/20/22 Unknown History polyethylene glycol 3350 17 4 g PO DAILY 09/17/22 12/20/22 Unknown History gram/dose oral powder (Miralax) hydrochlorothiazide 12.5 mg tablet 12.5 mg PO DAILY@08 #90 tabs 11/02/22 12/20/22 Unknown Rx amoxicillin 500 mg capsule 500 mg PO DAILY 12/20/22 12/20/22 Unknown History sitagliptin phosphate 100 mg 100 mg PO DAILY 12/20/22 12/20/22 Unknown History tablet (Januvia) Allergies Allergy/AdvReac Type Severity Reaction Status Date / Time Tetanus Vaccines and Toxoid Allergy Mild Unknown Verified 09/17/22 10:16 metformin [From Glucophage] Allergy Unknown Unknown Verified 09/17/22 10:16 cimetidine Allergy Unknown Verified 09/17/22 10:16 PFSH Acute PFSH: Medical History (Updated 12/20/22 @ 16:15 by Jagjit Conway MD) Anticoagulation adequate with anticoagulant therapy Atrial fibrillation CKD (chronic kidney disease) stage 2, GFR 60-89 ml/min Coronary artery disease Dementia Hypertension Hypothyroid Infected abrasion of groin 2018) infection requiring I&D 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 Morbid obesity Pacemaker Peripheral vascular disease Type 2 diabetes mellitus Surgical History H/O knee surgery H/O shoulder surgery H/O thyroidectomy For Graves' disease H/O: hysterectomy History of appendectomy History of permanent cardiac pacemaker placement SSS S/P cholecystectomy S/P gastric surgery LAP-BAND later followed by gastric sleeve Family History Other CAD (coronary artery disease) Dementia Stroke Social History Smoking and tobacco status: never smoked Alcohol intake: never Substance/Drug Use: never Lives independently: Yes Housing: House Marital status: / Current occupational status: retired Vitals/I&O/Wt Last Vital Signs Temp 98.9 F 12/20/22 10:29 Pulse 102 H 12/20/22 12:04 Resp 19 H 12/20/22 10:29 BP 151/80 12/20/22 12:04 Pulse Ox 94 12/20/22 12:04 O2 Del Method Room Air 12/20/22 12:04 Weight last 48 hrs Weight 115.212 kg Physical Exam Narrative: General: No acute distress, AO x3, morbidly obese HEENT: PERRLA, pupils bilaterally equal and reactive Chest: Normal vesicular breath sounds, no added sounds, equal good air entry bilaterally CVS: S1-S2 irregularly irregular, tachycardia, no gallops, no rubs Abdomen: Soft, nontender, no organomegaly, bowel sounds present Neuro: No focal deficits, no facial deformity, AO x3, power 5/5 in all limbs Extremity: Bilateral lower limbs around ankle up to lower calf red in color, erythematous and warm to touch. Right knee having a old well-healed surgical scar without any fluctuance or local rise of temperature Data 12/20/22 10:39 12/20/22 10:39 A&P Assessment and plan (1) Pain in right knee: (2) Atrial fibrillation with RVR: (3) Anticoagulation adequate with anticoagulant therapy: (4) Serum digoxin level below therapeutic range: (5) Hypertension: Qualifiers: Hypertension type: essential hypertension Qualified Code(s): I10 - Essential (primary) hypertension (6) Type 2 diabetes mellitus: Qualifiers: Diabetes mellitus mcfp insulin use: without terminal computer operator use Diabetes mellitus complication status: with kidney complications (7) Morbid obesity: (8) Pacemaker: (9) Cellulitis: Plan 77-year-old female with past medical history of chronic A-fib on anticoagulation, morbidly obese presented to the ER because of right knee pain with history of knee replacement, inability to move, weakness getting worse for last 2 to 3 days found to be in atrial fibrillation with rapid ventricular response. A-fib with RVR: Chronic. Started on Cardizem drip in the ER. Wean keeping heart rate less than 100. Found to have low digoxin levels at 0.4. Patient is supposed to be on 0.125 digoxin every other day. As levels are subtherapeutic for now we will go ahead with digoxin load with 500 mcg one-time followed by 250 mcg every 6 hours for 2 doses. Repeat digoxin level tomorrow afternoon. Continue with home dose of metoprolol 50 mg twice daily. Continue with home dose of Pradaxa. Plan for repeat echocardiogram once heart rate is better controlled. Leukocytosis: Possibility of secondary to cellulitis. Chest x-ray negative for acute abnormality, UA negative for UTI. Patient does have concerns for lower limb cellulitis. No concerns for septic knee for now. Check blood cultures, MRSA swab, respiratory viral panel, procalcitonin. Start IV Zosyn for now. Cellulitis: Bilateral. As above. Right knee pain: Post surgical knee replacement. Knee x-ray appreciated to be stable. Given extreme pain with leukocytosis will get knee CT. PT evaluation. Morbid obesity: With sleep apnea: Continue with home CPAP nightly. Pacemaker in situ: Request for pacemaker interrogation. Continue other chronic medications. CODE STATUS: Full code Cardiac carb consistent diet Protonix for PUD prophylaxis Pradaxa will suffice as DVT prophylaxis Attestations Medical Necessity Statement*: Admission for more than 2 midnights for management of atrial fibrillation with rapid ventricular response, cellulitis, acute right knee pain Diagnoses Pain in right knee M25.561 Atrial fibrillation with RVR I48.91 Anticoagulation adequate with anticoagulant therapy Z79.01 Serum digoxin level below therapeutic range R78.89 Hypertension I10 Hypertension type: essential hypertension Type 2 diabetes mellitus E11.9 Diabetes mellitus mcfp insulin use: without mcfp use Diabetes mellitus complication status: with kidney complications Morbid obesity E66.01 Pacemaker Z95.0 Cellulitis L03.90
[2022-12-20 13:06] LABS: NT Pro B Type Natriuretic Pept 2007 pg/mL (0-450); Procalcitonin 1.16 ng/mL (0-0.5)
[2022-12-20 13:30] LABS: Digoxin 0.4 ng/mL (0.6-1.2)
[2022-12-20 14:40] LABS: Iron 20 ug/dL (37-145); Percent Saturation 11.5 % (20-50); Thyroid Stimulating Hormone 0.57 uIU/mL (0.27-4.20); Total Iron Binding Capacity 173 mcg/dl; Unsaturated Iron Binding 153 ug/dL (112-347); Vitamin B12 383 pg/mL (232-1245)
[2022-12-20] MEDS: digoxin 250 mcg/ml INJ 2 mL 500 MCG IVP (16:03)
[2022-12-20] MEDS: digoxin 125 mcg Tablet PO (16:04)
[2022-12-20] MEDS: cefTRIAXone 1,000 MG in sodium chloride 0.9% (plus) 50 ML 100 MG IV (16:04)
--- NOTE | 2022-12-20 16:20 | CTR_ITS ---
PROCEDURE INFORMATION: Exam: CT Right Lower Extremity Without Contrast, Knee Exam date and time: 12/20/2022 5:15 PM Age: 77 years old Clinical indication: Pain; Right; Prior surgery; Surgery date: 6+ months; Surgery type: RT knee replacement 2+ yrs ago; Additional info: History of knee replacement, knee pain TECHNIQUE: Imaging protocol: CT of the right lower extremity without contrast was performed. Exam focused on the knee. Radiation optimization: All CT scans at this facility use at least one of these dose optimization techniques: automated exposure control; mA and/or kV adjustment per patient size (includes targeted exams where dose is matched to clinical indication); or iterative reconstruction. REPORTING DATA: Count of CT and Cardiac NM exams in prior 12 months: This patient has received [address] and 0 known cardiac nuclear medicine studies in the 12 months prior to the current study. COMPARISON: CR (LOW EXM, ) 12/20/2022 11:02 AM RADIATION DOSE METRICS: Total DLP (mGy-cm): 557.21 FINDINGS: Bones/joints: There is a large knee joint effusion/hematoma mostly in the suprapatellar pouch and dissecting superiorly into the distal quadriceps muscles. There is an avulsion fracture of the proximal medial patella with retraction anterior and medial to the patella with a gap measuring 6 cm. Retracted patellar fragment is visualized on series 4 image [id number] and series 19, image 44. There remainder of the patella is tilting and subluxing laterally. The remainder of the patella has severe degenerative changes and marked bony deformity with sclerosis compatible with probable old fracture, postoperative and degenerative changes but no additional fracture of the patella is identified. There is an old ununited fracture of the proximal lateral fibula. 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 Both the femoral and tibial components of the right total knee arthroplasty have an appropriate appearance without hardware loosening. There is a prepatellar fluid collection that is hyperdense and concerning for prepatellar hematoma measuring 2.4 x 6.6 x 12.6 cm. Soft tissues: The vastus intermedius and vastus lateralis tendon insertions to the patella are identified and do appear to be intact. The avulsion fracture appears to be involving the vastus medialis and rectus femoris insertion although the rectus femora is tendon is difficult to visualize due to edema, fluid and hematoma bridging the gap between the patella and retracted avulsed patella fragment. There is abundant soft tissue edema distal quadriceps muscles and medial to the patella. Quadriceps muscles are very atrophic. Skin thickening and subcutaneous edema is also noted in the mid to lower leg concerning for cellulitis, lymphedema or venous stasis. Vasculature: There are multiple soft tissue calcifications compatible with fat necrosis and probable phleboliths. CT/CT knee RT wo con* [id number] IMPRESSION: 1. Fracture of the medial patella/avulsion at the insertion of the vastus medialis and most likely the rectus femorals with retraction into the medial thigh. There is adjacent abundant hyperdense fluid/hematoma and soft tissue edema. Large prepatellar hematoma. 2. Long stem total knee arthroplasty has an appropriate appearance without hardware loosening. No additional acute bony fracture.
[2022-12-20 16:56] LABS: Glucose Point of Care 242 mg/dL (70-110)
--- NOTE | 2022-12-20 17:15 | PC.NURSE ---
Unable to start IV zosyn at this time as it is not compatible with cardizem. Attempted x2 to start a new IV without success. 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
[2022-12-20] MEDS: insulin lispro 100 unit/1 mL SUBCUT ×2 (18:34→22:32)
[2022-12-20 18:43] LABS: Adenovirus Not Detected (NOT DETECT); Chlamydia Pneumoniae Not Detected (NOT DETECT); Coronavirus 229E,HKU1,NL63,OC4 Not Detected (NOT DETECT); Human Metapneumovirus Not Detected (NOT DETECT); Human Rhinovirus/Enterovirus Not Detected (NOT DETECT); Influenza A Not Detected (NOT DETECT); Influenza A H1 Not Detected (NOT DETECT); Influenza A H1-2009 Not Detected (NOT DETECT); Influenza A H3 Not Detected (NOT DETECT); Influenza B Not Detected (NOT DETECT); Mycoplasma Pneumoniae Not Detected (NOT DETECT); Parainfluenza Virus Type 1 Not Detected (NOT DETECT); Parainfluenza Virus Type 2 Not Detected (NOT DETECT); Parainfluenza Virus Type 3 Not Detected (NOT DETECT); Parainfluenza Virus Type 4 Not Detected (NOT DETECT); Respiratory Syncytial Virus A Not Detected (NOT DETECT); Respiratory Syncytial Virus B Not Detected (NOT DETECT); SARS-COV-2 Not Detected (NOT DETECT)
[2022-12-20] MEDS: dilTIAZem 100 MG in sodium chloride 0.9% (add-van) 100 ML 10 MG IV (19:56)
[2022-12-20] MEDS: atorvastatin 40 mg Tablet 20 MG PO (20:20)
[2022-12-20] MEDS: metoprolol tartrate 50 mg Tablet PO (20:21)
[2022-12-20] MEDS: oxyCODONE 5 mg IR Tab/Cap 7.5 MG PO (20:21)
[2022-12-20] MEDS: BuSPIRONE 10 mg Tablet 5 MG PO (20:21)
--- NOTE | 2022-12-20 21:34 | PC.NURSE ---
Cardizem drip stopped at 2130, heart rate is 60s-70s.
[2022-12-20] MEDS: piperacillin-tazobactam 3.375 GM in sodium chloride 0.9% (plus) 50 ML IV (21:44)
[2022-12-20 22:03] LABS: Glucose Point of Care 242 mg/dL (70-110)
[2022-12-20] MEDS: digoxin 250 mcg/ml INJ 2 mL IVP (23:37)
[2022-12-21] VITALS (57 sets, daily range): BP systolic 121–135; BP diastolic 56–68; PULSE 61–86; RESP 14–32; TEMP 36.8–37.1; O2SAT 91–100; BMI 48.9
[2022-12-21 04:05] LABS: Basophils % 0.2 %; Eosinophils % 0.2 %; Hematocrit 31.9 % (36-47); Lymphocytes # 0.7 10^3/uL (0.8-4.8); Mean Corpuscular HGB Conc 32.6 g/dL (30-55); Mean Corpuscular Hemoglobin 34.2 pg (27-33); Mean Corpuscular Volume 104.9 fl (85-98); Mean Platelet Volume 8.9 fL (7.4-10.4); Monocytes # 1.2 10^3/uL (0.2-0.9); Monocytes % 8.3 %; Neutrophils # 12.64 10^3/uL (1.8-7.7); Neutrophils % 85.2 %; Nucleated Red Blood Cells % 0 %; Platelet Count 244 10^3/cmm (157-399); Red Blood Count 3.04 10^6/uL (3.85-5.65); Red Cell Distribution Width 14.3 % (12.1-15.1); White Blood Count 14.84 10^3/uL (3.29-11.43)
[2022-12-21 04:22] LABS: Estmated Average Glucose 174; Hemoglobin A1C 7.7 % (4.0-6.0)
[2022-12-21 04:25] LABS: HDL Cholesterol 20 mg/dL (60-100); Triglycerides 149 mg/dL (0-150)
[2022-12-21 04:26] LABS: Alanine Aminotransferase 14 U/L (0-33); Albumin Level 2.6 g/dL (3.5-5.2); Alkaline Phosphatase 92 U/L (35-105); Anion Gap 13.4 (5-19); Aspartate Amino Transferase 20 U/L (0-32); Blood Urea Nitrogen 14 mg/dL (8-23); Calcium 7.9 mg/dL (8.5-10.5); Carbon Dioxide 27 mmol/L (22-29); Chloride 96 mmol/L (98-107); Globulin 3.8 g/dL (1.3-4.6); Glucose 194 mg/dL (65-115); Magnesium 1.7 mg/dL (1.7-2.3); Osmolality Calculated 282 mOsm/kg (285-295); Phosphorus 1.6 mg/dL (2.5-4.5); Potassium 3.4 mmol/L (3.5-5.1); Sodium 133 mmol/L (136-145); Total Bilirubin 1.1 mg/dL (0.15-1.2); Total Protein 6.4 g/dL (6.6-8.7)
[2022-12-21 04:44] LABS: Chol HDL Ratio 5.95 mg/dL (0.0-4.40); Cholesterol 119 mg/dL (0-200); LDL Cholesterol Calculated 69 mg/dL (50-129); LDL HDL Ratio 3.45 RATIO (0.00-3.22)
[2022-12-21 04:54] LABS: Folate Level < 20.0 ng/mL (4.8-37.3)
[2022-12-21] MEDS: levothyroxine 200 mcg Tablet PO (05:54)
[2022-12-21] MEDS: piperacillin-tazobactam 3.375 GM in sodium chloride 0.9% (plus) 50 ML IV ×2 (05:54→16:05)
[2022-12-21] MEDS: digoxin 250 mcg/ml INJ 2 mL IVP (05:55)
[2022-12-21] MEDS: pantoprazole DR 40 mg Tablet PO (06:14)
[2022-12-21 07:02] LABS: Glucose Point of Care 211 mg/dL (70-110)
[2022-12-21] MEDS: duloxetine 60 mg Capsule PO (08:32)
[2022-12-21] MEDS: aspirin 81 mg EC Tablet PO (08:32)
[2022-12-21] MEDS: polyethylene glycol 3350 Pkt 17 gm PO (08:33)
[2022-12-21] MEDS: BuSPIRONE 10 mg Tablet 5 MG PO (08:33)
[2022-12-21] MEDS: insulin lispro 100 unit/1 mL SUBCUT ×3 (08:33→17:37)
[2022-12-21] MEDS: metoprolol tartrate 50 mg Tablet PO (08:33)
[2022-12-21 11:27] LABS: Glucose Point of Care 291 mg/dL (70-110)
[2022-12-21] MEDS: oxyCODONE 5 mg IR Tab/Cap 7.5 MG PO (14:24)
[2022-12-21] MEDS: magnesium sulfate premix 1 GM/100 ML PIGGYBACK IV (14:26)
--- NOTE | 2022-12-21 15:47 | P.TS_ITS ---
Transfer Summary Providers Date of Admission: 12/20/22 13:54 Date of Discharge/Transfer: 12/21/22 Attending Provider at Admission: Jagjit Conway MD Attending Provider at Transfer: Marlon Lopez Primary Care Provider: Bret Ozuna MD Transfer Plans: Anticipated date of transfer: 12/21/22 . Diagnoses at Discharge Discharge Diagnosis (1) Pain in right knee: Status: Acute (2) Atrial fibrillation with RVR: Status: Acute (3) Anticoagulation adequate with anticoagulant therapy: Status: Acute (4) Serum digoxin level below therapeutic range: Status: Acute (5) Hypertension: Status: Acute Qualifiers: Hypertension type: essential hypertension Qualified Code(s): I10 - Essential (primary) hypertension (6) Type 2 diabetes mellitus: Status: Acute Qualifiers: Diabetes mellitus complication status: with kidney complications Diabetes mellitus residential insulin use: without residential use (7) Morbid obesity: Status: Acute (8) Pacemaker: Status: Acute (9) Cellulitis: Status: Acute Reason for Visit Reason for Visit RIGHT KNEE PAIN Hospital Course Hospital Course Very pleasant 77 lady with history of atrial fibrillation, anticoagulation with Pradaxa, also on 81 mg aspirin, history of peripheral vascular disease, pacemaker, CAD, HTN, DM 2, morbid obesity, CKD, hypothyroidism history of right TKA performed at [facility], was admitted after presenting on 12/20 reporting that her knee had locked up couple days prior and has not been able to move or get on her recliner, presented with right knee pain, with knee swelling, pain, mild erythema, on presentation in ER noted to be in A-fib with RVR had to be started on Cardizem drip. On presentation also with leukocytosis 21.8, blood cultures were collected, pending, so far no growth on report. Received empiric antibiotic and continued empirically on Zosyn. MRI could not be performed due to pacemaker. X-ray of the right knee obtained showing hardware in position. Noncontrast CT study of the knee with Fracture of the medial patella/avulsion at the insertion of the vastus medialis and most likely the rectus femorals with retraction into the medial thigh. There is adjacent abundant hyperdense fluid/hematoma and soft tissue edema. Large prepatellar hematoma. Findings discussed with orthopedic surgery here, and on review some additional concerning findings of possible early failure of the prosthesis, otherwise recommendation for assessment by original orthopedic team, or at least higher level care. Due to noted hematoma, as well as anticoagulation, for time being held with Pradaxa, noted anemia hemoglobin down to 10.4, as well as low-dose aspirin, at risk of CVA with atrial fibrillation, as well as currently not excluded possibility of joint infection, blood culture noted pending, so far negative, to allow for additional assessment, consideration of further management she is currently accepted at higher level care facility with [facility] on discussion with orthopedic and hospitalist team there. Repeat Hb obtained, 10.6. With regards to atrial fibrillation she has weaned off Cardizem drip. Received a loading dose of digoxin and continued on 125 mcg digoxin every other day, continued on 50 mg twice daily metoprolol. Heart rate currently 60s-80s. Rec eived supplementation for hypokalemia, hypophosphatemia, soft magnesium. Initially noted on 6 L nasal cannula oxygen, chest x-ray and presentation unremarkable. Negative viral panel including coronavirus PCR and influenza PCR. Nasal MRSA pending. On sliding scale for DM, at home on Januvia. A1c checked, noted 7.7. Physical Exam Const: COMMON NORMALS: patient oriented x3 and alert GENERAL APPEARANCE: cooperative ORIENTATION/CONSCIOUSNESS: Yes awake HENMT: COMMON NORMALS: oropharynx normal Neck/C-Spine: COMMON NORMALS: no JVD Resp: COMMON NORMALS: normal respiratory effort and clear to auscultation bilaterally AUSCULTATION: clear to auscultation bilaterally Cardio: COMMON NORMALS: no JVD, regular rhythm, S1 normal heart sound present, S2 normal heart sound present and No murmurs present (Cardio) RHYTHM: regular rhythm HEART SOUNDS: S1 normal heart sound present and S2 normal heart sound present GI: COMMON NORMALS: Normal to inspection, nondistended, normoactive bowel sounds present, Soft to palpation and non-tender PALPATION: Yes Soft to palpation Extremity: COMMON NORMALS: no joint enlargement and no pedal edema OTHER: Large legs, R knee appearance with some swelling, Anterior, infrapatellar bruise. Faint pinkish erythema right knee. Neuro: COMMON NORMALS: patient oriented x3 and moves all extremities SENSORIUM/ORIENTATION: Yes alert Skin: COMMON NORMALS: no rashes or lesions noted GENERAL SKIN EXAM: no rashes or lesions noted TS Data Studies Completed and Pending Pending at discharge Category Date Time Status Basic Metabolic Panel AM LABS Lab 12/22/22 04:00 Ordered Basic Metabolic Panel AM LABS Lab 12/23/22 04:00 Ordered Basic Metabolic Panel AM LABS Lab 12/24/22 04:00 Ordered Blood Culture Stat Lab 12/20/22 18:06 Results Complete Blood Count w/Auto AM LABS Lab 12/22/22 04:00 Ordered Complete Blood Count w/Auto AM LABS Lab 12/23/22 04:00 Ordered Complete Blood Count w/Auto AM LABS Lab 12/24/22 04:00 Ordered DIG [Digoxin] Routine Lab 12/21/22 15:58 Ordered Magnesium AM LABS Lab 12/22/22 04:00 Ordered Methicillin Resistant S.aureu Routine Lab 12/20/22 16:48 Received Urine Culture Stat Lab 12/20/22 10:27 Results Labs from last 24 hours 12/21/22 12/21/22 12/21/22 15:02 11:21 06:42 WBC RBC Hgb 10.60 L Hct MCV MCH MCHC RDW Plt Count MPV Neut % (Auto) Lymph % (Auto) [place] % (Auto) Eos % (Auto) Baso % (Auto) Neut # (Auto) Lymph # (Auto) [place] # (Auto) Eos # (Auto) Baso # (Auto) Nucleated RBC % (auto) Nucleated RBCs # Sodium Potassium Chloride Carbon Dioxide Anion Gap BUN Creatinine GFR Calculation Glucose POC Glucose 291 H 211 H Estimat Average Glucose Hemoglobin A1c Calculated Osmolality Calcium Phosphorus Magnesium Total Bilirubin AST ALT Alkaline Phosphatase Total Protein Albumin Globulin Triglycerides Cholesterol LDL Cholesterol, Calc HDL Cholesterol LDL/HDL Ratio Cholesterol/HDL Ratio Folate Nasal Influ A H1 2008 PCR Adenovirus (PCR) C. pneumoniae DNA (PCR) Coronavirus 229E (PCR) Human Metapneumovir PCR Influenza A (H1) PCR Influenza A (H3) PCR Influenza Type A (PCR) Influenza Type B (PCR) M. pneumoniae (PCR) Parainfluenza 1 (PCR) Parainfluenza 2 (PCR) Parainfluenza 3 (PCR) Parainfluenza 4 (PCR) RSV Type A (PCR) RSV Type B (PCR) Entero/Rhino (PCR) SARS-CoV-2 (PCR) MRSA (PCR) 12/21/22 12/21/22 12/21/22 03:35 03:35 03:35 WBC RBC Hgb Hct MCV MCH MCHC RDW Plt Count MPV Neut % (Auto) Lymph % (Auto) [place] % (Auto) Eos % (Auto) Baso % (Auto) Neut # (Auto) Lymph # (Auto) [place] # (Auto) Eos # (Auto) Baso # (Auto) Nucleated RBC % (auto) Nucleated RBCs # Sodium Potassium Chloride Carbon Dioxide Anion Gap BUN Creatinine GFR Calculation Glucose POC Glucose Estimat Average Glucose 174 Hemoglobin A1c 7.7 H Calculated Osmolality Calcium Phosphorus Magnesium Total Bilirubin AST ALT Alkaline Phosphatase Total Protein Albumin Globulin Triglycerides 149 Cholesterol 119 LDL Cholesterol, Calc 69 HDL Cholesterol 20 L LDL/HDL Ratio 3.45 H Cholesterol/HDL Ratio 5.95 H Folate < 20.0 Nasal Influ A H1 2009 PCR Adenovirus (PCR) C. pneumoniae DNA (PCR) Coronavirus 229E (PCR) Human Metapneumovir PCR Influenza A (H1) PCR Influenza A (H3) PCR Influenza Type A (PCR) Influenza Type B (PCR) M. pneumoniae (PCR) Parainfluenza 1 (PCR) Parainfluenza 2 (PCR) Parainfluenza 3 (PCR) Parainfluenza 4 (PCR) RSV Type A (PCR) RSV Type B (PCR) Entero/Rhino (PCR) SARS-CoV-2 (PCR) MRSA (PCR) 12/21/22 12/21/22 12/20/22 03:35 03:35 21:35 WBC 14.84 H RBC 3.04 L Hgb 10.40 L Hct 31.9 L MCV 104.9 H MCH 34.2 H MCHC 32.6 RDW 14.3 Plt Count 244 MPV 8.9 Neut % (Auto) 85.2 Lymph % (Auto) 5.0 [place] % (Auto) 8.3 Eos % (Auto) 0.2 Baso % (Auto) 0.2 Neut # (Auto) 12.64 H Lymph # (Auto) 0.7 L [place] # (Auto) 1.2 H Eos # (Auto) 0.0 Baso # (Auto) 0.0 Nucleated RBC % (auto) 0 Nucleated RBCs # 0.0 Sodium 133 L Potassium 3.4 L Chloride 96 L Carbon Dioxide 27 Anion Gap 13.4 BUN 14 Creatinine 0.8 GFR Calculation Not Reportable Glucose 194 H POC Glucose 242 H Estimat Average Glucose Hemoglobin A1c Calculated Osmolality 282 L Calcium 7.9 L Phosphorus 1.6 L Magnesium 1.7 Total Bilirubin 1.1 AST 20 ALT 14 Alkaline Phosphatase 92 Total Protein 6.4 L Albumin 2.6 L Globulin 3.8 Triglycerides Cholesterol LDL Cholesterol, Calc HDL Cholesterol LDL/HDL Ratio Cholesterol/HDL Ratio Folate Nasal Influ A 2008 PCR Adenovirus (PCR) C. pneumoniae DNA (PCR) Coronavirus 229E (PCR) Human Metapneumovir PCR Influenza A (H1) PCR Influenza A (H3) PCR Influenza Type A (PCR) Influenza Type B (PCR) M. pneumoniae (PCR) Parainfluenza 1 (PCR) Parainfluenza 2 (PCR) Parainfluenza 3 (PCR) Parainfluenza 4 (PCR) RSV Type A (PCR) RSV Type B (PCR) Entero/Rhino (PCR) SARS-CoV-2 (PCR) MRSA (PCR) 12/20/22 12/20/22 12/20/22 16:48 16:48 16:39 WBC RBC Hgb Hct MCV MCH MCHC RDW Plt Count MPV Neut % (Auto) Lymph % (Auto) [place] % (Auto) Eos % (Auto) Baso % (Auto) Neut # (Auto) Lymph # (Auto) [place] # (Auto) Eos # (Auto) Baso # (Auto) Nucleated RBC % (auto) Nucleated RBCs # Sodium Potassium Chloride Carbon Dioxide Anion Gap BUN Creatinine GFR Calculation Glucose POC Glucose 242 H Estimat Average Glucose Hemoglobin A1c Calculated Osmolality Calcium Phosphorus Magnesium Total Bilirubin AST ALT Alkaline Phosphatase Total Protein Albumin Globulin Triglycerides Cholesterol LDL Cholesterol, Calc HDL Cholesterol LDL/HDL Ratio Cholesterol/HDL Ratio Folate Nasal Influ A 2008 PCR Not detected Adenovirus (PCR) Not detected C. pneumoniae DNA (PCR) Not detected Coronavirus 229E (PCR) Not detected Human Metapneumovir PCR Not detected Influenza A (H1) PCR Not detected Influenza A (H3) PCR Not detected Influenza Type A (PCR) Not detected Influenza Type B (PCR) Not detected M. pneumoniae (PCR) Not detected Parainfluenza 1 (PCR) Not detected Parainfluenza 2 (PCR) Not detected Parainfluenza 3 (PCR) Not detected Parainfluenza 4 (PCR) Not detected RSV Type A (PCR) Not detected RSV Type B (PCR) Not detected Entero/Rhino (PCR) Not detected SARS-CoV-2 (PCR) Not detected MRSA (PCR) Pending Completed Studies During Hospitalization Category Date Time Status CT knee RT wo con* [id number] Routine Cat Scan 12/20/22 16:20 Completed XR chest 1V portable [id number] Stat Exams 12/20/22 10:17 Completed XR hip RT 2-3V wo/w pel* [id number] Stat Exams 12/20/22 10:17 Completed XR knee RT 3V* [id number] Stat Exams 12/20/22 10:14 Completed Laboratory Last Values WBC 14.84 10^3/uL (3.29-11.43) H 12/21/22 03:35 RBC 3.04 10^6/uL (3.85-5.65) L 12/21/22 03:35 Hgb 10.60 g/dL (11.27-16.99) L 12/21/22 15:02 Hct 31.9 % (36-47) L 12/21/22 03:35 MCV 104.9 fl (85-98) H 12/21/22 03:35 MCH 34.2 pg (27-33) H 12/21/22 03:35 MCHC 32.6 g/dL (30-55) 12/21/22 03:35 RDW 14.3 % (12.1-15.1) 12/21/22 03:35 Plt Count 244 10^3/cmm (157-399) 12/21/22 03:35 MPV 8.9 fL (7.4-10.4) 12/21/22 03:35 Neut % (Auto) 85.2 % 12/21/22 03:35 Lymph % (Auto) 5.0 % 12/21/22 03:35 [place] % (Auto) 8.3 % 12/21/22 03:35 Eos % (Auto) 0.2 % 12/21/22 03:35 Baso % (Auto) 0.2 % 12/21/22 03:35 Neut # (Auto) 12.64 10^3/uL (1.8-7.7) H 12/21/22 03:35 Lymph # (Auto) 0.7 10^3/uL (0.8-4.8) L 12/21/22 03:35 [place] # (Auto) 1.2 10^3/uL (0.2-0.9) H 12/21/22 03:35 Eos # (Auto) 0.0 10^3/uL (0.0-0.8) 12/21/22 03:35 Baso # (Auto) 0.0 10^3/uL (0.0-0.1) 12/21/22 03:35 Nucleated RBC % (auto) 0 % 12/21/22 03:35 Nucleated RBCs # 0.0 /100WBC 12/21/22 03:35 Sodium 133 mmol/L (136-145) L 12/21/22 03:35 Potassium 3.4 mmol/L (3.5-5.1) L 12/21/22 03:35 Chloride 96 mmol/L (98-107) L 12/21/22 03:35 Carbon Dioxide 27 mmol/L (22-29) 12/21/22 03:35 Anion Gap 13.4 (5-19) 12/21/22 03:35 BUN 14 mg/dL (8-23) 12/21/22 03:35 Creatinine 0.8 mg/dL (0.5-0.9) 12/21/22 03:35 GFR Calculation Not Reportable 12/21/22 03:35 Glucose 194 mg/dL (65-115) H 12/21/22 03:35 POC Glucose 291 mg/dL (70-110) H 12/21/22 11:21 Estimat Average Glucose 174 12/21/22 03:35 Hemoglobin A1c 7.7 % (4.0-6.0) H 12/21/22 03:35 Calculated Osmolality 282 mOsm/kg (285-295) L 12/21/22 03:35 Calcium 7.9 mg/dL (8.5-10.5) L 12/21/22 03:35 Phosphorus 1.6 mg/dL (2.5-4.5) L 12/21/22 03:35 Magnesium 1.7 mg/dL (1.7-2.3) 12/21/22 03:35 Iron 20 ug/dL (37-145) L 12/20/22 10:39 TIBC 173 mcg/dl 12/20/22 10:39 % Saturation 11.5 % (20-50) L 12/20/22 10:39 Unsat Iron Binding 153 ug/dL (112-347) 12/20/22 10:39 Total Bilirubin 1.1 mg/dL (0.15-1.2) 12/21/22 03:35 AST 20 U/L (0-32) 12/21/22 03:35 ALT 14 U/L (0-33) 12/21/22 03:35 Alkaline Phosphatase 92 U/L (35-105) 12/21/22 03:35 Creatine Kinase 27 U/L (26-192) 12/20/22 10:39 NT-Pro-B Natriuret Pep 2007 pg/mL (0-450) H 12/20/22 10:39 Total Protein 6.4 g/dL (6.6-8.7) L 12/21/22 03:35 Albumin 2.6 g/dL (3.5-5.2) L 12/21/22 03:35 Globulin 3.8 g/dL (1.3-4.6) 12/21/22 03:35 Triglycerides 149 mg/dL (0-150) 12/21/22 03:35 Cholesterol 119 mg/dL (0-200) 12/21/22 03:35 LDL Cholesterol, Calc 69 mg/dL (50-129) 12/21/22 03:35 HDL Cholesterol 20 mg/dL (60-100) L 12/21/22 03:35 LDL/HDL Ratio 3.45 RATIO (0.00-3.22) H 12/21/22 03:35 Cholesterol/HDL Ratio 5.95 mg/dL (0.0-4.40) H 12/21/22 03:35 Vitamin B12 383 pg/mL (232-1245) 12/20/22 10:39 Folate < 20.0 ng/mL (4.8-37.3) 12/21/22 03:35 Procalcitonin 1.16 ng/mL (0-0.5) H 12/20/22 10:39 TSH 0.57 uIU/mL (0.27-4.20) 12/20/22 10:39 Urine Color [place] (Yellow) A 12/20/22 10:27 Urine Appearance Clear (CLEAR) 12/20/22 10:27 Urine pH 5 (5-7) 12/20/22 10:27 Ur Specific [place] 1.015 (1.005-1.030) 12/20/22 10:27 Urine Protein 1+ (Negative) H 12/20/22 10: Urine Glucose (UA) 4+ (Normal) H 12/20/22 10:27 Urine Ketones 2+ (Negative) H 12/20/22 10: Urine Blood 2+ (Negative) H 12/20/22 10:27 Urine Nitrate Negative (Negative) 12/20/22 10: Urine Bilirubin 1+ (Negative) H 12/20/22 10:27 Urine Urobilinogen 4 mg/dL (Negative) H 12/20/22 10:27 Ur Leukocyte Esterase Negative (Negative) 12/20/22 10:27 Urine RBC 0-4 /hpf (0-2) H 12/20/22 10: Urine WBC 0-4 /hpf (0-5) H 12/20/22 10:27 Ur Squamous Epith Cells 0-4 /hpf (0-5) H 12/20/22 10: Amorphous Sediment Not Reportable 12/20/22 10: Urine Bacteria 2+ /hpf (NONE) H 12/20/22 10:27 Nasal Influ A H1 2008 PCR Not detected (NOT DETECT) 12/20/22 16:48 Digoxin 0.4 ng/mL (0.6-1.2) L 12/20/22 10:39 Adenovirus (PCR) Not detected (NOT DETECT) 12/20/22 16:48 C. pneumoniae DNA (PCR) Not detected (NOT DETECT) 12/20/22 16:48 Coronavirus 229E (PCR) Not detected (NOT DETECT) 12/20/22 16:48 Human Metapneumovir PCR Not detected (NOT DETECT) 12/20/22 16:48 Influenza A (H1) PCR Not detected (NOT DETECT) 12/20/22 16:48 Influenza A (H3) PCR Not detected (NOT DETECT) 12/20/22 16:48 Influenza Type A (PCR) Not detected (NOT DETECT) 12/20/22 16:48 Influenza Type B (PCR) Not detected (NOT DETECT) 12/20/22 16:48 M. pneumoniae (PCR) Not detected (NOT DETECT) 12/20/22 16:48 Parainfluenza 1 (PCR) Not detected (NOT DETECT) 12/20/22 16:48 Parainfluenza 2 (PCR) Not detected (NOT DETECT) 12/20/22 16:48 Parainfluenza 3 (PCR) Not detected (NOT DETECT) 12/20/22 16:48 Parainfluenza 4 (PCR) Not detected (NOT DETECT) 12/20/22 16:48 RSV Type A (PCR) Not detected (NOT DETECT) 12/20/22 16:48 RSV Type B (PCR) Not detected (NOT DETECT) 12/20/22 16:48 Entero/Rhino (PCR) Not detected (NOT DETECT) 12/20/22 16:48 SARS-CoV-2 (PCR) Not detected (NOT DETECT) 12/20/22 16:48 Radiology Impressions Knee X-Ray 12/20/22 10:14 IMPRESSION: A metallic knee replacement is present in good position. No acute bony abnormalities seen. Is chronic circumscribed soft tissue densities anterior knee Chest X-Ray 12/20/22 10:17 IMPRESSION: 1. No acute findings. 2. Cardiac device left anterior chest Hip/Pelvis X-Ray 12/20/22 10:17 IMPRESSION: 1. No acute bone abnormality 2. A vascular stent right iliac artery Knee CT 12/20/22 16:20 IMPRESSION: 1. Fracture of the medial patella/avulsion at the insertion of the vastus medialis and most likely the rectus femorals with retraction into the medial thigh. There is adjacent abundant hyperdense fluid/hematoma and soft tissue edema. Large prepatellar hematoma. 2. Long stem total knee arthroplasty has an appropriate appearance without hardware loosening. No additional acute bony fracture. Recent Clincial Data Last Vital Signs Temp 98.4 F 12/21/22 11:57 Pulse 67 12/21/22 14:00 Resp 24 H 12/21/22 14:24 BP 135/68 12/21/22 11:57 Pulse Ox 98 12/21/22 11:57 O2 Del Method Nasal Cannula 12/21/22 11:57 Vital Signs Temp Pulse Resp BP Pulse Ox O2 Del Method 12/21/22 14:00 67 12/21/22 14:24 24 H 12/21/22 07:30 98.5 F 84 15 121/57 98 Nasal Cannula 12/21/22 11:57 98.4 F 65 18 135/68 98 Nasal Cannula 12/21/22 05:37 83 Intake & Output/Weight 09/09/23 09/10/23 09/11/23 09/12/23 06:59 06:59 06:59 06:59 Intake Total 1592.500 / 1592.500 240 / 240 Output Total 0 / 0 Balance 1592.500 / 1592.500 240 / 240 Weight 115.212 kg 117.48 kg Vitals Last Vital Signs Temp 98.4 F 12/21/22 11:57 Pulse 67 12/21/22 14:00 Resp 24 H 12/21/22 14:24 BP 135/68 12/21/22 11:57 Pulse Ox 98 12/21/22 11:57 O2 Del Method Nasal Cannula 12/21/22 11:57 TS Medications Medications Acetaminophen (Acetaminophen 325 Mg Tablet) 650 mg PO Q6H PRN PRN Reason: Mild/Mod Pain Or Temp >/= 101 Aspirin (Aspirin 81 Mg Ec Tablet) 81 mg PO DAILY [facility] Last Admin: 12/21/22 08:32 Dose: 81 mg Atorvastatin Calcium (Atorvastatin 40 Mg Tablet) 20 mg PO BEDTIME@20 [facility] Last Admin: 12/20/22 20:20 Dose: 20 mg Bisacodyl (Bisacodyl 5 Mg Tablet) 10 mg PO DAILY PRN; Protocol PRN Reason: Constipation (see protocol) Buspirone HCl (Buspirone 10 Mg Tablet) 5 mg PO BID@ [facility] Last Admin: 12/21/22 08:33 Dose: 5 mg Dabigatran (Dabigatran 150 Mg Capsule) 150 mg PO BID@08,20 [facility] Last Admin: 12/21/22 08:32 Dose: 150 mg Dextrose (Dextrose 50% Syringe 50 Ml) 50 ml IVP PRN PRN; Protocol PRN Reason: hypoglycemia protocol Dextrose (Dextrose 50% Syringe 50 Ml) 25 ml IVP ONCE PRN; Protocol PRN Reason: hypoglycemia protocol Digoxin (Digoxin 125 Mcg Tablet) 125 mcg PO EVERY OTHER DAY [facility] Last Admin: 12/20/22 16:04 Dose: 125 mcg Duloxetine HCl (Duloxetine 60 Mg Capsule) 60 mg PO DAILY@08 [facility] Last Admin: 12/21/22 08:32 Dose: 60 mg Glucagon (Glucagon 1 Mg/Ml Inj 1 Ml) 1 mg IM ONCE PRN; Protocol PRN Reason: Adult Acute Hypoglycemia Prot. Diltiazem HCl 100 mg/ Sodium (Chloride) 100 mls @ 0 mls/hr IV .Q0M [facility]; Protocol Last Titration: 12/20/22 21:33 Dose: 0 mg/hr, 0 mls/hr Dextrose (D5w) 500 mls @ 100 mls/hr IV ONCE PRN; Protocol PRN Reason: Adult Acute Hypoglycemia Prot Piperacillin Sod/Tazobactam (Sod 3.375 gm/ Sodium Chloride) 50 mls @ 12.5 mls/hr IV Q8H [facility] Last Admin: 12/21/22 05:54 Dose: 12.5 mls/hr Potassium Phosphate 40 meq/ (Sodium Chloride) 108.5106 mls @ 27.273 mls/hr IV ONCE ONE Stop: 12/21/22 18:58 Insulin Human Lispro (Insulin Lispro 100 Unit/1 Ml) 0 unit SUBCUT WM&BEDTIME [facility]; Protocol Last Admin: 12/21/22 12:32 Dose: 8 unit Lactulose (Lactulose Oral Liq 20 Gm/30 Ml Udc) 10 gm PO DAILY PRN; Protocol PRN Reason: Constipation (see protocol) Levothyroxine Sodium (Levothyroxine 200 Mcg Tablet) 200 mcg PO DAILY@ [facility] Last Admin: 12/21/22 05:54 Dose: 200 mcg Magnesium Hydroxide (Magnesium Hydroxide 30 Ml Udc) 30 ml PO DAILY PRN; Protocol PRN Reason: Constipation (see protocol) Metoprolol Tartrate (Metoprolol Tartrate 50 Mg Tablet) 50 mg PO BID@ [facility] Last Admin: 12/21/22 08:33 Dose: 50 mg Morphine Sulfate (Morphine 4 Mg/Ml Sdv 1 Ml) 2 mg IVP Q4H PRN PRN Reason: SEVERE PAIN Ondansetron HCl (Ondansetron 2 Mg/Ml Sdv 2 Ml) 4 mg IVP Q8H PRN PRN Reason: vomiting, or N/V if npo Oxycodone HCl (Oxycodone 5 Mg Ir Tab/Cap) 7.5 mg PO Q8H PRN PRN Reason: Pain Last Admin: 12/21/22 14:24 Dose: 7.5 mg Pantoprazole Sodium (Pantoprazole Dr 40 Mg Tablet) 40 mg PO DAILY@07 [facility] Last Admin: 12/21/22 06:14 Dose: 40 mg Polyethylene Glycol (Polyethylene Glycol 3350 Pkt 17 Gm) 17 gm PO DAILY [facility] Last Admin: 12/21/22 08:33 Dose: 17 gm Discontinued Medications Digoxin (Digoxin 250 Mcg/Ml Inj 2 Ml) 500 mcg IVP NOW ONE Stop: 12/20/22 14:02 Last Admin: 12/20/22 16:03 Dose: 500 mcg Digoxin (Digoxin 250 Mcg/Ml Inj 2 Ml) 250 mcg IVP ONCE ONE Stop: 12/20/22 23:03 Digoxin (Digoxin 250 Mcg/Ml Inj 2 Ml) 250 mcg IVP Q6H [facility] Stop: 12/21/22 05:01 Last Admin: 12/21/22 05:55 Dose: 250 mcg Diltiazem HCl (Diltiazem 5 Mg/Ml Sdv 5 Ml) 15 mg IVP ONCE ONE Stop: 12/20/22 10:37 Last Admin: 12/20/22 10:50 Dose: 15 mg Sodium Chloride (Sodium Chloride 0.9%) 1,000 mls @ 999 mls/hr IV .Q1H1M ONE Stop: 12/20/22 11:36 Last Infusion: 12/20/22 13:13 Dose: Infused Ceftriaxone Sodium 1,000 mg/ (Sodium Chloride) 50 mls @ 100 mls/hr IV Q24H [facility]; Protocol Last Infusion: 12/20/22 19:49 Dose: Infused Magnesium Sulfate 1 gm/ Sodium (Chloride) 52 mls @ 104 mls/hr IV ONCE ONE Stop: 12/21/22 14:06 Magnesium Sulfate/Dextrose (Magnesium Sulfate Premix) 1 gm in 100 mls @ 200 mls/hr IV ONCE ONE Stop: 12/21/22 14:29 Last Admin: 12/21/22 14:26 Dose: 200 mls/hr Allergies Tetanus Vaccines and Toxoid Allergy (Mild, Verified 09/17/22 10:16) Unknown metformin [From Glucophage] Allergy (Unknown, Verified 09/17/22 10:16) Unknown cimetidine Allergy (Verified 09/17/22 10:16) Unknown Home Medications dabigatran etexilate 150 mg capsule (Pradaxa) 150 mg PO BID@07/22/19 [History Confirmed 12/20/22] digoxin 125 mcg (0.125 mg) tablet 125 mcg PO EVERY OTHER DAY 07/22/19 [History Confirmed 12/20/22] montelukast 10 mg tablet 10 mg PO DAILY@08 07/22/19 [History Confirmed 12/20/22] bisacodyl 5 mg tablet 10 mg PO DAILY PRN Constipation 02/09/20 [History Confirmed 12/20/22] atorvastatin 20 mg tablet 20 mg PO BEDTIME@05/09/20 [History Confirmed 12/20/22] bisacodyl 10 mg rectal suppository 10 mg [place] DAILY PRN Constipation 09/18/20 [History Confirmed 12/20/22] naloxone 0.4 mg/mL injection solution 0.4 mg IM Q3M PRN Opioid Overdose 09/18/20 [History Confirmed 12/20/22] nystatin 100,000 unit/gram topical powder 1 applic topical BID 09/18/20 [History Confirmed 12/20/22] aspirin 81 mg tablet,delayed release (Adult Aspirin Regimen) 81 mg PO BID@01/13/21 [History Confirmed 12/20/22] carboxymethylcellulose sodium 1 % eye liquid gel drops (Refresh Liquigel) 1 drp ophthalmic (eye) BID@,01/13/21 [History Confirmed 12/20/22] diphenhydramine HCl 25 mg capsule (Allergy (diphenhydramine)) 25 mg PO Q6H PRN Allergy Symptoms 01/13/21 [History Confirmed 12/20/22] oxycodone 15 mg tablet 7.5 mg PO Q8H PRN Pain 10/24/21 [History Confirmed 12/20/22] acetaminophen 500 mg tablet 1,000 mg PO Q8H PRN Pain 10/31/21 [History Confirmed 12/20/22] buspirone 5 mg tablet 5 mg PO BID@,10/31/21 [History Confirmed 12/20/22] metoprolol tartrate 50 mg tablet 50 mg PO BID@10/31/21 [History Confirmed 12/20/22] pantoprazole 40 mg tablet,delayed release 40 mg PO DAILY@10/31/21 [History Confirmed 12/20/22] diclofenac sodium 1 % topical gel 2 g topical QID PRN Pain 03/03/22 [History Confirmed 12/20/22] docusate sodium 100 mg capsule (Colace) 100 mg PO BID@,03/03/22 [History Confirmed 12/20/22] duloxetine 60 mg capsule,delayed release 60 mg PO DAILY@03/03/22 [History Confirmed 12/20/22] ergocalciferol (vitamin D2) 1,250 mcg (50,000 unit) capsule (Vitamin D2) 50,000 unit PO Q7D 03/03/22 [History Confirmed 12/20/22] levothyroxine 200 mcg tablet 200 mcg PO DAILY@05 03/03/22 [History Confirmed 12/20/22] miconazole nitrate 2 % topical cream See Rx Instructions .Route .COMPLEX 03/03/22 [History Confirmed 12/20/22] nystatin 100,000 unit/gram topical cream 1 applic topical BID PRN unknown 03/03/22 [History Confirmed 12/20/22] albuterol sulfate 90 mcg/actuation aerosol inhaler 2 puff inhalation Q6H PRN Shortness Of Breath 09/17/22 [History Confirmed 12/20/22] latanoprost 0.005 % eye drops 1 drp ophthalmic (eye) DAILY 09/17/22 [History Confirmed 12/20/22] polyethylene glycol 3350 17 gram/dose oral powder (Miralax) 4 g PO DAILY 09/17/22 [History Confirmed 12/20/22] hydrochlorothiazide 12.5 mg tablet 12.5 mg PO DAILY@08 #90 tabs 11/02/22 [Rx Confirmed 12/20/22] amoxicillin 500 mg capsule 500 mg PO DAILY 12/20/22 [History Confirmed 12/20/22] sitagliptin phosphate 100 mg tablet (Januvia) 100 mg PO DAILY 12/20/22 [History Confirmed 12/20/22] Discharge Plan Discharge Patient Disposition: Xfer Short-Term Hosp Condition: Stable Prescriptions: No Action oxycodone 15 mg tablet 7.5 mg PO Q8H PRN (Reason: Pain) atorvastatin 20 mg tablet 20 mg PO BEDTIME@20 aspirin [Adult Aspirin Regimen] 81 mg tablet,delayed release (DR/EC) 81 mg PO BID@08,20 diphenhydramine HCl [Allergy (diphenhydramine)] 25 mg capsule 25 mg PO Q6H PRN (Reason: Allergy Symptoms) Refresh Liquigel 1 % drops, liquid gel 1 drp ophthalmic (eye) BID@08,20 albuterol sulfate 90 mcg/actuation HFA aerosol inhaler 2 puff inhalation Q6H PRN (Reason: Shortness Of Breath) latanoprost 0.005 % drops 1 drp ophthalmic (eye) DAILY polyethylene glycol 3350 [Miralax] 17 gram/dose powder 4 g PO DAILY hydrochlorothiazide 12.5 mg tablet 12.5 mg PO DAILY@08 Qty: 90 3RF dabigatran etexilate [Pradaxa] 150 mg Capsule 150 mg PO BID@08,20 montelukast 10 mg Tablet 10 mg PO DAILY@08 digoxin 125 mcg (0.125 mg) Tablet 125 mcg PO EVERY OTHER DAY naloxone 0.4 mg/mL Solution 0.4 mg IM Q3M PRN (Reason: Opioid Overdose) Rx Instructions: x 3 doses and call 911 if no response bisacodyl 10 mg Suppository 10 mg MN DAILY PRN (Reason: Constipation) Rx Instructions: for no bm in 3 days nystatin 100,000 unit/gram Powder 1 applic TOPICAL BID bisacodyl 5 mg Tablet 10 mg PO DAILY PRN (Reason: Constipation) Rx Instructions: give if no bm x 3 days buspirone 5 mg Tablet 5 mg PO BID@08,20 acetaminophen 500 mg Tablet 1,000 mg PO Q8H PRN (Reason: Pain) metoprolol tartrate 50 mg Tablet 50 mg PO BID@08,20 pantoprazole 40 mg tablet,delayed release (DR/EC) 40 mg PO DAILY@07 amoxicillin 500 mg capsule 500 mg PO DAILY Januvia 100 mg tablet 100 mg PO DAILY miconazole nitrate 2 % Cream See Rx Instructions .ROUTE .COMPLEX Rx Instructions: apply to irritated area topically twice a day nystatin 100,000 unit/gram cream 1 applic TOPICAL BID PRN (Reason: unknown) docusate sodium [Colace] 100 mg Capsule 100 mg PO BID@08,20 levothyroxine 200 mcg tablet 200 mcg PO DAILY@05 duloxetine 60 mg capsule,delayed release(DR/EC) 60 mg PO DAILY@08 diclofenac sodium 1 % Gel 2 g TOPICAL QID PRN (Reason: Pain) ergocalciferol (vitamin D2) [Vitamin D2] 1,250 mcg (50,000 unit) Capsule 50,000 unit PO Q7D Rx Instructions: on wednesday Referrals: Bret Ozuna MD [Primary Care Provider] - Patient Instructions: Opioid Safety Transfer Attestations Time Spent in Transfer Care: greater than 30 min Status at Transfer: Cognitive status at transfer: cognitively intact ; Behavioral status at transfer: cooperative ; Quality Metrics Clinical Quality Measures [ No reported AMI, CVA or VTE this stay] Coding Level of Care Code 80296 Total time (in minutes) for Discharge: 65 Diagnoses Pain in right knee M25.561 Atrial fibrillation with RVR I48.91 Anticoagulation adequate with anticoagulant therapy Z79.01 Serum digoxin level below therapeutic range R78.89 Hypertension I10 Hypertension type: essential hypertension Type 2 diabetes mellitus E11.9 Diabetes mellitus complication status: with kidney complications Diabetes mellitus residential insulin use: without residential use Morbid obesity E66.01 Pacemaker Z95.0 Cellulitis L03.90
[2022-12-21] MEDS: potassium phosphate (mEq K) 40 MEQ in sodium chloride 0.9% (100 ml) 100 ML 27.27 MEQ IV (16:06)
[2022-12-21 16:28] LABS: Glucose Point of Care 231 mg/dL (70-110)
--- NOTE | 2022-12-21 18:17 | PC.NURSE ---
Called report to [facility] in [place] and gave to Rachell Espino RN on unit 3C.
[2022-12-22 00:45] LABS: Bacillus cereus group Not Detected (NOT DETECT); Bacillus subtillis group Not Detected (NOT DETECT); Corynebacterium Not Detected (NOT DETECT); Cutibacterium acnes (P.acnes) Not Detected (NOT DETECT); Enterococcus Not Detected (NOT DETECT); Enterococcus faecalis Not Detected (NOT DETECT); Enterococcus faecium Not Detected (NOT DETECT); Lactobacillus species Not Detected (NOT DETECT); Listeria Not Detected (NOT DETECT); Listeria monocytogenes Not Detected (NOT DETECT); Micrococcus Not Detected (NOT DETECT); Pan Candida Not Detected (NOT DETECT); Pan Gram-Negative Not Detected (NOT DETECT); Staphylococcus epidermidis Detected (NOT DETECT); Staphylococcus lugdunensis Not Detected (NOT DETECT); Staphylococcus species Detected (NOT DETECT); Streptococcus agalactiae Not Detected (NOT DETECT); Streptococcus anginosus group Not Detected (NOT DETECT); Streptococcus pneumoniae Not Detected (NOT DETECT); Streptococcus pyogenes Not Detected (NOT DETECT); Streptococcus species Not Detected (NOT DETECT); mecA Detected (NOT DETECT); mecC Not Detected (NOT DETECT)
[2022-12-22 14:53] LABS: Methicillin-Resist S.aureu PCR DETECTED (NOT DETECTED)
== END 2022-12-21 20:29 | disposition short-term general hospital (02) | DRG 309 ==
LOC: ER 12:01 → CSU 14:15
PROVIDERS: Admitting Provider Student in an Organized Health Care Education/Training Program; Emergency Provider Emergency Medicine; PCP Family Medicine; Visit Provider Internal Medicine
DX: I48.20 Chronic atrial fibrillation, unspecified (principal); L03.115 Cellulitis of right lower limb; T84.84XA Pain due to internal orthopedic prosthetic devices, implants and grafts, initial encounter; L03.116 Cellulitis of left lower limb; Z68.42 Body mass index [BMI] 45.0-49.9, adult; M97.11XA Periprosthetic fracture around internal prosthetic right knee joint, initial encounter; Y79.8 Miscellaneous orthopedic devices associated with adverse incidents, not elsewhere classified; B96.4 Proteus (mirabilis) (morganii) as the cause of diseases classified elsewhere; Z95.0 Presence of cardiac pacemaker; I25.10 Atherosclerotic heart disease of native coronary artery without angina pectoris; E11.22 Type 2 diabetes mellitus with diabetic chronic kidney disease; I12.9 Hypertensive chronic kidney disease with stage 1 through stage 4 chronic kidney disease, or unspecified chronic kidney disease; N18.9 Chronic kidney disease, unspecified; E11.51 Type 2 diabetes mellitus with diabetic peripheral angiopathy without gangrene; E66.01 Morbid (severe) obesity due to excess calories; Z96.651 Presence of right artificial knee joint; E87.6 Hypokalemia; Z79.82 Long term (current) use of aspirin; Z79.891 Long term (current) use of opiate analgesic; Z79.51 Long term (current) use of inhaled steroids; Z91.128 Patient's intentional underdosing of medication regimen for other reason; E89.0 Postprocedural hypothyroidism; R78.89 Finding of other specified substances, not normally found in blood; Z98.84 Bariatric surgery status; Y79.2 Prosthetic and other implants, materials and accessory orthopedic devices associated with adverse incidents; Y92.018 Other place in single-family (private) house as the place of occurrence of the external cause
CPT/HCPCS: 36415; 36416; 71045; 73502; 73562; 73700; 80053; 80061; 80162; 81001; 82550; 82607; 82746; 82962; 83036; 83540; 83550; 83735; 83880; 84100; 84145; 84443; 85018; 85025; 87040; 87077; 87086; 87186; 87205; 87486; 87581; 87633; 87641; 93005; 94664; 96365; 96366; 96372; 96375; 99285; J0696; J1160; J1815; J2543; J3475; J3490; J7030

== ENCOUNTER 2023-02-10 15:33 | Emergency (ER) | payer MEDICARE, MEDICAID, SELFPAY ==
[2023-02-10 15:47] VITALS: BP 128/87; PULSE 101; O2SAT 100
[2023-02-10 15:48] VITALS: TEMP 36.4
--- NOTE | 2023-02-10 15:53 | PC.PHAR ---
PT IS FROM [facility]
--- NOTE | 2023-02-10 15:54 | W.ED.EXTPRO ---
HPI - Extremity Problem General: Chief complaint: Extremity Injury, Upper Stated complaint: Poss Blood clot R arm Time Seen by Provider: 02/10/23 15:49 History of Present Illness: 78-year-old female presents to the emergency department from her rehabilitation facility. The patient states that she had a right knee replacement approximately 1 month ago. She states that she had MRSA infection and has been receiving IV antibiotics through a PICC line in her right upper extremity. She states the person that does her antibiotics became concerned as her right knee appears to be discolored. She states that she feels like the knee is doing well and that her pain is well controlled. She does not appear to be acutely ill. She is morbidly obese which makes it difficult for her to ambulate. 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 Morbid obesity Pacemaker Peripheral vascular disease Type 2 diabetes mellitus Surgical History H/O knee surgery H/O shoulder surgery H/O thyroidectomy For Graves' disease H/O: hysterectomy History of appendectomy History of permanent cardiac pacemaker placement SSS S/P cholecystectomy S/P gastric surgery LAP-BAND later followed by gastric sleeve Family History Other CAD (coronary artery disease) Dementia Stroke Social History Smoking and tobacco/nicotine status: never used tobacco/nicotine Alcohol intake: never Substance/Drug Use: never Lives independently: Yes Housing: House Marital status: / Current occupational status: retired Physical Exam Const: COMMON NORMALS: no acute distress, patient oriented x3 and alert HENMT: COMMON NORMALS: normocephalic and atraumatic HEAD & SCALP: normocephalic and atraumatic Eye: COMMON NORMALS: Equal, round and reactive pupils present and EOMs intact bilaterally PUPIL: Yes Equal, round and reactive pupils present Neck/C-Spine: COMMON NORMALS: full ROM, supple and no meningeal signs Resp: COMMON NORMALS: normal respiratory effort, No retractions and clear to auscultation bilaterally (Clear bilaterally, decreased bilaterally to the bases-secondary to body hab) AUSCULTATION: clear to auscultation bilaterally (Clear bilaterally, decreased bilaterally to the bases-secondary to body hab) Cardio: COMMON NORMALS: regular rate, regular rhythm, S1 normal heart sound present, S2 normal heart sound present and Peripheral pulses 2+ throughout RATE: regular rate RHYTHM: regular rhythm HEART SOUNDS: S1 normal heart sound present and S2 normal heart sound present PERIPHERAL PULSES: Peripheral pulses 2+ throughout GI: COMMON NORMALS: Normal to inspection, nondistended, normoactive bowel sounds present, Soft to palpation and non-tender PALPATION: Yes Soft to palpation : COMMON NORMALS: Yes no CVA tenderness BLADDER/KIDNEY EXAM: Yes no CVA tenderness Back/Pelvis: COMMON NORMALS: no CVA tenderness and thoracic and lumbar spine normal to inspection Extremity: RIGHT UPPER EXTREMITY: Yes upper arm (PICC line to port power PICC noted to the right upper extremity no obvious.) RIGHT LOWER EXTREMITY: Yes knee joint (Right lower extremity does appear to have a well-healing postsurgical scar.) Neuro: COMMON NORMALS: patient oriented x3 SENSORIUM/ORIENTATION: Yes alert MENINGEAL SIGNS: Yes no meningeal signs Psych: COMMON NORMALS: mental status grossly normal, Normal thought process present and cooperative THOUGHT PROCESS: Normal thought process present Skin: COMMON NORMALS: no rashes or lesions noted GENERAL SKIN EXAM: no rashes or lesions noted Course ED course: Contacted Dr. Jerry discussed the patient's case and her acute kidney injury and given her recent hospitalization on 12/21/2022 for her right knee replacement at [facility] he requested the patient be transferred. I did advise the patient of his request and the patient did agree to that. I have contacted the [facility] and at 1952 we are currently awaiting a return call from both the [facility] orthopedic physician and the [facility] hospitalist for acceptance and transfer Reevaluation(s): Reevaluation #1: Per Dr. Rosalino's request I contacted [facility] and I did get a return call at 2052 from the orthopedic physician at [facility] and I did discuss the patient's case with the orthopedic physician and he and he felt that this was a medicine case that could be managed given the main concern is acute kidney injury with elevated BUN and creatinine. I have advised the housetrailer servicer of this information and will call our hospitalist for admission to this facility. Reevaluation #2: I called Dr. Hoyos and advised that the [facility] Orthopedic Surgeon, felt that this was not related to the patient's surgical intervention and that this was acute kidney injury and can be managed by the medical services. Dr. Hoyos advised that she would decline admission as she felt that there might be a possibility that the patient may require additional orthopedic evaluation and that the orthopedic physicians here would not perform any orthopedic surgical intervention as the patient had her initial knee replacement at [facility]. I did contact the ER charge nurse as well as the nursing housetrailer servicer to advise of the refused transfer and ultimately contacted [facility] and received acceptance from the hospitalist physician at [facility]. Vital Signs: Vital signs: Vital Signs Temperature 97.6 F 02/10/23 15:48 Pulse Rate 82 02/10/23 21:07 Respiratory Rate 16 02/10/23 21:07 Blood Pressure 115/70 02/10/23 21:07 Pulse Oximetry 98 02/10/23 21:07 Oxygen Delivery Me thod Room Air 02/10/23 15:47 MDM - Extremity (Nontraumatic) Medical Decision Making Physical exam completed and documented, I will obtain a plain film radiograph of the right knee to evaluate. I will also obtain a CBC and CMP to evaluate electrolyte status, renal function and infectious status. Medical Records I reviewed the patient's medical records. Lab Data I reviewed the patient's lab results. 02/10/23 17:05 02/10/23 17:05 Radiology Impressions Knee X-Ray 02/10/23 15:59 IMPRESSION: Interval placement of constrained knee implant. No compelling evidence of hardware failure complication. Laboratory Results WBC 15.10 10^3/uL (3.29-11.43) H 02/10/23 17:05 RBC 4.15 10^6/uL (3.85-5.65) 02/10/23 17:05 Hgb 13.30 g/dL (11.27-16.99) 02/10/23 17:05 Hct 43.3 % (36-47) 02/10/23 17:05 MCV 104.3 fl (85-98) H 02/10/23 17:05 MCH 32.0 pg (27-33) 02/10/23 17:05 MCHC 30.7 g/dL (30-55) 02/10/23 17:05 RDW 15.0 % (12.1-15.1) 02/10/23 17:05 Plt Count 344 10^3/cmm (157-399) 02/10/23 17:05 MPV 8.8 fL (7.4-10.4) 02/10/23 17:05 Neut % (Auto) 53.5 % 02/10/23 17:05 Lymph % (Auto) 28.1 % 02/10/23 17:05 [place] % (Auto) 15.6 % 02/10/23 17:05 Eos % (Auto) 1.6 % 02/10/23 17:05 Baso % (Auto) 0.8 % 02/10/23 17:05 Neut # (Auto) 8.09 10^3/uL (1.8-7.7) H 02/10/23 17:05 Lymph # (Auto) 4.2 10^3/uL (0.8-4.8) 02/10/23 17:05 [place] # (Auto) 2.4 10^3/uL (0.2-0.9) H 02/10/23 17:05 Eos # (Auto) 0.2 10^3/uL (0.0-0.8) 02/10/23 17:05 Baso # (Auto) 0.1 10^3/uL (0.0-0.1) 02/10/23 17:05 Nucleated RBC % (auto) 0 % 02/10/23 17:05 Nucleated RBCs # 0.0 /100WBC 02/10/23 17:05 Sodium 136 mmol/L (136-145) 02/10/23 17:05 Potassium 3.9 mmol/L (3.5-5.1) 02/10/23 17:05 Chloride 95 mmol/L (98-107) L 02/10/23 17:05 Carbon Dioxide 22 mmol/L (22-29) 02/10/23 17:05 Anion Gap 22.9 (5-19) H 02/10/23 17:05 BUN 51 mg/dL (8-23) H 02/10/23 17:05 Creatinine 2.6 mg/dL (0.5-0.9) H 02/10/23 17:05 GFR Calculation Not Reportable 02/10/23 17:05 Glucose 159 mg/dL (65-115) H 02/10/23 17:05 Calculated Osmolality 299 mOsm/kg (285-295) H 02/10/23 17:05 Calcium 9.7 mg/dL (8.5-10.5) 02/10/23 17:05 Total Bilirubin 0.5 mg/dL (0.15-1.2) 02/10/23 17:05 AST 41 U/L (0-32) H 02/10/23 17:05 ALT 18 U/L (0-33) 02/10/23 17:05 Alkaline Phosphatase 132 U/L (35-105) H 02/10/23 17:05 Total Protein 9.3 g/dL (6.6-8.7) H 02/10/23 17:05 Albumin 4.0 g/dL (3.5-5.2) 02/10/23 17:05 Globulin 5.3 g/dL (1.3-4.6) H 02/10/23 17:05 All radiology interpretation(s) finalized by discharge ED provider radiology interpretation(s): XR/XR knee RT 3V* [id number] IMPRESSION: Interval placement of constrained knee implant. No compelling evidence of hardware failure complication Discharge Plan Discharge Patient Disposition: Transfer to ED Clinical Impression: Acute kidney insufficiency, Leukocytosis Condition: Stable Prescriptions: No Action atorvastatin 20 mg tablet 20 mg PO BEDTIME@20 diphenhydramine HCl [Allergy (diphenhydramine)] 25 mg capsule 25 mg PO Q6H PRN (Reason: Allergy Symptoms) latanoprost 0.005 % drops 1 drp ophthalmic (eye) DAILY polyethylene glycol 3350 [Miralax] 17 gram/dose powder 4 g PO DAILY montelukast 10 mg Tablet 10 mg PO DAILY@08 naloxone 0.4 mg/mL Solution 0.4 mg IM Q3M PRN (Reason: Opioid Overdose) Rx Instructions: x 3 doses and call 911 if no response bisacodyl 10 mg Suppository 10 mg AL DAILY PRN (Reason: Constipation) Rx Instructions: for no bm in 3 days nystatin 100,000 unit/gram Powder 1 applic TOPICAL BID PRN (Reason: Rash) bisacodyl 5 mg Tablet 10 mg PO DAILY PRN (Reason: Constipation) Rx Instructions: give if no bm x 3 days buspirone 5 mg Tablet 5 mg PO BID@08,20 metoprolol tartrate 50 mg Tablet 25 mg PO BID@08,20 Januvia 100 mg tablet 100 mg PO QAM bumetanide 2 mg tablet 2 mg PO QAM acetaminophen 325 mg Tablet 325 mg PO QID PRN (Reason: Pain) Lantus U-100 Insulin 100 unit/mL Solution 10 unit SUBCUT QPM isosorbide mononitrate 30 mg tablet extended release 24 hr 30 mg PO QAM spironolactone 25 mg tablet 25 mg PO QAM Milk of Magnesia 400 mg/5 mL Suspension See Rx Instructions .ROUTE .COMPLEX Rx Instructions: 30 mL orally every 72 hours as needed if no bm in 3 days. Do not give to renal patients, go to bisacodyl. Fleet Enema 19-7 gram/118 mL Enema See Rx Instructions .ROUTE .COMPLEX PRN (Reason: Constipation) Rx Instructions: 118 mL rectally once daily as needed if no resuts from milk of magnesia and bisacodyl nitroglycerin 0.4 mg tablet, sublingual See Rx Instructions .ROUTE .COMPLEX Rx Instructions: 0.4 mg sublingually 3 times daily as needed. Administer 1 tablet sub q every 5 minutes for chest pain. No more than 3 tablets. Monitor BP and HOLD if SBP less than or equal to 90 loratadine 10 mg Tablet 10 mg PO DAILY Thera M Tablet 1 tab PO QAM Normal Saline Flush Syringe 5 ml IV Q12H Rx Instructions: Administer 5 ml, injection, every shift, flush IV with 5 ml NS before and after use (SASH) oxycodone 10 mg tablet 10 mg PO Q6H PRN (Reason: Pain) Multaq 400 mg tablet 400 mg PO QAM albuterol sulfate 90 mcg/actuation HFA aerosol inhaler 2 inh INHALATION Q6H PRN (Reason: Shortness Of Breath) alprazolam 1 mg tablet 4 mg PO DAILY PRN (Reason: Anxiety) digoxin 125 mcg (0.125 mg) tablet 125 mcg PO EVERY OTHER DAY miconazole nitrate 2 % Cream See Rx Instructions .ROUTE .COMPLEX Rx Instructions: apply to irritated area topically twice a day docusate sodium [Colace] 100 mg Capsule 100 mg PO QAM levothyroxine 200 mcg tablet 200 mcg PO DAILY@05 duloxetine 60 mg capsule,delayed release(DR/EC) 60 mg PO DAILY@08 diclofenac sodium 1 % Gel 2 g TOPICAL QID PRN (Reason: Pain) ergocalciferol (vitamin D2) [Vitamin D2] 1,250 mcg (50,000 unit) Capsule 50,000 unit PO Q7D Rx Instructions: on wednesday Referrals: Anmol Neely [Primary Care Provider] - Coding Level of Care Code ED 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
--- NOTE | 2023-02-10 15:59 | XRR_ITS ---
PROCEDURE INFORMATION: Exam: XR Right Knee Exam date and time: 02/10/2023 4:02 PM Age: 78 years old Clinical indication: Pain; Right; Prior surgery; Surgery date: <1 month; Surgery type: RT total knee; Additional info: Post-op knee replacement--bruising-pain TECHNIQUE: Imaging protocol: Radiologic exam of the right knee. Views: 3 views. COMPARISON: CT knee RT wo con* [id number] 12/20/2022 5:15 PM FINDINGS: Bones/joints: Patient has undergone placement of a constrained knee implant that appears in satisfactory position and alignment. Hardware is intact. Bone metal interface is unremarkable. No evidence of periprosthetic fracture. Soft tissues: There is generalized soft tissue swelling at the knee joint difficult to a assess due to body habitus. There are numerous nodular calcifications present within the superficial soft tissues along the lateral aspect of the thigh that are nonspecific and may be dystrophic in nature secondary to calcified fat necrosis. There is a vascular stent projecting between the proximal tibiofibular shaft. XR/XR knee RT 3V* [id number] IMPRESSION: Interval placement of constrained knee implant. No compelling evidence of hardware failure complication.
[2023-02-10 17:29] LABS: Basophils # 0.1 10^3/uL (0.0-0.1); Basophils % 0.8 %; Eosinophils # 0.2 10^3/uL (0.0-0.8); Eosinophils % 1.6 %; Hematocrit 43.3 % (36-47); Lymphocytes # 4.2 10^3/uL (0.8-4.8); Lymphocytes % 28.1 %; Mean Corpuscular HGB Conc 30.7 g/dL (30-55); Mean Corpuscular Volume 104.3 fl (85-98); Mean Platelet Volume 8.8 fL (7.4-10.4); Monocytes # 2.4 10^3/uL (0.2-0.9); Monocytes % 15.6 %; Neutrophils # 8.09 10^3/uL (1.8-7.7); Neutrophils % 53.5 %; Nucleated Red Blood Cells % 0 %; Platelet Count 344 10^3/cmm (157-399); Red Blood Count 4.15 10^6/uL (3.85-5.65)
[2023-02-10 17:32] LABS: Alanine Aminotransferase 18 U/L (0-33); Alkaline Phosphatase 132 U/L (35-105); Anion Gap 22.9 (5-19); Aspartate Amino Transferase 41 U/L (0-32); Blood Urea Nitrogen 51 mg/dL (8-23); Calcium 9.7 mg/dL (8.5-10.5); Carbon Dioxide 22 mmol/L (22-29); Chloride 95 mmol/L (98-107); Globulin 5.3 g/dL (1.3-4.6); Glucose 159 mg/dL (65-115); Osmolality Calculated 299 mOsm/kg (285-295); Potassium 3.9 mmol/L (3.5-5.1); Sodium 136 mmol/L (136-145); Total Bilirubin 0.5 mg/dL (0.15-1.2); Total Protein 9.3 g/dL (6.6-8.7)
[2023-02-10 19:14] VITALS: BP 101/57; PULSE 96; RESP 16; O2SAT 100
[2023-02-10] MEDS: sodium chloride 0.9% 1,000 ML 999 ML IV (19:14)
[2023-02-10 20:09] VITALS: BP 129/88; PULSE 86; RESP 16; O2SAT 94
[2023-02-10 21:07] VITALS: BP 115/70; PULSE 82; RESP 16; O2SAT 98
[2023-02-10] MEDS: sodium chloride 0.9% 1,000 ML 100 ML IV (23:38)
[2023-02-11] VITALS (15 sets, daily range): BP systolic 111–135; BP diastolic 72–94; PULSE 86–113; RESP 12–23; O2SAT 92–100
--- NOTE | 2023-02-11 02:49 | PC.NURSE ---
Pt resting in bed quietly at this time. R arm is elevated on pillows and feeling better per pt. RN adjusted covers and pt is comfortable at this time.
--- NOTE | 2023-02-11 05:14 | PC.NURSE ---
R arm noted to be red, swollen, painful to touch upon assessment at 2100. Pt c/o pain in this arm. PICC line dressing is intact and clean from MD. Per MD, this arm was elevated at this time with rolled blankets. Pt states throughout the night that pain slowly improved while elevated. Radial pulse +2 on R arm. This nurse called [facility] regarding R arm. [facility] RN stated that she given the last dose of cefepime 02/09. [facility] RN flushed PICC line and had no problems. Pt has also been receiving vancomycin through this PICC line but [facility] RN unsure of when this was last given. [facility] RN states that the pt's O2 saturation dropped that night but pt wears CPAP at home. [facility] RN states that [facility] sent her on 02/10 to [facility] ED as they noticed her R arm became blue and then red and swollen. MD notified of this. R arm continued to be elevated at this time per MD approval.
--- NOTE | 2023-02-11 06:01 | PC.NURSE ---
Pt reminded to keep pulse ox and blood pressure cuff on. Pt has been reminded numerous times tonight to keep these on. Pt agrees at this time and is trying to sleep again.
--- NOTE | 2023-02-11 08:05 | US_ITS ---
WS: [id number] INDICATION: Swelling PICC insertion TECHNIQUE: Ultrasound soft tissue. Technically difficult examination due to patient pain and inabilit y to rotate arm FINDINGS: Ultrasound soft tissue area of concern in the proximal area of PICC insertion. Diffuse subc utaneous edema extending from the PICC insertion site to the wrist. No drainable abscess or fluid col lection. Nonocclusive thrombus in the cephalic vein just distal to the antecubital fossa. IMPRESSION: Nonocclusive superficial thrombus in the cephalic vein just distal to the antecubital f lilliana. Findings suspicious for superficial thrombophlebitis Notified Meet Simmons DO at 02/11/2023 9:36 AM.
--- NOTE | 2023-02-11 08:05 | USCV_ITS ---
Pallavi Saha Age: 78 Gender: F : 1945 Exam Date: 02/11/2023 09:27 Ordering Phys: Meet Simmons DO Technologist: OG Exam Location: [facility] [place] Indication: Pain/Swelling HISTORY: Lower extremity pain. Lower extremity swelling. PROCEDURES: Venous duplex imaging was performed in bilateral lower extremities. The following venous structures were evaluated: common femoral vein, profunda vein, proximal portion of the greater saphenous vein, superficial femoral vein, and the popliteal vein. In addition, the posterior tibial and peroneal trunk were evaluated. Serial compression, augmentation maneuvers, and spectral Doppler flow evaluation were performed. FINDINGS: No evidence of DVT seen in any vessel visualized at this time. Appears to have thrombus in the RT GSV at knee leading into thigh CONCLUSIONS Thrombus RIGHT GSV at the knee extending into mid thigh Otherwise no evidence of DVT bilaterally Notified Dr Simmons at 1100 02/11/23 Olayinka Wang MD (Electronically Signed) Final Date: 11 February 2023 11:07 S
[2023-02-11] MEDS: morphine 4 mg/mL SDV 1 mL 2 MG IVP (08:08)
--- NOTE | 2023-02-11 08:21 | DCPLANNER ---
Spoke with Dashawn at [facility] at 0822 on 02/11 about a bed. Dashawn stated it will be sometime today, but unsure when.
[2023-02-11] MEDS: sodium chloride 0.9% 1,000 ML 999 ML IV ×3 (08:38→11:57)
[2023-02-11 08:40] LABS: Basophils # 0.1 10^3/uL (0.0-0.1); Basophils % 0.7 %; Eosinophils # 0.1 10^3/uL (0.0-0.8); Eosinophils % 0.4 %; Hematocrit 44.6 % (36-47); Lymphocytes # 2.6 10^3/uL (0.8-4.8); Lymphocytes % 18.6 %; Mean Corpuscular HGB Conc 30.3 g/dL (30-55); Mean Corpuscular Hemoglobin 32.1 pg (27-33); Mean Corpuscular Volume 105.9 fl (85-98); Monocytes # 1.8 10^3/uL (0.2-0.9); Neutrophils # 9.45 10^3/uL (1.8-7.7); Neutrophils % 66.9 %; Nucleated Red Blood Cells % 0 %; Platelet Count 253 10^3/cmm (157-399); Red Blood Count 4.21 10^6/uL (3.85-5.65); Red Cell Distribution Width 15.2 % (12.1-15.1); White Blood Count 14.12 10^3/uL (3.29-11.43)
[2023-02-11 09:02] LABS: Blood Urea Nitrogen 55 mg/dL (8-23); Calcium 8.9 mg/dL (8.5-10.5); Carbon Dioxide 13 mmol/L (22-29); Chloride 97 mmol/L (98-107); Glucose 200 mg/dL (65-115); Lactic Sepsis W/Reflex 2.1 mmol/L (0.5-2.2); Osmolality Calculated 291 mOsm/kg (285-295); Sodium 130 mmol/L (136-145)
[2023-02-11 09:03] LABS: Digoxin 1.3 ng/mL (0.6-1.2)
[2023-02-11 09:08] LABS: Add Urine Microscopic? YES; Bilirubin Urine Neg (Negative); Blood Urine 2+ (Negative); Glucose Urine UA Norm (Normal); Ketones Urine 1+ (Negative); Leukocyte Esterase Urine 1+ (Negative); Nitrate Urine Negative (Negative); Protein Urine 1+ (Negative); Urine Appearance Cloudy (CLEAR); Urine Color Yellow (Yellow); Urobilinogen Urine Norm (Negative); pH Urine 5 (5-7)
[2023-02-11 09:08] LABS: Anion Gap 24.3 (5-19); Potassium 4.3 mmol/L (3.5-5.1)
[2023-02-11 09:12] LABS: Transitional Epi Cells Urine 0-4 /hpf
[2023-02-11 09:13] LABS: Add Urine Culture? Yes; Amorphous Sediment Urine 1+ /hpf; Bacteria Urine 1+ /hpf; Fine Granular Casts Urine 0-4 /lpf; Hyaline Casts Urine 0-4 /lpf
--- NOTE | 2023-02-11 09:51 | USCV_ITS ---
Pallavi Saha Age: 78 Gender: F : 1945 Exam Date: 02/11/2023 09:54 Ordering Phys: Meet Simmons DO Technologist: OG Exam Location: [facility] [place] Indication: Pain/Swelling/Redness HISTORY: Upper extremity swelling. Upper extremity pain. PROCEDURES: Venous duplex imaging was performed in only the right upper extremity. The following venous structures were evaluated: internal jugular vein, subclavian vein, axillary vein, and brachial veins. In addition, the basilic vein, cephalic vein, radial vein, and ulnar vein. Serial compression, augmentation maneuvers, and spectral Doppler flow evaluation were performed. FINDINGS: PICC line seen in the Subclavian vein. There is subcutaneous right upper extremity edema noted. There appears to be DVT going from radial/ulnar vein all the way to the subclavian vein. Jugular appears compressible and free of DVT CONCLUSIONS Occlusive extending from forearm radial and ulnar vein to the subclavain vein. DVT in the brachial and axillary veins. Thrombus in basilic and cephalic Jugular vein is patent Notified Dr Simmons at 1100 02/11/23 Olayinka Wang MD (Electronically Signed) Final Date: 11 February 2023 11:01 S
[2023-02-11 10:22] LABS: Reflex Lactate Order REFLEX LACTIC ORDERD
[2023-02-11] MEDS: isosorbide mononitrate ER 30 mg Tablet PO (10:23)
[2023-02-11] MEDS: levothyroxine 200 mcg Tablet PO (10:23)
[2023-02-11] MEDS: metoprolol tartrate 25 mg Tablet PO (10:24)
--- NOTE | 2023-02-11 11:12 | ECG_ITS ---
[facility] Test Date: 2023-02-11 Pat Name: Pallavi Saha Department: Room: Gender: Female Dental Service Technician: : 1945 Requested By: Meet Godoy Order Number: [id number] Andrew MD: Morgan Miranda M.D. Measurements Intervals [place] Rate: 94 P: 0 [place]: 0 QRS: 21 QRSD: 97 T: 192 QT: 365 QTc: 458 Interpretive Statements ATRIAL FIBRILLATION WITH ABERRANT CONDUCTION OR VENTRICULAR PREMATURE COMPLEXES LOW QRS VOLTAGE IN EXTREMITY LEADS [QRS DEFLECTION < 0.5 mV IN LIMB LEADS] PATTERN CONSISTENT WITH PULMONARY DISEASE ST DEVIATION AND MODERATE T-WAVE ABNORMALITY, CONSIDER LATERAL ISCHEMIA [-0.1+ mV T-WAVE IN I/aVL/V5/V6] Compared to ECG 12/20/2022 10:29:29 No significant changes Electronically Signed On 02-11-2023 12:08:39 CDT by Morgan Miranda M.D. [email or web address]
--- NOTE | 2023-02-11 11:17 | W.ED.EXTPRO ---
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 Morbid obesity Pacemaker Peripheral vascular disease Type 2 diabetes mellitus Surgical History H/O knee surgery H/O shoulder surgery H/O thyroidectomy For Graves' disease H/O: hysterectomy History of appendectomy History of permanent cardiac pacemaker placement SSS S/P cholecystectomy S/P gastric surgery LAP-BAND later followed by gastric sleeve Family History Other CAD (coronary artery disease) Dementia Stroke Social History Smoking and tobacco/nicotine status: never used tobacco/nicotine Alcohol intake: never Substance/Drug Use: never Lives independently: Yes Housing: House Marital status: / Current occupational status: retired Course Vital Signs: Vital signs: Vital Signs Temperature 97.6 F 02/10/23 15:48 Pulse Rate 107 H 02/11/23 10:28 Respiratory Rate 16 02/11/23 10:28 Blood Pressure 135/77 02/11/23 10:28 Pulse Oximetry 100 02/11/23 10:28 Oxygen Delivery Me thod Room Air 02/11/23 10:28 MDM - Extremity (Nontraumatic) Lab Data 02/11/23 08:32 02/11/23 08:32 Radiology Impressions Knee X-Ray 02/10/23 15:59 IMPRESSION: Interval placement of constrained knee implant. No compelling evidence of hardware failure complication. Laboratory Results WBC 14.12 10^3/uL (3.29-11.43) H 02/11/23 08:32 RBC 4.21 10^6/uL (3.85-5.65) 02/11/23 08:32 Hgb 13.50 g/dL (11.27-16.99) 02/11/23 08:32 Hct 44.6 % (36-47) 02/11/23 08:32 MCV 105.9 fl (85-98) H 02/11/23 08:32 MCH 32.1 pg (27-33) 02/11/23 08:32 MCHC 30.3 g/dL (30-55) 02/11/23 08:32 RDW 15.2 % (12.1-15.1) H 02/11/23 08:32 Plt Count 253 10^3/cmm (157-399) 02/11/23 08:32 MPV 9.0 fL (7.4-10.4) 02/11/23 08:32 Neut % (Auto) 66.9 % 02/11/23 08:32 Lymph % (Auto) 18.6 % 02/11/23 08:32 [place] % (Auto) 13.0 % 02/11/23 08:32 Eos % (Auto) 0.4 % 02/11/23 08:32 Baso % (Auto) 0.7 % 02/11/23 08:32 Neut # (Auto) 9.45 10^3/uL (1.8-7.7) H 02/11/23 08:32 Lymph # (Auto) 2.6 10^3/uL (0.8-4.8) 02/11/23 08:32 [place] # (Auto) 1.8 10^3/uL (0.2-0.9) H 02/11/23 08:32 Eos # (Auto) 0.1 10^3/uL (0.0-0.8) 02/11/23 08:32 Baso # (Auto) 0.1 10^3/uL (0.0-0.1) 02/11/23 08:32 Nucleated RBC % (auto) 0 % 02/11/23 08:32 Nucleated RBCs # 0.0 /100WBC 02/11/23 08:32 Sodium 130 mmol/L (136-145) L 02/11/23 08:32 Potassium 4.3 mmol/L (3.5-5.1) 02/11/23 08:32 Chloride 97 mmol/L (98-107) L 02/11/23 08:32 Carbon Dioxide 13 mmol/L (22-29) L 02/11/23 08:32 Anion Gap 24.3 (5-19) H 02/11/23 08:32 BUN 55 mg/dL (8-23) H 02/11/23 08:32 Creatinine 2.9 mg/dL (0.5-0.9) H 02/11/23 08:32 GFR Calculation Not Reportable 02/11/23 08:32 Glucose 200 mg/dL (65-115) H 02/11/23 08:32 Calculated Osmolality 291 mOsm/kg (285-295) 02/11/23 08:32 Lactic Acid 2.1 mmol/L (0.5-2.2) 02/11/23 08:32 Calcium 8.9 mg/dL (8.5-10.5) 02/11/23 08:32 Total Bilirubin 0.5 mg/dL (0.15-1.2) 02/10/23 17:05 AST 41 U/L (0-32) H 02/10/23 17:05 ALT 18 U/L (0-33) 02/10/23 17:05 Alkaline Phosphatase 132 U/L (35-105) H 02/10/23 17:05 Total Protein 9.3 g/dL (6.6-8.7) H 02/10/23 17:05 Albumin 4.0 g/dL (3.5-5.2) 02/10/23 17:05 Globulin 5.3 g/dL (1.3-4.6) H 02/10/23 17:05 Urine Color Yellow (Yellow) 02/11/23 08:45 Urine Appearance Cloudy (CLEAR) A 02/11/23 08:45 Urine pH 5 (5-7) 02/11/23 08:45 Ur Specific [place] 1.020 (1.005-1.030) 02/11/23 08:45 Urine Protein 1+ (Negative) H 02/11/23 08:45 Urine Glucose (UA) Norm (Normal) 02/11/23 08:45 Urine Ketones 1+ (Negative) H 02/11/23 08:45 Urine Blood 2+ (Negative) H 02/11/23 08:45 Urine Nitrate Negative (Negative) 02/11/23 08:45 Urine Bilirubin Neg (Negative) 02/11/23 08:45 Urine Urobilinogen Norm mg/dL (Negative) 02/11/23 08:45 Ur Leukocyte Esterase 1+ (Negative) H 02/11/23 08:45 Urine RBC 5-10 /hpf (0-2) H 02/11/23 08:45 Urine WBC 10-15 /hpf (0-5) H 02/11/23 08:45 Ur Squamous Epith Cells 5-10 /hpf (0-5) H 02/11/23 08:45 Ur Transition Epith Cell 0-4 /hpf 02/11/23 08:45 Amorphous Sediment 1+ /hpf 02/11/23 08:45 Urine Bacteria 1+ /hpf (NONE) H 02/11/23 08:45 Hyaline Casts 0-4 /lpf H 02/11/23 08:45 Fine Granular Casts 0-4 /lpf H 02/11/23 08:45 Urine Mucus None /hpf 02/11/23 08:45 Urine Yeast 2+ /hpf H 02/11/23 08:45 Digoxin 1.3 ng/mL (0.6-1.2) H 02/11/23 08:32 Discharge Plan Discharge Patient Disposition: Transfer to ED Clinical Impression: Acute kidney insufficiency, Leukocytosis Condition: Stable Prescriptions: No Action atorvastatin 20 mg tablet 20 mg PO BEDTIME@20 diphenhydramine HCl [Allergy (diphenhydramine)] 25 mg capsule 25 mg PO Q6H PRN (Reason: Allergy Symptoms) latanoprost 0.005 % drops 1 drp ophthalmic (eye) DAILY polyethylene glycol 3350 [Miralax] 17 gram/dose powder 4 g PO DAILY montelukast 10 mg Tablet 10 mg PO DAILY@08 naloxone 0.4 mg/mL Solution 0.4 mg IM Q3M PRN (Reason: Opioid Overdose) Rx Instructions: x 3 doses and call 911 if no response bisacodyl 10 mg Suppository 10 mg [place] DAILY PRN (Reason: Constipation) Rx Instructions: for no bm in 3 days nystatin 100,000 unit/gram Powder 1 applic TOPICAL BID PRN (Reason: Rash) bisacodyl 5 mg Tablet 10 mg PO DAILY PRN (Reason: Constipation) Rx Instructions: give if no bm x 3 days buspirone 5 mg Tablet 5 mg PO BID@08,20 metoprolol tartrate 50 mg Tablet 25 mg PO BID@08,20 Januvia 100 mg tablet 100 mg PO QAM bumetanide 2 mg tablet 2 mg PO QAM acetaminophen 325 mg Tablet 325 mg PO QID PRN (Reason: Pain) Lantus U-100 Insulin 100 unit/mL Solution 10 unit SUBCUT QPM isosorbide mononitrate 30 mg tablet extended release 24 hr 30 mg PO QAM spironolactone 25 mg tablet 25 mg PO QAM Milk of Magnesia 400 mg/5 mL Suspension See Rx Instructions .ROUTE .COMPLEX Rx Instructions: 30 mL orally every 72 hours as needed if no bm in 3 days. Do not give to renal patients, go to bisacodyl. Fleet Enema 19-7 gram/118 mL Enema See Rx Instructions .ROUTE .COMPLEX PRN (Reason: Constipation) Rx Instructions: 118 mL rectally once daily as needed if no resuts from milk of magnesia and bisacodyl nitroglycerin 0.4 mg tablet, sublingual See Rx Instructions .ROUTE .COMPLEX Rx Instructions: 0.4 mg sublingually 3 times daily as needed. Administer 1 tablet sub q every 5 minutes for chest pain. No more than 3 tablets. Monitor BP and HOLD if SBP less than or equal to 90 loratadine 10 mg Tablet 10 mg PO DAILY Thera M Tablet 1 tab PO QAM Normal Saline Flush Syringe 5 ml IV Q12H Rx Instructions: Administer 5 ml, injection, every shift, flush IV with 5 ml NS before and after use (SASH) oxycodone 10 mg tablet 10 mg PO Q6H PRN (Reason: Pain) Multaq 400 mg tablet 400 mg PO QAM albuterol sulfate 90 mcg/actuation HFA aerosol inhaler 2 inh INHALATION Q6H PRN (Reason: Shortness Of Breath) alprazolam 1 mg tablet 4 mg PO DAILY PRN (Reason: Anxiety) digoxin 125 mcg (0.125 mg) tablet 125 mcg PO EVERY OTHER DAY miconazole nitrate 2 % Cream See Rx Instructions .ROUTE .COMPLEX Rx Instructions: apply to irritated area topically twice a day docusate sodium [Colace] 100 mg Capsule 100 mg PO QAM levothyroxine 200 mcg tablet 200 mcg PO DAILY@05 duloxetine 60 mg capsule,delayed release(DR/EC) 60 mg PO DAILY@08 diclofenac sodium 1 % Gel 2 g TOPICAL QID PRN (Reason: Pain) ergocalciferol (vitamin D2) [Vitamin D2] 1,250 mcg (50,000 unit) Capsule 50,000 unit PO Q7D Rx Instructions: on wednesday Referrals: Anmol Neely [Primary Care Provider] - Sign Out Sign Out Data: Patient Sign Out occurred on 02/11/23 at 08:08. Patient's care was discussed, and care was transferred from to Meet Simmons DO. Coding Level of Care Code ED Photography Sales Associate for Nelson Storey
[2023-02-11] MEDS: amiodarone 200 mg Tablet PO (11:30)
--- NOTE | 2023-02-11 11:42 | DCPLANNER ---
Called [facility] at 1142 am and spoke with Paula for a status check on the patients bed. Paula advised will have a bed at some point today. They will notify us when she has a bed assigned.
[2023-02-11 11:51] LABS: C Reactive Protein 16.7 mg/L (0.0-4.9)
[2023-02-11 12:30] LABS: Lactic Acid level (Lactate) 1.9 mmol/L (0.5-2.2)
--- NOTE | 2023-02-11 12:30 | PM.CONSULT ---
Providers/Reason For Consult Consulting Physician/Specialty*: Layo Yee MD, Hospitalist Reason for Consult*: Medical management Requesting Physician: Dr. Simmons Primary Care Provider: Anmol Neely History of Present Illness History of Present Illness Pallavi Saha is a 78 year old female who I have been asked to consult on in the emergency department. She is pending transfer to [facility], secondary to the need for evaluation by specialty care including orthopedics. She was recently at [facility], from December 21 until approximately January 26. Unfortunately these records are not currently available to me. From my understanding she had an infected knee and knee prosthesis. She also had an infected thigh abscess. I do not have culture results available but according to the detention she arrived there on the and was to complete courses of cefepime, vancomycin IV as well as Flagyl p.o. She completed her cefepime and Flagyl on the , and vancomycin was completed on the . They believe she was doing well without any fever, and no significant drainage from the knee. There were orders to pull her PICC line but it was noted her arm was very large and a clot was suspected. She was sent over to the emergency department secondary to this. She had previously been on anticoagulation for atrial fibrillation but this had been on hold, to resume sometime soon. The patient herself seems forgetful but denies any specific pain. She denies any shortness of breath or chest discomfort. In the emergency department, an elevated white blood cell count was noted along with acute kidney injury. Inflammatory markers were elevated such as CRP. Her digoxin level was noted to be elevated. She has past history of MRSA. According to the nursing facility which I spoke with she had been seen infectious disease at [facility]. Review of Systems General: Reports: 10 or more systems reviewed and unremarkable except in HPI and below Card: Denies: chest pain Resp: Denies: dyspnea GI: Denies: abdominal pain, nausea, vomiting, hematochezia or melena Medications/Allergies Home Medications Medication Instructions Recorded Confirmed Last Taken Type montelukast 10 mg tablet 10 mg PO DAILY@07/22/19 02/10/23 02/09/23 History bisacodyl 5 mg tablet 10 mg PO DAILY PRN Constipation 02/09/20 02/10/23 02/07/22 History atorvastatin 20 mg tablet 20 mg PO BEDTIME@05/09/20 02/10/23 02/09/23 History bisacodyl 10 mg rectal suppository 10 mg [place] DAILY PRN Constipation 09/18/20 02/10/23 08/12/21 History naloxone 0.4 mg/mL injection 0.4 mg IM Q3M PRN Opioid Overdose 09/18/20 02/10/23 Unknown History solution nystatin 100,000 unit/gram topical 1 applic topical BID PRN Rash 09/18/20 02/10/23 03/08/22 History powder diphenhydramine HCl 25 mg capsule 25 mg PO Q6H PRN Allergy Symptoms 01/13/21 02/10/23 10/29/21 History (Allergy (diphenhydramine)) buspirone 5 mg tablet 5 mg PO BID@,10/31/21 02/10/23 02/10/23 History metoprolol tartrate 50 mg tablet 25 mg PO BID@,10/31/21 02/10/23 02/09/23 History diclofenac sodium 1 % topical gel 2 g topical QID PRN Pain 03/03/22 02/10/23 11/24/21 History docusate sodium 100 mg capsule 100 mg PO QAM 03/03/22 02/10/23 02/10/23 History (Colace) duloxetine 60 mg capsule,delayed 60 mg PO DAILY@03/03/22 02/10/23 02/10/23 History release ergocalciferol (vitamin D2) 1,250 50,000 unit PO Q7D 03/03/22 02/10/23 02/05/23 History mcg (50,000 unit) capsule (Vitamin D2) levothyroxine 200 mcg tablet 200 mcg PO DAILY@05 03/03/22 02/10/23 02/10/23 History miconazole nitrate 2 % topical See Rx Instructions .Route .COMPLEX 03/03/22 02/10/23 02/10/23 History cream latanoprost 0.005 % eye drops 1 drp ophthalmic (eye) DAILY 09/17/22 02/10/23 02/09/23 History polyethylene glycol 3350 17 4 g PO DAILY 09/17/22 02/10/23 02/09/23 History gram/dose oral powder (Miralax) sitagliptin phosphate 100 mg 100 mg PO QAM 12/20/22 02/10/23 02/10/23 History tablet (Januvia) acetaminophen 325 mg tablet 325 mg PO QID PRN Pain 02/10/23 02/10/23 02/04/23 History albuterol sulfate 90 mcg/actuation 2 inh inhalation Q6H PRN Shortness 02/10/23 02/10/23 Unknown History aerosol inhaler Of Breath alprazolam 1 mg tablet 4 mg PO DAILY PRN Anxiety 02/10/23 02/10/23 Unknown History bumetanide 2 mg tablet 2 mg PO QAM 02/10/23 02/10/23 02/10/23 History digoxin 125 mcg (0.125 mg) tablet 125 mcg PO EVERY OTHER DAY 02/10/23 02/10/23 02/09/23 History dronedarone 400 mg tablet (Multaq) 400 mg PO QAM 02/10/23 02/10/23 02/10/23 History insulin glargine 100 unit/mL 10 unit SUBCUT QPM 02/10/23 02/10/23 Unknown History subcutaneous solution (Lantus U-100 Insulin) isosorbide mononitrate 30 mg 30 mg PO QAM 02/10/23 02/10/23 02/10/23 History tablet,extended release 24 hr loratadine 10 mg tablet 10 mg PO DAILY 02/10/23 02/10/23 02/10/23 History magnesium hydroxide 400 mg/5 mL See Rx Instructions .Route .COMPLEX 02/10/23 02/10/23 Unknown History oral suspension (Milk of Magnesia) multivitamin,tx-minerals 1 tab PO QAM 02/10/23 02/10/23 02/10/23 History nitroglycerin 0.4 mg sublingual See Rx Instructions .Route .COMPLEX 02/10/23 02/10/23 Unknown History tablet oxycodone 10 mg tablet 10 mg PO Q6H PRN Pain 02/10/23 02/10/23 02/09/23 History sodium chloride 0.9 % (flush) 5 ml IV Q12H 02/10/23 02/10/23 02/09/23 History (Normal Saline Flush 0.9 % injection syringe) sodium phosphates 19 gram-7 See Rx Instructions .Route 02/10/23 02/10/23 Unknown History gram/118 mL enema (Fleet Enema) .COMPLEX PRN Constipation spironolactone 25 mg tablet 25 mg PO QAM 02/10/23 02/10/23 02/10/23 History Allergies Allergy/AdvReac Type Severity Reaction Status Date / Time Tetanus Vaccines and Toxoid Allergy Mild Unknown Verified 09/17/22 10:16 metformin [From Glucophage] Allergy Unknown Unknown Verified 09/17/22 10:16 cimetidine Allergy Unknown Verified 09/17/22 10:16 Current Medications Generic Name Dose Route Start Last Admin Trade Name Freq PRN Reason Stop Dose Admin Sodium Chloride 1,000 mls @ 100 mls/hr 02/10/23 23:30 02/11/23 11:57 Sodium Chloride 0.9% IV 999 mls/hr .Q10H FREYA Administration Levothyroxine Sodium 200 mcg 02/11/23 10:15 02/11/23 10:23 Levothyroxine 200 Mcg Tablet PO 200 mcg DAILY FREYA Administration PFSH Acute PFSH: Medical History Anticoagulation adequate with anticoagulant therapy Atrial fibrillation CKD (chronic kidney disease) stage 2, GFR 60-89 ml/min Coronary artery disease Dementia Hypertension Hypothyroid Infected abrasion of groin 2018) infection requiring I&D 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 Morbid obesity Pacemaker Peripheral vascular disease Type 2 diabetes mellitus Surgical History H/O knee surgery H/O shoulder surgery H/O thyroidectomy For Graves' disease H/O: hysterectomy History of appendectomy History of permanent cardiac pacemaker placement SSS S/P cholecystectomy S/P gastric surgery LAP-BAND later followed by gastric sleeve Family History Other CAD (coronary artery disease) Dementia Stroke Social History Smoking and tobacco/nicotine status: never used tobacco/nicotine Alcohol intake: never Substance/Drug Use: never Lives independently: Yes Housing: House Marital status: / Current occupational status: retired Vitals/I&O/Wt Last Vital Signs Temp 97.6 F 02/10/23 15:48 Pulse 107 H 02/11/23 10:28 Resp 16 11/02/23 10:28 BP 135/77 02/11/23 10:28 Pulse Ox 100 02/11/23 10:28 O2 Del Method Room Air 02/11/23 10:28 02/10/23 02/11/23 02/11/23 22:59 06:59 14:59 Intake Total 1000 / 1000 1999 Balance 1000 / 999 Weight last 48 hrs Weight 113.852 kg Physical Exam Narrative: General exam is a White female in no distress, able to carry on a conversation but appears somewhat forgetful. HEENT: Atraumatic and normocephalic. Oropharynx clear Neck is supple no lymphadenopathy thyromegaly Cardiovascular irregular, irregular with slightly accelerated rate Lungs clear no wheezing or crackles Abdomen is soft. Positive bowel sounds exams deferred Extremities no cyanosis or clubbing. Right knee demonstrates a suture line with no evidence of drainage. Right upper extremity does appear severely swollen. She does have some peripheral edema in her lower extremities as well. Skin see findings above Neuro no focal deficits Data 02/11/23 08:32 02/11/23 08:32 Other Labs: Digoxin level is 1.3 Urinalysis has 5-10 reds, 10-15 whites, 5-10 squamous CRP is 16.7 LFTs are normal Lactic acid is 2.1 and 1.9 respectively Venous duplex demonstrates an occlusive clot right upper extremity extending from radial and ulnar vein to the subclavian vein. Clot is also noted in the brachial and axillary veins. Jugular vein is patent. Basilic and cephalic are also clotted. Venous duplex right lower extremity demonstrates a thrombus in the right GSV extending to mid thigh Knee x-ray demonstrates interval placement of constrained knee implant. I reviewed this in detail EKG which I reviewed demonstrates atrial fibrillation, normal axis, PVC, nonspecific ST-T wave flattening similar to previous EKGs Micro: Microbiology 02/11/23 08:32 Blood Culture - Preliminary Blood SPECIMEN COLLECTED 02/11/23 08: Blood Culture - Preliminary Blood SPECIMEN COLLECTED A&P Assessment and plan (1) DVT (deep venous thrombosis): Patient with his extensive clot right upper extremity as well as DVT right lower extremity. Initiate heparin drip Cannot completely rule out infective thrombophlebitis Will need to remove PICC line (2) Acute kidney insufficiency: Place Sim Initiate continued hydration Close follow-up of renal dysfunction If does not improve consider further testing including ultrasound (3) Metabolic acidosis: Patient with acute metabolic acidosis, presumably secondary to renal failure Hydrate with isotonic fluid Close follow-up of electrolytes (4) Leukocytosis: Leukocytosis is noted. She does not have any fever. She recently came off IV antibiotics With her recent infection, IV antibiotics, elevated white count and inflammatory markers cannot completely rule out infectious thrombophlebitis. Secondary to this meropenem will be initiated along with vancomycin. (5) Elevated digoxin level: Hold digoxin in the face of worsening renal function (6) Type 2 diabetes mellitus: Hold oral diabetic medication Sliding scale insulin Qualifiers: Diabetes mellitus buttermaker continuous churn insulin use: without buttermaker continuous churn use Diabetes mellitus complication status: with kidney complications (7) Atrial fibrillation: At this point would continue her metoprolol 25 mg twice daily as well as dronedarone. Hold digoxin secondary to elevated level Continue to monitor on telemetry Qualifiers: Atrial fibrillation type: permanent Qualified Code(s): I48.21 - Permanent atrial fibrillation Plan Other medical problems as outlined in past medical history Thank you for this consultation Consult Attestations Medical Necessity Statement: Not applicable Diagnoses DVT (deep venous thrombosis) I82.409 Acute kidney insufficiency N28.9 Metabolic acidosis E87.20 Leukocytosis D72.829 Elevated digoxin level R78.89 Type 2 diabetes mellitus E11.9 Diabetes mellitus buttermaker continuous churn insulin use: without buttermaker continuous churn use Diabetes mellitus complication status: with kidney complications Atrial fibrillation I48.21 Atrial fibrillation type: permanent Time Spent (min) 61
[2023-02-11 13:28] LABS: Creatine Phosphokinase 21 U/L (26-192)
[2023-02-11] MEDS: heparin drip 25,000 UNIT/500 ML PREMIX 32 UNIT IV (13:53)
[2023-02-11] MEDS: heparin 5,000 unit/mL INJ 1 mL IV (13:56)
[2023-02-11] MEDS: meropenem 500 MG in sodium chloride 0.9% (plus) 50 ML 100 MG IV (14:01)
[2023-02-11] MEDS: vancomycin 1,000 MG in sodium chloride 0.9% 250 ML 250 MG IV (16:06)
--- NOTE | 2023-02-11 17:49 | DCPLANNER ---
Called [facility] at [address] advised 1 more female to be discharged and then they will get a bed for this patient.
[2023-02-11 18:13] LABS: Glucose Point of Care 184 mg/dL (70-110)
[2023-02-11] MEDS: insulin lispro 100 unit/1 mL SUBCUT (18:41)
--- NOTE | 2023-02-11 19:47 | PC.PHAR ---
[id number] vancomycin: Pt admit MRSA after Knee replacement. High Trough requested. Patient age, ht, wt, renal require adjusted dosing. Begin at 1,000mg q48h should put levels in requested range. Will monitor renal function and adjust as necessary. First trough before 02/15 @ 1300.
[2023-02-11 20:41] LABS: Partial Thromboplastin Time 188.6 SECONDS (23.9-36.7)
[2023-02-13 10:26] LABS: Bacillus cereus group Not Detected (NOT DETECT); Bacillus subtillis group Not Detected (NOT DETECT); Corynebacterium Not Detected (NOT DETECT); Cutibacterium acnes (P.acnes) Not Detected (NOT DETECT); Enterococcus Not Detected (NOT DETECT); Enterococcus faecalis Not Detected (NOT DETECT); Enterococcus faecium Not Detected (NOT DETECT); Lactobacillus species Not Detected (NOT DETECT); Listeria Not Detected (NOT DETECT); Listeria monocytogenes Not Detected (NOT DETECT); Micrococcus Not Detected (NOT DETECT); Pan Candida Not Detected (NOT DETECT); Pan Gram-Negative Not Detected (NOT DETECT); Staphylococcus epidermidis Detected (NOT DETECT); Staphylococcus lugdunensis Not Detected (NOT DETECT); Staphylococcus species Detected (NOT DETECT); Streptococcus agalactiae Not Detected (NOT DETECT); Streptococcus anginosus group Not Detected (NOT DETECT); Streptococcus pneumoniae Not Detected (NOT DETECT); Streptococcus pyogenes Not Detected (NOT DETECT); Streptococcus species Not Detected (NOT DETECT); mecA Detected (NOT DETECT); mecC Not Detected (NOT DETECT)
== END 2023-02-11 20:41 ==
PROVIDERS: Internal Medicine; Emergency Provider Family Medicine; PCP Family Medicine
DX: N28.9 Disorder of kidney and ureter, unspecified (principal); D72.829 Elevated white blood cell count, unspecified; Z79.4 Long term (current) use of insulin; I82.621 Acute embolism and thrombosis of deep veins of right upper extremity; I82.811 Embolism and thrombosis of superficial veins of right lower extremity; I12.9 Hypertensive chronic kidney disease with stage 1 through stage 4 chronic kidney disease, or unspecified chronic kidney disease; E11.22 Type 2 diabetes mellitus with diabetic chronic kidney disease; N18.2 Chronic kidney disease, stage 2 (mild); I25.10 Atherosclerotic heart disease of native coronary artery without angina pectoris; F03.90 Unspecified dementia, unspecified severity, without behavioral disturbance, psychotic disturbance, mood disturbance, and anxiety; Z95.0 Presence of cardiac pacemaker
CPT/HCPCS: 36415; 36416; 73562; 76882; 80048; 80053; 80162; 81001; 82550; 82962; 83605; 85025; 85730; 86140; 87040; 87077; 87086; 87150; 87186; 87205; 93005; 93971; 96361; 96372; 96374; 96375; 99285; J1644; J1815; J2185; J2270; J3370; J7030; J7050